=== PATIENT | female | born 1960 | race Caucasian/White ===

== ENCOUNTER 2017-12-15 06:43 | Emergency (ER) | payer MEDICAID, SELFPAY ==
[2017-12-15 06:45] VITALS: BP 122/69; PULSE 66; RESP 16; TEMP 36.4; O2SAT 100; BMI 20.9
--- NOTE | 2017-12-15 07:16 | ED.VISSUMM ---
- ER Visit Summary Date of Service: 12/15/17 Chief Complaint: Patient feels like there was a triscuit stuck in her throat. She now feels her throat scratchy but is able to drink water. She does note abdominal pain, no shortness of breath. Physical Examination: Patient does not appear in distress she speaking in full sentences. Lungs are clear abdomen is soft and nontender heart is regular. ENT evaluation is unremarkable with normal soft palate. Emergency Department Course and Treatment: I asked the patient to drink a glass of water she was able to drink it without any problems or regurgitation. Still feels slightly nauseated I will give her Zofran. I reassured her she will be discharged in stable condition Disposition: Discharge stable condition Impression: Esophageal foreign body This note was generated with [employer] dictation software. It may contain incorrect words, spelling, and punctuation that were not noted in review of the chart prior to signing ED Disposition - Plan for ED Patient: Disposition: Home or Assisted Living Chief Complaint: Foreign Body Instructions: ED Foreign Body Esophageal Rslv Prescriptions: Ondansetron [Zofran Odt] 4 mg PO Q8H PRN PRN #5 tab PRN Reason: Nausea Referrals: Rody Gaston DO [Primary Care Provider] - 3-5 Days
[2017-12-15] MEDS: Ondansetron ODT 4 MG Tablet PO (07:39)
== END 2017-12-15 08:32 | disposition home or self-care (01) ==
PROVIDERS: Emergency Provider Emergency Medicine; Family Provider Family Medicine; PCP Family Medicine
DX: T18.128A Food in esophagus causing other injury, initial encounter (principal)
CPT/HCPCS: 99283

== ENCOUNTER 2018-01-17 02:57 | Emergency (ER) | payer MEDICAID, SELFPAY ==
[2018-01-17 02:57] VITALS: BP 135/77; PULSE 60; RESP 14; TEMP 36.3; O2SAT 100; BMI 20.9
--- NOTE | 2018-01-17 03:04 | RAD_ITS ---
HISTORY: PT WITH ABDOMINAL PAIN, AND CONSTIPATION X A COUPLE DAYS. EXAM: KUB COMPARISON: None FINDINGS: XR Abdomen 1 View: Single supine view of the abdomen. The upper abdomen is not visualized. Moderate to large fecal residue. The small bowel was nondistended. No bowel obstruction. Significant obscuration of the left kidney by overlying bowel. Allowing for this, possible 3 mm left renal stone. No right renal calculi. Multiple pelvic phleboliths. No soft tissue mass or organomegaly. RAD/Abdomen Single View IMPRESSION: 1. Possible small left renal stone. 2. Nonobstructive bowel gas pattern. No acute disease seen. 3. Constipation pattern. at 2343 Reported and signed by: Burt Herrera MD Electronically Signed: Burt Herrera, at 3:41 EST Tel , Service support ,
--- NOTE | 2018-01-17 03:52 | ED.DCSUM_ITS ---
- ER Visit Summary Date of Service: 01/17/18 Chief Complaint: Constipation History of Present Illness: The patient is a 57 F presenting per EMS for constipation. She has not had a bowel movement since Monday. She complains of mild diffuse abdominal cramping. She tried Dulcolax at home with no relief. Sh e denies vomiting. Denies fever. Denies other complaints. Physical Examination: Vitals are stable. Patient is afebrile. Alert no acute distress. HEENT exam is unremarkable. Neck is supple. Lungs are clear and equal bilaterally. Heart is regular rate and rhythm. Abdomen is soft nontender nondistended. No rebound or rebound Rectal: No stool impaction Extremities are unremarkable. Skin is warm and dry. Remainder of exam is unremarkable. Emergency Department Course and Treatment: KUB shows possible small left renal stone. Nonobstructive bowel gas pattern. No acute disease seen. Constipation pattern. She was given a soapsuds enema. She initially had a very small bowel movement. Plan was to discharge with mag citrate. Just prior to discharge she had a large bowel movement and feels much improved. She will follow-up with her primary care physician. Advised return to ED for worsening complaints. Disposition: Discharge home Impression: Constipation This note was generated with [employer] dictation software. It may contain incorrect words, spelling, and punctuation that were not noted in review of the chart prior to signing ED Disposition - Plan for ED Patient: Disposition: Home or Assisted Living Chief Complaint: Constipation Instructions: ED Constipation Prescriptions: Docusate Sodium [Colace] 100 mg PO DAILY #20 capsule Referrals: Rody Gaston DO [Primary Care Provider] -
--- NOTE | 2018-01-17 04:23 | ED.DEP ---
ED Disposition - Plan for ED Patient: Chief Complaint: Constipation Instructions: ED Constipation Prescriptions: Docusate Sodium [Colace] 100 mg PO DAILY #20 capsule Referrals: Rody Gaston DO [Primary Care Provider] -
[2018-01-17] MEDS: Magnesium Citrate 300 ML PO (04:57)
[2018-01-17 05:02] VITALS: BP 130/76; PULSE 84; RESP 16; O2SAT 99
--- OUTSIDE RECORDS SUMMARY | 2018-03-05 01:05 | XMS RPT_ITS ---
:1960 Author Organization [facility] Care Team Providers Name Role Phone Rody Gaston Primary Care Unavailable Keara Damon Attending Unavailable Rody Gaston Primary Care Unavailable Mery Esquivel Attending Unavailable Rody Gaston Primary Care Unavailable Michael Be Attending Unavailable PROBLEMS PROBLEMS No Problem Records FoundPROCEDURES PROCEDURES No Procedure Records FoundRESULTS RESULTS EMERGENCY DEPARTMENT Observed: 01/17/2018 Status: F Source: [place] SUMMARY 5:10 PM [facility] [facility] [place] [facility] Medical Records Department [address] [place] [address] Emergency Department Summary 01/17/18 1424 MR#: [id number] Acct: [id number] Name: KEVON CUMMINGS Rep #: [id number] : 1960 57 From: Mery Esquivel MD PCP: Rody Gaston DO Status: DEP ER - ER Visit Summary Date of Service: 01/17/18 Chief Complaint: [] Diarrhea after enema this morning History of Present Illness: The patient is a 57 F [] the patient indicates she had constipation she was seen in the emergency department early this morning around 2 AM had an enema she felt better she went home, once home she passed some's type of reddish material from her rectum that looked like tomato paste or tissue, she then passed normal formed brown stool she became concerned and came in for evaluation. She has had no abdominal pain no chest pain normal urination. She has had prior colonoscopies are unremarkable, she indicates she believes she had the constipation due to the fact that she ate meat and she normally does not eat meat Physical Examination: [] 105/73 73 General, no distress resting comfortably HEENT is generally unremarkable The neck is supple no adenopathy Cardiovascular, regular rate and rhythm Lungs, clear bilateral Abdomen, soft nontender no pain in any part of her body soft and nontender Extremities, no clubbing cyanosis or edema Neurologic, awake alert answering questions appropriately moving all 4 extremities The patient brought a her last voided stool sample and with her the stool was brown and formed no blood Conversation with her I explained we could do testing etc. but given that her stool is brown and soft she is having no abdominal pain it is safe to have her follow-up with her doctor stay in a bland diet and return for change in symptoms and she is comfortable this plan her labs are canceled as she declined Test Results: [] Emergency Department Course and Treatment: [] Treatment Plan: [] Disposition: [] Home stable Impression: [] Diarrhea after enema resolved This note was generated with [employer] dictation software. It may contain incorrect words, spelling, and punctuation that were not noted in review of the chart prior to signing ED Disposition - Plan for ED Patient: Chief Complaint: Diarrhea Referrals: Rody Gaston, [Primary Care Provider] - What to do if you have Problems For any increased pain, shortness of breath, bleeding, nausea or vomiting, chest pain, or any unexpected problems, contact your Primary Care Provider. Call [facility] ([phone]) or report to the closest Emergency Room. Call 911 if necessary. 01/17/18 1710 <Electronically signed by Mery Esquivel MD> Date Mery Esquivel MD Cosigner Signature (If Indicated): Date CC: Rody Gaston DO DISCHARGE INSTRUCTION Observed: 01/17/2018 Status: F Source: [place] 2:27 PM [facility] Medical Records Department [address] [place] [address] Discharge Instruction 01/17/18 1426 MR#: [id number] Acct: [id number] Name: KEVON CUMMINGS Rep #: [id number] : 1960 57 From: Mery Esquivel MD PCP: Rody Gaston DO Status: PRE ER ED Disposition - Plan for ED Patient: Chief Complaint: Diarrhea Instructions: ED Gastroenteritis Vs Food Poison, ED Vomiting Diarrhea Nonspecific Ad Referrals: Rody Gaston, [Primary Care Provider] - What to do if you have Problems For any increased pain, shortness of breath, bleeding, nausea or vomiting, chest pain, or any unexpected problems, contact your Primary Care Provider. Call [facility] ([phone]) or report to the closest Emergency Room. Call 911 if necessary. 01/17/18 142 <Electronically signed by Mery Esquivel MD> Date Mery Esquivel MD Cosigner Signature (If Indicated): Date CC: Rody Gaston DO EMERGENCY DEPARTMENT Observed: 01/17/2018 Status: F Source: [place] SUMMARY 8:17 AM [facility] Medical Records Department [address] [place] [address] Emergency Department Summary 01/17/18 0350 MR#: [id number] Acct: [id number] Name: KEVON CUMMINGS Rep #: [id number] : 1960 57 From: Keara Damon MD PCP: Rody Gaston DO Status: DEP ER - ER Visit Summary Date of Service: 01/17/18 Chief Complaint: Constipation History of Present Illness: The patient is a 57 F presenting per EMS for constipation. She has not had a bowel movement since Monday. She complains of mild diffuse abdominal cramping. She tried Dulcolax at home with no relief. She denies vomiting. Denies fever. Denies other complaints. Physical Examination: Vitals are stable. Patient is afebrile. Alert no acute distress. HEENT exam is unremarkable. Neck is supple. Lungs are clear and equal bilaterally. Heart is regular rate and rhythm. Abdomen is soft nontender nondistended. No rebound or rebound Rectal: No stool impaction Extremities are unremarkable. Skin is warm and dry. Remainder of exam is unremarkable. Emergency Department Course and Treatment: KUB shows possible small left renal stone. Nonobstructive bowel gas pattern. No acute disease seen. Constipation pattern. She was given a soapsuds enema. She initially had a very small bowel movement. Plan was to discharge with mag citrate. Just prior to discharge she had a large bowel movement and feels much improved. She will follow-up with her primary care physician. Advised return to ED for worsening complaints. Disposition: Discharge home Impression: Constipation This note was generated with [employer] dictation software. It may contain incorrect words, spelling, and punctuation that were not noted in review of the chart prior to signing ED Disposition - Plan for ED Patient: Disposition: Home or Assisted Living Chief Complaint: Constipation Instructions: ED Constipation Prescriptions: Docusate Sodium [Colace] 100 mg PO DAILY #20 capsule Referrals: Rody Gaston, DO [Primary Care Provider] - What to do if you have Problems For any increased pain, shortness of breath, bleeding, nausea or vomiting, chest pain, or any unexpected problems, contact your Primary Care Provider. Call [facility] ([phone]) or report to the closest Emergency Room. Call 911 if necessary. 01/17/18 0817 <Electronically signed by Keara Damon MD> Date Keara Damon MD Cosigner Signature (If Indicated): Date CC: Rody Gaston DO DISCHARGE INSTRUCTION Observed: 01/17/2018 Status: F Source: [place] 4:23 AM [facility] [place] Medical Records Department [address] [place] [address] Discharge Instruction 01/17/18422 MR#: [id number] Acct: [id number] Name: KEVON CUMMINGS Rep #: [id number] : 1960 57 From: Keara Damon MD PCP: Rody Gaston DO Status: REG ER ED Disposition - Plan for ED Patient: Chief Complaint: Constipation Instructions: ED Constipation Prescriptions: Docusate Sodium [Colace] 100 mg PO DAILY #20 capsule Referrals: Rody Gaston DO [Primary Care Provider] - What to do if you have Problems For any increased pain, shortness of breath, bleeding, nausea or vomiting, chest pain, or any unexpected problems, contact your Primary Care Provider. Call [facility] ([phone]) or report to the closest Emergency Room. Call 911 if necessary. 01/17/18422 <Electronically signed by Keara Damon MD> Date Keara Damon MD Cosigner Signature (If Indicated): Date CC: Rody Gaston DO ABDOMEN SINGLE VIEW Observed: 01/17/2018 Status: F Source: [place] 3:04 AM [facility] [place] [facility] Imaging Services [address] [place] [address] Abdomen Single View MR#: [id number] Acct: [id number] Name: KEVON CUMMINGS Rep #: [id number] : 1960 F 57 From: Burt Herrera MD PCP: Rody Gaston DO Status: REG ER Study: Abdomen Single View Date of Exam: 01/17/18 Exam# [id number] Ordering Dr: Keara Damon MD HISTORY: PT WITH ABDOMINAL PAIN, AND CONSTIPATION X A COUPLE DAYS. EXAM: KUB COMPARISON: None FINDINGS: XR Abdomen 1 View: Single supine view of the abdomen. The upper abdomen is not visualized. Moderate to large fecal residue. The small bowel was nondistended. No bowel obstruction. Significant obscuration of the left kidney by overlying bowel. Allowing for this, possible 3 mm left renal stone. No right renal calculi. Multiple pelvic phleboliths. No soft tissue mass or organomegaly. RAD/Abdomen Single View IMPRESSION: 1. Possible small left renal stone. 2. Nonobstructive bowel gas pattern. No acute disease seen. 3. Constipation pattern. at 0343 Reported and signed by: Burt Herrera MD Electronically Signed: Burt Herrera, at 3:41 EST Tel , Service support , CC: Keara Damon MD; Rody Gaston DO [employer] Chaser: Signed EMERGENCY DEPARTMENT Observed: 12/15/2017 Status: F Source: [place] SUMMARY 7:21 AM [facility] [place] [facility] Medical Records Department [address] [place] [address] Emergency Department Summary 12/15/17 0716 MR#: [id number] Acct: [id number] Name: KEVON CUMMINGS Rep #: [id number] : 1960 57 From: Michael Be MD PCP: Rody Gaston DO Status: REG ER - ER Visit Summary Date of Service: 12/15/17 Chief Complaint: Patient feels like there was a triscuit stuck in her throat. She now feels her throat scratchy but is able to drink water. She does note abdominal pain, no shortness of breath. Physical Examination: Patient does not appear in distress she speaking in full sentences. Lungs are clear abdomen is soft and nontender heart is regular. ENT evaluation is unremarkable with normal soft palate. Emergency Department Course and Treatment: I asked the patient to drink a glass of water she was able to drink it without any problems or regurgitation. Still feels slightly nauseated I will give her Zofran. I reassured her she will be discharged in stable condition Disposition: Discharge stable condition Impression: Esophageal foreign body This note was generated with [employer] software. It may contain incorrect words, spelling, and punctuation that were not noted in review of the chart prior to signing ED Disposition - Plan for ED Patient: Disposition: Home or Assisted Living Chief Complaint: Foreign Body Instructions: ED Foreign Body Esophageal Rslv Prescriptions: Ondansetron [Zofran Odt] 4 mg PO Q8H PRN PRN #5 tab PRN Reason: Nausea Referrals: Rody Gaston, [Primary Care Provider] - 3-5 Days What to do if you have Problems For any increased pain, shortness of breath, bleeding, nausea or vomiting, chest pain, or any unexpected problems, contact your Primary Care Provider. Call [facility] ([phone]) or report to the closest Emergency Room. Call 911 if necessary. 12/15/17 07 <Electronically signed by Michael Be MD> Date Michael Be MD Cosigner Signature (If Indicated): Date CC: Rody Gaston DO ALLERGIES ALLERGIES DATE TYPE / NAME / CODE REACTION SEVERITY SOURCE CODE 01/17/2018 Drug nitrofurantoin Unknown Unknown [place] Allergy/41 macrocrystalline/F00 [facility] [id number]( [id number](RXNORM) [facility]) Repository 01/17/2018 Drug Penicillins/[id number] Rash Unknown [place] Allergy/41 76(RXNORM) Community [id number]([facility]) Repository 01/17/2018 Drug codeine/[id number](R Hives Unknown [place] Allergy/41 XNORM) Community [id number]([facility]) Repository 01/17/2018 Drug nitrofurantoin/F0060 Unknown Unknown [place] Allergy/41 37584(RXNORM) [facility] [id number]([facility]) Repository ENCOUNTERS ENCOUNTERS ADMIT/DISCHARGE ACCOUNT ADMITTING ENCOUNTER LOCATION SOURCE NUMBER CLASS 01/17/2018/ [id number] Emergency [place] ing:ED Repository 01/17/2018/ [id number] Emergency [address] ing:ED Repository 12/15/2017/ [id number] Emergency [address] ing:ED Repository PAYERS PAYERS ENCOUNTER GUARANTOR PAYER SUBSCRIBER SOURCE 01/17/2018 MESHI M Primary MESHI M [place] [id number] Insurance:[employer] FISHERDOB: Community [address] PLNPolicy Number: Repository [id number]: 330 [id number] [phone] () Date:[id number] [address]ML: 01/17/2018 Secondary NOT GIVENUNK [place] Insurance:SELF PAY [facility] Number: Effective Repository Date:2018-01-17 01/17/2018 MESHI M Primary MESHI M [place] [id number] Insurance:[employer]HE[place] FISHERDOB: Community [address] PLNPolicy Number: Repository [id number]: 330 [id number] [phone] () Date:[id number] [address] [address]XO: 01/17/2018 Secondary NOT GIVENUNK [place] Insurance:SELF PAY [facility] Number: Effective Repository Date:2018-01-17 12/15/2017 MESHI M Primary MESHI M [place] [id number] Insurance:UNITEDHEALT FISHERDOB: Community [address] PLNPolicy Number: Repository [id number]: 330 [id number] [phone] () Date:[id number] [address] [address]TK: 12/15/2017 Secondary NOT GIVENUNK [place] Insurance:SELF PAY [facility] Number: Effective Repository Date:2017-12-15
== END 2018-01-17 05:03 | disposition home or self-care (01) ==
LOC: ED 03:28
PROVIDERS: Emergency Provider Emergency Medicine; Family Provider Family Medicine; PCP Family Medicine
DX: K59.00 Constipation, unspecified (principal); R19.7 Diarrhea, unspecified
CPT/HCPCS: 74018; 99282; 99285

== ENCOUNTER 2018-01-17 13:58 | Emergency (ER) | payer MEDICAID, SELFPAY ==
[2018-01-17 02:57] VITALS: BMI 20.9
[2018-01-17 13:59] VITALS: BP 105/73; PULSE 73; RESP 16; TEMP 36.3; O2SAT 99; BMI 20.9
--- NOTE | 2018-01-17 14:26 | ED.DCSUM_ITS ---
- ER Visit Summary Date of Service: 01/17/18 Chief Complaint: [] Diarrhea after enema this morning History of Present Illness: The patient is a 57 F [] the patient indicates she had constipation she was seen in the emergency department early this morning around 2 AM had an enema she felt better she went home, once home she passed some's type of reddish material from her rectum that looked like tomato paste or tissue, she then passed normal formed brown stool she became concerned and came in for evaluation. She has had no abdominal pain no chest pain normal urination. She has had prior colonoscopies are unremarkable, she indicates she believes she had the constipation due to the fact that she ate meat and she normally does not eat meat Physical Examination: [] 105/73 73 General, no distress resting comfortably HEENT is generally unremarkable The neck is supple no adenopathy Cardiovascular, regular rate and rhythm Lungs, clear bilateral Abdomen, soft nontender no pain in any part of her body soft and nontender Extremities, no clubbing cyanosis or edema Neurologic, awake alert answering questions appropriately moving all 4 extremities The patient brought a her last voided stool sample and with her the stool was brown and formed no blood Conversation with her I explained we could do testing etc. but given that her stool is brown and soft she is having no abdominal pain it is safe to have her follow-up with her doctor stay in a bland diet and return for change in symptoms and she is comfortable this plan her labs are canceled as she declined Test Results: [] Emergency Department Course and Treatment: [] Treatment Plan: [] Disposition: [] Home stable Impression: [] Diarrhea after enema resolved This note was generated with [employer] dictation software. It may contain incorrect words, spelling, and punctuation that were not noted in review of the chart prior to signing ED Disposition - Plan for ED Patient: Chief Complaint: Diarrhea Referrals: Rody Gaston DO [Primary Care Provider] -
--- NOTE | 2018-01-17 14:26 | ED.DEP ---
ED Disposition - Plan for ED Patient: Chief Complaint: Diarrhea Instructions: ED Gastroenteritis Vs Food Poison, ED Vomiting Diarrhea Nonspecific Ad Referrals: Rody Gaston DO [Primary Care Provider] -
[2018-01-17 15:01] VITALS: PULSE 75; RESP 16; O2SAT 97
--- NOTE | 2018-01-17 15:04 | ED.RN ---
orders placed by dr prior to eval. after eval informed me that the orders are no appropriate. per dr orders are to be cancelled. informed me that he would cancel them. I cancelled them prior to d/c. azam vergara rn 1500
--- OUTSIDE RECORDS SUMMARY | 2018-03-05 19:45 | XMS RPT_ITS ---
:1960 Author Organization OH[facility] Care Team Providers Name Role Phone Rody Gaston Primary Care Unavailable Keara Damon Attending Unavailable Rody Gaston Primary Care Unavailable Mery Esquivel Attending Unavailable Rody Gaston Primary Care Unavailable Michael Be Attending Unavailable PROBLEMS PROBLEMS No Problem Records FoundPROCEDURES PROCEDURES No Procedure Records FoundRESULTS RESULTS EMERGENCY DEPARTMENT Observed: 01/17/2018 Status: F Source: [place] SUMMARY 5:10 PM [facility] REPOSITORY [facility] Medical Records Department [address] [place] [address] Emergency Department Summary 01/17/18 1424 MR#: [id number] Acct: [id number] Name: KEVON CUMMINGS Rep #: [id number] : 1960 57 From: Mery Esquivel MD [...] enema resolved This note was generated with Carnival dictation software. It may contain incorrect words, [...] your Primary Care Provider. Call [facility] ([phone]) or report to the closest Emergency Room. Call 911 if necessary. 01/17/18 1710 <Electronically signed by Mery Esquivel MD> Date Mery Esquivel MD Cosigner Signature (If Indicated): Date CC: Rody aGston DO DISCHARGE INSTRUCTION Observed: 01/17/2018 Status: F Source: [place] 2:27 PM [facility] Medical Records Department [address] [place] [address] Discharge Instruction 01/17/18 1426 MR#: [id number] Acct: [id number] Name: KEVON CUMMINGS Rep #: [id number] : 1960 57 From: Mery Esquivel MD [...] your Primary Care Provider. Call [facility] ([phone]) or report to the closest Emergency Room. Call 911 if necessary. 01/17/18 142 <Electronically signed by Mery Esquivel MD> Date Mery Esquivel MD Cosigner Signature (If Indicated): Date CC: Rody Gaston DO EMERGENCY DEPARTMENT Observed: 01/17/2018 Status: F Source: [place] SUMMARY 8:17 AM [facility] Medical Records Department [address] [place] [address] Emergency Department Summary 01/17/18 0350 MR#: [id number] Acct: [id number] Name: KEVON CUMMINGS Rep #: [id number] : 1960 57 From: Keara Damon MD [...] Impression: Constipation This note was generated with Carnival dictation software. It may contain incorrect words, [...] your Primary Care Provider. Call [facility] ([phone]) or report to the closest Emergency Room. Call 911 if necessary. 01/17/18 0817 <Electronically signed by Keara Damon MD> Date Keara Damon MD Cosigner Signature (If Indicated): Date CC: Rody Gaston DO DISCHARGE INSTRUCTION Observed: 01/17/2018 Status: F Source: [place] 4:23 AM [facility] REPOSITORY [facility] Medical Records Department [address] [place] [address] Discharge Instruction 01/17/18422 MR#: [id number] Acct: [id number] Name: KEVON CUMMINGS Rep #: [id number] : 1960 57 From: Keara Damon MD [...] your Primary Care Provider. Call [facility] ([phone]) or report to the closest Emergency Room. Call 911 if necessary. 01/17/18422 <Electronically signed by Keara Damon MD> Date Keara Damon MD Cosigner Signature (If Indicated): Date CC: Rody Gaston DO ABDOMEN SINGLE VIEW Observed: 01/17/2018 Status: F Source: [place] 3:04 AM [facility] REPOSITORY [facility] Imaging Services [address] [place] [address] Abdomen Single View MR#: [id number] Acct: [id number] Name: KEVON CUMMINGS Rep #: [id number] : 1960 F 57 From: Burt Herrera MD PCP: Rody Gaston DO Status: REG ER Study: Abdomen Single View Date of Exam: 01/17/18 Exam# [id number] Ordering Dr: Keara Damon MD HISTORY: PT [...] CC: Keara Damon MD; Rody Gaston DO Radiation Oncologist: Signed EMERGENCY DEPARTMENT Observed: 12/15/2017 Status: F Source: [place] SUMMARY 7:21 AM [facility] REPOSITORY [facility] Medical Records Department [address] [place] [address] Emergency Department Summary 12/15/17 0716 MR#: [id number] Acct: [id number] Name: KEVON CUMMINGS Rep #: [id number] : 1960 57 From: Michael Be MD [...] foreign body This note was generated with Quorum Systemsation software. It may contain incorrect words, spelling, [...] your Primary Care Provider. Call [facility] ([phone]) or report to the closest Emergency Room. Call 911 if necessary. 12/15/17 07 <Electronically signed by Michael Be MD> Date Michael Be MD Cosigner Signature (If Indicated): Date CC: Rody Gaston DO ALLERGIES ALLERGIES DATE TYPE / NAME / CODE REACTION SEVERITY SOURCE CODE 01/17/2018 Drug nitrofurantoin Unknown Unknown [place] Allergy/41 macrocrystalline/F00 [facility] [id number]( [id number](RXNORM) [facility]) Repository 01/17/2018 Drug Penicillins/[id number] Rash Unknown [place] Allergy/41 76(RXNORM) Community [id number]([facility]) Repository 01/17/2018 Drug codeine/[id number](R Hives Unknown [place] Allergy/41 XNORM) Community [id number]([facility]) Repository 01/17/2018 Drug nitrofurantoin/F0060 Unknown Unknown [place] Allergy/41 32530(RXNORM) [facility] [id number]([facility]) Repository ENCOUNTERS ENCOUNTERS ADMIT/DISCHARGE ACCOUNT ADMITTING ENCOUNTER LOCATION SOURCE NUMBER CLASS 01/17/2018/ [id number] Emergency [place] ing:ED Repository 01/17/2018/ [id number] Emergency [address] ing:ED Repository 12/15/2017/ [id number] Emergency [address] ing:ED Repository PAYERS PAYERS ENCOUNTER GUARANTOR PAYER SUBSCRIBER SOURCE 01/17/2018 MESHI M Primary MESHI M [place] [id number] Insurance:UNITEDHEALT FISHERDOB: Community [address] PLNPolicy Number: Repository [id number]: 330 [id number] [phone] () Date:[id number] [address]VW: 01/17/2018 Secondary NOT GIVENUNK [place] Insurance:SELF PAY [facility] Number: Effective Repository Date:2018-01-17 01/17/2018 MESHI M Primary MESHI M [place] [id number] Insurance:UNITEDHEALT FISHERDOB: Community [address] PLNPolicy Number: Repository [id number]: 330 [id number] [phone] () Date:[id number] [address] [address]YY: 01/17/2018 Secondary NOT GIVENUNK [place] Insurance:SELF PAY [facility] Number: Effective Repository Date:2018-01-17 12/15/2017 MESHI M Primary MESHI M [place] [id number] Insurance:UNITEDHEALT FISHERDOB: Community [address] PLNPolicy Number: Repository [id number]: 330 [id number] [phone] () Date:[id number] [address] [address]VP: 12/15/2017 Secondary NOT GIVENUNK [place] Insurance:SELF PAY [facility] Number: Effective Repository Date:2017-12-15
== END 2018-01-17 15:03 | disposition home or self-care (01) ==
LOC: ED 14:41
PROVIDERS: Emergency Provider Emergency Medicine; Family Provider Family Medicine; PCP Family Medicine
DX: R19.7 Diarrhea, unspecified (principal)
CPT/HCPCS: 99282

== ENCOUNTER 2018-06-21 23:54 | Emergency (ER) | payer MEDICAID, SELFPAY ==
[2018-06-21 23:55] VITALS: BP 115/73; PULSE 74; RESP 16; TEMP 36.6; O2SAT 99; BMI 20.9
--- NOTE | 2018-06-22 00:22 | CT_ITS ---
HISTORY: INTERMITTENT SHARP/STABBING PAIN RT SIDE OF HEADHX:SKIN CANCER,MIGRAINES EXAMINATION: CTA Head WO/W Contrast TECHNIQUE: Routine wrangell of Hernandez/brain CT angiogram protocol was performed following IV contrast. 3D reconstructions were reviewed. A radiation dose optimization technique was used for this scan. IV Contrast dosage and agent: 100ML Isovue 370 COMPARISON: Noncontrast cranial CT 08/23/2016 FINDINGS: Cranial CT scanning without and with contrast. Initial noncontrast exam appears stable compared to 2017 exam. Normal ventricles and normal hickman-white matter differentiation. No intracranial mass, hemorrhage, or acute, no abnormality. Posterior fossa structures are unremarkable. No suspicious extra-axial fluid collection. As visualized, the mastoids and paranasal sinuses are clear. CTA exam: Normal patency of the vertebrobasilar system. The left vertebral artery is dominant. The right vertebral shows developmental change with a small caliber V3 segment and atretic V4 segment. The left posterior cerebral artery originates from the basilar artery. On the right, circulation and the right posterior cerebral artery fills via the anterior circulation. Normal contrast opacification and filling of the anterior, middle, and posterior cerebral arteries bilaterally. No intracranial aneurysm, suspicious vessel narrowing, or vascular malformation. CT/CTA Head W/WO Contrast IMPRESSION: 1. Normal CT brain without and with contrast. 2. Normal CTA brain and wrangell of Hernandez. No aneurysm or other significant findings. Individualized dose optimization techniques were used for this CT. at 0120 Reported and signed by: Burt Herrera MD Electronically Signed: Burt Herrera, at 1:18 EDT Tel , Service support ,
--- NOTE | 2018-06-22 00:22 | RAD_ITS ---
HISTORY: Cough EXAM:XR Chest 2 Views COMPARISON: 01/14/2017 and 04/30/2016 FINDINGS: No significant change. Normal heart size. Bilateral hyperinflation/COPD. Stable biapical mild pleural thickening. No vascular congestion, pleural effusion, or acute pulmonary infiltration. No pneumothorax. Mild pectus excavatum deformity. RAD/Chest PA and Lateral IMPRESSION: 1. No acute disease or significant change. 2. COPD. 3. Pectus deformity. at 0124 Reported and signed by: Burt Herrera MD Electronically Signed: Burt Herrera, at 1:23 EDT Tel , Service support ,
--- NOTE | 2018-06-22 00:22 | EKG12_ITS ---
Test Reason : NECK/SHOULDER PAIN Blood Pressure : / mmHG Vent. Rate : 059 BPM Atrial Rate : 059 BPM P-R Int : 140 ms QRS Dur : 092 ms QT Int : 444 ms P-R-T Axes : 033 056 062 degrees QTc Int : 439 ms Sinus bradycardia Otherwise normal ECG Confirmed by KIRA GRAJEDA, REYNALDO ([id number]), scientific publications editor GUS REEVES ([id number]) on 06/25/2018 4:24:11 PM Referred By: KAROL Confirmed By:REYNALDO MALONE MD
--- NOTE | 2018-06-22 00:23 | ED.VISSUMM ---
- ER Visit Summary Date of Service: 06/22/18 Chief Complaint: Headache History of Present Illness: The patient is a 57 F who presents with head pain. This is been occurring over the last 12 hours. She has intermittent episodes of shooting stabbing pain in the right parietal region that can last a minute or less. She is also had some pain along her right neck as well as tingling in her right third and fourth digits. No nausea vomiting light sensitivity visual changes. She had some chest pain yesterday which has since resolved. No shortness of breath. No fevers. No history of prior similar symptoms. Physical Examination: Afebrile vitals normal Patient does have some right paraspinal neck tenderness no midline tenderness Pupils are equally round reactive to light Heart regular rate and rhythm Lungs clear Abdomen soft Test Results: CBC BMP unremarkable. Troponin negative. EKG shows sinus bradycardia at a rate of 59. CT the head is normal. CT of the head is normal. Chest x-ray is normal. Emergency Department Course and Treatment: Patient's work-up as above is unremarkable. Her scalp pain sounds like it could be related to a neuralgia however this would not explain her other symptoms. Her tingling in her fingers and neck pain could potentially be related to cervical radiculopathy. Her chest pain does not appear to be due to any serious life-threatening process. Patient advised to follow-up as an outpatient. I do not believe any further emergent intervention or work-up is necessary at this time. Treatment Plan: [] Disposition: Discharge Impression: Headache Paresthesias Chest pain This note was generated with Loladex dictation software. It may contain incorrect words, spelling, and punctuation that were not noted in review of the chart prior to signing ED Disposition - Plan for ED Patient: Referrals: Rody Gaston DO [Primary Care Provider] -
[2018-06-22 00:44] LABS: Absolute Lymphocyte Count 1.22 X10^3/ul (0.83-4.51); Absolute Neutrophil Count 1.9 X10^3/uL (2.0-7.7); Basophil# 0.01 X10^3/uL; Basophil% 0.3 % (0-1); Eosinophil# 0.14 X10^3/uL; Eosinophils% 3.9 % (0-5); Hematocrit 42.9 % (37-47); Hemoglobin 14.2 g/dl (12.0-15.0); Lymphocyte # 1.22 X10^3/ul (4.0); Lymphocyte % 34.3 % (19-41); Mean Corp Hgb Conc 33.1 g/gl (32-36); Mean Corpuscular Hgb 32.5 pg (27.0-32.0); Mean Corpuscular Volume 98.2 fL (81-99); Mean Platelet Vol. 9.4 fl (6.2-12.0); Monocyte# 0.32 X10^3/uL; Neutrophil # 1.87 X10^3/uL (2.7-7.7); Neutrophil % 52.5 % (47-70); Platelet Count 216 K/mm3 (150-450); RBC Distribution Width CV 12.2 % (11.6-14.6); RBC Distribution Width SD 43.2 fl (35.1-43.9); Red Blood Count 4.37 M/mm3 (4.2-5.4); White Blood Count 3.6 K/mm3 (4.4-11.0)
[2018-06-22 00:47] LABS: POSITIVE COUNT NO; POSITIVE DIFFERENTIAL NO; POSITIVE MORPHOLOGY NO
[2018-06-22 01:16] LABS: Anion Gap 8 (5-15); BUN 12 mg/dL (7-18); BUN/Creat Ratio 14.5 RATIO (10-20); Calcium,Total 9.1 mg/dL (8.5-10.1); Chloride 103 mmol/L (98-107); Creatinine, Serum 0.83 mg/dL (0.55-1.02); EST Glomerular Filtration Rate 76 mL/min (>60); Est Glom Filt Rate - Afr Amer 92 mL/min (>60); Estimated Creatinine Clearance 71.29 ml/min; Glucose 87 mg/dL (74-106); Potassium 3.6 mmol/L (3.5-5.1); Sodium Level 139 mmol/L (136-145)
--- NOTE | 2018-06-22 01:42 | ED.DEP ---
ED Disposition - Plan for ED Patient: Instructions: ED Cephalgia Unspecified, ED Paraesthesias Referrals: Rody Gaston DO [Primary Care Provider] -
[2018-06-22 01:57] VITALS: RESP 14
== END 2018-06-22 01:58 | disposition home or self-care (01) ==
LOC: ED 06-22 00:17
PROVIDERS: Emergency Provider Emergency Medicine; Family Provider Family Medicine; PCP Family Medicine
DX: R51 Headache (principal); R07.9 Chest pain, unspecified; R20.2 Paresthesia of skin
CPT/HCPCS: 70496; 71046; 80048; 84484; 85025; 93005; 99282; Q9967; A4216

== ENCOUNTER 2018-07-13 10:39 | Emergency (ER) | payer MEDICAID, SELFPAY ==
[2018-07-13 10:40] VITALS: BP 114/64; PULSE 64; RESP 15; TEMP 36.6; O2SAT 100; BMI 21.8
--- NOTE | 2018-07-13 10:52 | EKG12_ITS ---
Test Reason : PALPS Blood Pressure : / mmHG Vent. Rate : 061 BPM Atrial Rate : 061 BPM P-R Int : 134 ms QRS Dur : 086 ms QT Int : 424 ms P-R-T Axes : 024 049 065 degrees QTc Int : 426 ms Normal sinus rhythm Normal ECG Confirmed by KARINE GRAJEDA, YENNIFER ([id number]), editor magazine IRENE ADDISON ([id number]) on 07/17/2018 8:47:39 AM Referred By: DANNA Confirmed By:YENNIFER MILTON MD
[2018-07-13 11:37] LABS: Anion Gap 3 (5-15); BUN 9 mg/dL (7-18); BUN/Creat Ratio 10.5 RATIO (10-20); Calcium,Total 9.2 mg/dL (8.5-10.1); Chloride 106 mmol/L (98-107); Creatinine, Serum 0.85 mg/dL (0.55-1.02); EST Glomerular Filtration Rate 73 mL/min (>60); Est Glom Filt Rate - Afr Amer 89 mL/min (>60); Estimated Creatinine Clearance 69.18 ml/min; Glucose 93 mg/dL (74-106); Potassium 3.7 mmol/L (3.5-5.1); Sodium Level 138 mmol/L (136-145)
[2018-07-13 11:40] VITALS: BP 108/68; PULSE 61; RESP 12; O2SAT 100
--- NOTE | 2018-07-13 12:02 | ED.DCSUM_ITS ---
History of Present Illness Chief Complaint: Palpitations Informant: Patient Onset: Today Context: Sudden Onset Timing: Intermittent Quality: Fluttering Location: Chest Current Severity: - Maximum Severity: Moderate Worsened by: Nothing Relieved by: Nothing Associated Symptoms: No associated symptoms Narrative: Patient is a middle-aged woman with no sniffing past medical history presents with fluttering her chest that is intermittent since this morning. She did not check her pulse. She denied chest pain, shortness of breath or difficulty breathing. She denied leg pain, swelling or discoloration. She denies history of PE, DVT or any risk factors. She is presently on no medication. She has not been taking herbal supplements. She has no symptoms of hypo-or hyperthyroidism. Prior similar symptoms: No Recent Illness/Hospitalization: No - Past Medical History (1) Anxiety disorder Status: Chronic (2) Migraine headache with aura Status: Chronic Past Medical History - Allergies and Home Meds Allergies/Adverse Reactions: Allergies codeine Allergy (Verified 07/13/18 10:43) Hives nitrofurantoin [From Macrobid] Allergy (Verified 07/13/18 10:43) Unknown nitrofurantoin macrocrystalline [From Macrobid] Allergy (Verified 07/13/18 10:43) Unknown Penicillins Allergy (Verified 07/13/18 10:43) Rash Primary Care Physician: Rody Gaston DO [Primary Care Provider] - Prior records reviewed: Yes Surgical History: noncontributory, - - Cholecystectomy Lives: Alone Smoking Status: Never smoker Drugs: None - Family History Maternal Family History: Reports: Unknown Review of Systems General: Denies: Chills, Fever, Malaise, Sweats, Weight loss Eyes: Denies: Visual changes - bilaterally, Blurred Vision - bilaterally ENT: Denies: Bilateral ear pain, Rhinorrhea, Sore throat Cardiovascular: Reports: Palpitations. Denies: Chest pain, Heart racing, -, - Respiratory: Denies: Dyspnea, Cough, Dyspnea on exertion Gastrointestinal: Denies: Abdominal pain, Nausea, Vomiting, Diarrhea, Melena, Hematochezia Genitourinary: Denies: Dysuria, Hematuria, Frequency Musculoskeletal: Denies: Myalgias, Arthralgias, Neck pain, Back pain, Swelling, Extremity Pain, -, - Skin: Denies: Rash, Wounds Psych: Reports: Anxiety - Per history. Denies: Depression Endocrine: Denies: Polyuria, Polydipsia, Heat intolerance, Cold intolerance Hematologic: Denies: Easy bruising, Easy bleeding Allergy: Denies: Uticaria, Swelling of the mouth Physical Exam Vital Signs/Narrative: Vital Signs Temp Pulse Resp BP Pulse Ox 07/13/18 11:40 61 12 108/68 100 07/13/18 10:40 97.9 F 64 15 114/64 100 Inital Vital Signs reviewed: Yes General: Well nourished, Well developed, No Acute Distress Head: Normocephalic, Atraumatic Eyes: Perrl, EOMI. Negative for: Pale conjunctiva, Scleral icterus, - ENT: Moist mucous membranes, No rhinorrhea, TM's clear Neck: Supple, Nontender, No lymphadenopathy, No JVD Cardiovascular: Regular rate, Regular rhythm, No murmurs, Normal S1, Normal S2 Respiratory: No distress, CTA bilaterally, Chest nontender Abdomen: Soft, Nontender, Nondistended, Normal bowel sounds, No masses Rectal: Deferred Back: Nontender, Normal Inspection. Negative for: CVA tenderness Extremities: Nontender, No edema Skin: Normal color, No rash, No Trauma. Negative for: Cyanosis, Diaphoresis, J aundice Neurological: Alert Psychological: - - Flat affect with poverty of speech and slow psychomotor skills Diagnostic/Tx/Re-eval - EKG Initial EKG Interpretation: Sinus Rhythm - Ventricular rate 61. NM interval 134 ms, QRS duration 86 ms, QT 424 ms and axis is normal. The EKG is normal. - Medical Decision Making With complaint of palpitations this may represent PACs, atrial premature beats PAT. Will place on monitor to observe any dysrhythmia. EKG was obtained to determine if there is any findings suggestive of preexcitation syndrome i.e. WPW being long Ganong syndrome etc. Elect light panel was obtained to determine her potassium is low. Patient has been observed for 1.5 hours with no dysrhythmia noted on monitor. ED Disposition - Plan for ED Patient: Disposition: Home or Assisted Living Diagnosis: Palpitations with regular cardiac rhythm Instructions: ED Palpitations Referrals: Rody Gaston DO [Primary Care Provider] - 5-7 Days
[2018-07-13 12:12] VITALS: BP 109/74; PULSE 62; RESP 15; O2SAT 98
== END 2018-07-13 12:13 | disposition home or self-care (01) ==
PROVIDERS: Emergency Provider Emergency Medicine; Family Provider Family Medicine; PCP Family Medicine
DX: R00.2 Palpitations (principal)
CPT/HCPCS: 80048; 93005; 99284; A4216

== ENCOUNTER → 2018-07-25 | Outpatient (CLI) | payer MEDICAID, SELFPAY ==
[2018-07-13 10:40] VITALS: BMI 21.8
[2018-07-25 15:37] LABS: Absolute Lymphocyte Count 1.03 X10^3/ul (0.83-4.51); Absolute Neutrophil Count 1.3 X10^3/uL (2.0-7.7); Basophil# 0.02 X10^3/uL; Basophil% 0.8 % (0-1); Eosinophil# 0.14 X10^3/uL; Eosinophils% 5.3 % (0-5); Hematocrit 42.7 % (37-47); Hemoglobin 13.8 g/dl (12.0-15.0); Lymphocyte # 1.03 X10^3/ul (4.0); Lymphocyte % 38.9 % (19-41); Mean Corp Hgb Conc 32.3 g/gl (32-36); Mean Corpuscular Hgb 32.5 pg (27.0-32.0); Mean Corpuscular Volume 100.5 fL (81-99); Mean Platelet Vol. 10.4 fl (6.2-12.0); Monocyte# 0.17 X10^3/uL; Monocyte% 6.4 % (0-10); Neutrophil # 1.29 X10^3/uL (2.7-7.7); Neutrophil % 48.6 % (47-70); Platelet Count 239 K/mm3 (150-450); RBC Distribution Width CV 12.8 % (11.6-14.6); RBC Distribution Width SD 46.9 fl (35.1-43.9); Red Blood Count 4.25 M/mm3 (4.2-5.4); White Blood Count 2.7 K/mm3 (4.4-11.0)
[2018-07-25 15:38] LABS: POSITIVE COUNT NO; POSITIVE DIFFERENTIAL NO; POSITIVE MORPHOLOGY NO
[2018-07-25 15:53] LABS: AST(SGOT) 21 U/L (15-37); Alanine Aminotransfer ALT/SGPT 24 U/L (13-56); Albumin, Serum 3.7 g/dL (3.2-5.0); Alkaline Phosphatase 85 U/L (45-117); Anion Gap 8 (5-15); BUN 7 mg/dL (7-18); BUN/Creat Ratio 8.7 RATIO (10-20); Calcium,Total 8.9 mg/dL (8.5-10.1); Chloride 105 mmol/L (98-107); Cholesterol 177 mg/dL (200); EST Glomerular Filtration Rate 78 mL/min (>60); Est Glom Filt Rate - Afr Amer 95 mL/min (>60); Globulin 3.7 g/dL (2.2-4.2); Glucose 60 mg/dL (74-106); High Density Lipoprotein 85 mg/dL; Iron 88 ug/dL (50-170); Potassium 3.8 mmol/L (3.5-5.1); Protein, Total 7.4 g/dL (6.4-8.2); Sodium Level 140 mmol/L (136-145); T4 Free Direct 0.92 ng/dL (0.76-1.46); Thyroid Stim Hormone (TSH) 0.85 uIU/mL (0.358-3.74); Triglycerides 55 mg/dL; Very Low Density Lipoprotein 11 mg/dL (5-40)
[2018-07-25 15:54] LABS: Vitamin B12 467 pg/mL (211-911); Vitamin D,25 Hydroxy 27.9 ng/mL (29.95-100.01)
== END | disposition home or self-care (01) ==
LOC: BFHLAB 12:08
PROVIDERS: Family Provider Family Medicine; PCP Family Medicine; Visit Provider Family Medicine
DX: E55.9 Vitamin D deficiency, unspecified (principal); D64.9 Anemia, unspecified; E53.8 Deficiency of other specified B group vitamins; R53.83 Other fatigue; E78.5 Hyperlipidemia, unspecified; R23.8 Other skin changes
CPT/HCPCS: 36415; 80053; 80061; 82306; 82607; 83540; 84439; 84443; 85025

== ENCOUNTER → 2019-02-14 16:03 | Outpatient (CLI) | payer MEDICAID, SELFPAY ==
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
[2019-02-14 17:35] LABS: Absolute Lymphocyte Count 0.86 X10^3/uL (0.83-4.51); Absolute Neutrophil Count 3.2 X10^3/uL (2.0-7.7); Basophil# 0.02 X10^3/uL; Basophil% 0.4 % (0-1); Eosinophil# 0.24 X10^3/uL; Eosinophils% 5.1 % (0-5); Hematocrit 43.1 % (37-47); Hemoglobin 13.8 g/dL (12.0-15.0); Lymphocyte # 0.86 X10^3/ul (4.0); Lymphocyte % 18.3 % (19-41); Mean Corpuscular Hgb 32.2 pg (27.0-32.0); Mean Corpuscular Volume 100.7 fL (81-99); Mean Platelet Vol. 10.2 fl (6.2-12.0); Monocyte# 0.36 X10^3/uL; Monocyte% 7.7 % (0-10); NRBC Flagged by Analyzer 0 % (0-5); Neutrophil % 68.1 % (47-70); Platelet Count 258 K/mm3 (150-450); RBC Distribution Width CV 12.9 % (11.6-14.6); RBC Distribution Width SD 47.9 fl (35.1-43.9); Red Blood Count 4.28 M/mm3 (4.2-5.4); White Blood Count 4.7 K/mm3 (4.4-11.0)
[2019-02-14 17:55] LABS: Vitamin B12 1599 pg/mL (211-911); Vitamin D,25 Hydroxy 70.6 ng/mL (29.95-100.01)
== END ==
PROVIDERS: Family Provider Family Medicine; PCP Family Medicine; Referring Provider Family Medicine; Visit Provider Family Medicine
DX: D53.9 Nutritional anemia, unspecified (principal); E55.9 Vitamin D deficiency, unspecified; S20.219A Contusion of unspecified front wall of thorax, initial encounter
CPT/HCPCS: 36415; 71046; 82306; 82607; 85025

== ENCOUNTER 2020-03-10 14:16 | Emergency (ER) | payer MEDICAID, SELFPAY ==
[2020-03-10 14:17] VITALS: BP 123/82; PULSE 79; RESP 12; TEMP 36.5; O2SAT 100; BMI 23.0
--- NOTE | 2020-03-10 14:30 | EKG12_ITS ---
Test Reason : CP Blood Pressure : / mmHG Vent. Rate : 077 BPM Atrial Rate : 077 BPM P-R Int : 114 ms QRS Dur : 078 ms QT Int : 402 ms P-R-T Axes : 044 054 055 degrees QTc Int : 454 ms Normal sinus rhythm Nonspecific ST abnormality Abnormal ECG Confirmed by KIRA GRAJEDA, REYNALDO ([id number]), editor at large DEB CHAMPAGNE ([id number]) on 03/12/2020 9:47:00 AM Referred By: BOBBY Confirmed By:REYNALDO MALONE MD
--- NOTE | 2020-03-10 14:30 | RAD_ITS ---
STUDY: X-RAY CHEST REASON FOR EXAM: Female, 59 years old. Chest pain. TECHNIQUE: Frontal and lateral views of the chest. COMPARISON: None. FINDINGS: Moderate hyperexpansion likely representing COPD. There is no demonstrated pleural abnormality. Normal size heart. Normal mediastinum and elvin. Normal visualized pulmonary arteries. Normal visualized aortic arch and descending thoracic aorta. Normal visualized thoracic spine. Normal visualized ribs, clavicles, and shoulders. There is no demonstrated abnormality of the visualized soft tissue structures of the upper abdomen. RAD/Chest PA and Lateral IMPRESSION: Findings compatible with COPD. No acute finding. Electronically Signed: Isael Corey MD at 15:23 EST , Service support ,
--- NOTE | 2020-03-10 14:31 | RAD_ITS ---
STUDY: X-RAY - RIGHT FOOT CLINICAL: Female, 59 years old patient with distal 1st metatarsal and 2nd toe pain and swelling for several days TECHNIQUE: 3 view(s) of the foot. COMPARISON: None. FINDINGS: Normal talus, calcaneus, and tarsal bones. Normal visualized subtalar, talonavicular, calcaneocuboid, tarsal and tarsometatarsal articulations. Normal metatarsi. Normal metatarsophalangeal joint of the great toe. Normal tibial and fibular sesamoid bones. Normal interphalangeal joint of the great toe. Normal phalanges of the great toe. Normal second through fifth metatarsophalangeal joints. Normal interphalangeal joints and phalanges of the lesser toes. The soft tissue structures are unremarkable. There is no demonstrated fracture. RAD/Foot min 3 Views IMPRESSION: No radiographic evidence for acute fracture or dislocation. Electronically Signed: Giuliana Holbrook MD at 15:46 EST , Service support ,
--- NOTE | 2020-03-10 14:36 | ED.VIS.GEN ---
History of Present Illness Chief Complaint: Chest Pain Informant: Patient Onset: Days - 3 Narrative: Presents for evaluation of intermittent chest pain for the past 3 days. Left-sided however today lasted the longest. Start 9 AM at rest lasted 2 hours. Mild pain left upper back. No cough. Reports pain with palpation denies trauma. Denies radicular symptoms. Denies dyspnea nausea or diaphoresis. Denies tobacco. Denies high blood pressure high cholesterol or diabetes. However reports she is concerned that she is developing diabetes she reports she has been having right second toe discomfort for months however worse over the past few days. There is been no drainage. Her last meal was 7 PM denies any carbohydrate intake this morning. She does have a PCP that she follows yearly with testing. Denies any trauma to the right foot. No paresthesias. Mother with cardiac bypass in her 50s denies having an IL. Currently symptom-free. Prior similar symptoms: Yes Past Medical History - Allergies and Home Meds Allergies/Adverse Reactions: Allergies codeine Allergy (Verified 03/10/20 14:17) Hives nitrofurantoin [From Macrobid] Allergy (Verified 03/10/20 14:17) Unknown nitrofurantoin macrocrystalline [From Macrobid] Allergy (Verified 03/10/20 14:17) Unknown Penicillins Allergy (Verified 03/10/20 14:17) Rash Primary Care Physician: Rody Gaston DO [Primary Care Provider] - Past Medical History: - - Vitamin D deficiency Surgical History: noncontributory, - - Cholecystectomy Smoking Status: Never smoker - Family History Maternal Family History: Reports: Unknown Review of Systems General: Denies: Chills, Fever, Sweats Eyes: Denies: Visual changes - bilaterally, Diplopia ENT: Denies: Rhinorrhea, Sore throat Cardiovascular: Reports: Chest pain. Denies: Palpitations Respiratory: Denies: Dyspnea, Cough, Dyspnea on exertion Gastrointestinal: Denies: Abdominal pain, Nausea, Vomiting, Diarrhea, Melena, Hematochezia Genitourinary: Denies: Dysuria, Hematuria, Frequency Musculoskeletal: Reports: Arthralgias, Swelling. Denies: Back pain, Extremity Pain Skin: Denies: Rash, Wounds Neurological: Denies: Headache, Weakness, Numbness Physical Exam Vital Signs/Narrative: Vital Signs Temp Pulse Resp BP Pulse Ox 03/10/20 14:17 97.7 F L 79 12 123/82 H 100 Inital Vital Signs reviewed: Yes General: Well nourished, Well developed, No Acute Distress Head: Normocephalic, Atraumatic Eyes: Perrl, EOMI ENT: Moist mucous membranes, No rhinorrhea Neck: Supple, Nontender Cardiovascular: Regular rate, Regular rhythm, No murmurs Respiratory: No distress, CTA bilaterally, - - Responsible tenderness left upper chest wall with no crepitus. There is no rash. Symmetric breath sounds. Abdomen: Soft, Nontender, Nondistended, Normal bowel sounds Back: Nontender, Normal Inspection Extremities: No edema, - - Right foot: Second toe there was very minimal swelling distal dorsal aspect of the toe proximal to the nail bed, there is no drainage. There is no fluctuance. Mild tenderness plantar aspect distal first MT, there is no wounds or drainage. Skin: Normal color, No rash Neurological: Alert, Oriented x3, Cranial nerves II-XII grossly intact, Normal Strength, Normal Sensation Psychological: Normal affect, Normal Mood Diagnostic/Tx/Re-eval Chest X-Ray - ED: 1 View, Read by ED Physician, Read by Radiologist Clinical Impression(s) from Imaging Studies Chest X-Ray 03/10/20 14:30 IMPRESSION: Findings compatible with COPD. No acute finding. Electronically Signed: Isael Corey MD at 15:23 EST , Service support , Foot X-Ray 03/10/20 14:31 IMPRESSION: No radiographic evidence for acute fracture or dislocation. Electronically Signed: Giuliana Holbrook MD at 15:46 EST , Service support , Abnormal Lab Results 03/10/20 03/10/20 03/10/20 14:30 14:30 17:32 WBC 4.4 RBC 4.50 Hgb 14.8 Hct 45.0 MCV 100.0 H MCH 32.9 H MCHC 32.9 RDW Std Deviation 43.7 RDW Coeff of Melissa 11.9 Plt Count 236 MPV 10.2 Immature Gran % (Auto) 0.200 Neut % (Auto) 78.1 H Lymph % (Auto) 14.0 L [place] % (Auto) 6.4 Eos % (Auto) 1.1 Baso % (Auto) 0.2 Absolute Neuts (auto) 3.4 Absolute Lymphs (auto) 0.61 L Nucleated RBC % 0 Sodium 135 L Potassium 3.2 L Chloride 102 Carbon Dioxide 26.0 Anion Gap 7 BUN 8 Creatinine 0.83 Estim Creat Clear Calc 70.01 Est GFR (MDRD) Af Amer 91 Est GFR (MDRD) Non-Af 75 BUN/Creatinine Ratio 9.6 L Glucose 88 Calcium 9.9 Troponin I < 0.015 < 0.015 - EKG Initial EKG Interpretation: Sinus Rhythm - Sinus rate of 77, no ST or T wave changes. - Medical Decision Making Patient EKG was normal. Cardiac work-up negative separate potassium 3.2 this was orally replaced. She given aspirin. She transient symptoms briefly in the ED. Discussed heart pathway guideline with the patient she agrees with a 3-hour drawl which was obtained also negative. Her heart score is a 2. With her foot evaluation concerns for early cellulitis of the great toe x-ray 3 views of the foot reviewed by myself shows no acute process. 1 view chest x-ray reviewed myself was also negative. She started on Keflex. She states been year since her last stress test she will follow-up with her PCP for outpatient stress test she will monitor for any rash with strict return precautions. All questions were answered. Patient is being discharged under pandemic conditions under declared global, national and state disaster activation, with limited medical resources. Patient and community understands this. Results discussed in layman's terms to the patient satisfaction. All questions answered in layman's terms. Patient understands importance of follow-up care as directed. Patient has been instructed to return to the ED immediately if new symptoms, problems, or questions occur. We mutually agree with the plan of disposition. The patient understand that they may call or return with any questions or concerns at any time. ED Disposition - Plan for ED Patient: Disposition: Home or Assisted Living Diagnosis: Chest pain, Hypokalemia, Cellulitis of toe of right foot Instructions: ED Cellulitis, ED Chest Pain, Uncertain Cause (Child) Prescriptions: Cephalexin [Keflex] 500 mg PO Q6 #40 cap Transmission Status: Pending to [email or web address] Referrals: Rody Gaston DO [Primary Care Provider] - 3-5 Days
[2020-03-10 14:40] VITALS: O2SAT 100
[2020-03-10] MEDS: Aspirin 81 MG TAB.CHEW 162 MG PO (14:44)
[2020-03-10 15:28] LABS: Absolute Lymphocyte Count 0.61 X10^3/uL (0.83-4.51); Absolute Neutrophil Count 3.4 X10^3/uL (2.0-7.7); Basophil# 0.01 X10^3/uL; Basophil% 0.2 % (0-1); Eosinophil# 0.05 X10^3/uL; Eosinophils% 1.1 % (0-5); Hemoglobin 14.8 g/dL (12.0-15.0); Lymphocyte # 0.61 X10^3/ul (4.0); Mean Corp Hgb Conc 32.9 g/dL (32-36); Mean Corpuscular Hgb 32.9 pg (27.0-32.0); Mean Platelet Vol. 10.2 fl (6.2-12.0); Monocyte# 0.28 X10^3/uL; Monocyte% 6.4 % (0-10); NRBC Flagged by Analyzer 0 % (0-5); Neutrophil # 3.39 X10^3/uL (2.7-7.7); Neutrophil % 78.1 % (47-70); Platelet Count 236 K/mm3 (150-450); RBC Distribution Width CV 11.9 % (11.6-14.6); RBC Distribution Width SD 43.7 fl (35.1-43.9); White Blood Count 4.4 K/mm3 (4.4-11.0)
[2020-03-10 15:39] VITALS: PULSE 63; RESP 13; O2SAT 100
[2020-03-10 15:44] VITALS: BP 105/76
[2020-03-10 15:50] LABS: Anion Gap 7 (5-15); BUN 8 mg/dL (7-18); BUN/Creat Ratio 9.6 RATIO (10-20); Calcium,Total 9.9 mg/dL (8.5-10.1); Chloride 102 mmol/L (98-107); Creatinine, Serum 0.83 mg/dL (0.55-1.02); EST Glomerular Filtration Rate 75 mL/min (>60); Est Glom Filt Rate - Afr Amer 91 mL/min (>60); Estimated Creatinine Clearance 70.01 ml/min; Glucose 88 mg/dL (74-106); Potassium 3.2 mmol/L (3.5-5.1); Sodium Level 135 mmol/L (136-145)
[2020-03-10] MEDS: Cephalexin Suspension 250 MG/5 ML PO.SYRINGE 500 MG PO (16:57)
[2020-03-10 17:02] VITALS: BP 112/73; PULSE 77; RESP 67; O2SAT 100
[2020-03-10 18:46] VITALS: BP 102/60; PULSE 74; RESP 20; O2SAT 100
--- NOTE | 2020-03-11 11:34 | DCINST.ED_ITS ---
ED Disposition - Plan for ED Patient: Disposition: Home or Assisted Living Diagnosis: Chest pain, Hypokalemia, Cellulitis of toe of right foot Instructions: ED Cellulitis, ED Chest Pain, Uncertain Cause (Child) Prescriptions: Cephalexin [Keflex] 500 mg PO Q6 #40 cap Transmission Status: Received by [facility] Cephalexin Suspension [Keflex Suspension] 500 mg PO [id number] 10 Days #400 ml Transmission Status: Pending to [facility] Referrals: Rody Gaston DO [Primary Care Provider] - 3-5 Days
--- NOTE | 2020-03-11 11:34 | ED.DEP ---
ED Disposition - Plan for ED Patient: Disposition: Home or Assisted Living Diagnosis: Chest pain, Hypokalemia, Cellulitis of toe of right foot Instructions: ED Cellulitis, ED Chest Pain, Uncertain Cause (Child) Prescriptions: Cephalexin [Keflex] 500 mg PO Q6 #40 cap Transmission Status: Received by [employer] [facility] Cephalexin Suspension [Keflex Suspension] 500 mg PO [id number] 10 Days #400 ml Transmission Status: Pending to [facility] [facility] Referrals: Rody Gaston DO [Primary Care Provider] - 3-5 Days
== END 2020-03-10 18:46 | disposition home or self-care (01) ==
PROVIDERS: Emergency Provider Emergency Medicine; PCP Family Medicine
DX: L03.031 Cellulitis of right toe (principal); R07.9 Chest pain, unspecified; E87.6 Hypokalemia
CPT/HCPCS: 71046; 73630; 80048; 84484; 85025; 93005; 99285; A4216

== ENCOUNTER → 2020-06-02 07:09 | Outpatient (CLI) | payer MEDICAID, SELFPAY ==
--- NOTE | 2020-06-02 11:44 | STRESSREP_ITS ---
Stress Test Report Date: 06-02-2020 Procedure: Pharmacologic stress nuclear imaging study Indications: Chest pain Consent: Per the patient Procedure: The patient underwent pharmacologic (Regadenoson 0.4mg ) evaluation with a peak heart rate of 103 beats per minute (63%predicted maximal heart rate) and a peak blood pressure of 118/62 mmHg. The baseline ECG demonstrated sinus rhythm. The peak pharmacologic ECG demonstrated no obvious ECG changes. There were no cardiac dysrhythmias pretest, during pharmacologic infusion, or recovery. There was no complaint of chest discomfort during pharmacologic infusion or recovery. The examination was discontinued secondary to completion of protocol. Impression: 1. Pharmacologic (Regadenoson) evaluation 2. Peak pharmacologic ECG with no obvious ECG changes. 3. There were no cardiac dysrhythmias pretest, during pharmacologic infusion, or recovery. 4. Nuclear images pending Myocardial perfusion imaging study: Technique: The patient was injected with 11.1 millicuries of technetium 99m Cardiolite and subsequently rest SPECT Cardiolite nuclear imaging was obtained in the horizontal long, vertical long, and short axis views. The patient underwent pharmacologic (Regadenoson) evaluation with a peak heart rate of 103 beats per minute (63% percent predicted maximal heart rate) and a peak blood pressure of 118/62 mmHg. The patient was injected with 31.8 millicuries of technetium 99m Cardiolite and subsequently stress SPECT Cardiolite nuclear imaging was obtained in the horizontal long, vertical long, and short axis views. A gated Cardiolite study at peak stress was obtained. Interpretation: Rest and stress SPECT Cardiolite nuclear imaging status post realignment, normalization, and attenuation correction demonstrate relative uniform tracer uptake and myocardial perfusion appearing within normal limits. There is end systolic thickening and brightening. The gated Cardiolite study demonstrates myocardial thickening and inward wall motion. The reported LVEF is 77%. Impression: 1. Rest and stress SPECT Cardiolite nuclear imaging demonstrate relative uniform tracer uptake and myocardial perfusion appearing within normal limits. 2. The gated Cardiolite study reports an LVEF of 77%. This note was generated with [employer] software. It may contain incorrect words, spelling, and punctuation that were not noted in checking the note before signing.
== END ==
PROVIDERS: PCP Family Medicine; Referring Provider Family Medicine; Visit Provider Family Medicine
DX: R07.9 Chest pain, unspecified (principal); R20.2 Paresthesia of skin
CPT/HCPCS: 78452; 93017; A9500; A4216; J2785

== ENCOUNTER → 2020-09-08 14:17 | Outpatient (CLI) | payer MEDICAID, SELFPAY ==
--- NOTE | 2020-09-08 14:20 | BI_ITS ---
MAMMOGRAPHY - BILATERAL SCREENING REASON FOR EXAM: Female, 60 years old. Routine annual screening examination. PERTINENT HISTORY: TECHNIQUE: Digital bilateral breast anastacia (3D mammographic acquisition) in the CC and MLO projections. 2-D mediolateral oblique (MLO) and craniocaudad (CC) views of both breasts were obtained. CAD: Full Field Digital Mammography with Computer Added Detection was performed. COMPARISON: 2012 FINDINGS: Breast Composition: Dense There are no dominant masses or suspicious calcifications. A lobular nodular density is seen in the anterior aspect of the right breast which has significantly decreased in size when compared with the previous mammogram. A similar more amorphous densities noted in the superior lateral aspect the left breast which, likewise has decreased. These areas probably represent fibrocystic changes. BI/SCRN MAMM (CAD)W/ANASTACIA BILAT IMPRESSION: Stable bilateral screening mammogram. Yearly follow-up mammogram recommended. (A) ASSESSMENT CATEGORY: BIRADS Category 1: Negative. A letter regarding these results will be sent to the patient by the facility within 30 days. Approximately 10% of breast cancers are not detected by mammography. A normal mammogram should not delay biopsy of a clinically suspicious abnormality. [id number] Electronically Signed: Bartolome Mills DO at 15:13 EDT Tel , Service support ,
--- NOTE | 2020-09-08 14:23 | BD_ITS ---
STUDY: DUAL ENERGY X-RAY ABSORPTIOMETRY / DXA REASON FOR EXAM: Female, 60 years old. M810. Patient is postmenopausal. TECHNIQUE: Bone Mineral Density (BMD) measurements of lumbar spine and bilateral hips were obtained. COMPARISON: None. FINDINGS: Lumbar Spine (L1-L4): g/cm2 (0.538) / T-score (-4.6) / Z-score (-3.3) Findings are suggestive of osteoporosis with a high fracture risk. Left Femur Total: g/cm2 (0.654) / T-score (-2.4) / Z-score (-1.5) Left Femoral Neck: g/cm2 (0.526) / T-score (-2.9) / Z-score (-1.7) Right Femur Total: g/cm2 (0.637) / T-score (-2.5) / Z-score (-1.7) Right Femoral Neck: g/cm2 (0.497) / T-score (-3.2) / Z-score (-2.0) BD/Dexa Bone Density Study IMPRESSION: The patient is considered osteoporotic as outlined below according to World Ha Organization (WHO) criteria with a high fracture risk. Reference Information: The T-score is the number of standard deviations above or below the standard which is normal for young adults at their peak bone mineral density. The World Health Organization (WHO) interprets the T-scores as follows: Above -1 Normal bone density Between -1 and -2.5 Osteopenia Equal to / or below -2.5 Osteoporosis As a practical clinical guideline, osteopenia may be graded as follows: Mild -1 through -1.5 Moderate -1.6 through -2.0 Severe -2.1 through -2.4 The Z-score is the number of standard deviations above or below age-matched controls. A Z-score of less than -1.5 would be considered abnormal. References: 1. NIH Osteoporosis and Related Bone Diseases www osteo.org 2. International Society for Clinical Densitometry www iscd.org 3. National Osteoporosis Foundation www nof.org Electronically Signed: Josias Paz MD at 11:26 EDT , Service support ,
== END ==
PROVIDERS: PCP Family Medicine; Referring Provider Family Medicine; Visit Provider Family Medicine
DX: M81.0 Age-related osteoporosis without current pathological fracture (principal); Z12.31 Encounter for screening mammogram for malignant neoplasm of breast
CPT/HCPCS: 77063; 77067; 77080

== ENCOUNTER 2020-10-28 10:36 | Outpatient (RCR) | payer MEDICAID, SELFPAY | END 2020-10-28 23:59 | disposition home or self-care (01) | LOC: NS 10:36 | PROVIDERS: PCP Family Medicine; Visit Provider Family Medicine | DX: Z71.3 Dietary counseling and surveillance (principal); M81.0 Age-related osteoporosis without current pathological fracture | CPT/HCPCS: 97802 ==

== ENCOUNTER → 2021-08-16 | Outpatient (CLI) | payer MEDICAID, SELFPAY ==
[2021-08-21 00:07] LABS: Age Gdln ACOG Testing 30-65 (.)
[2021-08-21 08:21] LABS: HPV APTIMA, High Risk Negative (Negative)
[2021-08-21 08:24] LABS: HPV Reflexed? YES, CHARGE PATIENT
== END | disposition home or self-care (01) ==
LOC: LABSPEC 08-18 07:43
PROVIDERS: PCP Family Medicine; Visit Provider Family Medicine
DX: Z12.4 Encounter for screening for malignant neoplasm of cervix (principal)
CPT/HCPCS: 87624; 88175; G0145

== ENCOUNTER → 2021-10-18 | Outpatient (CLI) | payer MEDICAID, SELFPAY ==
--- NOTE | 2021-10-18 13:41 | BI_ITS ---
MAMMOGRAPHY - BILATERAL SCREENING REASON FOR EXAM: Female, 61 years old. Routine annual screening examination. PERTINENT HISTORY: Mother with breast cancer. Aunt with breast cancer. TECHNIQUE: Digital bilateral breast anastacia (3D mammographic acquisition) in the CC and MLO projections. 2-D mediolateral oblique (MLO) and craniocaudad (CC) views of both breasts were obtained. CAD: Full Field Digital Mammography with Computer Added Detection was performed. COMPARISON: Comparison is made with prior study dated 09/08/2020 and 10/25/2012. FINDINGS: Breast Composition: The breasts are heterogeneously dense, which may obscure small masses. There is a 1.2 cm x 1.5 cm well-defined nodule with partially calcified rim in the inferior slightly medial aspect of the right breast. This has decreased slightly in size as compared to prior study. I suspect a 1.4 cm x 1.5 cm nodular density in the retroareolar region of the left breast.. Correlation with ultrasound is recommended. No other significant abnormalities are identified. BI/SCRN MAMM (CAD)W/ANASTACIA BILAT IMPRESSION: Interval decrease in size of the well-defined nodule in the inferior slightly medial aspect of the right breast. I suspect a 1.4 cm x 1.5 cm nodular density in the retroareolar region of the left breast. Correlation with ultrasound is recommended. ASSESSMENT CATEGORY: BIRADS Category 0: Incomplete. Need additional imaging evaluation. A letter regarding these results will be sent to the patient by the facility within 30 days. Approximately 10% of breast cancers are not detected by mammography. A normal mammogram should not delay biopsy of a clinically suspicious abnormality. [id number] Electronically Signed: Josias Paz MD at 14:35 EDT ,
== END | disposition home or self-care (01) ==
LOC: OPBI 13:39
PROVIDERS: PCP Family Medicine; Visit Provider Family Medicine
DX: Z12.31 Encounter for screening mammogram for malignant neoplasm of breast (principal); Z80.3 Family history of malignant neoplasm of breast
CPT/HCPCS: 77063; 77067

== ENCOUNTER → 2021-10-21 | Outpatient (CLI) | payer MEDICAID, SELFPAY ==
--- NOTE | 2021-10-21 10:43 | US_ITS ---
STUDY: ULTRASOUND BREAST - LEFT REASON FOR EXAM: Female, 61 years old. Abnormal screening mammogram. TECHNIQUE: Axial and longitudinal images of the LEFT breast were performed with a high resolution ultrasound transducer. # OF IMAGES: 34 COMPARISON: Comparison is made with prior mammogram dated 10/19/2019 FINDINGS: LEFT Breast: In the retroareolar region of the left breast at the 3 o''clock position, there is a 7 mm x 7 mm x 6 mm well-defined hypoechoic solid nodule. Increased flow is seen. Biopsy recommended. There is also evidence of a 4 mm x 4 mm x 4 mm cyst in the retroareolar region. US/Breast Limited Unilateral IMPRESSION: The mammographic abnormality corresponds to a 7 mm x 7 mm x 6 mm hypoechoic well-defined solid nodule with increased vascularity. Biopsy recommended. There is also evidence of a 4 mm x 4 mm x 4 mm cyst adjacent to these solid nodule. ASSESSMENT CATEGORY: BIRADS Category 4: Suspicious - Biopsy Should Be Considered. A letter regarding these results will be sent to the patient by the facility within 30 days. Electronically Signed: Josias Paz MD at 14:35 EDT ,
== END | disposition home or self-care (01) ==
LOC: OPUS 10:41
PROVIDERS: PCP Family Medicine; Referring Provider Family Medicine; Visit Provider Family Medicine
DX: R92.2 Inconclusive mammogram (principal); N63.20 Unspecified lump in the left breast, unspecified quadrant
CPT/HCPCS: 76642

== ENCOUNTER → 2021-10-26 | Outpatient (CLI) | payer MEDICAID, SELFPAY ==
--- NOTE | 2021-10-26 14:15 | BRBX_PTH ---
PATIENT: KEVON CUMMINGS LOC: [facility] U#:[id number] AGE/SX: 61/F ROOM: RE10/26/[address]: Dr. Parvez Soriano MD : 1960 BED: DIS: 10/26/2021 SPEC #: [id number] RECD: 10/26/21 16:11 STATUS: DORIS MIKEY #: [id number] REINA: 10/26/21 14:[address]: Parvez Soriano DEPT: SURGICAL PATHOLOGY RECD BY: Juanita Wade ENTERED: 10/27/21 07:58 SP TYPE: BREAST BX OTHR DR: Dr. Rody Gaston, DO Tissues: Left breast, NOS Procedures: Surgery Specimen Level IV HEADER OPERATION: Left breast biopsy PRE-OP DIAGNOSIS: Left breast mass TISSUE SUBMITTED: Left breast mass FIXATION TIME: 29.5 hours MICROSCOPIC DIAGNOSIS Left breast mass, core biopsy: Fragments of benign breast tissue with focal dense fibrosis, fat necrosis, chronic inflammation and dystrophic calcification. Negative for atypia or malignancy. See comment. SHELBY:horace 10/28/2021 COMMENT Correlation with clinical, radiologic findings and appropriate follow up are necessary. MICROSCOPIC DESCRIPTION Slides are reviewed. GROSS DESCRIPTION Received in fixative is one container labeled with the patient's name and designated left breast mass. The specimen consists of multiple elongated fragments of coffman-yellow fibroadipose tissue that in aggregate measure 1.5 x 0.3 x 0.1 cm. The entire specimen is submitted in one cassette. / SHELBY:horace 10/27/2021 TC:3 CPT: 94404
== END | disposition home or self-care (01) ==
LOC: LABSPEC 16:13
PROVIDERS: PCP Family Medicine; Referring Provider Surgery; Visit Provider Surgery
DX: D24.2 Benign neoplasm of left breast (principal)
CPT/HCPCS: 88305

== ENCOUNTER → 2022-01-11 | Outpatient (CLI) | payer MEDICAID, SELFPAY ==
[2022-01-11 14:55] LABS: Absolute Lymphocyte Count 0.96 X10^3/uL (0.83-4.51); Absolute Neutrophil Count 1.5 X10^3/uL (2.0-7.7); Basophil# 0.02 X10^3/uL; Basophil% 0.7 % (0-1); Eosinophil# 0.15 X10^3/uL; Eosinophils% 5.2 % (0-5); Hematocrit 38.8 % (37-47); Hemoglobin 13.2 g/dL (12.0-15.0); Lymphocyte # 0.96 X10^3/ul (0.83-4.51); Lymphocyte % 33.2 % (19-41); Mean Corpuscular Hgb 34.6 pg (27.0-32.0); Mean Corpuscular Volume 101.6 fL (81-99); Mean Platelet Vol. 9.6 fl (6.2-12.0); Monocyte# 0.29 X10^3/uL; NRBC Flagged by Analyzer 0 % (0-5); Neutrophil # 1.47 X10^3/uL (2.7-7.7); Neutrophil % 50.9 % (47-70); Platelet Count 221 K/mm3 (150-450); RBC Distribution Width CV 12.5 % (11.6-14.6); RBC Distribution Width SD 46.5 fl (35.1-43.9); Red Blood Count 3.82 M/mm3 (4.2-5.4); White Blood Count 2.9 K/mm3 (4.4-11.0)
[2022-01-11 15:10] LABS: Vitamin B12 1248 pg/mL (211-911); Vitamin D,25 Hydroxy 46.3 ng/mL
[2022-01-11 15:15] LABS: ALB/GLOB Ratio 1.1 RATIO (0.9-2.4); AST(SGOT) 19 U/L (15-37); Alanine Aminotransfer ALT/SGPT 20 U/L (13-56); Albumin, Serum 3.7 g/dL (3.2-5.0); Alkaline Phosphatase 68 U/L (45-117); Anion Gap 2 (5-15); BUN 14 mg/dL (7-18); BUN/Creat Ratio 17.5 RATIO (10-20); Calcium,Total 9.2 mg/dL (8.5-10.1); Chloride 104 mmol/L (98-107); EST Glomerular Filtration Rate 78 mL/min (>60); Est Glom Filt Rate - Afr Amer 94 mL/min (>60); Ferritin 45 ng/mL (8-252); Globulin 3.5 g/dL (2.2-4.2); Glucose 100 mg/dL (74-106); Potassium 3.7 mmol/L (3.5-5.1); Protein, Total 7.2 g/dL (6.4-8.2); Sodium Level 137 mmol/L (136-145); Thyroid Stim Hormone (TSH) 0.91 uIU/mL (0.358-3.74)
== END | disposition home or self-care (01) ==
LOC: BFHLAB 13:41
PROVIDERS: PCP Family Medicine; Visit Provider Family Medicine
DX: R53.83 Other fatigue (principal); M81.0 Age-related osteoporosis without current pathological fracture
CPT/HCPCS: 36415; 80053; 82306; 82607; 82728; 84443; 85025

== ENCOUNTER 2022-02-15 08:56 | Day surgery (SDC) | payer MEDICAID, SELFPAY ==
--- NOTE | 2022-02-15 09:41 | HP.PCM_ITS ---
[facility] - General General Date of Service: 02/15/22 Chief Complaint: Screening for intestinal cancer HPI Narrative KEVON CUMMINGS, is a 61 F who presents for screening colonoscopy today. Previous one was 10 years ago. Family history of father who had colon cancer. She has had no symptoms. She otherwise enjoys good health. [facility]LY [facility], [facility] Medical History (Updated 02/11/22 @ 12:58 by Ramonita Coelho) Allergies Anemia Anxiety Arthritis Back pain Cancer Chest pain Depression Family history of skin cancer History of stress test Hypotension Mitral valve prolapse Neoplasm of skin of eyebrow Non-smoker Osteoporosis Personal history of skin cancer Post-menopausal Shortness of breath on exertion Syncope Vision problems Vitamin deficiency Wears glasses Home Medications multivitamin with folic acid 400 mcg tablet (Thera) 1 tab PO DAILY 01/17/18 [History Last Taken Unknown] calcium-vitamin D3-vitamin K 500 mg-200 unit-40 mcg chewable tablet 1 tab PO DAILY 12/28/21 [History Last Taken Unknown] Allergy/AdvReac Type Severity Reaction Status Date / Time ciprofloxacin [From Cipro] Allergy Severe Other Verified 02/11/22 12:49 sulfamethoxazole Allergy Severe Other Verified 02/11/22 12:49 [From Bactrim] trimethoprim [From Bactrim] Allergy Severe Other Verified 02/11/22 12:49 doxycycline Allergy Intermediate Other Verified 02/11/22 12:49 latex Allergy Intermediate redness Verified 02/11/22 12:49 and rash codeine Allergy Hives Verified 02/11/22 12:49 nitrofurantoin Allergy Unknown Verified 02/11/22 12:49 [From Macrobid] nitrofurantoin Allergy Unknown Verified 02/11/22 12:49 macrocrystalline [From Macrobid] Penicillins Allergy Rash Verified 02/11/22 12:49 Family History Mother Angina at rest Anxiety Breast cancer Depression Hypertension Skin cancer Father Arthritis Cancer Colon cancer Other Family history of skin cancer High cholesterol Suicide attempt Surgical History (Updated 12/28/21 @ 09:19 by Susan Sanchez) History of cholecystectomy History of colonoscopy History of left breast biopsy (~10/2021) Social History Smoking Status: Never smoker alcohol intake: never substance use type: does not use additional social history: Does Not Use Aspirin Does Not Use Ibuprofen ROS Constitutional Constitutional: Reports systems reviewed and no addt'l complaints, except as documented Cardiovascular Cardiovascular: Denies chest pain Respiratory/Chest Respiratory/Chest: Denies shortness of breath at rest Gastrointestinal Gastrointestinal: Denies abdominal pain, change in bowel habits, hematochezia or melena Physical Exam Const alert, oriented x3 and no apparent distress General Appearance: cooperative and comfortable Eyes General Eye: normal appearance of both eyes Neck General: normal visual inspection Chest inspection of chest normal Resp Effort and Inspection: able to speak in complete sentences and symmetric chest movement Auscultation: clear to auscultation bilaterally Cardio regular rate and regular rhythm GI soft to palpation, non-tender and non-distended Extremity no calf tenderness Neuro oriented x3 Psych thought process normal Assessment & Plan Assessment/Plan (1) Encounter for screening for malignant neoplasm of colon: PLAN: The patient presents via open access today. I recommend a screening colonoscopy with possible biopsy or polypectomy as indicated. She is aware of the technique, benefit, risk, alternatives. She has had an opportunity to ask and have questions answered. We will proceed as noted. Case Garg M.D., F.A.C.S.
[2022-02-15] MEDS: Lactated Ringers 1,000 ML 15 ML IV (09:46)
[2022-02-15 09:47] VITALS: BP 119/72; PULSE 69; RESP 16; TEMP 36.7; O2SAT 100; BMI 22.6
[2022-02-15 11:00] VITALS: BP 103/62; BP 119/72; PULSE 64; RESP 16; TEMP 35.9; O2SAT 96
--- NOTE | 2022-02-15 11:01 | OP.CCLET_ITS ---
02/15/2022 Rody Gaston [address] [place] [address] Re : Colonoscopy procedure for Kay Sanders Dear Dr. Gaston This procedure was performed on Tuesday, February 15, 2022. My impressions and recommendations are as follows: Impressions : - Non-thrombosed internal hemorrhoids and internal hemorrhoids that prolapse with straining, but spontaneously regress to the resting position (Grade II) found on digital rectal exam. - Tortuous colon. - The examination was otherwise normal. - No specimens collected. Recommendations : - Discharge patient to home. - Resume previous diet. - Continue present medications. - Repeat colonoscopy in 10 years for screening purposes. My findings are described in the full procedure note, which is enclosed. If I can be of further assistance, please feel free to contact me at Doctor phone number(s): Work: . Sincerely, Case Garg MD 02/15/2022 11:01:14 AM This report has been signed electronically.
--- NOTE | 2022-02-15 11:01 | OP.COLON_ITS ---
Patient Name: Kay Sanders Procedure Date: 02/15/2022 10:32 AM Date of : 1960 Age: 61 Procedure: Colonoscopy Indications: Screening for colorectal malignant neoplasm Providers: Case Garg MD Referring MD: Case Garg MD Medicines: See the Anesthesia note for documentation of the administered medications Patient Profile: Last Colonoscopy: 10 years ago. Complications: No immediate complications. Procedure: Pre-Anesthesia Assessment: - Prior to the procedure, a History and Physical was performed, and patient medications and allergies were reviewed. The patient's tolerance of previous anesthesia was also reviewed. The risks and benefits of the procedure and the sedation options and risks were discussed with the patient. All questions were answered, and informed consent was obtained. Prior Anticoagulants: The patient has taken no previous anticoagulant or antiplatelet agents. ASA Grade Assessment: II - A patient with mild systemic disease. After reviewing the risks and benefits, the patient was deemed in satisfactory condition to undergo the procedure. After I obtained informed consent, the scope was passed under direct vision. Throughout the procedure, the patient's blood pressure, pulse, and oxygen saturations were monitored continuously. The colonoscope was introduced through the anus and advanced to the cecum, identified by appendiceal orifice and ileocecal valve. The colonoscopy was performed without difficulty. The patient tolerated the procedure well. The quality of the bowel preparation was good. The ileocecal valve and the appendiceal orifice were photographed. Scope In: 10:43:15 AM Scope Withdrawal Time 0 hours 7 minutes 27 seconds Scope Out: 10:56:49 AM Total Procedure Duration Time 0 hours 13 minutes 34 seconds Findings: The digital rectal exam findings include non-thrombosed internal hemorrhoids and internal hemorrhoids that prolapse with straining, but spontaneously regress to the resting position (Grade II). The sigmoid colon was moderately tortuous. The exam was otherwise without abnormality. Impression: - Non-thrombosed internal hemorrhoids and internal hemorrhoids that prolapse with straining, but spontaneously regress to the resting position (Grade II) found on digital rectal exam. - Tortuous colon. - The examination was otherwise normal. - No specimens collected. Recommendation: - Discharge patient to home. - Resume previous diet. - Continue present medications. - Repeat colonoscopy in 10 years for screening purposes. Procedure Code(s): --- Professional --- 36923, Colonoscopy, flexible; diagnostic, including collection of specimen(s) by brushing or washing, when performed (separate procedure) Diagnosis Code(s): --- Professional --- Z12.11, Encounter for screening for malignant neoplasm of colon K64.1, Second degree hemorrhoids Q43.8, Other specified congenital malformations of intestine CPT copyright 2017 [employer]. All rights reserved. The codes documented in this report are preliminary and upon trim operator review may be revised to meet current compliance requirements. Case Garg MD 02/15/2022 11:01:14 AM This report has been signed electronically. Number of Addenda: 0 Note Initiated On: 02/15/2022 10:32 AM
[2022-02-15 11:05] VITALS: BP 101/60; BP 119/72; PULSE 64; RESP 16; O2SAT 99
[2022-02-15 11:10] VITALS: BP 103/65; BP 119/72; PULSE 61; RESP 16; O2SAT 100
[2022-02-15 11:15] VITALS: BP 106/64; BP 119/72; PULSE 55; RESP 16; TEMP 35.9; O2SAT 100
[2022-02-15 12:05] VITALS: BP 119/72
== END 2022-02-15 12:05 | disposition home or self-care (01) ==
LOC: EN 08:58 → AC 09:09
PROVIDERS: PCP Family Medicine; Referring Provider Family Medicine; Visit Provider Surgery
PROC: 0DJD8ZZ Inspection of Lower Intestinal Tract, Via Natural or Artificial Opening Endoscopic (ICD-10-PCS; CPT 45378; principal; 2022-02-15 10:10)
DX: Z12.11 Encounter for screening for malignant neoplasm of colon (principal); K64.1 Second degree hemorrhoids; Q43.8 Other specified congenital malformations of intestine; M81.0 Age-related osteoporosis without current pathological fracture; Z78.0 Asymptomatic menopausal state; Z80.0 Family history of malignant neoplasm of digestive organs
CPT/HCPCS: 45378; J7120; J2405

== ENCOUNTER → 2022-05-05 | Outpatient (CLI) | payer MEDICAID, SELFPAY ==
--- NOTE | 2022-05-05 10:42 | US_ITS ---
STUDY: ULTRASOUND BREAST - LEFT REASON FOR EXAM: Female, 61 years old. Six-month post left breast biopsy. TECHNIQUE: Axial and longitudinal images of the LEFT breast were performed with a high resolution ultrasound transducer. # OF IMAGES: 17 COMPARISON: Comparison is made with prior ultrasound left breast dated October 21, 2021. FINDINGS: LEFT Breast: There is a 5 mm x 5 mm x 5 mm well-defined hypoechoic solid nodule at the 3:00 position of the breast just lateral to the retroareolar region. A tissue clip marker is seen within it. Incidental note is made of a 3 mm x 4 mm x 2 mm cyst adjacent to this nodule. US/Breast Limited Unilateral IMPRESSION: Stable examination with evidence of prior biopsy of the hypoechoic solid nodule presently measuring 5 mm x 5 mm x 5 ASSESSMENT CATEGORY: BIRADS Category 2: Benign. A letter regarding these results will be sent to the patient by the facility within 30 days. Electronically Signed: Josias Paz MD at 13:46 EDT ,
== END | disposition home or self-care (01) ==
LOC: OPUS 10:41
PROVIDERS: PCP Family Medicine; Visit Provider Surgery
DX: Z98.890 Other specified postprocedural states (principal)
CPT/HCPCS: 76642

== ENCOUNTER 2022-05-24 20:56 | Emergency (ER) | payer MEDICAID, SELFPAY ==
[2022-05-24 20:57] VITALS: BP 139/91; PULSE 62; RESP 18; TEMP 35.7; O2SAT 98; BMI 24.4
--- NOTE | 2022-05-24 21:15 | RAD_ITS ---
STUDY: X-RAY - LEFT KNEE REASON FOR EXAM: Female, 61 years old. These gave out. Patient fell down stairs. Bilateral knee pain. TECHNIQUE: 4 view(s) of the knee. COMPARISON: None. FINDINGS: Normal visualized distal femur. Normal visualized proximal tibia and fibula. Normal proximal tibiofibular articulation. There is no acute fracture, dislocation or destructive osseous pathology. Normal medial femorotibial compartment. Normal lateral femorotibial compartment. Normal patellofemoral articulation. There is no demonstrated joint effusion. The soft tissue structures are unremarkable. RAD/Knee 4 or More Views IMPRESSION: Normal x-ray examination of the left knee. Electronically Signed: Kaz Rodriguez DO at 21:31 EDT Reading Location ID and State: [address] [place] [address] Tel [phone], Service support ,
--- NOTE | 2022-05-24 21:15 | RAD_ITS ---
STUDY: X-RAY - LEFT SHOULDER REASON FOR EXAM: Female, 61 years old. Fell down stairs. Left shoulder pain. TECHNIQUE: 4 view(s) of the shoulder. COMPARISON: None. FINDINGS: Normal glenohumeral articulation. Normal acromioclavicular joint. Normal acromion. There is no acute fracture, dislocation or destructive osseous pathology. Normal humeral head and visualized proximal humerus. The soft tissue structures are unremarkable. Normal visualized pulmonary apex. RAD/Shoulder min 2 Views IMPRESSION: Normal x-ray examination of the left shoulder. Electronically Signed: Kaz Rodriguez DO at 21:32 EDT ,
--- NOTE | 2022-05-24 21:15 | RAD_ITS ---
STUDY: X-RAY - RIGHT KNEE REASON FOR EXAM: Female, 61 years old. Knees gave out and patient fell down stairs. Bilateral knee pain. TECHNIQUE: 4 view(s) of the knee. COMPARISON: None. FINDINGS: Normal visualized distal femur. Normal visualized proximal tibia and fibula. Normal proximal tibiofibular articulation. There is no acute fracture, dislocation or destructive osseous pathology. Normal medial femorotibial compartment. Normal lateral femorotibial compartment. Normal patellofemoral articulation. There is no demonstrated joint effusion. The soft tissue structures are unremarkable. RAD/Knee 4 or More Views IMPRESSION: Normal x-ray examination of the right knee. Electronically Signed: Kaz Rodriguez DO at 21:31 EDT Reading Location ID and State: [id number] Tel [phone], Service support ,
[2022-05-24] MEDS: Ketorolac 30 MG/ML Syringe IM (23:27)
--- NOTE | 2022-05-24 23:56 | EDS_ITS ---
HPI History of Present Illness Chief Complaint: Fall Narrative Narrative: Patient is a 61-year-old female who states roughly 2 to 3 hours prior to arrival she was walking down the stairs when her legs gave out and she fell with them bending up behind her. She states that she slid down multiple steps on her knees/leg. She denies striking her head any loss of consciousness or bleeding disorder. She states that someone was able to help her up and once I did so she was able to stand and walk but she has noticed pain and swelling in both her right and left knee as well as her left shoulder and with concern for underlying trauma comes in for evaluation [facility] Medical History (Updated 05/24/22 @ 23:[address] Beto Mckinney, ) Allergies Anemia Anxiety Arthritis Back pain Cancer Chest pain Depression Family history of skin cancer History of stress test Hypotension Mitral valve prolapse Neoplasm of skin of eyebrow Non-smoker Osteoporosis Personal history of skin cancer Post-menopausal Shortness of breath on exertion Syncope Vision problems Vitamin deficiency Wears glasses Home Medications multivitamin with folic acid 400 mcg tablet (Thera) 1 tab PO DAILY 01/17/18 [History Last Taken Unknown] calcium-vitamin D3-vitamin K 500 mg-200 unit-40 mcg chewable tablet 1 tab PO DAILY 12/28/21 [History Last Taken Unknown] Allergy/AdvReac Type Severity Reaction Status Date / Time ciprofloxacin [From Cipro] Allergy Severe Other Verified 05/24/22 20:57 sulfamethoxazole Allergy Severe Other Verified 05/24/22 20:57 [From Bactrim] trimethoprim [From Bactrim] Allergy Severe Other Verified 05/24/22 20:57 doxycycline Allergy Intermediate Other Verified 05/24/22 20:57 latex Allergy Intermediate redness Verified 05/24/22 20:57 and rash codeine Allergy Hives Verified 05/24/22 20:57 nitrofurantoin Allergy Unknown Verified 05/24/22 20:57 [From Macrobid] nitrofurantoin Allergy Unknown Verified 05/24/22 20:57 macrocrystalline [From Macrobid] Penicillins Allergy Rash Verified 05/24/22 20:57 Family History Mother Angina at rest Anxiety Breast cancer Depression Hypertension Skin cancer Father Arthritis Cancer Colon cancer Other Family history of skin cancer High cholesterol Suicide attempt Surgical History History of cholecystectomy History of colonoscopy History of left breast biopsy (~10/2021) Social History Smoking Status: Never smoker alcohol intake: never substance use type: does not use additional social history: Does Not Use Aspirin Does Not Use Ibuprofen ROS ROS ED Constitutional Constitutional ED: Denies chills or fever(s) Eyes Eyes: Denies change in vision ENT ENT ED: Denies sore throat Cardiovascular Cardiovascular: Denies chest pain Respiratory/Chest Respiratory/Chest: Denies cough or dyspnea Gastrointestinal Gastrointestinal: Denies abdominal pain, diarrhea, nausea or vomiting Genitourinary Genitourinary ED: Denies dysuria Musculoskeletal Musculoskeletal: Reports other Details: Positive bilateral knee pain and left shoulder pain ; Denies back pain or neck pain Integumentary Reports Abrasions Neurologic Neurologic: Denies headache(s) or paresthesias Hematologic/Lymphatic Hematologic/Lymphatic: Denies easy bleeding or easy bruising EXAM Physical Exam Const Vital Signs: 05/24/22 20:57 Temperature 96.2 F L Temperature Source Temporal Pulse Rate 62 Respiratory Rate 18 Blood Pressure 139/91 H Blood Pressure Mean 107 Pulse Ox 98 Oxygen Delivery Method Room Air Positive well nourished and well developed General Appearance ED: well developed HEENT HEENT Narrative: Normocephalic atraumatic Eyes PERRL and EOMs intact bilaterally Neck supple Neck Narrative: No bony deformity or step-off of the cervical spine no midline pain with palpation Chest Wall palpation of chest normal Chest Narrative: No bony deformity or crepitance Resp normal respiratory effort and clear to auscultation bilaterally Cardio regular rate and regular rhythm GI normal to inspection, nondistended, normoactive bowel sounds, non-tender, non- distended and no masses Auscultation: normoactive bowel sounds Palpation: soft Back/Spine Back/Spine Narrative: No bony deformity or step-off of the thoracic or lumbar spine no midline pain with palpation Extremity Extremity Narrative: Patient has soft tissue swelling to the anterior aspect of bilateral knees with ecchymosis and hematoma at the site as well. There is no obvious joint effusion present. No bony deformity. Patellar tendon is intact bilaterally and knee ligaments are stable. Left upper extremity is neurovascular intact. There is pain with palpation over top the lateral aspect of the left shoulder without bony deformity or joint effusion. No sulcus sign noted. Neuro oriented x3 and CN's II-XII intact bilaterally Sensorium / Orientation: alert Psych mental status grossly normal Skin Skin Narrative: Patient has soft tissue swelling with ecchymosis/hematoma to the anterior aspect of bilateral knees as documented above MDM MDM MDM Narrative Medical decision making narrative: Patient presented to the ER awake and alert with report of a mechanical fall without head injury and no report of blood thinner use. Secondary to this I felt no need for cardiac or syncope work-up. With pain to left shoulder following trauma there is concern for a proximal humeral or distal clavicle fracture and with knee pain there is concern for patellar tendon injury ligamentous injury or joint effusion or patella fracture. X-rays were obtained which revealed no acute traumatic findings. Following this patient can be given symptomatic care and follow-up with her family doctor on outpatient basis History & Record Review Discussion w/independent historian: Patient and Friend Radiography Diagnostic Testing: Clinical Impression(s) from Imaging Studies Knee X-Ray 05/24/22 21:15 IMPRESSION: Normal x-ray examination of the left knee. Electronically Signed: Kaz Rodriguez DO at 21:31 EDT Reading Location ID and State: [id number] [facility] [employer] Tel [phone], Service support , Knee X-Ray 05/24/22 21:15 IMPRESSION: Normal x-ray examination of the right knee. Electronically Signed: Kaz Rodriguez DO at 21:31 EDT Reading Location ID and State: [email or web address] / [employer] Tel [phone], Service support , Shoulder X-Ray 05/24/22 21:15 IMPRESSION: Normal x-ray examination of the left shoulder. Electronically Signed: Kaz Rodriguez DO at 21:32 EDT Reading Location ID and State: [email or web address] / [employer] Tel [phone], Service support , X-ray of the left shoulder as interpreted by the emergency medicine physician reveals no acute fracture or dislocation X-ray of the bilateral knees as interpreted by the emergency medicine physician reveals no acute fracture dislocation or joint effusion Discharge Plan Triage Chief Complaint: Fall Other Complaint: Lower Extremity Injury Trauma Upper Extremity Injury ED Provider: Beto Mckinney Dx/Rx/DC Orders Clinical Impression: Contusion of multiple sites, Hematoma, Accidental fall Instructions: Bruises (Contusions), ED Contusion, Upper Extremity Prescriptions: No Action calcium-vitamin D3-vitamin K 500-200-40 mg-unit-mcg tablet,chewable 1 tab PO DAILY multivitamin with folic acid [Thera] 1 TABLET tablet 1 tab PO DAILY Primary Care Provider: Rody Gaston Referrals: Rody Gaston DO [Primary Care Provider] - Activity Restrictions/Additional Instructions: Please continue to ice the areas that are painful to help reduce pain and speed healing. Take [id number] medication for pain control and return to the ER should you have any further concerns. It would typically take 10 to 14 days for complete resolution of pain Disposition Disposition: Home, Self Care Discharge Date/Time: 05/25/22 00:03
== END 2022-05-25 00:03 | disposition home or self-care (01) ==
PROVIDERS: Emergency Provider Emergency Medicine; PCP Family Medicine; Visit Provider Emergency Medicine
DX: S80.02XA Contusion of left knee, initial encounter (principal); W10.9XXA Fall (on) (from) unspecified stairs and steps, initial encounter; M25.512 Pain in left shoulder; S80.01XA Contusion of right knee, initial encounter
CPT/HCPCS: 73030; 73564; 96372; 99282

== ENCOUNTER → 2022-06-01 | Outpatient (CLI) | payer MEDICAID, SELFPAY | END | disposition home or self-care (01) | LOC: BFHLAB 09:41 | PROVIDERS: PCP Family Medicine; Referring Provider Family Medicine; Visit Provider Family Medicine | DX: I95.9 Hypotension, unspecified (principal) | CPT/HCPCS: 36415; 82533 ==

== ENCOUNTER → 2022-06-29 | Outpatient (CLI) | payer MEDICAID, SELFPAY ==
--- NOTE | 2022-06-29 08:33 | RAD_ITS ---
STUDY: X-RAY - LEFT SHOULDER REASON FOR EXAM: Female, 62 years old. LEFT PAIN SHOULDER TECHNIQUE: 4 view(s) of the shoulder. COMPARISON: 05/24/2022. FINDINGS: Increased density seen in the tip of the greater tuberosity where there are a few small subtle fracture lines. Findings suggest a healing fracture, probably having occurred on the prior exam. No displaced fragments. No deformity. Normal glenohumeral articulation. Normal acromioclavicular joint. Normal acromion. Normal visualized proximal humerus. The soft tissue structures are unremarkable. Normal visualized pulmonary apex. RAD/Shoulder min 2 Views IMPRESSION: Probable nondisplaced healing fracture of the tip of the greater tuberosity. Electronically Signed: Paolo Whitmore MD at 22:42 EDT ,
== END | disposition home or self-care (01) ==
PROVIDERS: PCP Family Medicine; Referring Provider Family Medicine; Visit Provider Family Medicine
DX: M25.512 Pain in left shoulder (principal)
CPT/HCPCS: 73030

== ENCOUNTER 2022-07-13 06:13 | Observation (INO) | payer MEDICAID, SELFPAY ==
[2022-07-13] VITALS (17 sets, daily range): BP systolic 92–130; BP diastolic 50–104; PULSE 56–74; RESP 11–20; TEMP 36.1–36.7; O2SAT 96–100; BMI 25.4; BMI 24.0
--- NOTE | 2022-07-13 06:26 | CT_ITS ---
We are attempting to reach an attending provider to discuss findings. An addendum with communication details will be sent when the communication is complete. INDICATION: Neuro deficit, acute, stroke suspected EXAMINATION: CT BRAIN - CT Head Stroke Protocol W/O Contrast Injection TECHNIQUE: Multiple axial images were obtained of the head without intravenous contrast. A radiation dose optimization technique was used for this scan. IV Contrast dosage and agent: None. RADIATION DOSAGE (If Supplied By Facility): CTDIvol = ( ) mGy, DLP = ( ) mGycm COMPARISON: CT head 08/23/2016. FINDINGS: BRAIN: No acute bleed. No edema. Mild decreased attenuation in the periventricular white matter bilaterally. Vo-white matter differentiation is maintained. Arterial calcifications. VENTRICLES AND SULCI: Not dilated. EXTRA-AXIAL: No hemorrhage, fluid collection, or mass. CALVARIUM / SKULL BASE: Unremarkable. FACE/SINUSES: Unremarkable. SOFT TISSUES: Unremarkable. CT/STROKE Brain/Head without Cont IMPRESSION: No acute findings on noncontrast CT. CT angiogram and/or MRI may be helpful to evaluate for acute infarct. Electronically Signed: Halima Tran MD at 6:45 EDT ,
--- NOTE | 2022-07-13 06:26 | EKG12_ITS ---
Test Reason : POSS STROKE Blood Pressure : / mmHG Vent. Rate : 059 BPM Atrial Rate : 059 BPM P-R Int : 164 ms QRS Dur : 088 ms QT Int : 444 ms P-R-T Axes : 062 036 054 degrees QTc Int : 439 ms Sinus bradycardia Otherwise normal ECG Confirmed by KARINE GRAJEDA, YENNIFER ([id number]), medical transcription editor IRENE ADDISON ([id number]) on 07/15/2022 8:03:32 AM Referred By: CHANCE Confirmed By:YENNIFER MILTON MD
--- NOTE | 2022-07-13 06:26 | CT_ITS ---
EXAM: CT angiogram brain. HISTORY: Neuro deficit, acute, stroke suspected TECHNIQUE: CTA Head and Neck W/ Contrast Injection (and W/O Contrast Images if performed). Multiplanar reconstructions and 3-D reformats were obtained. A radiation dose optimization technique was used for this scan. COMPARISON: None. LIMITATIONS: None. DISTAL CAROTID ARTERIES: No significant stenosis. ANTERIOR CEREBRAL ARTERIES: No significant stenosis. MIDDLE CEREBRAL ARTERIES: No significant stenosis. POSTERIOR CEREBRAL ARTERIES: No significant stenosis. BASILAR ARTERY: No significant stenosis. OTHER: None. CONCLUSION: No aneurysm or significant stenosis. EXAM: CT angiogram neck. HISTORY: Neuro deficit, acute, stroke suspected TECHNIQUE: CTA Head and Neck W/ Contrast Injection (and W/O Contrast Images if performed). Multiplanar reconstructions and 3-D reformats were obtained. A radiation dose optimization technique was used for this scan. COMPARISON: None. LIMITATIONS: None. CAROTID ARTERIES: No significant stenosis. VERTEBRAL ARTERIES: No significant stenosis. No direct communication between the distal right vertebral artery and the basilar artery reflecting an anatomic variant. BONES/SOFT TISSUES: No acute fracture. OTHER: None. CONCLUSION: No significant stenosis. N.B. : The above Results were Read Back by Anthony Noe MD to Lisandra Sethi DO , DO, and understanding confirmed on 07/13/2022 07:06:31 (ET). Electronically Signed: Anthony Noe MD at 7:08 EDT , CT/STROKE CTA Head AND Neck W/Con IMPRESSION: undefined
[2022-07-13 06:46] LABS: Absolute Lymphocyte Count 0.81 X10^3/uL (0.83-4.51); Basophil# 0.03 X10^3/uL; Basophil% 0.8 % (0-1); Eosinophil# 0.49 X10^3/uL; Eosinophils% 13.6 % (0-5); Hematocrit 41.7 % (37-47); Hemoglobin 13.6 g/dL (12.0-15.0); Lymphocyte # 0.81 X10^3/ul (0.83-4.51); Lymphocyte % 22.5 % (19-41); Mean Corp Hgb Conc 32.6 g/dL (32-36); Mean Corpuscular Hgb 33.3 pg (27.0-32.0); Mean Corpuscular Volume 102.2 fL (81-99); Mean Platelet Vol. 9.5 fl (6.2-12.0); Monocyte# 0.26 X10^3/uL; Monocyte% 7.2 % (0-10); NRBC Flagged by Analyzer 0 % (0-5); Neutrophil % 55.6 % (47-70); Platelet Count 243 K/mm3 (150-450); RBC Distribution Width CV 12.4 % (11.6-14.6); RBC Distribution Width SD 47.2 fl (35.1-43.9); Red Blood Count 4.08 M/mm3 (4.2-5.4); White Blood Count 3.6 K/mm3 (4.4-11.0)
[2022-07-13 06:57] LABS: Partial Thromboplast Time 33.2 Seconds (24.1-36.2)
--- NOTE | 2022-07-13 06:59 | ED.RN ---
Pt refusal of tenecteplase with stroke neurologist and Dr. Sehti in room.
[2022-07-13 07:04] LABS: Anion Gap 5 (5-15); BUN 14 mg/dL (7-18); BUN/Creat Ratio 17.3 RATIO (10-20); Calcium,Total 9.3 mg/dL (8.5-10.1); Chloride 107 mmol/L (98-107); Creatinine, Serum 0.81 mg/dL (0.55-1.02); EST Glomerular Filtration Rate 77 mL/min (>60); Est Glom Filt Rate - Afr Amer 93 mL/min (>60); Estimated Creatinine Clearance 69.14 ml/min; Glucose 91 mg/dL (74-106); Potassium 3.5 mmol/L (3.5-5.1); Sodium Level 139 mmol/L (136-145); Troponin-I HS 5 pg/mL (3.0-54.0)
--- NOTE | 2022-07-13 07:08 | ED.RN ---
Update given to sister in law Fernanda on pt request.
--- NOTE | 2022-07-13 07:10 | MRI_ITS ---
HISTORY: left sided paresthesias. TECHNIQUE: Multiplanar and multisequence MR images of the brain were obtained without contrast. 308 images. COMPARISON: CT earlier same day. FINDINGS: BRAIN PARENCHYMA: Very mild foci of increased T2 FLAIR signal in the bilateral cerebral white matter. No abnormal focus of restricted diffusion. No acute intracranial hemorrhage identified. CSF SPACES: Cerebral ventricles, cortical sulci, and other extra-axial CSF spaces within normal limits in size for age. No significant midline shift or other mass effect.No extra-axial fluid collection. VASCULAR SYSTEM: Major intracranial flow voids are maintained. PARANASAL SINUSES AND MASTOID AIR CELLS: No significant air fluid levels. ORBITS: Symmetric contents. MRI/Brain without Contrast IMPRESSION: No evidence for acute infarct. Very mild chronic white matter changes. Electronically Signed: Dinorah Rainey MD at 10:19 EDT ,
--- NOTE | 2022-07-13 07:10 | RAD_ITS ---
INDICATION: Neuro deficit, acute, stroke suspected EXAMINATION/TECHNIQUE: X-RAY - XR Chest 1 View AP portable. 7:11 AM COMPARISON: 03/10/2020 FINDINGS: LINES/DEVICES: None. LUNGS: No consolidation. Mild biapical pleural thickening not significantly changed. No pneumothorax. MEDIASTINUM: Unremarkable. CARDIAC SILHOUETTE: Not enlarged. BONES AND SOFT TISSUES: No acute abnormalities. RAD/Chest 1 View IMPRESSION: No evidence of active intrathoracic disease. Electronically Signed: Halima Tran MD at 7:54 EDT ,
[2022-07-13 07:35] LABS: Cholesterol 176 mg/dL (200); High Density Lipoprotein 90 mg/dL; Triglycerides 94 mg/dL; Very Low Density Lipoprotein 19 mg/dL (5-40)
--- NOTE | 2022-07-13 07:36 | EDS_ITS ---
HPI History of Present Illness Chief Complaint: Neuro S/Sx Informant: patient Narrative Narrative: Patient is a 62-year-old female with history of recent left humerus fracture, anxiety, migraine with aura and osteoporosis presenting with left-sided numbness. Patient states that yesterday she had some numbness in her left third and fourth fingers. She notes also she just felt strange and describes more as a lightheadedness or feeling like she is going to pass out. When she went to bed last night she was feeling okay. She notes her head just felt weird which she describes as a puffy sensation on the left side of her face, the top of her head and the back of her head. Around 3:45 AM she went to roll and she felt a pop in her shoulder. Patient states that on May 24 she fractured her shoulder and has been waiting on an MRI for follow-up to see if she has rotator cuff injury. She then all of a sudden felt that her left leg was flailing and her whole left leg was numb. She developed numbness/paresthesias of the bottom part of her left arm. She states she tried to walk but her leg still felt weak and numb from her but all the way to her foot. 911 was called and she was brought to the emergency room. Patient does not take any medicine on a daily basis. She never had any like this before. Denies any vision or speech changes. Denies any falls or head injuries. No other complaints at this time. [facility] Medical History Allergies Anemia Anxiety Arthritis Back pain Cancer Chest pain Depression Family history of skin cancer Fracture of greater tuberosity of left humerus History of stress test Hypotension Left shoulder pain Mitral valve prolapse Neoplasm of skin of eyebrow Non-smoker Osteoporosis Personal history of skin cancer Post-menopausal Shortness of breath on exertion Syncope Vision problems Vitamin deficiency Wears glasses Home Medications multivitamin with folic acid 400 mcg tablet (Thera) 1 tab PO DAILY 01/17/18 [History Last Taken Unknown] calcium-vitamin D3-vitamin K 500 mg-200 unit-40 mcg chewable tablet 1 tab PO DAILY 12/28/21 [History Last Taken Unknown] Allergy/AdvReac Type Severity Reaction Status Date / Time ciprofloxacin [From Cipro] Allergy Severe Other Verified 07/13/22 06:50 sulfamethoxazole Allergy Severe Other Verified 07/13/22 06:50 [From Bactrim] trimethoprim [From Bactrim] Allergy Severe Other Verified 07/13/22 06:50 doxycycline Allergy Intermediate Other Verified 07/13/22 06:50 latex Allergy Intermediate redness Verified 07/13/22 06:50 and rash codeine Allergy Hives Verified 07/13/22 06:50 nitrofurantoin Allergy Unknown Verified 07/13/22 06:50 [From Macrobid] nitrofurantoin Allergy Unknown Verified 07/13/22 06:50 macrocrystalline [From Macrobid] Penicillins Allergy Rash Verified 07/13/22 06:50 Family History Mother Angina at rest Anxiety Breast cancer Depression Hypertension Skin cancer Father Arthritis Cancer Colon cancer Other Family history of skin cancer High cholesterol Suicide attempt Surgical History History of cholecystectomy History of colonoscopy History of left breast biopsy (~10/2021) Social History Smoking Status: Never smoker alcohol intake: never substance use type: does not use additional social history: Does Not Use Aspirin Does Not Use Ibuprofen ROS ROS ED Constitutional Constitutional ED: Denies chills or fever(s) Eyes Eyes: Denies blurry vision or change in vision Cardiovascular Cardiovascular: Denies chest pain Respiratory/Chest Respiratory/Chest: Denies cough Gastrointestinal Gastrointestinal: Denies abdominal pain, nausea or vomiting Musculoskeletal Musculoskeletal: Reports other Details: Left shoulder pain ; Denies arthralgias Integumentary Denies rash Neurologic Neurologic: Reports paresthesias LUE and LLE and weakness; Denies headache(s) Psychiatric Psychiatric: Reports anxiety Hematologic/Lymphatic Hematologic/Lymphatic: Denies easy bleeding or easy bruising EXAM Physical Exam Const Vital Signs: 07/13/22 06:16 07/13/22 06:39 07/13/22 06:44 Temperature 97.4 F L Temperature Source Temporal Pulse Rate 68 60 Respiratory Rate 20 H 13 Blood Pressure 119/69 118/104 H Blood Pressure Mean 85 108 Pulse Ox 100 100 Oxygen Delivery Method Room Air Room Air Room Air 07/13/22 06:44 07/13/22 06:56 07/13/22 07:14 Temperature 98 F Temperature Source Temporal Pulse Rate 70 63 64 Respiratory Rate 11 L 13 13 Blood Pressure 120/59 L 126/69 H 130/56 H Blood Pressure Mean 79 88 80 Pulse Ox 100 100 100 Oxygen Delivery Method Room Air Room Air Room Air Positive well nourished and well developed General Appearance ED: well developed and NAD HEENT Reports moist mucous membranes Eyes PERRL and EOMs intact bilaterally Neck supple and no JVD Chest Wall inspection of chest normal and palpation of chest normal Resp normal respiratory effort and clear to auscultation bilaterally Cardio no murmurs Rate: regular rate GI normal to inspection, nondistended, normoactive bowel sounds and soft to palpation Back/Spine no CVA tenderness Extremity normal to inspection General Extremety ED: Negative for deformity, edema or tenderness General Extremity: Negative for deformity or edema Neuro oriented x3, CN's II-XII intact bilaterally and no sensory deficits noted Neuro Narrative: Patient is a slightly asymmetric smile however this appears to be baseline and matches the patient's picture in the computer system NIH equals 1 for subjective paresthesias of the left face, left upper extremity and left lower extremity. The paresthesias do not follow any type of dermatomal distribution. Sensorium / Orientation: alert Speech: speech normal Motor Exam: strength 5/5 throughout Psych mental status grossly normal Mood & Affect: anxious Skin no wounds NIHSS NIHSS Initial: 1a Level of Consciousness: 0 1b LOC Questions (Score 2 if aphasic/stupor): 0 1c LOC Commands (Only score 1st attempt): 0 2 Best Gaze (If aphasic, use reflexive mvmts.): 0 3 Visual: 0 4 Facial Palsy: 0 5 Motor Arm Right (UN = amputation/fusion): 0 5 Motor Arm Left: 0 6 Motor Leg Right: 0 6 Motor Leg Left: 0 7 Limb ataxia (Only + if out of proportion): 0 8 Sensory (Aphasia/stupor=0 or 1, coma=2): 1 9 Best Language: 0 10 Dysarthria (mute, coma=2, intubated=UN): 0 11 Extinction and Inattention (only scored if +): 0 Total Score: 1 MDM MDM MDM Narrative Medical decision making narrative: Patient is evaluated for sudden onset of paresthesias of the left side of her body. On arrival patient is evaluated and stroke alert is called as she has an NIH of 1. Patient's vital signs are normal. She will does not have any stroke risk factors that she does not have a history of high blood pressure, known history of hyperlipidemia or diabetes. Patient is evaluated by teleneurology from [facility]. Neurology and I both agree that patient should be evaluated further for stroke but is not a good tPA candidate. Discussed the risk and benefits of tPA and patient is agreeable with no tPA at this time. Patient does have a history of migraines so differential also includes a compress migraine. She has good distal pulses a low suspicion for acute vascular abnormality causing her symptoms. In addition she has normal vital signs. Work-up is largely normal otherwise. Case is discussed with admitting physician, Dr. Nicole, and she is admitted for further stroke evaluation. Patient agreeable this plan of care. In order to expedite her inpatient stroke work-up, MRI is ordered as well as lipid panel. Patient has claustrophobia and is given a dose of IV Ativan to help better tolerate the MRI. Lab Data Attestation: I reviewed the patient's lab results. Labs: Laboratory Results - last 24 hr 07/13/22 07/13/22 07/13/22 06:05 06:05 06:05 WBC 3.6 L RBC 4.08 L Hgb 13.6 Hct 41.7 MCV 102.2 H MCH 33.3 H MCHC 32.6 RDW Std Deviation 47.2 H RDW Coeff of Melissa 12.4 Plt Count 243 MPV 9.5 Immature Gran % (Auto) 0.300 Neut % (Auto) 55.6 Lymph % (Auto) 22.5 [place] % (Auto) 7.2 Eos % (Auto) 13.6 H Baso % (Auto) 0.8 Absolute Neuts (auto) 2.0 Absolute Lymphs (auto) 0.81 L Nucleated RBC % 0 PT 13.0 INR 1.0 APTT 33.2 Sodium 139 Potassium 3.5 Chloride 107 Carbon Dioxide 27.0 Anion Gap 5 BUN 14 Creatinine 0.81 Estim Creat Clear Calc 69.14 Est GFR (MDRD) Af Amer 93 Est GFR (MDRD) Non-Af 77 BUN/Creatinine Ratio 17.3 Glucose 91 Calcium 9.3 Troponin I High Sens 5 Triglycerides Cholesterol LDL Cholesterol VLDL Cholesterol HDL Cholesterol 07/13/22 06:05 WBC RBC Hgb Hct MCV MCH MCHC RDW Std Deviation RDW Coeff of Melissa Plt Count MPV Immature Gran % (Auto) Neut % (Auto) Lymph % (Auto) [place] % (Auto) Eos % (Auto) Baso % (Auto) Absolute Neuts (auto) Absolute Lymphs (auto) Nucleated RBC % PT INR APTT Sodium Potassium Chloride Carbon Dioxide Anion Gap BUN Creatinine Estim Creat Clear Calc Est GFR (MDRD) Af Amer Est GFR (MDRD) Non-Af BUN/Creatinine Ratio Glucose Calcium Troponin I High Sens Triglycerides 94 Cholesterol 176 LDL Cholesterol 67 VLDL Cholesterol 19 HDL Cholesterol 90 Radiography Chest X-Ray - ED: 1 View, Read by ED Physician, Read by Radiologist and No Acute Disease Diagnostic Testing: Clinical Impression(s) from Imaging Studies Brain CT 07/13/22 06:26 IMPRESSION: No acute findings on noncontrast CT. CT angiogram and/or MRI may be helpful to evaluate for acute infarct. Electronically Signed: Halima Tran MD at 6:45 EDT Reading Location ID and State: [address] [place] [address] Tel , Service support , ADDENDUM: 07/13/22 0656 IMPRESSION: No acute findings on noncontrast CT. CT angiogram and/or MRI may be helpful to evaluate for acute infarct. N.B. : The above Results were Read Back by Halima Tran MD to Lisandra Sethi DO, and understanding confirmed on 07/13/2022 06:49:48 (ET). Electronically Signed: Halima Tran MD at 6:45 EDT , Head/Neck CTA 07/13/22 06:26 IMPRESSION: undefined ADDENDUM: 07/13/22 0715 IMPRESSION: undefined Rhythm Strip Rhythm Strip: Sinus Rhythm Rate: 59 Ectopy: None EKG Initial EKG: Attestation: I personally reviewed and interpreted this EKG as follows: Interpretation: Sinus Bradycardia Comments: Sinus bradycardia rate of 59 bpm Normal axis Normal intervals Normal ST segments Management Discussion w/another healthcare provider: Radiologist ( negative CT brain and then CTA head) Discharge Plan Triage Chief Complaint: Neuro S/Sx ED Provider: Lisandra Sethi Dx/Rx/DC Orders Prescriptions: No Action calcium-vitamin D3-vitamin K 500-200-40 mg-unit-mcg tablet,chewable 1 tab PO DAILY multivitamin with folic acid [Thera] 1 TABLET tablet 1 tab PO DAILY Primary Care Provider: Rody Gaston Referrals: Rody Gasotn DO [Primary Care Provider] - Disposition Disposition: Acute Care Hospital [facility]
--- NOTE | 2022-07-13 07:59 | ECHOD_ITS ---
Reason For Study: TIA/CVA Procedure This was a 2D Doppler, Color Flow transthoracic echocardiogram. Exam performed portable in patient room. Left Ventricle Normal LV size. Left ventricular systolic function is normal. The estimated ejection fraction is 60 %. No regional wall motion abnormalities noted. Right Ventricle Normal RV size. Normal systolic function. Atria Normal left atrium. Normal right atrium. Mitral Valve Normal mitral valve. Mild (1+) eccentric mitral valve insufficiency. Tricuspid Valve Normal tricuspid valve. Mild tricuspid valve insufficiency. Pulmonary artery systolic pressure is 27 mmHg. Aortic Valve Normal aortic valve. Trisinus/trileaflet aortic valve. Pulmonic Valve Normal pulmonic valve. Great Vessels Normal aortic root. The pulmonary artery is normal size. Normal inferior vena cava. Pericardium/Pleural No pericardial effusion. MMode/2D Measurements & Calculations LVIDd: 4.3 cm IVSd: 0.61 cm Ao root diam: 2.5 cm LVIDs: 2.9 cm LVPWd: 0.68 cm RVDd: 3.0 cm FS: 32.7 % LAV(MOD-bp): 26.0 ml LVAd ap4: 20.4 cm2 SV(MOD-sp4): 34.3 ml LAV(MOD-bp) Indexed: 14.4 ml/m2 LVLd ap4: 6.5 cm LAV(MOD-sp2): 26.3 ml EDV(MOD-sp4): 52.9 ml LAV(MOD-sp4): 22.4 ml EDV(sp4-el): 54.3 ml LVAs ap4: 11.0 cm2 LVLs ap4: 5.4 cm ESV(MOD-sp4): 18.7 ml ESV(sp4-el): 18.9 ml EF(MOD-sp4): 64.7 % EF(sp4-el): 65.2 % SV(sp4-el): 35.4 ml LA A4 area: 11.3 cm2 LA dimension(2D): 2.9 cm RA A4 area: 12.9 cm2 Time Measurements MV dec time: 0.35 sec Doppler Measurements & Calculations MV E max sherwin: 71.5 cm/sec Lat Peak E' Sherwin: 12.8 cm/sec Med Peak E' Sherwin: 9.4 cm/sec MV A max sherwin: 64.2 cm/sec E/E' lat: 5.6 E/E' med: 7.6 MV E/A: 1.1 Ao V2 max: 115.9 cm/sec LV V1 max: 88.8 cm/sec MV dec slope: 202.9 cm/sec2 Ao max P.4 mmHg LV V1 max P.2 mmHg Ao V2 mean: 87.2 cm/sec Ao mean P.3 mmHg Ao V2 VTI: 31.5 cm PA V2 max: 83.0 cm/sec PI end-d sherwin: 75.6 cm/sec TR max sherwin: 245.4 cm/sec TR max P.1 mmHg ECHO/Echo Complete Interpretation Summary Normal LV size. Left ventricular systolic function is normal. The estimated ejection fraction is 60 %. Mild tricuspid valve insufficiency. Structurally normal valves. Ordering Physician: Tanvir Nicole Referring Physician: Rody Gaston Performed By: Kellie Gil RVT, RDCS and Student
[2022-07-13] MEDS: Aspirin 81 MG TAB.CHEW PO (08:43)
[2022-07-13] MEDS: 0.9% Saline Lock 10 ML Syringe IV (08:43)
[2022-07-13] MEDS: LORazepam 2 MG/ML Syringe 1 MG IV (08:43)
--- NOTE | 2022-07-13 09:00 | HP.PCM.HOS_ITS ---
HPI - General General Date of Admission: 07/13/22 HPI Narrative KEVON CUMMINGS, is a 62 F who presents to the hospital with numbness and tingling in her left arm and leg as well as some numbness in her left face. She states that she was awake this morning around 4 AM and noticed that her left arm and leg were numb and then she said that her left leg started jerking. She does feel a little bit weak in her left leg, she does have shoulder issues in her left arm so she is not sure if any weakness is due to that or what ever is going on with her leg. In the ER she was documented having an NIH of 1 secondary to the numbness and tingling. CT of the head and neck is unremarkable, CT of the brain does not show a head bleed. Chest x-ray is also normal. Lab work and vital signs are all unremarkable and stable [facility] Medical History Allergies Anemia Anxiety Arthritis Back pain Cancer Chest pain Depression Family history of skin cancer Fracture of greater tuberosity of left humerus History of stress test Hypotension Left shoulder pain Mitral valve prolapse Neoplasm of skin of eyebrow Non-smoker Osteoporosis Personal history of skin cancer Post-menopausal Shortness of breath on exertion Syncope Vision problems Vitamin deficiency Wears glasses Home Medications multivitamin with folic acid 400 mcg tablet (Thera) 1 tab PO DAILY 01/17/18 [History Last Taken Unknown] calcium-vitamin D3-vitamin K 500 mg-200 unit-40 mcg chewable tablet 1 tab PO DAILY 12/28/21 [History Last Taken Unknown] Allergy/AdvReac Type Severity Reaction Status Date / Time ciprofloxacin [From Cipro] Allergy Severe Other Verified 07/13/22 06:50 sulfamethoxazole Allergy Severe Other Verified 07/13/22 06:50 [From Bactrim] trimethoprim [From Bactrim] Allergy Severe Other Verified 07/13/22 06:50 doxycycline Allergy Intermediate Other Verified 07/13/22 06:50 latex Allergy Intermediate redness Verified 07/13/22 06:50 and rash codeine Allergy Hives Verified 07/13/22 06:50 nitrofurantoin Allergy Unknown Verified 07/13/22 06:50 [From Macrobid] nitrofurantoin Allergy Unknown Verified 07/13/22 06:50 macrocrystalline [From Macrobid] Penicillins Allergy Rash Verified 07/13/22 06:50 Family History Mother Angina at rest Anxiety Breast cancer Depression Hypertension Skin cancer Father Arthritis Cancer Colon cancer Other Family history of skin cancer High cholesterol Suicide attempt Surgical History History of cholecystectomy History of colonoscopy History of left breast biopsy (~10/2021) Social History (Updated 07/13/22 @ 08:10 by Ramonita Zambrano) Smoking Status: Never smoker alcohol intake: never substance use type: does not use additional social history: Does Not Use Aspirin Does Not Use Ibuprofen ROS Constitutional Constitutional: Denies chills, fatigue, fever(s) or malaise Eyes Eyes: Denies blurry vision ENT HEENT: Denies headache(s) or nasal discharge Cardiovascular Cardiovascular: Denies chest pain, dyspnea on exertion or syncope Respiratory/Chest Respiratory/Chest: Denies cough, shortness of breath at rest or shortness of breath with exertion Gastrointestinal Gastrointestinal: Denies constipation, diarrhea, nausea or vomiting Genitourinary Genitourinary: Denies dysuria Neurologic Neurologic: Reports focal weakness and numbness; Denies tremor(s) Psychiatric Psychiatric: Denies anxiety or depression Vital Signs Vital Signs Vital Signs: 07/13/22 06:16 07/13/22 06:39 07/13/22 06:44 Temperature 97.4 F L Temperature Source Temporal Pulse Rate 68 60 Pulse Strength Respiratory Rate 20 H 13 Blood Pressure 119/69 118/104 H Blood Pressure Mean 85 108 Blood Pressure Source Blood Pressure Position Blood Pressure Location Pulse Ox 100 100 Oxygen Delivery Method Room Air Room Air Room Air 07/13/22 06:44 07/13/22 06:56 07/13/22 07:14 Temperature 98 F Temperature Source Temporal Pulse Rate 70 63 64 Pulse Strength Respiratory Rate 11 L 13 13 Blood Pressure 120/59 L 126/69 H 130/56 H Blood Pressure Mean 79 88 80 Blood Pressure Source Blood Pressure Position Blood Pressure Location Pulse Ox 100 100 100 Oxygen Delivery Method Room Air Room Air Room Air 07/13/22 07:30 07/13/22 08:15 07/13/22 08:45 Temperature 97.8 F Temperature Source Oral Pulse Rate 63 60 Pulse Strength Normal (2+) Respiratory Rate 17 14 Blood Pressure 126/76 H 118/65 Blood Pressure Mean 92 82 Blood Pressure Source Monitor Blood Pressure Position Semi-Fowlers Blood Pressure Location Right Arm Pulse Ox 100 100 Oxygen Delivery Method Room Air Room Air Weight Weight: 149 lb 0.52 oz Body Mass Index (BMI) 24.0 Physical Exam Narrative General: Alert, Oriented x3, Cooperative, No apparent distress HEENT: Atraumatic, PERRLA, EOMI, Normocephalic Oral: Moist Mucosa Neck: Supple, No JVD Lungs: Clear to auscultation, Normal air movement, No rhonchi, No wheeze, No rales Cardiovascular: Regular rate, Regular Rhythm, Normal S1, Normal S2, No murmurs Abdomen: Soft, Non Tender, Non-Distended, No Hepato-splenomegaly Extremities: No edema, Capillary Refill Less than 3 Seconds Skin: No rashes, No breakdown Musculoskeletal: No Tenderness to Palpation of Joints or Extremities Neurological: She does appear to have a left facial droop, Motor Exam 5/5 strength throughout, Sensory exam diminished in the left arm and left leg, sensory exam is normal in the face Psych/Mental Status: Anxious Results Lab / Micro Data Result Diagrams: 07/13/22 06:05 07/13/22 06:05 Labs: Laboratory Results - last 24 hr 07/13/22 06:05: WBC 3.6 L, RBC 4.08 L, Hgb 13.6, Hct 41.7, MCV 102.2 H, MCH 33.3 H, MCHC 32.6, RDW Std Deviation 47.2 H, RDW Coeff of Melissa 12.4, Plt Count 243, MPV 9.5, Immature Gran % (Auto) 0.300, Neut % (Auto) 55.6, Lymph % (Auto) 22.5, [place] % (Auto) 7.2, Eos % (Auto) 13.6 H, Baso % (Auto) 0.8, Absolute Neuts (auto) 2.0, Absolute Lymphs (auto) 0.81 L, Nucleated RBC % 0 07/13/22 06:05: PT 13.0, INR 1.0, APTT 33.2 07/13/22 06:05: Sodium 139, Potassium 3.5, Chloride 107, Carbon Dioxide 27.0, Anion Gap 5, BUN 14, Creatinine 0.81, Estim Creat Clear Calc 69.14, Est GFR (MDRD) Af Amer 93, Est GFR (MDRD) Non-Af 77, BUN/Creatinine Ratio 17.3, Glucose 91, Calcium 9.3, Troponin I High Sens 5 07/13/22 06:05: Triglycerides 94, Cholesterol 176, LDL Cholesterol 67, VLDL Cholesterol 19, HDL Cholesterol 90 Rhythm Strip Rhythm Strip: Sinus Rhythm Rate: 59 Ectopy: None Radiology Impression Brain CT 07/13/22 06:26 IMPRESSION: No acute findings on noncontrast CT. CT angiogram and/or MRI may be helpful to evaluate for acute infarct. Electronically Signed: Halima Tran MD at 6:45 EDT Reading Location ID and State: [facility] [place] / [place] Tel , Service support , ADDENDUM: 07/13/22 0656 IMPRESSION: No acute findings on noncontrast CT. CT angiogram and/or MRI may be helpful to evaluate for acute infarct. N.B. : The above Results were Read Back by Halima Tran MD to Lisandra Sethi DO, and understanding confirmed on 07/13/2022 06:49:48 (ET). Electronically Signed: Halima Tran MD at 6:45 EDT Reading Location ID and State: [facility] / [place] Tel , Service support , Head/Neck CTA 07/13/22 06:26 IMPRESSION: undefined ADDENDUM: 07/13/22 0715 IMPRESSION: undefined Chest X-Ray 07/13/22 07:10 IMPRESSION: No evidence of active intrathoracic disease. Electronically Signed: Halima Tran MD at 7:54 EDT , Assessment & Plan Assessment/Plan (1) TIA (transient ischemic attack): PLAN: Plan 1. CVA versus TIA ? She does have left-sided facial droop with numbness in her left arm and leg ? NIH of 2 with the facial droop and the numbness, I did take a picture of her face and she was able to tell me that the left side is not normal ? CTA of the head and neck is unremarkable as is CT of the brain ? MRI of the brain is pending and we will obtain an echo ? Lipid panel has not LDL of 67 with an HDL of 90 and a cholesterol of 176 ? We will continue with aspirin and Lipitor ? Continue with evaluation by PT/OT ? She states that she does not see a doctor regularly DVT: Ambulation 75 minutes was spent on direct patient care as well as chart review and collaboration with colleagues Charges/Coding Visit Charges Inpatient E&M: 94763 Init Hosp L3
[2022-07-14 05:00] VITALS: BMI 24.0
[2022-07-14 05:59] VITALS: BMI 24.0
[2022-07-14 06:36] VITALS: BP 103/53; PULSE 69; RESP 16; TEMP 35.8; O2SAT 100
[2022-07-14 07:06] VITALS: O2SAT 99
[2022-07-14 08:10] VITALS: O2SAT 98
--- NOTE | 2022-07-14 09:41 | DCINST_ITS ---
Discharge Instructions Diet Discharge Diet: Low fat / Low cholesterol Activity Discharge Activity: Return to Normal Activity Dressing / Incision Call your doctor if you observe: Fever of 101 or Higher, Shortness of breath, Dizziness, Fainting spells, Swelling in the ankles, Chest pain and Increased palpitations (irregular heartbeat) Follow Up Care Test Results: Test results from this visit will be discussed in further detail at your follow- up appointment, if applicable. Discharge Plan Admission Admit Date/Time: 07/13/22 07:10 Attending Provider: Tanvir Nicole Primary Care Provider: Rody Gaston Discharge Orders/Prescriptions Prescriptions: New aspirin 81 mg Tablet,Chewable 81 mg PO BREAKFAST 30 Days Qty: 30 0RF Continued calcium-vitamin D3-vitamin K 500-200-40 mg-unit-mcg tablet,chewable 1 tab PO DAILY multivitamin with folic acid [Thera] 1 TABLET tablet 1 tab PO DAILY Referrals / Follow Up: Rody Gaston DO [Primary Care Provider] - Within 1 Week Disposition Disposition (needs filled in before D/C Order can be placed): Home, Self Care
[2022-07-14] MEDS: Aspirin 81 MG TAB.CHEW PO (09:50)
--- NOTE | 2022-07-14 10:05 | CASEMGMT ---
STEPHANIE CHRISTY NOTE: Pt being discharged. Therapy notes from yesterday reviewed. WW and HHC recommended. STEPHANIE CHRISTY to room. Pt sitting up in recliner chair in room. Introduced self and role. Pt states she has improved a lot since yesterday, that she has worked w/therapy in the halls this AM, did not use a WW this morning, and declines needing/wanting a WW for home. She also denies need for HHC. She states she has no concerns w/discharging home and denies any needs. Rayray MOSLEY RN, CM
[2022-07-14 10:08] VITALS: BP 103/53; PULSE 69; RESP 16; TEMP 35.8; O2SAT 100
--- NOTE | 2022-07-14 11:47 | CASEMGMT ---
Sw Patient requires admission ro rule out CVA. Sw presented to bedside, introduced self to patient and explained sw role during admission. Sw completed PHQ-9 with patient. Patient scored 17 on PHQ-9 which is indicative of patient experiencing moderately severe depression. Sw discussed patient score with her and assessed for patient's willingness to get connected with community mental health supports. Patient states that this time of year is extremely challenging for her mental health due to it being nicer outside and feeling trapped. Patient states that she does not have a mode of transportation, she does not work, and does not have family that can help her due to their own medical needs. Patient reports that she was previously engaged in counseling services at [facility] and would be receptive to getting reengaged with them if they offered virtual appointments. Sw printed off list of counseling agencies within the [facility] and provided them to patient, pointing out several local agencies that do provide telehealth appointments. Patient expressed appreciation and eagerness for discharge. No other social work needs at this time. Adriano Reno, [employer]PER[employer]OR [employer], [employer]
--- NOTE | 2022-07-14 12:21 | PCM.DC.SUM ---
Providers Date of Admission: 07/13/22 Primary Care Physician: Dr. Rody Gaston, DO Reason For Visit: CVA R/O Diagnosis Discharge Diagnosis (1) TIA (transient ischemic attack): Status: Acute Code(s): G45.9 - Transient cerebral ischemic attack, unspecified Medications at Discharge Home Medications multivitamin with folic acid 400 mcg tablet (Thera) 1 tab PO DAILY 01/17/18 calcium-vitamin D3-vitamin K 500 mg-200 unit-40 mcg chewable tablet 1 tab PO DAILY 12/28/21 aspirin 81 mg chewable tablet 81 mg PO BREAKFAST 30 days #30 tabs 07/14/22 Hospital Course Operations None Procedures 2-D Echocardiogram Summary of Care Provided Minutes Spent on Discharge: 36 Hospital Course: Per HPI: KEVON CUMMINGS, is a 62 F who presents to the hospital with numbness and tingling in her left arm and leg as well as some numbness in her left face.? She states that she was awake this morning around 4 AM and noticed that her left arm and leg were numb and then she said that her left leg started jerking.? She does feel a little bit weak in her left leg, she does have shoulder issues in her left arm so she is not sure if any weakness is due to that or what ever is going on with her leg.? In the ER she was documented having an NIH of 1 secondary to the numbness and tingling.? CT of the head and neck is unremarkable, CT of the brain does not show a head bleed.? Chest x-ray is also normal.? Lab work and vital signs are all unremarkable and stable Hospital Course: 1. TIA?62-year-old female who does not have chronic medical care presented to the hospital with left-sided numbness with an NIH of 1. This has resolved on the day of discharge. She did have an MRI which was unremarkable for an acute stroke, echo and CT of the head and neck were also normal. I discussed with her the possibility for discharge today she expressed understanding of the risk benefits going home and look to go home today. She is uncertain about taking a statin, we did discuss the risks and benefits of a statin, she states that her brother did have bad side effects as he is a cardiac patient and so she is still uncertain. At this time we will discharge her with aspirin and outpatient follow-up I did encourage her to think about starting a statin which her PCP would be able to do. I do recommend that she follow-up with her PCP in 3 to 5 days. 2. Anxiety is a chronic medical condition which complicates her care. I do recommend that she consider finding a therapist to help with coping mechanisms Physical Exam Narrative General: Alert, Oriented x3, Cooperative, No apparent distress HEENT: Atraumatic, PERRLA, EOMI, Normocephalic Oral: Moist Mucosa Neck: Supple, No JVD Lungs: Clear to auscultation, Normal air movement, No rhonchi, No wheeze, No rales Cardiovascular: Regular rate, Regular Rhythm, Normal S1, Normal S2, No murmurs Abdomen: Soft, Non Tender, Non-Distended, No Hepato-splenomegaly Extremities: No edema, Capillary Refill Less than 3 Seconds Skin: No rashes, No breakdown Musculoskeletal: No Tenderness to Palpation of Joints or Extremities Neurological: No facial droop, Motor Exam 5/5 strength throughout, Sensory exam equal bilaterally Psych/Mental Status: Normal Weight / BMI Weight Weight: 149 lb 0.52 oz Body Mass Index (BMI) 24.0 ABG / Lab / Microbiology Data Result Diagrams: 07/13/22 06:05 07/13/22 06:05 Radiography Diagnostic Testing: Radiology Impression Echocardiogram 07/13/22 07:59 Interpretation Summary Normal LV size. Left ventricular systolic function is normal. The estimated ejection fraction is 60 %. Mild tricuspid valve insufficiency. Structurally normal valves. Ordering Physician: Tanvir Nicole Referring Physician: Rody Gaston Performed By: Kellie Gil RVT, RDCS and Student D/C Instructions Discharge Diet: Low fat / Low cholesterol Call your doctor if you observe: Fever of 101 or Higher, Shortness of breath, Dizziness, Fainting spells, Swelling in the ankles, Chest pain and Increased palpitations (irregular heartbeat) Meaningful Use Info Meaningful Use Diagnoses (Choose all that apply): None applicable Discharge Plan Admission Admit Date/Time: 07/13/22 07:10 Attending Provider: Tanvir Nicole Primary Care Provider: Rody Gaston Discharge Orders/Prescriptions Prescriptions: New aspirin 81 mg Tablet,Chewable 81 mg PO BREAKFAST 30 Days Qty: 30 0RF Continued calcium-vitamin D3-vitamin K 500-200-40 mg-unit-mcg tablet,chewable 1 tab PO DAILY multivitamin with folic acid [Thera] 1 TABLET tablet 1 tab PO DAILY Referrals / Follow Up: Rody Gaston DO [Primary Care Provider] - Within 1 Week Disposition Disposition (needs filled in before D/C Order can be placed): Home, Self Care Charges/Coding Visit Charges Inpatient E&M: 16587 Disch Hosp >30min
== END 2022-07-14 09:43 | disposition home or self-care (01) ==
LOC: ED 07:07 → PCU 07:39
PROVIDERS: Admitting Provider Family Medicine; Emergency Provider Emergency Medicine; PCP Family Medicine; Visit Provider Family Medicine
DX: G45.9 Transient cerebral ischemic attack, unspecified (principal); R29.701 NIHSS score 1; F41.9 Anxiety disorder, unspecified; R20.0 Anesthesia of skin; R20.2 Paresthesia of skin; Z79.899 Other long term (current) drug therapy
CPT/HCPCS: 70450; 70496; 70498; 70551; 71045; 80048; 80061; 84484; 85025; 85610; 85730; 92523; 93005; 93306; 94762; 96374; 97162; 97166; 97530; 97802; 99221; 99285; Q9967; A4216; G0378

== ENCOUNTER 2022-07-18 04:23 | Emergency (ER) | payer MEDICAID, SELFPAY ==
[2022-07-18 04:23] VITALS: BP 108/93; PULSE 70; RESP 16; TEMP 36.7; O2SAT 100; BMI 25.4
--- NOTE | 2022-07-18 06:03 | EX.ED.DYSGE1 ---
HPI History of Present Illness Chief Complaint: Lower Extremity Injury Informant: patient and friend Narrative Narrative: Patient is a 62-year-old female who was recently admitted to the hospital secondary to left sided weakness and pain with concern for TIA. CTA of the head and neck revealed no acute findings and patient had an MRI of the brain which revealed no obvious masses or signs of stroke. Patient states that she is concerned she may have developed a DVT as she has pain in her left leg now which makes it difficult to walk and she was recent admitted to the hospital and does not take any blood thinners and with this comes in for evaluation. Other than her recent hospitalization she denies any recent travel surgery or history of DVT/PE [facility] Medical History Allergies Anemia Anxiety Arthritis Back pain Cancer Chest pain Depression Family history of skin cancer Fracture of greater tuberosity of left humerus History of stress test Hypotension Left shoulder pain Mitral valve prolapse Neoplasm of skin of eyebrow Non-smoker Osteoporosis Personal history of skin cancer Post-menopausal Shortness of breath on exertion Syncope Vision problems Vitamin deficiency Wears glasses Home Medications multivitamin with folic acid 400 mcg tablet (Thera) 1 tab PO DAILY 01/17/18 [History Last Taken Unknown] calcium-vitamin D3-vitamin K 500 mg-200 unit-40 mcg chewable tablet 1 tab PO DAILY 12/28/21 [History Last Taken Unknown] aspirin 81 mg chewable tablet 81 mg PO BREAKFAST 30 days #30 tabs 07/14/22 [Rx Last Taken Unknown] Allergy/AdvReac Type Severity Reaction Status Date / Time ciprofloxacin [From Cipro] Allergy Severe Other Verified 07/18/22 04:25 sulfamethoxazole Allergy Severe Other Verified 07/18/22 04:25 [From Bactrim] trimethoprim [From Bactrim] Allergy Severe Other Verified 07/18/22 04:25 doxycycline Allergy Intermediate Other Verified 07/18/22 04:25 latex Allergy Intermediate redness Verified 07/18/22 04:25 and rash codeine Allergy Hives Verified 07/18/22 04:25 nitrofurantoin Allergy Unknown Verified 07/18/22 04:25 [From Macrobid] nitrofurantoin Allergy Unknown Verified 07/18/22 04:25 macrocrystalline [From Macrobid] Penicillins Allergy Rash Verified 07/18/22 04:25 Family History Mother Angina at rest Anxiety Breast cancer Depression Hypertension Skin cancer Father Arthritis Cancer Colon cancer Other Family history of skin cancer High cholesterol Suicide attempt Surgical History History of cholecystectomy History of colonoscopy History of left breast biopsy (~10/2021) Social History (Updated 07/13/22 @ 08:10 by Ramonita Zambrano) Smoking Status: Never smoker alcohol intake: never substance use type: does not use additional social history: Does Not Use Aspirin Does Not Use Ibuprofen ROS ROS ED Constitutional Constitutional ED: Denies chills or fever(s) Eyes Eyes: Denies change in vision ENT ENT ED: Denies sore throat Cardiovascular Cardiovascular: Denies chest pain Respiratory/Chest Respiratory/Chest: Denies cough or dyspnea Gastrointestinal Gastrointestinal: Denies abdominal pain, diarrhea, nausea or vomiting Genitourinary Genitourinary ED: Denies dysuria Musculoskeletal Musculoskeletal: Reports other Details: Positive left leg pain ; Denies back pain or neck pain Integumentary Denies Abrasions or rash Neurologic Neurologic: Denies headache(s) Hematologic/Lymphatic Hematologic/Lymphatic: Denies easy bleeding or easy bruising EXAM Physical Exam Const Vital Signs: 07/18/22 04:23 07/18/22 06:27 Temperature 98.0 F Temperature Source Temporal Pulse Rate 70 60 Respiratory Rate 16 15 Blood Pressure 108/93 H Blood Pressure Mean 98 Pulse Ox 100 99 Oxygen Delivery Method Room Air Positive well nourished and well developed General Appearance ED: well developed HEENT HEENT Narrative: Normocephalic atraumatic Eyes PERRL and EOMs intact bilaterally Neck supple Resp normal respiratory effort and clear to auscultation bilaterally Cardio regular rate and regular rhythm Back/Spine Back/Spine Narrative: No saddle anesthesia. Negative straight leg raise. No clonus or Babinski. Patellar reflexes are plus 2 out of 4 bilaterally. Extremity normal to inspection Extremity Narrative: No asymmetric edema no pitting edema negative Homans' sign bilaterally. There is no obvious bony deformity or joint effusion. Dorsalis pedis pulses are plus 2 out of 4 bilaterally. Capillary refill is less than 2 seconds bilaterally. No overlying erythema or warmth to suggest infection no ecchymosis to suggest trauma. Compartments are soft going against compartment syndrome. Neuro oriented x3 and CN's II-XII intact bilaterally Neuro Narrative: NIH stroke scale score of 0 Sensorium / Orientation: alert Psych Psych Narrative: Patient has a nervous/anxious affect Skin no rashes or lesions noted MDM MDM MDM Narrative Medical decision making narrative: Patient presented to the ER with stable vitals she has recently been discharged in the last 48 hours from the hospital for TIA work-up and has had blood work as well as CTA and MRI indicating no acute stroke findings. By exam she does not have asymmetric swelling erythema or warmth and therefore concern for DVT is low. There is no trauma reported or noticed on exam compartments are soft going against compartment syndrome and vascular flow/arterial flow is normal to bilateral lower legs. Therefore at this time I do not feel there is need for further imaging studies as the exam does not indicate patient has lumbar radiculopathy compartment syndrome cellulitis abscess or DVT. Also she has had recent blood work checking electrolytes I do not feel this needs to be observed either. She has not had recent back surgery to suggest discitis and there is been no reported loss of bowel or bladder control or IV drug use to suggest cauda equina or epidural abscess. Therefore at this time I will simply obtain an outpatient venous duplex ultrasound to rule out DVT which was the patient's main concern but otherwise do not feel there is need for further work-up History & Record Review Discussion w/independent historian: Patient and Friend Discharge Plan Triage Chief Complaint: Lower Extremity Injury ED Provider: Beto Mckinney Dx/Rx/DC Orders Clinical Impression: Left leg pain, Anxiety disorder Instructions: ED Deep Vein Thrombosis (DVT), ED Myalgias Prescriptions: No Action calcium-vitamin D3-vitamin K 500-200-40 mg-unit-mcg tablet,chewable 1 tab PO DAILY multivitamin with folic acid [Thera] 1 TABLET tablet 1 tab PO DAILY aspirin 81 mg Tablet,Chewable 81 mg PO BREAKFAST 30 Days Qty: 30 0RF Primary Care Provider: Rody Gaston Referrals: Rody Gaston DO [Primary Care Provider] - Activity Restrictions/Additional Instructions: Your exam does not indicate any type of obvious neurologic impingement lack of blood flow or DVT but with the recent hospital stay a deep vein thrombosis is a possibility so please call the radiology department to have your outpatient venous duplex scheduled later today. Disposition Disposition: Home, Self Care Discharge Date/Time: 07/18/22 06:41
[2022-07-18 06:27] VITALS: PULSE 60; RESP 15; O2SAT 99
== END 2022-07-18 06:41 | disposition home or self-care (01) ==
PROVIDERS: Emergency Provider Emergency Medicine; PCP Family Medicine; Visit Provider Emergency Medicine
DX: M79.605 Pain in left leg (principal); F41.9 Anxiety disorder, unspecified
CPT/HCPCS: 99284

== ENCOUNTER → 2022-07-18 | Outpatient (CLI) | payer MEDICAID, SELFPAY ==
--- NOTE | 2022-07-18 12:40 | VDLE_ITS ---
Reason For Study: LLE PAIN RIGHT LEFT CFV is compressible, spontaneous, phasic, GSV is normal. competent and demonstrates normal CFV is compressible, spontaneous, phasic, augmentation. competent, and demonstrates normal Procedure augmentation. This is a venous duplex using B-mode, color FV is compressible, spontaneous, phasic, flow and spectral Doppler. competent and demonstrates normal Exam performed in department. augmentation. The exam was diagnostic. POP V is compressible, spontaneous, phasic, A preliminary report was called and/or faxed competent and demonstrates normal to DR. Gaston @ 1 pm @ [phone]. augmentation. T/P Trunk is compressible. PTV is compressible. LT PerV is compressible. VL/Venous Duplex US, Unilateral Interpretation Summary There is no evidence of left lower extremity deep vein thrombosis. Left great s aphenous vein appears patent and compressible segmentally. Normal flow patterns right common femoral vein Ordering Physician: Beto Mckinney Referring Physician: Rody Gaston Performed By: Alissa Walker, RDPOP, RVT
== END | disposition home or self-care (01) ==
LOC: CVS 12:40
PROVIDERS: PCP Family Medicine; Referring Provider Emergency Medicine; Visit Provider Emergency Medicine
DX: M79.605 Pain in left leg (principal); F41.9 Anxiety disorder, unspecified
CPT/HCPCS: 93971; 99284

== ENCOUNTER → 2022-07-22 | Outpatient (CLI) | payer MEDICAID, SELFPAY ==
--- NOTE | 2022-07-22 12:02 | RAD_ITS ---
INDICATION: PAIN BACK PAIN AND INTO RIGHT LEG X 1 WEEK EXAMINATION/TECHNIQUE: X-RAY - XR Sacrum/Coccyx Min 2 Views COMPARISON: None. FINDINGS: No definite fracture demonstrated. Sacroiliac joints are symmetric. RAD/Sacrum-Coccyx min 2 Views IMPRESSION: No acute findings. Electronically Signed: Halima Tran MD at 22:51 EDT ,
--- NOTE | 2022-07-22 12:02 | RAD_ITS ---
INDICATION: PAIN EXAMINATION/TECHNIQUE: X-RAY - XR Spine Lumbar Min 4 Views COMPARISON: None. FINDINGS: Bones are osteopenic. Vertebral bodies are normal in height. No definite fracture demonstrated. No subluxation. Slight curvature convex right. Mild disc space narrowing and osteophytes throughout most levels. No paravertebral soft tissue mass identified. RAD/L/S Spine Min 4 Views IMPRESSION: No evidence of fracture or subluxation. Mild degenerative changes. Electronically Signed: Halima Tran MD at 22:50 EDT ,
[2022-07-22 14:00] LABS: ALB/GLOB Ratio 1.1 RATIO (0.9-2.4); AST(SGOT) 20 U/L (15-37); Alanine Aminotransfer ALT/SGPT 18 U/L (13-56); Albumin, Serum 3.7 g/dL (3.2-5.0); Alkaline Phosphatase 72 U/L (45-117); Anion Gap 7 (5-15); BUN 12 mg/dL (7-18); BUN/Creat Ratio 14.5 RATIO (10-20); Calcium,Total 9.4 mg/dL (8.5-10.1); Chloride 105 mmol/L (98-107); Creatinine, Serum 0.83 mg/dL (0.55-1.02); EST Glomerular Filtration Rate 75 mL/min (>60); Est Glom Filt Rate - Afr Amer 90 mL/min (>60); Globulin 3.5 g/dL (2.2-4.2); Glucose 84 mg/dL (74-106); Iron 101 ug/dL (50-170); Magnesium 2.2 mg/dL (1.6-2.6); Potassium 4.1 mmol/L (3.5-5.1); Protein, Total 7.2 g/dL (6.4-8.2); Sodium Level 140 mmol/L (136-145)
[2022-07-22 14:04] LABS: Vitamin B12 363 pg/mL (211-911)
[2022-07-26 13:07] LABS: PROEL- A/G Ratio 1.3 (0.7-1.7); PROEL- Albumin 3.8 g/dL (2.9-4.4); PROEL- Alpha-1 Globulin 0.3 g/dL (0.0-0.4); PROEL- Alpha-2 Globulin 0.7 g/dL (0.4-1.0); PROEL- Beta Globulin 1.1 g/dL (0.7-1.3); PROEL- Gamma Globulin 0.9 g/dL (0.4-1.8); PROEL- TOTAL PROTEIN 6.8 g/dL (6.0-8.5)
== END | disposition home or self-care (01) ==
LOC: LAB 11:52
PROVIDERS: PCP Family Medicine; Referring Provider Family Medicine; Visit Provider Family Medicine
DX: G25.81 Restless legs syndrome (principal); E53.8 Deficiency of other specified B group vitamins; G62.9 Polyneuropathy, unspecified; M79.605 Pain in left leg; M54.50 Low back pain, unspecified
CPT/HCPCS: 36415; 72110; 72220; 80053; 82607; 83540; 83735; 84165

== ENCOUNTER → 2022-07-29 | Outpatient (CLI) | payer MEDICAID, SELFPAY ==
--- NOTE | 2022-07-29 10:08 | MRI_ITS ---
EXAM: MR LEFT UPPER EXTREMITY WITHOUT INTRAVENOUS CONTRAST, SHOULDER CLINICAL INDICATION: rule out rc tear, had a gt fracture, HX FALL TECHNIQUE: Multiplanar and multisequence MR images of the left shoulder without intravenous contrast. COMPARISON: No relevant prior studies available. FINDINGS: TENDONS: SUPRASPINATUS: Unremarkable. No supraspinatus tendon tear. INFRASPINATUS: Unremarkable. Intact. SUBSCAPULARIS: Unremarkable. Intact. TERES MINOR: Unremarkable. Intact. BICEPS BRACHII, LONG HEAD: Long head of the biceps tendon is normal in position and appearance. The extra-articular biceps tendon is in the bicipital groove. LIGAMENTS: GLENOHUMERAL: Unremarkable. Intact. MUSCLES: Unremarkable. No muscle atrophy or edema. FLUID: At least a small amount of fluid in the subacromial/subdeltoid bursa is compatible with bursitis. No significant glenohumeral joint effusion. CARTILAGE: Unremarkable. Articular cartilage intact. GLENOID LABRUM: Linear signal involving the posterior superior/superior labrum is concerning for an acute nondisplaced labral tear. No additional labral tear. BONES/JOINTS: Acute nonspecific fracture involving the greater tubercle. Mild to moderate hypertrophic degenerative changes acromioclavicular joint with mild mass effect on the underlying soft tissues. Type II acromion with undersurface. No subacromial enthesophyte. OTHER SOFT TISSUES: Unremarkable. No rotator interval edema. MRI/Upper Ext Joint Only(Routine) IMPRESSION: 1. At least a small amount of fluid in the subacromial/subdeltoid bursa is compatible with bursitis. 2. Acute nonspecific fracture involving the greater tubercle. 3. Acute nondisplaced posterior superior/superior labral tear. 4. No supraspinatus or infraspinatus tendon tear. Electronically Signed: Beto Up MD at 22:10 EDT ,
== END | disposition home or self-care (01) ==
LOC: MRI 09:55
PROVIDERS: PCP Family Medicine; Referring Provider Orthopaedic Surgery Sports Medicine; Visit Provider Orthopaedic Surgery Sports Medicine
DX: S42.252A Displaced fracture of greater tuberosity of left humerus, initial encounter for closed fracture (principal); M25.512 Pain in left shoulder; X58.XXXA Exposure to other specified factors, initial encounter
CPT/HCPCS: 73221

== ENCOUNTER → 2022-08-17 | Outpatient (CLI) | payer MEDICAID, SELFPAY ==
[2022-08-21 13:07] LABS: HPV APTIMA, High Risk Negative (Negative)
== END | disposition home or self-care (01) ==
LOC: LABSPEC 13:12
PROVIDERS: PCP Family Medicine; Referring Provider Family Medicine; Visit Provider Family Medicine
DX: Z12.4 Encounter for screening for malignant neoplasm of cervix (principal)
CPT/HCPCS: 87624; 88175; G0145

== ENCOUNTER 2022-10-07 10:00 | Outpatient (RCR) | payer MEDICAID, SELFPAY ==
--- NOTE | 2022-08-12 14:07 | HP.PTEVAL ---
Patient's Visit Information Visit Information Visit Information: KEVON CUMMINGS is a 62 year old F referred to Physical Therapy by Dr. Shaun Carbone MD with a diagnosis of DISPLACED FRACTURE OF GREATER TROCHANTERIC OF LEFT HUMERUS. Date of Evaluation: 08/12/22 Physical Therapist: Godwin Peace PT, Cert MDT, OCS Visit Plan Frequency: 2x /Week Duration: 4 Weeks Plan: LATEX ALERGY PT INTERVETION AROM, STRENGTHNING RTC/SCAPULAR ,POSTURAL EX'S AND CP/MHP Subjective Subjective: This 62 y/o female presents to physical therapy with left shoulder fracture of greater tuberosity. Patient fell downstairs at home May 24 had immediate pain went to ER had x-rays d/c then 2weeks later had x-rays then had 2nd x-rays showed fracture. Seen Dr Carbone MRI done no RTC tear did showed labral tear. Recommend ROM and strengthening. Patient had no sling. Patient pain global sharp pain. Denies paresthesia/tingling. Aggravating. lifting OH ,behind back above 90 degrees impairs ADL and housework tasks . Patient pain affects sleeping. Alleviating rest. Patient pain affects QOL and function . Patient goal no pain and return to prior level of function. SOCIAL: VOCATION: DISABILITY Pain Left Shoulder: Pain Intensity (Out of 10): 7 Pain Intensity Range: 10 Objective Objective: POSTURE: mild forward posture ,rounded shoulders PALPATION: mild tender shoulder NEURO: denies paresthesia/tingling AROM: shoulder flexion 120 degrees abduction 130 degrees ,ER 90 ,IR L8 MMT:RTC 4/5 ,DELTOID 4-/5 PROM: Shoulder flexion/abduction 170 degrees CAPSULAR RESTRICTION: WFL Balance/Special Test Scores Quick DASH Score: 40.9075 Goals Goal 1:: Patient to be I with HEP for shoulder Goal Time Frame: 4-6 Weeks Goal 2:: Patient to demonstrate 50% improvement with function with ADLS and housework tasks Goal Time Frame: 4-6 Weeks Goal 3:: Patient to improve AROM shoulder flexion/WFL ~ 150 degrees for function AFD;LS Goal Time Frame: 4-6 Weeks Goal 4:: Patient improve strength of deltoid by 4/5 to improve function Goal Time Frame: 4-6 Weeks Goal 5:: Patient to improve quick dash by 5 points or> improve QOL and function Goal Time Frame: 4-6 Weeks Rehabilitation Potential Physical Therapy Diagnosis: This fell fracture humerus in May with pain ,decrease strength ,AROM thus impairs ADLS and housework tasks thus benefit from skilled PT Rehabilitation Potential: Good Anticipated Interventions Patient/Client Instruction: Educate patient on: Condition and Plan of Care For the Purpose of:: To decrease pain, To decrease swelling/inflammation, To improve muscle performance and motor function, To improve ability to perform ADL's, To increase tolerance to activity/condition/position, To improve ability of physical actions for home/community/work/leisure, To improve health of tissue, To decrease soft tissue restriction and To increase flexibility/ROM Therapeutic Exercise to Include: Strength training, Postural training, Flexibilty training, Active ROM and Scapular Strength/Stabilization Comment: RTC/DELTOID For the Purpose of:: To decrease pain, To increase ROM, To increase tolerance to activity/condition/position, To improve ability of physical actions for home/community/work/leisure, To improve health of tissue, To decrease soft tissue restriction and To increase flexibility/ROM TENS: Yes IF ES: Yes Cryotherapy (ice pack, ice massage): Yes Thermo therapy (hot pack): Yes For the Purpose of:: To decrease pain, To improve nutrient delivery to tissue, To increase oxygenation perfusion, To improve health of tissue and To decrease soft tissue restriction Text: Thank you for the opportunity to evaluate your patient. For Medicare and Medicare HMO plans, please review the plan of care and approve it. It will need to be FAXED BACK to us at [phone] for Medicare purposes. For Medicare only, by signing this I certify the plan of care. Please let me know if there are questions or concerns regarding this plan of care. Physician Signature: Date:
== END 2022-10-07 19:00 | disposition home or self-care (01) ==
LOC: PT 10:00
PROVIDERS: PCP Family Medicine; Referring Provider Orthopaedic Surgery Sports Medicine; Visit Provider Orthopaedic Surgery Sports Medicine
DX: S42.252D Displaced fracture of greater tuberosity of left humerus, subsequent encounter for fracture with routine healing (principal); M25.512 Pain in left shoulder
CPT/HCPCS: 97110; 97162; 97530

== ENCOUNTER → 2022-10-25 | Outpatient (CLI) | payer MEDICAID, SELFPAY ==
--- NOTE | 2022-10-25 09:43 | BI_ITS ---
MAMMOGRAPHY - BILATERAL SCREENING REASON FOR EXAM: Female, 62 years old. Routine annual screening examination. PERTINENT HISTORY: Mother with breast cancer. Aunt with breast cancer. History of recent left ultrasound guided breast biopsy. TECHNIQUE: Digital bilateral breast anastacia (3D mammographic acquisition) in the CC and MLO projections. 2-D mediolateral oblique (MLO) and craniocaudad (CC) views of both breasts were obtained. CAD: Full Field Digital Mammography with Computer Added Detection was performed. COMPARISON: Comparison is made with prior study October 18, 2021 and September 08, 2020. FINDINGS: Breast Composition: The breasts are extremely dense, which lowers the sensitivity of mammography. Stable 1 cm x 1.4 cm nodule in the inferior central portion of the right breast with calcific rim. A tissue clip marker is seen within a tiny density in the retroareolar region of the left breast. No other significant abnormalities are identified. There has been no significant change since the prior study. BI/SCRN MAMM (CAD)W/ANASTACIA BILAT IMPRESSION: Stable bilateral screening mammogram. Yearly follow-up mammogram recommended. (A) ASSESSMENT CATEGORY: BIRADS Category 2: Benign. A letter regarding these results will be sent to the patient by the facility within 30 days. Approximately 10% of breast cancers are not detected by mammography. A normal mammogram should not delay biopsy of a clinically suspicious abnormality. [id number] Electronically Signed: Josias Paz MD at 10:43 EDT ,
== END | disposition home or self-care (01) ==
LOC: OPBI 09:42
PROVIDERS: PCP Family Medicine; Referring Provider Family Medicine; Visit Provider Family Medicine
DX: Z12.31 Encounter for screening mammogram for malignant neoplasm of breast (principal); Z80.3 Family history of malignant neoplasm of breast
CPT/HCPCS: 77063; 77067

== ENCOUNTER 2022-12-01 20:15 | Emergency (ER) | payer MEDICAID, SELFPAY ==
[2022-12-01 20:18] VITALS: BP 115/68; PULSE 65; RESP 20; TEMP 36.4; O2SAT 100; BMI 25.7
--- NOTE | 2022-12-01 20:46 | CT_ITS ---
EXAM: CT HEAD WITHOUT INTRAVENOUS CONTRAST CLINICAL INDICATION: Headache TECHNIQUE: Multiple axial images were obtained of the head without intravenous contrast. This CT exam was performed using one or more of the following dose reduction techniques: automated exposure control, adjustment of the mA and/or kV according to patient size, and/or use of iterative reconstruction technique. COMPARISON: CT head, CT angiogram head, and MRI brain dated 07/13/2022. FINDINGS: BRAIN AND EXTRA-AXIAL SPACES: There is non-specific periventricular hypoattenuation which is most commonly related to chronic microvascular ischemic disease in a patient of this age. No intra- or extra-axial hemorrhage. No evidence of acute infarct. Simple pineal cyst. Otherwise, no intracranial mass or mass effect. There is preservation of the hickman/white matter interface. Ventricles are appropriate for age. Basal cisterns are patent. BONES/JOINTS: No significant abnormality. No discrete lytic or blastic abnormalities. SINUSES: No significant findings. MASTOID AIR CELLS: No significant effusion. ORBITS: No acute findings. CT/Brain/Head without Contrast IMPRESSION: No acute intracranial pathology. Electronically Signed: Ji Sheffield DO at 21:52 EDT ,
--- NOTE | 2022-12-01 20:48 | EX.ED.DYSGE1 ---
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 She states just before noon she developed a mild headache on the top of her head. She thought maybe she was dehydrated or it was from hypoglycemia so she ate something and started drinking more water. However, her symptoms worsened. After she had eaten something and drink water, she became nauseated and vomited once. She states that she has not vomited in approximately 10 years so she became concerned. No blood in her emesis. [facility] Medical History Allergies Anemia Anxiety Arthritis Back pain Cancer Chest pain Depression Family history of skin cancer Fracture of greater tuberosity of left humerus History of stress test Hypotension Left shoulder pain Mitral valve prolapse Neoplasm of skin of eyebrow Non-smoker Osteoporosis Personal history of skin cancer Post-menopausal Shortness of breath on exertion Syncope Vision problems Vitamin deficiency Wears glasses Home Medications multivitamin with folic acid 400 mcg tablet (Thera) 1 tab PO DAILY 01/17/18 [History Last Taken Unknown] calcium-vitamin D3-vitamin K 500 mg-200 unit-40 mcg chewable tablet 1 tab PO DAILY 12/28/21 [History Last Taken Unknown] aspirin 81 mg chewable tablet 81 mg PO BREAKFAST 30 days #30 tabs 07/14/22 [Rx Last Taken Unknown] ondansetron 4 mg disintegrating tablet 4 mg PO Q6H PRN nausea and vomiting #20 tabs 12/01/22 [Rx Last Taken Unknown] Allergy/AdvReac Type Severity Reaction Status Date / Time ciprofloxacin [From Cipro] Allergy Severe Other Verified 12/01/22 20:17 sulfamethoxazole Allergy Severe Other Verified 12/01/22 20:17 [From Bactrim] trimethoprim [From Bactrim] Allergy Severe Other Verified 12/01/22 20:17 doxycycline Allergy Intermediate Other Verified 12/01/22 20:17 latex Allergy Intermediate redness Verified 12/01/22 20:17 and rash codeine Allergy Hives Verified 12/01/22 20:17 nitrofurantoin Allergy Unknown Verified 12/01/22 20:17 [From Macrobid] nitrofurantoin Allergy Unknown Verified 12/01/22 20:17 macrocrystalline [From Macrobid] Penicillins Allergy Rash Verified 12/01/22 20:17 Family History Mother Angina at rest Anxiety Breast cancer Depression Hypertension Skin cancer Father Arthritis Cancer Colon cancer Other Family history of skin cancer High cholesterol Suicide attempt Surgical History History of cholecystectomy History of colonoscopy History of left breast biopsy (~10/2021) Social History Smoking Status: Never smoker alcohol intake: never substance use type: does not use additional social history: Does Not Use Aspirin Does Not Use Ibuprofen ROS ROS ED ROS Narrative Constitutional: No fever, no chills. HEENT: No sore throat. No neck pain. No loss of vision. No rhinorrhea. Cardiovascular: No chest pain. No palpitations. No pedal edema. Respiratory: No cough, no shortness of breath. Abdominal: No abdominal pain. 1 episode of nausea and vomiting without hematemesis. Genitourinary: No dysuria. No hematuria. Musculoskeletal: No myalgias. No arthralgias. Neurologic: Positive headaches. On top of head, throbbing, rated 10 out of 10. No dizziness. No lightheadedness. Skin: No rash. No change in color. Psychiatric: No depression. No anxiety. EXAM Physical Exam Narrative Exam Narrative: Afebrile. Vital signs noted. HEENT: Normocephalic. Atraumatic. PERRL, EOMI. Neck soft and supple. No point tenderness or step off. Cardiovascular: Regular rate and rhythm. No murmurs, rubs, or gallops appreciated. Respiratory: No tachypnea. Lungs clear to auscultation bilaterally. Gastrointestinal: Abdomen soft, nontender, with normoactive bowel sounds. No rebound or guarding. Neurological: Awake. Alert. Nonfocal, nonlateralizing. Skin: No rash. Normal color. No pallor. Musculoskeletal: No pedal edema. Full range of motion extremities. Const Vital Signs: 12/01/22 20:18 Temperature 97.6 F L Temperature Source Temporal Pulse Rate 65 Respiratory Rate 20 H Blood Pressure 115/68 Blood Pressure Mean 83 Pulse Ox 100 Oxygen Delivery Method Room Air MDM MDM MDM Narrative Medical decision making narrative: Comprehensive work-up was pursued. As the patient stated she did not have history of migraines, I do feel CT imaging is indicated. However, in review of her previous diagnoses, says she had a migraine headache with aura. However, since she does not regularly get headaches CT was obtained and reviewed by my self to look for intracranial hemorrhage or mass. I see no evidence of acute hemorrhage, I reviewed the radiology report which confirms my independent interpretation. 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 I reviewed her laboratory work from today and she has a normal white count of 6.4, hemoglobin normal at 13.1, hematocrit 40.4, platelet count normal at 225. I reviewed her laboratory work and CMP and she has a low potassium of 3.2 which was replaced orally with 40 mEq. Her glucose is appropriately elevated at 115 with a normal anion gap of 5. LFTs including AST and ALT are negative/normal at 19 and 23 respectively with a normal alk phos of 70. High-sensitivity troponin is 4. I do not feel she requires serial troponins. EKG was obtained and interpreted by myself independently as sinus bradycardia at 54 bpm without ectopy or acute ST changes. No STEMI. I reviewed her urinalysis and is negative for infection. Ketones are slightly elevated at 15 indicative of very mild dehydration. She was bolused normal saline intravenously. As I do feel that she has more of a migraine headache given her 1 episode of nausea and vomiting, lipase was checked and was normal. I do not have concern for pancreatitis. She initially rated her pain when she arrived at 10 out of 10, and after Compazine and Benadryl and IV fluids, she rates her pain around a 4 and feels improved. At this point in time, with a negative work-up, I do feel she can be discharged to follow-up with her primary care provider. She states that she ate half container of [employer] chili yesterday, and ate the rest today. She may have a simple gastritis for which she can take [id number] medications to explain her continued nausea. She was written a prescription for Zofran. I do not feel she requires observation at this time. As her headache has improved and she has negative imaging she will follow-up with her primary care provider and may require possible referral to neurology. Disposition is discharged home in stable condition. Of note she refused her potassium according to the RN. History & Record Review Discussion w/independent historian: Patient Additional record(s) reviewed:: Prior ED visit and Prior labs Lab Data Attestation: I reviewed the patient's lab results. Labs: Laboratory Results - last 24 hr 12/01/22 12/01/22 20:57 22:04 WBC 6.4 RBC 4.02 L Hgb 13.1 Hct 40.4 MCV 100.5 H MCH 32.6 H MCHC 32.4 RDW Std Deviation 47.6 H RDW Coeff of Melissa 12.8 Plt Count 225 MPV 9.1 Immature Gran % (Auto) 0.500 Neut % (Auto) 87.7 H Lymph % (Auto) 7.5 L [place] % (Auto) 3.0 Eos % (Auto) 1.1 Baso % (Auto) 0.2 Absolute Neuts (auto) 5.7 Absolute Lymphs (auto) 0.48 L Nucleated RBC % 0 Differential Comment SCANNED Sodium 140 Potassium 3.2 L Chloride 104 Carbon Dioxide 31.0 Anion Gap 5 BUN 13 Creatinine 0.89 Estim Creat Clear Calc 62.93 Est GFR (MDRD) Af Amer 84 Est GFR (MDRD) Non-Af 69 BUN/Creatinine Ratio 14.7 Glucose 115 H Calcium 9.2 Total Bilirubin 0.40 AST 19 ALT 23 Alkaline Phosphatase 70 Troponin I High Sens 4 Total Protein 6.9 Albumin 3.5 Globulin 3.4 Albumin/Globulin Ratio 1.0 Lipase 29 Urine Color Yellow Urine Clarity Clear Urine pH 8.0 Ur Specific [place] 1.015 Urine Protein Negative Urine Glucose (UA) Normal Urine Ketones 15 H Urine Occult Blood Negative Urine Nitrite Negative Urine Bilirubin Negative Urine Urobilinogen Normal Ur Leukocyte Esterase 25 H Urine RBC 0 SEEN Urine WBC 0 SEEN Ur Squamous Epith Cells 0 SEEN Amorphous Sediment 1+ Urine Bacteria 0 SEEN Urine Mucus 0 SEEN Radiography Diagnostic Testing: Clinical Impression(s) from Imaging Studies Brain CT 12/01/22 20:46 IMPRESSION: No acute intracranial pathology. Electronically Signed: Ji Sheffield DO at 21:52 EDT , Discharge Plan Triage Chief Complaint: Headache Other Complaint: Nausea/Vomiting ED Provider: Bigg Dick Dx/Rx/DC Orders Clinical Impression: Headache, Nausea and vomiting Instructions: ED Headache Unspecified, ED Vomiting (Adult) Prescriptions: New ondansetron 4 mg tablet,disintegrating 4 mg PO Q6H PRN (Reason: nausea and vomiting) Qty: 20 0RF No Action calcium-vitamin D3-vitamin K 500-200-40 mg-unit-mcg tablet,chewable 1 tab PO DAILY multivitamin with folic acid [Thera] 1 TABLET tablet 1 tab PO DAILY aspirin 81 mg Tablet,Chewable 81 mg PO BREAKFAST 30 Days Qty: 30 0RF Primary Care Provider: Rody Gaston Referrals: Rody Gaston DO [Primary Care Provider] - 3-5 Days Disposition Disposition: Home, Self Care
[2022-12-01] MEDS: proCHLORPERazine 10 MG/2 ML Vial IV (21:05)
[2022-12-01] MEDS: 0.9% Normal Saline (1000mL) 1,000 ML 1000 ML IV (21:05)
[2022-12-01] MEDS: DiphenhydrAMINE 50 MG/ML Syringe 25 MG IV (21:05)
[2022-12-01 21:06] LABS: Absolute Lymphocyte Count 0.48 X10^3/uL (0.83-4.51); Absolute Neutrophil Count 5.7 X10^3/uL (2.0-7.7); Basophil# 0.01 X10^3/uL; Basophil% 0.2 % (0-1); Eosinophil# 0.07 X10^3/uL; Eosinophils% 1.1 % (0-5); Hematocrit 40.4 % (37-47); Hemoglobin 13.1 g/dL (12.0-15.0); Lymphocyte # 0.48 X10^3/ul (0.83-4.51); Lymphocyte % 7.5 % (19-41); Mean Corp Hgb Conc 32.4 g/dL (32-36); Mean Corpuscular Hgb 32.6 pg (27.0-32.0); Mean Corpuscular Volume 100.5 fL (81-99); Mean Platelet Vol. 9.1 fl (6.2-12.0); Monocyte# 0.19 X10^3/uL; NRBC Flagged by Analyzer 0 % (0-5); Neutrophil # 5.66 X10^3/uL (2.7-7.7); Neutrophil % 87.7 % (47-70); POSITIVE DIFFERENTIAL YES; Platelet Count 225 K/mm3 (150-450); RBC Distribution Width CV 12.8 % (11.6-14.6); RBC Distribution Width SD 47.6 fl (35.1-43.9); Red Blood Count 4.02 M/mm3 (4.2-5.4); White Blood Count 6.4 K/mm3 (4.4-11.0)
[2022-12-01 21:15] LABS: Differential Indicated SCAN CRITERIA MET
[2022-12-01 21:34] LABS: AST(SGOT) 19 U/L (15-37); Alanine Aminotransfer ALT/SGPT 23 U/L (13-56); Albumin, Serum 3.5 g/dL (3.2-5.0); Alkaline Phosphatase 70 U/L (45-117); Anion Gap 5 (5-15); BUN 13 mg/dL (7-18); BUN/Creat Ratio 14.7 RATIO (10-20); Calcium,Total 9.2 mg/dL (8.5-10.1); Chloride 104 mmol/L (98-107); Creatinine, Serum 0.89 mg/dL (0.55-1.02); Differential Comment SCANNED; EST Glomerular Filtration Rate 69 mL/min (>60); Est Glom Filt Rate - Afr Amer 84 mL/min (>60); Estimated Creatinine Clearance 62.93 ml/min; Globulin 3.4 g/dL (2.2-4.2); Glucose 115 mg/dL (74-106); Lipase 29 U/L (13-75); Potassium 3.2 mmol/L (3.5-5.1); Protein, Total 6.9 g/dL (6.4-8.2); Sodium Level 140 mmol/L (136-145); Troponin-I HS 4 pg/mL (3.0-54.0)
[2022-12-01 22:08] LABS: Bacteria 0 SEEN /hpf (None Seen); Mucous, Urine 0 SEEN /hpf (<or=2+); Red Blood Cells-Urine 0 SEEN /hpf (0-5); Squamous Epithelial Cells - UA 0 SEEN /hpf (5-10); White Blood Cells 0 SEEN /hpf (0-5)
[2022-12-01 22:15] LABS: Color, Urine Yellow (Yellow); Glucose, Dipstick Normal (Normal); Ketone-Dipstick 15 mg/dl (Negative); Leukocyte Esterase-Dipstick 25 /ul (Negative); Nitrite-Dipstick Negative (Negative); Occult Blood-Urine Negative /ul (Negative); Protein-Dipstick Negative (Negative); Specific Gravity, Urine 1.015 (1.002-1.030); Urine Bilirubin Dipstick Negative (Negative); Urine Clarity Clear (Clear); Urine Urobilinogen Normal (Normal)
[2022-12-01 22:16] VITALS: BP 113/54; RESP 18
[2022-12-01 22:21] LABS: Amorphous Sediment 1+
== END 2022-12-01 22:47 | disposition home or self-care (01) ==
PROVIDERS: Emergency Provider Emergency Medicine; PCP Family Medicine; Visit Provider Emergency Medicine
DX: R51.9 Headache, unspecified (principal); R11.2 Nausea with vomiting, unspecified; F41.9 Anxiety disorder, unspecified
CPT/HCPCS: 70450; 80053; 81001; 83690; 84484; 85025; 87428; 93005; 96361; 96374; 96375; 99285; J7030

== ENCOUNTER 2023-08-05 21:11 | Emergency (ER) | payer MEDICAID, SELFPAY ==
[2023-08-05] VITALS (8 sets, daily range): BP systolic 82–119; BP diastolic 43–70; PULSE 56–60; RESP 12–18; TEMP 36.2; O2SAT 97–99; BMI 27.5
--- NOTE | 2023-08-05 21:25 | EDS_ITS ---
HPI History of Present Illness Chief Complaint: Chest Pain Informant: patient Onset/Context/Timing Onset: Today and Hours (1) Activity at onset: sudden Timing: Continuous Quality: Positive for Aching and Burning Location: Substernal, Right Chest, Left Chest and - (Epigastric abdomen) Worsened By: Nothing Relieved By: Nothing Associated Symptoms: Positive for Nausea, Diaphoresis, Dyspnea and Lightheadedness; Negative for Vomiting, Cough, Fever, Acid Reflux or Palpitations Narrative Narrative: Patient presents with chest pain that began approximately 1 hour prior to arrival. Patient states she just finished eating when the pain began. Patient states the pain is over the lower chest. Patient states it is constant. Patient describes it as aching and burning. Patient states nothing makes it better and nothing makes it worse. Patient admits to some nausea and diaphoresis with the pain. Patient also admits to some shortness of breath and lightheadedness. Patient denies any cough or fevers. CVD Risk Factors: Positive for Family History 1' </=55; Negative for Hypertension, Diabetes, Hypercholesterolemia or Smoking PE Risk Factors: Positive for Cancer; Negative for Recent Travel/Surgery, Recent Immobilization, Prior DVT or PE or OCP + Smoking + >/=35 PFSH PFSH Medical History Fracture of greater tuberosity of left humerus Left shoulder pain Post-menopausal Wears glasses Cancer Depression Anxiety Arthritis Anemia Back pain Syncope Non-smoker Shortness of breath on exertion Hypotension History of stress test Chest pain Family history of skin cancer Personal history of skin cancer Neoplasm of skin of eyebrow Mitral valve prolapse Vitamin deficiency Vision problems Osteoporosis Allergies Home Medications ?Medication ?Instructions ?Recorded ?Last Taken ?Type multivitamin with folic acid 400 1 tab PO DAILY 01/17/18 Unknown History mcg tablet (Thera) acetaminophen 500 mg tablet 500 mg PO BID PRN PRN pain 08/05/23 Unknown History omeprazole 20 mg capsule,delayed 20 mg PO DAILY #30 CAPSULES 08/06/23 Unknown Rx release Allergy/AdvReac Type Severity Reaction Status Date / Time ciprofloxacin (From Cipro) Allergy Severe Other Verified 08/05/23 21:19 sulfamethoxazole (From Allergy Severe Other Verified 08/05/23 21:19 Bactrim) trimethoprim (From Bactrim) Allergy Severe Other Verified 08/05/23 21:19 doxycycline Allergy Intermediate Other Verified 08/05/23 21:19 latex Allergy Intermediate redness Verified 08/05/23 21:19 and rash codeine Allergy Hives Verified 08/05/23 21:19 nitrofurantoin (From Allergy Unknown Verified 08/05/23 21:19 Macrobid) nitrofurantoin Allergy Unknown Verified 08/05/23 21:19 macrocrystalline (From Macrobid) Penicillins Allergy Rash Verified 08/05/23 21:19 Family History Mother Angina at rest Anxiety Breast cancer Depression Hypertension Skin cancer Father Arthritis Cancer Colon cancer Other Family history of skin cancer High cholesterol Suicide attempt Surgical History History of colonoscopy History of left breast biopsy (~10/2021) History of cholecystectomy Social History Smoking Status: Never smoker alcohol intake: never substance use type: does not use additional social history: Does Not Use Aspirin Does Not Use Ibuprofen ROS ROS ED Constitutional Constitutional ED: Denies chills or fever(s) Eyes Eyes: Denies blurry vision or change in vision ENT ENT ED: Denies rhinorrhea or sore throat Cardiovascular Cardiovascular: Reports chest pain; Denies palpitations Respiratory/Chest Respiratory/Chest: Reports dyspnea; Denies cough Gastrointestinal Gastrointestinal: Denies nausea or vomiting Genitourinary Genitourinary ED: Denies dysuria or hematuria Musculoskeletal Musculoskeletal: Reports back pain; Denies neck pain Integumentary Denies abscess or rash Neurologic Neurologic: Reports headache(s); Denies weakness Allergic/Immunologic Allergic/Immunologic ED: Denies mouth swelling or urticaria EXAM Physical Exam Const Vital Signs: 08/05/23 21:12 08/05/23 21:25 08/05/23 21:30 Temperature 97.1 F L Temperature Source Temporal Pulse Rate 60 56 L Respiratory Rate 14 13 Blood Pressure 119/70 105/59 L Blood Pressure Mean 86 72 Pulse Ox 98 99 Oxygen Delivery Method Room Air Room Air 08/05/23 21:31 08/05/23 21:42 08/05/23 21:45 Temperature Temperature Source Pulse Rate 60 Respiratory Rate 13 Blood Pressure 92/55 L Blood Pressure Mean 66 Pulse Ox 98 97 Oxygen Delivery Method Room Air Room Air 08/05/23 22:00 08/05/23 22:25 08/05/23 23:00 Temperature Temperature Source Pulse Rate 60 60 57 L Respiratory Rate 12 18 13 Blood Pressure 95/60 115/59 L 82/43 L Blood Pressure Mean 66 77 56 Pulse Ox 98 97 98 Oxygen Delivery Method Room Air Room Air Room Air Positive well nourished and well developed General Appearance ED: well developed and NAD HEENT Reports moist mucous membranes Neck supple and no JVD Chest Wall Chest Narrative: There is tenderness palpation over the lower chest bilaterally. There is no bony crepitance or step-off. There is no subcutaneous emphysema palpated. Resp normal respiratory effort and clear to auscultation bilaterally Cardio regular rate and regular rhythm GI soft to palpation and non-distended GI Narrative: There is tenderness to palpation over the epigastric area and upper abdomen. There is no rebound or guarding noted. There are no masses palpated. Extremity General Extremety ED: Negative for edema or tenderness General Extremity: Negative for edema Neuro oriented x3, CN's II-XII intact bilaterally and no sensory deficits noted Sensorium / Orientation: awake and alert Motor Exam: strength 5/5 throughout Psych mental status grossly normal Heart Score History: Slightly/Non-Suspicious ECG: Normal Age: >45 - <65 years Risk Factors: 1 or 2 Risk Factors Score: 2 MDM MDM MDM Narrative Medical decision making narrative: Differential diagnosis includes cardiac dysrhythmia, cardiac ischemia, pneumonia, pneumothorax, pulmonary embolism, GERD, gastritis, pancreatitis, pep tic ulcer disease, electrolyte abnormality, and anxiety. EKG will be obtained to assess for cardiac dysrhythmia and cardiac ischemia. Chest x-ray will be obtained to assess for pneumonia and pneumothorax. CBC will be obtained to assess for leukocytosis and anemia. Comprehensive metabolic profile will be obtained to assess for hepatic function, renal function, and electrolyte abnormality. Lipase will be obtained to assess for pancreatitis. High- sensitivity troponin will be obtained to assess for cardiac ischemia. 2-hour repeat high-sensitivity troponin will be obtained to assess for ongoing cardiac ischemia. D-dimer will be obtained to assess for pulmonary embolism. Lab Data Attestation: I reviewed the patient's lab results. Lab results narrative: CBC was reviewed. White blood cell count was slightly low at 3.7. The remainder was within normal limits. Basic metabolic profile was reviewed and was within normal limits. D-dimer was reviewed and was slightly elevated at 0.64. High-sensitivity troponin was reviewed and was normal at 3. Lipase was reviewed and was slightly elevated at 78. 2-hour repeat high-sensitivity troponin was reviewed and was normal at 4. Labs: Laboratory Results - last 24 hr 08/05/23 08/05/23 21:02 23:50 WBC 3.7 L RBC 4.00 L Hgb 13.1 Hct 39.8 MCV 99.5 H MCH 32.8 H MCHC 32.9 RDW Std Deviation 46.5 H RDW Coeff of Melissa 12.7 Plt Count 219 MPV 9.4 Immature Gran % (Auto) 0.300 Neut % (Auto) 52.4 Lymph % (Auto) 34.3 [place] % (Auto) 10.0 Eos % (Auto) 2.7 Baso % (Auto) 0.3 Absolute Neuts (auto) 1.9 L Absolute Lymphs (auto) 1.27 Nucleated RBC % 0 D-Dimer Quant (PE/DVT) 0.64 H* Sodium 138 Potassium 3.4 L Chloride 103 Carbon Dioxide 29.0 Anion Gap 6 BUN 17 Creatinine 0.96 Estim Creat Clear Calc 64.60 Est GFR (MDRD) Af Amer 76 Est GFR (MDRD) Non-Af 63 BUN/Creatinine Ratio 17.7 Glucose 88 Calcium 9.5 Troponin I High Sens 3 4 Lipase 78 H Radiography Chest X-Ray - ED: 1 View, Read by ED Physician, Read by Radiologist and No Acute Disease Diagnostic Testing: Clinical Impression(s) from Imaging Studies Chest X-Ray 08/05/23 22:00 IMPRESSION: No radiographic evidence of acute cardiopulmonary disease. Electronically Signed: Jung Huerta MD at 22:30 EDT , Chest CTA 08/05/23 22:19 IMPRESSION: Negative for PE. No thoracic aortic dissection or acute pulmonary infiltrates. 1.3 cm rounded right breast nodule; if the patient has not had a recent mammogram, mammographic and/or ultrasound correlation would be recommended for further evaluation. Nonstandard communication protocol initiated. Electronically Signed: Jung Huerta MD at 23:47 EDT , ADDENDUM: 08/06/23 0000 IMPRESSION: Negative for PE. No thoracic aortic dissection or acute pulmonary infiltrates. 1.3 cm rounded right breast nodule; if the patient has not had a recent mammogram, mammographic and/or ultrasound correlation would be recommended for further evaluation. Nonstandard communication protocol initiated. N.B. : Eliu Brown MD, confirmed on 08/05/2023 23:52:38 (ET) that the healthcare facility has received the radiology report. Electronically Signed: Jung Huerta MD at 23:47 EDT , Portable 1 view chest x-ray was obtained. On my independent interpretation, lung sparrow are clear. There is normal cardiac silhouette. Bony thorax is normal. There is no acute process noted. Radiologist also interpreted the x- ray and agrees. Because of the elevated D-dimer, CTA of the chest was obtained. There is no evidence of pulmonary embolism or aortic dissection. There is no acute infiltra te noted. There is a 1.3 cm rounded right breast nodule. This was interpreted by the radiologist and was also independently reviewed by myself. EKG Initial EKG: Attestation: I personally reviewed and interpreted this EKG as follows: Interpretation: No Acute Injury Pattern and Sinus Bradycardia (56) Comments: EKG was obtained. On my independent interpretation, it showed a sinus bradycardia with a rate of 56. [place] interval, QRS interval, and QTc intervals were all normal. [place] was normal. There are no acute ST or T wave changes. Prior EKG tracings: available for review Prior: Unchanged (12/01/2022) Treatment and Re-Evaluation :: Patient was given aspirin and sublingual nitroglycerin by EMS. Patient then started complaining of epigastric and abdominal pain and nausea. Patient was given a dose of morphine and Zofran at that time. Patient was also given a GI cocktail. Patient was given IV fluids. Patient was feeling better on reevaluation. Patient was advised of her findings. Patient has a HEART score of 2. Patient was advised that this is low risk for acute cardiac event. Patient was advised that this could be gastritis or early pancreatitis. Patient was instructed to eat a bland diet. Patient was given a prescription for omeprazole. Patient was instructed to follow-up with her primary care physician in 5 to 7 days. Patient was instructed to return if worse in any way. Patient understood and was agreeable with the plan. All questions were answered. Discharge Plan Triage Chief Complaint: Chest Pain ED Provider: Eliu Brown Dx/Rx/DC Orders Clinical Impression: Chest pain of uncertain etiology, Gastritis Instructions: ED Chest Pain, Uncertain Cause, ED Gastritis (Adult) Prescriptions: New omeprazole 20 mg capsule,delayed release(DR/EC) 20 mg PO DAILY Qty: 30 0RF No Action multivitamin with folic acid [Thera] 1 TABLET tablet 1 tab PO DAILY acetaminophen 500 mg tablet 500 mg PO BID PRN PRN (Reason: pain) Primary Care Provider: Rody Gaston Referrals: Rody Gaston DO [Primary Care Provider] - 5-7 Days Print Language: [place] Citizen Disposition Disposition: Home, Self Care
--- NOTE | 2023-08-05 21:33 | EKG12_ITS ---
Test Reason : CP Blood Pressure : / mmHG Vent. Rate : 056 BPM Atrial Rate : 056 BPM P-R Int : 144 ms QRS Dur : 074 ms QT Int : 438 ms P-R-T Axes : 024 035 048 degrees QTc Int : 422 ms Sinus bradycardia Otherwise normal ECG Confirmed by KARINE GRAJEDA, YENNIFER ([id number]), movie editor DAVID CURIEL ([id number]) on 08/07/2023 8:06:24 AM Referred By: CAROLE Confirmed By:YENNIFER MILTON MD
[2023-08-05 21:42] LABS: Absolute Lymphocyte Count 1.27 X10^3/uL (0.83-4.51); Absolute Neutrophil Count 1.9 X10^3/uL (2.0-7.7); Basophil# 0.01 X10^3/uL; Basophil% 0.3 % (0-1); Eosinophils% 2.7 % (0-5); Hematocrit 39.8 % (37-47); Hemoglobin 13.1 g/dL (12.0-15.0); Lymphocyte # 1.27 X10^3/ul (0.83-4.51); Lymphocyte % 34.3 % (19-41); Mean Corp Hgb Conc 32.9 g/dL (32-36); Mean Corpuscular Hgb 32.8 pg (27.0-32.0); Mean Corpuscular Volume 99.5 fL (81-99); Mean Platelet Vol. 9.4 fl (6.2-12.0); Monocyte# 0.37 X10^3/uL; NRBC Flagged by Analyzer 0 % (0-5); Neutrophil # 1.94 X10^3/uL (2.7-7.7); Neutrophil % 52.4 % (47-70); Platelet Count 219 K/mm3 (150-450); RBC Distribution Width CV 12.7 % (11.6-14.6); RBC Distribution Width SD 46.5 fl (35.1-43.9); White Blood Count 3.7 K/mm3 (4.4-11.0)
[2023-08-05 21:59] LABS: Anion Gap 6 (5-15); BUN 17 mg/dL (7-18); BUN/Creat Ratio 17.7 RATIO (10-20); Calcium,Total 9.5 mg/dL (8.5-10.1); Chloride 103 mmol/L (98-107); Creatinine, Serum 0.96 mg/dL (0.55-1.02); EST Glomerular Filtration Rate 63 mL/min (>60); Est Glom Filt Rate - Afr Amer 76 mL/min (>60); Glucose 88 mg/dL (74-106); Lipase 78 U/L (13-75); Potassium 3.4 mmol/L (3.5-5.1); Sodium Level 138 mmol/L (136-145); Troponin-I HS (w/2H Reflex) 3 pg/mL (3.0-54.0)
--- NOTE | 2023-08-05 22:00 | RAD_ITS ---
EXAM: XR CHEST, 1 VIEW CLINICAL INDICATION: chest pain TECHNIQUE: 2 frontal views of the chest. COMPARISON: Chest radiographic report of 07/13/2022. FINDINGS: LUNGS AND PLEURAL SPACES: Unremarkable. No consolidation or edema. No pneumothorax. No effusion. HEART: Unremarkable. Cardiac silhouette not enlarged. Normal pulmonary vasculature. MEDIASTINUM: Central airways and mediastinal contour are unremarkable. No mediastinal widening. BONES/JOINTS: Unremarkable. No acute fracture. SOFT TISSUES: Unremarkable. RAD/Chest 1 View (Portable) IMPRESSION: No radiographic evidence of acute cardiopulmonary disease. Electronically Signed: Jung Huerta MD at 22:30 EDT ,
[2023-08-05 22:18] LABS: D-Dimer Quantitative (DVT/PE) 0.64 FEU/ug/m (0.27-0.49)
--- NOTE | 2023-08-05 22:19 | CT_ITS ---
ACR Level 3 findings have been noted. An addendum which confirms receipt of the report will follow. EXAM: CT ANGIOGRAPHY CHEST WITHOUT AND WITH INTRAVENOUS CONTRAST CLINICAL INDICATION: Elevated D-dimer TECHNIQUE: Helically acquired angiography images were obtained of the chest as per pulmonary angiogram protocol without and with intravenous contrast. This CT exam was performed using one or more of the following dose reduction techniques: automated exposure control, adjustment of the mA and/or kV according to patient size, and/or use of iterative reconstruction technique. MIP reconstructed images were created and reviewed. CONTRAST: IV 100mL [id number] RADIATION DOSE: Total DLP: 321.48 mGy-cm. COMPARISON: Chest radiographs of this date. FINDINGS: PULMONARY ARTERIES: Unremarkable. Normal in caliber. No pulmonary embolism. AORTA: Unremarkable. Normal in caliber. No evidence of dissection. GREAT VESSELS OF AORTIC ARCH: Unremarkable. Normal in caliber. No evidence of dissection. LUNGS AND PLEURAL SPACES: Biapical pleural parenchymal scarring. Incidental dependent atelectasis. No pneumonia or other acute pulmonary infiltrates. No mass. HEART: No significant pericardial effusion. MEDIASTINUM: Unremarkable. No mediastinal or hilar adenopathy. Esophagus is unremarkable. No hiatal hernia. THYROID: Unremarkable. No thyroid lesions. BONES/JOINTS: Unremarkable. No suspicious lytic or blastic abnormality. No acute osseous abnormality. SOFT TISSUES: Within the inferior right breast is a 1.3 cm rounded circumscribed nodule of soft tissue attenuation; a few punctate high density foci are seen within the wall of this nodule, due to enhancement versus calcification. INTRAPERITONEAL SPACE: Visualized portions of the liver, spleen, adrenal glands, pancreas and renal upper pole are unremarkable. No pneumoperitoneum is noted. CT/CTA Chest W/WO Contrast IMPRESSION: Negative for PE. No thoracic aortic dissection or acute pulmonary infiltrates. 1.3 cm rounded right breast nodule; if the patient has not had a recent mammogram, mammographic and/or ultrasound correlation would be recommended for further evaluation. Nonstandard communication protocol initiated. Electronically Signed: Jung Huerta MD at 23:47 EDT ,
[2023-08-05] MEDS: Ondansetron 4 MG/2 ML Vial IV (22:25)
[2023-08-05] MEDS: Morphine 4 MG/ML Syringe IV (22:26)
[2023-08-05] MEDS: Lidocaine 2% Viscous15 ML UDC 15 ML PO (23:19)
[2023-08-05] MEDS: Mag Hydrox/Al Hydrox/Simeth 30 ML UDC PO (23:19)
[2023-08-05] MEDS: 0.9% Normal Saline (1000mL) 1,000 ML 1000 ML IV (23:22)
[2023-08-05 23:37] LABS: Reflex Troponin-HS? (from REC) Y
[2023-08-06] VITALS: BP 110/65; PULSE 59; RESP 14; O2SAT 98
[2023-08-06 00:17] LABS: Troponin-I HS 4 pg/mL (3.0-54.0)
[2023-08-06 00:32] VITALS: BP 102/57; PULSE 59; RESP 14; TEMP 36.5; O2SAT 98
== END 2023-08-06 00:39 | disposition home or self-care (01) ==
PROVIDERS: Emergency Provider Emergency Medicine; PCP Family Medicine; Visit Provider Emergency Medicine
DX: R07.9 Chest pain, unspecified (principal); R06.02 Shortness of breath; K29.70 Gastritis, unspecified, without bleeding; N63.10 Unspecified lump in the right breast, unspecified quadrant; R51.9 Headache, unspecified; Z79.899 Other long term (current) drug therapy
CPT/HCPCS: 71045; 71275; 80048; 83690; 84484; 85025; 85379; 93005; 96361; 96374; 96375; 99284; J7030; Q9967; A4216; J2405

== ENCOUNTER → 2023-08-23 | Outpatient (CLI) | payer MEDICAID, SELFPAY ==
[2023-08-23 16:15] LABS: D-Dimer Quantitative (DVT/PE) 0.52 FEU/ug/m (0.27-0.49)
[2023-08-23 16:16] LABS: AST(SGOT) 19 U/L (15-37); Alanine Aminotransfer ALT/SGPT 22 U/L (13-56); Albumin, Serum 3.7 g/dL (3.2-5.0); Alkaline Phosphatase 72 U/L (45-117); Anion Gap 4 (5-15); BUN 7 mg/dL (7-18); Calcium,Total 9.3 mg/dL (8.5-10.1); Chloride 103 mmol/L (98-107); Creatinine, Serum 0.88 mg/dL (0.55-1.02); EST Glomerular Filtration Rate 70 mL/min (>60); Est Glom Filt Rate - Afr Amer 84 mL/min (>60); Globulin 3.6 g/dL (2.2-4.2); Glucose 94 mg/dL (74-106); Lipase 42 U/L (13-75); Potassium 3.7 mmol/L (3.5-5.1); Protein, Total 7.3 g/dL (6.4-8.2); Sodium Level 138 mmol/L (136-145)
[2023-08-29 12:09] LABS: Age Gdln ACOG Testing 30-65 (.); HPV APTIMA, High Risk Negative (Negative)
[2023-08-29 16:27] LABS: HPV Reflexed? YES, CHARGE PATIENT
== END | disposition home or self-care (01) ==
LOC: LABSPEC 15:01 → BFHLAB 15:56
PROVIDERS: PCP Family Medicine; Referring Provider Family Medicine; Visit Provider Family Medicine
DX: Z12.4 Encounter for screening for malignant neoplasm of cervix (principal); R79.89 Other specified abnormal findings of blood chemistry; R10.9 Unspecified abdominal pain
CPT/HCPCS: 36415; 80053; 83690; 85379; 87624; 88175; G0145

== ENCOUNTER → 2024-01-22 | Outpatient (CLI) | payer MEDICAID, SELFPAY ==
--- NOTE | 2024-01-22 14:29 | RAD_ITS ---
STUDY: X-RAY - ABDOMEN/PELVIS REASON FOR EXAM: Female, 63 years old. ASSESS COLON FOR ABNORMALITIES/STOOL BURDEN TECHNIQUE: Frontal view COMPARISON: None. FINDINGS: Normal visualized lung bases. There is an unremarkable bowel gas pattern. There is no demonstrated free abdominal air. Possible 2 mm calcification over the left renal shadow. Normal soft tissue structures. Normal visualized osseous structures. RAD/Abdomen Single View IMPRESSION: No sign of bowel obstruction. Possible left renal calculus. Electronically Signed: Hollis Corral DO at 16:05 EST ,
== END | disposition home or self-care (01) ==
PROVIDERS: PCP Family Medicine; Referring Provider Nurse Practitioner Family; Visit Provider Nurse Practitioner Family
DX: R10.11 Right upper quadrant pain (principal)
CPT/HCPCS: 74018

== ENCOUNTER → 2024-03-26 | Outpatient (CLI) | payer MEDICAID, SELFPAY ==
--- NOTE | 2024-03-26 12:06 | BI_ITS ---
PROCEDURE: SCRN MAMM (CAD)W/ANASTACIA BILAT REASON FOR EXAM: F, Age 63 y/o, mother with breast cancer. Aunts with breast cancer. TECHNIQUE: Bilateral screening digital breast tomosynthesis with 2D and 3D images. Computer aided detection. COMPARISON: Prior exam(s) dating back to comparison is made with prior study dated October 25, 2022.. FINDINGS: The breasts are heterogeneously dense which may obscure small masses. There is a 9.6 mm by 14.5 mm well-defined nodule with peripheral calcification in the inferior central portion of the right breast. This is unchanged. Correlation with ultrasound is recommended. BI/SCRN MAMM (CAD)W/ANASTACIA BILAT IMPRESSION: BI-RADS 0: INCOMPLETE - NEED ADDITIONAL IMAGING EVALUATION. Follow-up code: Sonographic follow-up. The patient will be notified of the results by letter. Reading Location: [place] [id number]
== END | disposition home or self-care (01) ==
LOC: OPBI 12:04
PROVIDERS: PCP Family Medicine; Referring Provider Family Medicine; Visit Provider Family Medicine
DX: Z12.31 Encounter for screening mammogram for malignant neoplasm of breast (principal); Z80.3 Family history of malignant neoplasm of breast
CPT/HCPCS: 77063; 77067

== ENCOUNTER → 2024-04-03 | Outpatient (CLI) | payer MEDICAID, SELFPAY ==
--- NOTE | 2024-04-03 13:40 | US_ITS ---
PROCEDURE: BREAST LIMITED UNILATERAL REASON FOR EXAM: Abnormal screening mammogram. TECHNIQUE: Targeted right breast ultrasound. COMPARISON: Comparison is made with prior mammogram dated March 26, 2024. FINDINGS: RIGHT: Right breast ultrasound was targeted to the inferior half of the right breast.. There is a 1.2 cm x 1.2 cm x 1.2 cm hypoechoic slightly irregular nodule at the 6 o'clock position of the breast at 2 cm from the nipple. Biopsy recommended. US/Breast Limited Unilateral IMPRESSION: 1.2 cm x 1.2 cm x 1.2 cm hypoechoic slightly irregular nodule at the 6 o'clock position of the right breast as described at 2 cm from the nipple. Biopsy recommended. BI-RADS category 4. Follow-up code: Biopsy. Reading Location: [id number]
== END | disposition home or self-care (01) ==
LOC: OPUS 13:39
PROVIDERS: PCP Family Medicine; Referring Provider Family Medicine; Visit Provider Family Medicine
DX: N63.15 Unspecified lump in the right breast, overlapping quadrants (principal)
CPT/HCPCS: 76642

== ENCOUNTER → 2024-04-08 | Outpatient (CLI) | payer MEDICAID, SELFPAY ==
--- NOTE | 2024-04-08 09:50 | BRBX_PTH ---
PATIENT: KEVON CUMMINGS LOC: [facility] U#:[id number] AGE/SX: 63/F ROOM: RE04/08/[address]: Dr. Parvez Soriano MD : [id number] BED: DIS: 04/08/2024 SPEC #: [id number] RECD: 04/08/24 10:32 STATUS: DORSI JENSEN #: [id number] REINA: 04/08/24 09:[address]: Parvez Soriano DEPT: SURGICAL PATHOLOGY RECD BY: Juanita Wade ENTERED: 04/08/24 11:46 SP TYPE: BREAST BX OTHR DR: Dr. Rody Gaston DO Tissues: Right breast, NOS Procedures: Surgery Specimen Level IV HEADER OPERATION: Right breast biopsy PRE-OP DIAGNOSIS: Right breast mass TISSUE SUBMITTED: Right breast tissue MICROSCOPIC DIAGNOSIS Right breast, mass, core biopsy: * Benign breast tissue with foreign body type granulomas, with cholesterol clefts, multinucleated giant cells, and microcalcifications. MICROSCOPIC DESCRIPTION Slides are reviewed. GROSS DESCRIPTION Received in fixative is one container labeled with the patient's name and designated Right breast mass. The specimen consists of three yellow-coffman cylindrical tissue cores that range from 0.2 to 1.2cm long and average 0.2cm in diameter. The cores are entirely submitted in one cassette. 04/08/2024 TC: CPT:17073
== END | disposition home or self-care (01) ==
PROVIDERS: PCP Family Medicine; Referring Provider Surgery; Visit Provider Surgery
DX: N63.10 Unspecified lump in the right breast, unspecified quadrant (principal)
CPT/HCPCS: 88305

== ENCOUNTER 2024-04-16 20:31 | Emergency (ER) | payer MEDICAID, SELFPAY ==
[2024-04-16 20:35] VITALS: BP 124/78; PULSE 72; RESP 18; TEMP 36.3; O2SAT 99; BMI 25.0
--- NOTE | 2024-04-16 22:10 | CT_ITS ---
EXAM: BRAIN/HEAD WITHOUT CONTRAST CLINICAL HISTORY: DIZZINESS COMPARISON: 12/01/2022 TECHNIQUE: Multiple contiguous axial images of the brain were obtained without the administration of intravenous contrast. Two-dimensional coronal and sagittal reformatted images were reconstructed. Low-dose imaging technique was utilized. FINDINGS: No evidence of acute intracranial hemorrhage, midline shift or mass effect. No definite CT evidence of acute territorial cortical infarction. No hydrocephalus. Cerebral volume is age-appropriate. No depressed calvarial fracture. Paranasal sinuses and mastoid air cells are clear. CT/Brain/Head without Contrast IMPRESSION: No acute intracranial abnormality. Reading Location: [facility]
[2024-04-16] MEDS: dexAMETHasone 10 MG/ML Vial PO.IVFORM (22:28)
[2024-04-16] MEDS: diazePAM 5 MG Tablet PO (22:28)
[2024-04-16 22:34] VITALS: BP 121/73; PULSE 62; RESP 17; O2SAT 100
--- NOTE | 2024-04-16 23:09 | EDS_ITS ---
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 She states that she had a shower earlier this evening and was using a Q-tip in each of her ears. She states after doing this she noticed there was blood on the Q-tip. She states following this she felt like there was pressure within her head that her ears were ringing and that she was dizzy. She describes a dizzy sensation as a sense of motion and states that it was worse when she would change positions and better at rest. 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 [facility] Medical History Abdominal pain Fracture of greater tuberosity of left humerus Left shoulder pain Post-menopausal Wears glasses Cancer Depression Anxiety Arthritis Anemia Back pain Syncope Non-smoker Shortness of breath on exertion Hypotension History of stress test Chest pain Family history of skin cancer Personal history of skin cancer Neoplasm of skin of eyebrow Mitral valve prolapse Vitamin deficiency Vision problems Osteoporosis Allergies Home Medications ?Medication ?Instructions ?Recorded ?Last Taken ?Type diazepam 5 mg tablet (Valium) 5 mg PO TID PRN vertigo 5 days #15 04/16/24 Unknown Rx tabs prednisolone 15 mg/5 mL oral 30 mg (10 mL) PO DAILY 5 days #50 04/16/24 Unknown Rx solution mL Allergy/AdvReac Type Severity Reaction Status Date / Time ciprofloxacin (From Cipro) Allergy Severe Other Verified 04/16/24 20:35 sulfamethoxazole (From Allergy Severe Other Verified 04/16/24 20:35 Bactrim) trimethoprim (From Bactrim) Allergy Severe Other Verified 04/16/24 20:35 doxycycline Allergy Intermediate Other Verified 04/16/24 20:35 latex Allergy Intermediate redness Verified 04/16/24 20:35 and rash codeine Allergy Hives Verified 04/16/24 20:35 nitrofurantoin (From Allergy Unknown Verified 04/16/24 20:35 Macrobid) nitrofurantoin Allergy Unknown Verified 04/16/24 20:35 macrocrystalline (From Macrobid) Penicillins Allergy Rash Verified 04/16/24 20:35 nasrin AdvReac Mild Itching Verified 04/16/24 20:35 avocado AdvReac Diarrhea Verified 04/16/24 20:35 Family History Mother Angina at rest Anxiety Breast cancer Depression Hypertension Skin cancer Father Arthritis Cancer Colon cancer Other Family history of skin cancer High cholesterol Suicide attempt Surgical History History of colonoscopy History of left breast biopsy (~10/2021) History of cholecystectomy Social History Smoking Status: Never smoker alcohol intake: never substance use type: does not use additional social history: Does Not Use Aspirin Does Not Use Ibuprofen ROS ROS ED Constitutional Constitutional ED: Denies chills or fever(s) Eyes Eyes: Denies blurry vision or change in vision ENT ENT ED: Reports ear pain bilateral and other Details: Positive blood from bilateral ear canals Positive tinnitus ; Denies sore throat Cardiovascular Cardiovascular: Reports other Details: Negative syncope ; Denies chest pain, palpitations or racing heartbeat Respiratory/Chest Respiratory/Chest: Denies cough or dyspnea Gastrointestinal Gastrointestinal: Reports nausea; Denies abdominal pain, diarrhea or vomiting Genitourinary Genitourinary ED: Denies dysuria Musculoskeletal Musculoskeletal: Denies myalgias Integumentary Denies rash Neurologic Neurologic: Reports other Details: Positive dizziness ; Denies headache(s) Psychiatric Psychiatric: Reports anxiety and depression Hematologic/Lymphatic Hematologic/Lymphatic: Denies easy bleeding or easy bruising EXAM Physical Exam Const Vital Signs: 04/16/24 20:35 04/16/24 22:34 Temperature 97.4 F L Temperature Source Temporal Pulse Rate 72 62 Respiratory Rate 18 17 Blood Pressure 124/78 H 121/73 H Blood Pressure Mean 93 89 Pulse Ox 99 100 Oxygen Delivery Method Room Air Room Air Positive well nourished and well developed General Appearance ED: well developed; Negative for pallor HEENT HEENT Narrative: The bilateral TMs are retracted without signs of secondary infection or tympanic membrane perforation. Pressure/retraction is greater on the left than right Patient does not have signs of otitis externa and along the medial aspect of each ear canal at the [place] there is a small amount of dried blood most likely related to a ruptured cyst or skin abrasion. No mastoid tenderness bilaterally No signs of malignant otitis externa There is pain with palpation over top the frontal and maxillary sinuses bilaterally Eyes PERRL and EOMs intact bilaterally General Eye ED: Negative for scleral icterus Neck supple Neck Narrative: No nuchal rigidity or meningeal signs Resp normal respiratory effort and clear to auscultation bilaterally Cardio regular rate and regular rhythm Extremity normal to inspection Neuro oriented x3, CN's II-XII intact bilaterally and no sensory deficits noted Neuro Narrative: GCS of 15 Cranial nerves II through XII are grossly intact without focal neurologic deficit No pronator drift no dysmetria no truncal ataxia NIH stroke scale score of 0 Patient does have horizontal nystagmus noted as well as positive Hallpike [place] exam on left Sensorium / Orientation: alert Motor Exam: strength 5/5 throughout Psych Mood & Affect: anxious Skin no rashes or lesions noted General Skin Exam: Negative for jaundice or pallor MDM MDM MDM Narrative Medical decision making narrative: Patient arrived to the ER with stable vitals and a normal neurologic exam. Her history and exam is consistent with peripheral vertigo not central vertigo. 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 CT revealed no acute findings. As vitals are stable and I have low concern for secondary infection such as otitis media or otitis externa or acute blood loss anemia there is no need for emergent laboratory values. There reported blood was noted along the medial aspect of the bilateral ear canals and most likely due to a ruptured cyst or small friction from using the Q-tip but as there is no active bleeding or signs of secondary infection there is no need for antibiotics. As the patient's history and exam is consistent with eustachian tube dysfunction and pressure within the semicircular canals leading to peripheral vertigo she was given Decadron and Valium. After receiving this she did report improvement of her symptoms and was able to ambulate with a steady gait. Neuroexam remained normal as well. Therefore at this time I do not feel there is need for further workup and she will be placed on steroids and Valium to help with symptom control and is otherwise safe for discharge. History & Record Review Discussion w/independent historian: Patient and Family Radiography Diagnostic Testing: Clinical Impression(s) from Imaging Studies Brain CT 04/16/24 22:10 IMPRESSION: No acute intracranial abnormality. Reading Location: [facility] Discharge Plan Triage Chief Complaint: Dizziness ED Provider: Beto Mckinney Dx/Rx/DC Orders Clinical Impression: Peripheral vertigo, Ear canal abrasion, Anxiety disorder Instructions: Anatomy of the Ear, ED Vertigo, Unspecified Prescriptions: New diazepam [Valium] 5 mg tablet 5 mg PO TID PRN (Reason: vertigo) 5 Days Qty: 15 0RF prednisolone 15 mg/5 mL solution 30 mg PO DAILY 5 Days Qty: 50 0RF Primary Care Provider: Rody Gaston Referrals: Farooq Delvalle MD [Med Staff - Active Staff] - Rody Gaston DO [Primary Care Provider] - Print Language: Cypriot Disposition Disposition: Home, Self Care
[2024-04-16 23:48] VITALS: BP 121/73; PULSE 62; RESP 17; TEMP 36.9; O2SAT 100
== END 2024-04-16 23:48 | disposition home or self-care (01) ==
PROVIDERS: Emergency Provider Emergency Medicine; PCP Family Medicine; Visit Provider Emergency Medicine
DX: H81.399 Other peripheral vertigo, unspecified ear (principal); F41.9 Anxiety disorder, unspecified; S00.419A Abrasion of unspecified ear, initial encounter; X58.XXXA Exposure to other specified factors, initial encounter
CPT/HCPCS: 70450; 99283

== ENCOUNTER → 2024-04-24 | Outpatient (CLI) | payer MEDICAID, SELFPAY ==
[2024-04-24 17:10] LABS: Absolute Lymphocyte Count 0.91 X10^3/uL (0.83-4.51); Absolute Neutrophil Count 2.4 X10^3/uL (2.0-7.7); Basophil# 0.03 X10^3/uL; Basophil% 0.8 % (0-1); Eosinophil# 0.16 X10^3/uL; Eosinophils% 4.2 % (0-5); Hemoglobin 14.4 g/dL (12.0-15.0); Lymphocyte # 0.91 X10^3/ul (0.83-4.51); Lymphocyte % 23.9 % (19-41); Mean Corp Hgb Conc 32.7 g/dL (32-36); Mean Corpuscular Hgb 32.5 pg (27.0-32.0); Mean Corpuscular Volume 99.3 fL (81-99); Mean Platelet Vol. 9.7 fl (6.2-12.0); Monocyte# 0.33 X10^3/uL; Monocyte% 8.7 % (0-10); NRBC Flagged by Analyzer 0 % (0-5); Neutrophil # 2.36 X10^3/uL (2.7-7.7); Neutrophil % 62.1 % (47-70); Platelet Count 258 K/mm3 (150-450); RBC Distribution Width CV 12.5 % (11.6-14.6); RBC Distribution Width SD 46.3 fl (35.1-43.9); Red Blood Count 4.43 M/mm3 (4.2-5.4); White Blood Count 3.8 K/mm3 (4.4-11.0)
[2024-04-24 18:11] LABS: ALB/GLOB Ratio 1.5 RATIO (0.9-2.4); AST(SGOT) 22 U/L (<=31); Alanine Aminotransfer ALT/SGPT 16 U/L (<=34); Albumin, Serum 4.3 g/dL (3.4-4.8); Alkaline Phosphatase 75 U/L (35-104); Anion Gap 12 (5-15); BUN 11 mg/dL (4-19); BUN/Creat Ratio 12.2 RATIO (10-20); Calcium,Total 9.6 mg/dL (7.6-11.0); Carbon Dioxide 23.2 mmol/L (21.0-32.0); Chloride 101 mmol/L (98-108); Creatinine, Serum 0.87 mg/dL (0.70-1.20); EST Glomerular Filtration Rate 76 (>60); Globulin 2.9 g/dL (2.2-4.2); Glucose 85 mg/dL (70-99); Potassium 4.2 mmol/L (3.3-5.1); Protein, Total 7.2 g/dL (5.9-8.4); Sodium Level 137 mmol/L (133-145); Total Bilirubin 0.38 mg/dL (0.00-1.30)
[2024-04-24 18:18] LABS: Free T3 3.2 pg/mL (2.18-3.98); Vitamin B12 348 pg/mL (180-914)
== END | disposition home or self-care (01) ==
LOC: BFHLAB 15:16
PROVIDERS: PCP Family Medicine; Visit Provider Family Medicine
DX: Z51.81 Encounter for therapeutic drug level monitoring (principal); R53.83 Other fatigue; E55.9 Vitamin D deficiency, unspecified; E53.8 Deficiency of other specified B group vitamins
CPT/HCPCS: 36415; 80053; 82306; 82607; 84439; 84443; 84481; 85025

== ENCOUNTER → 2024-05-17 | Outpatient (CLI) | payer MEDICAID, SELFPAY | END | disposition home or self-care (01) | LOC: LABSPEC 14:31 | PROVIDERS: PCP Family Medicine; Visit Provider Nurse Practitioner Family | DX: N39.0 Urinary tract infection, site not specified (principal) | CPT/HCPCS: 87086; 87088 ==

== ENCOUNTER 2024-10-02 08:49 | Emergency (ER) | payer MEDICAID, SELFPAY ==
[2024-10-02 08:51] VITALS: BP 127/71; PULSE 68; RESP 19; TEMP 36.6; O2SAT 100; BMI 24.7
--- NOTE | 2024-10-02 09:12 | RAD_ITS ---
PROCEDURE: CHEST 1 VIEW (PORTABLE) 10/02/2024 REASON FOR EXAM: CAD TECHNIQUE: Frontal view of the chest. COMPARISON: Prior study dated August 05, 2023. FINDINGS: Hardware: EKG electrodes are seen. Heart: Cardiac and mediastinal contours are stable. Lungs: No significant change in the appearance of the lungs. Bones: The bones are unremarkable. Other: RAD/Chest 1 View (Portable) IMPRESSION: No Acute Findings. Reading Location: [facility]
--- NOTE | 2024-10-02 09:13 | EKG12_ITS ---
Test Reason : GENERAL Blood Pressure : */* mmHG Vent. Rate : 52 BPM Atrial Rate : 52 BPM P-R Int : 142 ms QRS Dur : 92 ms QT Int : 456 ms P-R-T Axes : 46 37 46 degrees QTcB Int : 424 ms Sinus bradycardia Otherwise normal ECG Confirmed by AMANDA LONG ([id number]), editor news IRENE ADDISON ([id number]) on 10/03/2024 1:53:36 PM Referred By: Confirmed By: AMANDA LONG
--- NOTE | 2024-10-02 09:14 | EDS_ITS ---
HPI History of Present Illness Chief Complaint: General Illness Narrative Narrative: 64-year-old female past medical history of depression and anxiety presents with multiple somatic complaints that began at around 7:00 this morning. This was 2- 1/2 hours ago. She relates history that she went to bed around 6 AM because she has not been sleeping well. She states that she got up again and felt like the right side of her head was more swollen than the left. Additionally, she stated that her right lower extremity felt cool, and numb from the thigh all the way down to her foot. Additionally, she had left foot numbness as well. She has had nausea but no vomiting. No exacerbating or alleviating factors. Both of her legs felt heavy. Additionally, she relates history that she has been having dental problems on the right side of her mouth for 8 months and cannot see a dentist. She states she is concerned about blood infection. 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 [facility] Medical History Abdominal pain Fracture of greater tuberosity of left humerus Left shoulder pain Post-menopausal Wears glasses Cancer Depression Anxiety Arthritis Anemia Back pain Syncope Non-smoker Shortness of breath on exertion Hypotension History of stress test Chest pain Family history of skin cancer Personal history of skin cancer Neoplasm of skin of eyebrow Mitral valve prolapse Vitamin deficiency Vision problems Osteoporosis Allergies Home Medications ?Medication ?Instructions ?Recorded ?Last Taken ?Type diazepam 5 mg tablet (Valium) 5 mg PO TID PRN vertigo 5 days #15 04/16/24 Unknown Rx tabs prednisolone 15 mg/5 mL oral 30 mg (10 mL) PO DAILY 5 days #50 04/16/24 Unknown Rx solution mL Allergy/AdvReac Type Severity Reaction Status Date / Time ciprofloxacin (From Cipro) Allergy Severe Other Verified 04/16/24 20:35 sulfamethoxazole (From Allergy Severe Other Verified 04/16/24 20:35 Bactrim) trimethoprim (From Bactrim) Allergy Severe Other Verified 04/16/24 20:35 doxycycline Allergy Intermediate Other Verified 04/16/24 20:35 latex Allergy Intermediate redness Verified 04/16/24 20:35 and rash codeine Allergy Hives Verified 04/16/24 20:35 nitrofurantoin (From Allergy Unknown Verified 04/16/24 20:35 Macrobid) nitrofurantoin Allergy Unknown Verified 04/16/24 20:35 macrocrystalline (From Macrobid) Penicillins Allergy Rash Verified 04/16/24 20:35 nasrin AdvReac Mild Itching Verified 04/16/24 20:35 avocado AdvReac Diarrhea Verified 04/16/24 20:35 Family History Mother Angina at rest Anxiety Breast cancer Depression Hypertension Skin cancer Father Arthritis Cancer Colon cancer Other Family history of skin cancer High cholesterol Suicide attempt Surgical History History of colonoscopy History of left breast biopsy (~10/2021) History of cholecystectomy Social History Smoking Status: Never smoker alcohol intake: never substance use type: does not use additional social history: Does Not Use Aspirin Does Not Use Ibuprofen ROS ROS ED ROS Narrative Review of systems positive for nausea but no vomiting. No fevers or chills. Positive right leg coolness and numbness. Left foot numbness as well. [place] as if her right side of head was more swollen than left. No exacerbating or alleviating factors. Had chest pains on Monday. EXAM Physical Exam Narrative Exam Narrative: Afebrile. Vital signs noted. Nontoxic-appearing. Cardiovascular examination reveals a regular rate and rhythm. Lungs are clear to auscultation bilaterally. Abdomen is soft and nontender with positive bowel sounds, no guarding or rebound. Neurological examination is nonfocal, nonlateralizing. Inspection and examination of the bilateral lower extremities shows palpable dorsalis pedis pulses bilaterally with skin warm and dry, no discoloration, no cyanosis. Full range of motion bilateral lower extremities. Patient tearful on examination, mild anxiety. Const Vital Signs: 10/02/24 08:51 Temperature 97.8 F Temperature Source Temporal Pulse Rate 68 Respiratory Rate 19 H Blood Pressure 127/71 H Blood Pressure Mean 89 Pulse Ox 100 Oxygen Delivery Method Room Air MDM MDM MDM Narrative Medical decision making narrative: The differential diagnosis includes but not limited to anxiety/panic attack versus atypical migraine headache versus hyperventilation syndrome versus dehydration versus other electrolyte imbalance. I have low clinical suspicion for stroke. Her numbness and symptoms are bilateral. She had chest pains on Monday and I have low suspicion for ACS blood pressures 89 over. Comprehensive workup was pursued. I will obtain CT of the brain as well as EKG, laboratory work including magnesium and a single troponin. Patient was reassured that currently her medical screening examination is negative for any emergent process. EKG obtained interpreted by myself independently as sinus bradycardia at 52 bpm without ectopy or acute ST changes. No STEMI. I reviewed her laboratory work and she has neutropenia of 3.50 compared to prior laboratories, she almost has a chronic neutropenia, hemoglobin normal at 13.9, hematocrit 41.2, platelet count normal at 240. CMP is grossly unremarkable, normal sodium, normal potassium, magnesium normal at 2.0. Glucose normal at 93. I reviewed the radiology report of the CT of the brain and there is no acute process, unremarkable pineal gland region. No acute findings. Chest x-ray interpreted by myself independently shows no evidence of an acute process. No pneumonia, no pneumothorax. I reviewed the radiology report which confirms my independent interpretation. Her troponin was also obtained and reviewed and is less than 6. At this point in time, I am unsure as to the cause of her symptoms, I do not feel that she requires observation or admission, I feel she can be discharged to follow-up with her primary care provider. Return instructions to the emergency department were reviewed. Disposition is discharged home in stable condition. History & Record Review Discussion w/independent historian: Patient Additional record(s) reviewed:: Prior ED visit and Prior labs (Chronic neutropenia) Lab Data Attestation: I reviewed the patient's lab results. Labs: Laboratory Results - last 24 hr 10/02/24 09:35 WBC 3.5 L RBC 4.22 Hgb 13.9 Hct 41.2 MCV 97.6 MCH 32.9 H MCHC 33.7 RDW Std Deviation 43.3 RDW Coeff of Melissa 12.0 Plt Count 240 MPV 9.2 Immature Gran % (Auto) 0.300 Neut % (Auto) 52.1 Lymph % (Auto) 29.5 [place] % (Auto) 8.8 Eos % (Auto) 8.2 H Baso % (Auto) 1.1 H Absolute Neuts (auto) 1.8 L Absolute Lymphs (auto) 1.04 Nucleated RBC % 0 Sodium 137 Potassium 3.7 Chloride 101 Carbon Dioxide 24.3 Anion Gap 12 BUN 14 Creatinine 0.85 Estim Creat Clear Calc 64.24 Est GFR (MDRD) Non-Af 78 BUN/Creatinine Ratio 16.3 Glucose 93 Calcium 9.6 Magnesium 2.0 Total Bilirubin 0.46 AST 22 ALT 19 Alkaline Phosphatase 74 Troponin T High Sens < 6 Total Protein 6.9 Albumin 4.1 Globulin 2.8 Albumin/Globulin Ratio 1.5 Radiography Diagnostic Testing: Clinical Impression(s) from Imaging Studies Chest X-Ray 10/02/24 09:12 IMPRESSION: No Acute Findings. Reading Location: [id number] Brain CT 10/02/24 10:24 IMPRESSION: No acute intracranial pathology. Reading [facility] Dis[facility] Triage Chief Complaint: General Illness ED Provider: Bigg Dick Dx/Rx/DC Orders Clinical Impression: Multiple somatic complaints, Chest pain, Numbness and tingling of both lower extremities Instructions: ED Chest Pain, Uncertain Cause, ED Paresthesia Prescriptions: No Action diazepam [Valium] 5 mg tablet 5 mg PO TID PRN (Reason: vertigo) 5 Days Qty: 15 0RF prednisolone 15 mg/5 mL solution 30 mg PO DAILY 5 Days Qty: 50 0RF Primary Care Provider: Rody Gaston Referrals: Rody Gaston DO [Primary Care Provider] - As soon as possible Print Language: Uruguayan Disposition Disposition: Home, Self Care
[2024-10-02 09:50] LABS: Hematocrit 41.2 % (37-47); Hemoglobin 13.9 g/dL (12.0-15.0); Immature Granulocytes Count 0.010 X10^3/uL (0.0-0.0); Mean Corp Hgb Conc 33.7 g/dL (32-36); Mean Corpuscular Volume 97.6 fL (81-99); Mean Platelet Vol. 9.2 fl (6.2-12.0); NRBC Flagged by Analyzer 0 % (0-5); Platelet Count 240 K/mm3 (150-450); RBC Distribution Width CV 12.0 % (11.6-14.6); RBC Distribution Width SD 43.3 fl (35.1-43.9); Red Blood Count 4.22 M/mm3 (4.2-5.4); White Blood Count 3.5 K/mm3 (4.4-11.0)
[2024-10-02 10:17] LABS: Troponin T High Sensitivity < 6 ng/L (<=14)
[2024-10-02 10:19] LABS: AST(SGOT) 22 U/L (<=31); Alanine Aminotransfer ALT/SGPT 19 U/L (<=34); Albumin, Serum 4.1 g/dL (3.4-4.8); Alkaline Phosphatase 74 U/L (35-104); Anion Gap 12 (5-15); BUN 14 mg/dL (4-19); BUN/Creat Ratio 16.3 RATIO (10-20); Calcium,Total 9.6 mg/dL (7.6-11.0); Carbon Dioxide 24.3 mmol/L (21.0-32.0); Chloride 101 mmol/L (98-108); Estimated Creatinine Clearance 64.24 ml/min (50-250); Globulin 2.8 g/dL (2.2-4.2); Glucose 93 mg/dL (70-99); Magnesium 2.0 mg/dL (1.5-2.2); Potassium 3.7 mmol/L (3.3-5.1)
--- NOTE | 2024-10-02 10:24 | CT_ITS ---
EXAM: NONCONTRAST CT SCAN OF THE HEAD CLINICAL HISTORY: Numbness COMPARISON: April 16, 2024 TECHNIQUE: Serial axial series through the head were obtained without contrast. 2-D coronal and sagittal reformats were then obtained. FINDINGS: Brain: There is no acute large territorial infarct, intracranial hemorrhage, midline shift or mass effect. The sella and pineal gland regions appear unremarkable. There is no evidence of cerebellar tonsillar herniation. Ventricles: There is no acute hydrocephalus. Basilar cisterns are patent. Paranasal sinuses: Well-aerated Mastoid air cells: Well-aerated. Calvarium: The bony calvarium is intact. Orbits: The bilateral globes are symmetric, without retrobulbar compressive mass lesion or hemorrhage. CT/Brain/Head without Contrast IMPRESSION: No acute intracranial pathology. Reading [facility]
[2024-10-02 11:03] VITALS: BP 108/81; PULSE 64; RESP 16; TEMP 36.1; O2SAT 100
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
--- NOTE | 2024-10-03 11:20 | CM.ED ---
Social Work SW contacted patient as a follow up from visit to ED yesterday. Patient was discharged with a safety plan. Patient stated she was doing okay but was very tired today despite getting a good nights sleep. Patient did state that she does not have any obligations today and will be able to stay home and rest. Patient also stated that she had emailed her counselor yesterday and is able to get an appointment either today or tomorrow. Patient was encouraged to return to the ER should her symptoms increase or she does not feel safe. Patient expressed understanding. No further needs identified at this time. Rosibel Garcia, CITY EDITOR, BOBBIN WASHER
== END 2024-10-02 12:16 | disposition home or self-care (01) ==
PROVIDERS: Emergency Provider Emergency Medicine; PCP Family Medicine; Visit Provider Emergency Medicine
DX: F45.0 Somatization disorder (principal); R07.9 Chest pain, unspecified; R20.2 Paresthesia of skin; R00.1 Bradycardia, unspecified; D70.9 Neutropenia, unspecified; R20.0 Anesthesia of skin; F41.9 Anxiety disorder, unspecified; E34.8 Other specified endocrine disorders
CPT/HCPCS: 70450; 71045; 80053; 83735; 84484; 85025; 93005; 99285; A4216

== ENCOUNTER → 2024-11-20 | Outpatient (CLI) | payer MEDICAID, SELFPAY | END | disposition home or self-care (01) | LOC: LABSPEC 15:20 | PROVIDERS: PCP Family Medicine; Referring Provider Physician Assistant; Visit Provider Physician Assistant | DX: R82.90 Unspecified abnormal findings in urine (principal) | CPT/HCPCS: 87086 ==

== ENCOUNTER → 2025-01-08 | Outpatient (CLI) | payer MEDICAID, SELFPAY ==
--- OUTSIDE RECORDS SUMMARY | 2025-01-08 17:48 | XMS RPT_ITS | CCD ---
Author Organization [facility] CliniSyut Care Team Providers Care Supervisor Instrument Repair Name Role Phone Dr. Rody Gaston Primary Care Provider Alek, Dr. Fine Referring Provider Dr. Parvez Soriano Attending Provider Alek, Dr. Fine Primary Care Provider [phone] Alek, Dr. Fine Referring Provider Dr. Parvez Soriano Attending Provider Susan Sanchez Attending Provider Unavailable Britany, Dr. Case Castillo Attending Provider Britany, Dr. Case Castillo Other Provider Dr. Rody Gaston Primary Care Provider [phone] Dr. Rody Gaston Referring Provider Dr. Case Garg Attending Provider [phone] Britany, Dr. Case Castillo Other Provider Dr. Rody Gaston Primary Care Provider Dr. Rody Gaston Referring Provider MD Shaun Carbone Attending Provider Dr. Lisandra Sethi Emergency Provider Dr. Tanvir Nicole Admit Provider Dr. Tanvir Nicole Attending Provider Dr. Tanvir Nicole Other Provider Dr. Taco Heart Attending Provider Dr. Case Garg Attending Provider Dr. Tanvir Nicole Referring Provider Dr. Jonah Barber Attending Provider [phone] Alek, Dr. Fine Primary Care Provider [phone] Alek, Dr. Fine Referring Provider Alek DO, Dr. Fine Primary Care Provider Michael P[employer] PLANT SUPERVISOR-C, Kellie Attending Provider Michael [employer] SUPERVISOR-C, Kellie Referring Provider Alek DO, Dr. Fine Referring Provider Nigel GRAJEDA, Dr. Harpreet Robles Attending Provider [facility] , Dr. Motta Attending Provider Jaleel RODRIGUEZ, Dr. Motta Referring Provider Bo GRAJEDA, Dr. Hannon Attending Provider Bo GRAJEDA, Dr. Hannon Referring Provider Faye RODRIGUEZ, Dr. Pérez Emergency Provider Andlopez DO, Dr. Pérez Attending Provider Malarlyn DO, Dr. Fine Attending Provider Alek DO, Dr. Fine Primary Care Provider Bigg Dick MD Emergency Provider Malys, Rody Referring Unavailable Malys, Rody Primary Care Unavailable Parvez Soriano Attending Unavailable Malys, Rody Referring Unavailable Harpreet Sheets Attending Unavailable Malys, Rody Primary Care Unavailable Parvez Soriano Referring Unavailable Malys, Rody Primary Care Unavailable Parvez Soriano Attending Unavailable Malys, Rody Attending Unavailable Malys, Rody Primary Care Unavailable Malys, Rody Primary Care Unavailable Kellie Rodriguez Attending Unavailable Harpreet Sheets Attending Unavailable Harpreet Sheets Referring Unavailable Malys, Rody Primary Care Unavailable Malys, Rody Primary Care Unavailable Bigg Dick Attending Unavailable Beto Mckinney Attending Unavailable Malys, Rody Primary Care Unavailable Michael, Kellie Attending Unavailable Michael, Kellie Referring Unavailable Malys, Rody Primary Care Unavailable Kalia Marmolejo Attending Unavailable Jaleel, Kalia Referring Unavailable Malys, Rody Primary Care Unavailable Malys, Rody Primary Care Unavailable JaleelKalia cruz Attending Unavailable Kalia Marmolejo Referring Unavailable Malys, Rdoy Referring Unavailable Harpreet Manning Attending Unavailable Malys, Rody Primary Care Unavailable Dr. Rody Gaston DO Primary Care Physician Bigg Dick MD Attending Physician Bigg Dick MD Emergency Department Physician Dr. Rody Gaston DO Referring Provider Harpreet Sheets Attending Physician Harpreet Sheets Referring Provider Allergies Allergy Classification Reported Allergen(s) Allergy Type Date of Onset Reaction(s) Facility (20 sources) Ciprofloxacin Drug Allergy 10-28-19 21 Other [facility] (20 sources) Codeine Drug Allergy 10-28-19 21 Hives [facility] (20 sources) Doxycycline Drug Allergy 10-28-19 21 Other [facility] (20 sources) Latex Allergy to substance 10-28-19 21 redness and rash [facility] (20 sources) Nitrofurantoin Drug Allergy 10-28-19 21 Unknown [facility] (20 sources) Penicillins; Translations: [Penicillins] Allergy to substance 10-28-19 Rash [facility] (20 sources) Sulfamethoxazole Drug Allergy 10-28-19 21 Other [facility] (20 sources) Trimethoprim Drug Allergy 10-28-19 Other [facility] (20 sources) nitrofurantoin macrocrystalline; Translations: [nitrofurantoin macrocrystalline] Allergy to substance 10-28-19 Unknown [facility] (7 sources) avocado allergenic extract Drug Allergy 04-17-19 25 Diarrhea [facility] (7 sources) nasrin allergenic extract Drug Allergy 04-17-19 Itching [facility] (1 source) avocado oil Drug Allergy 11-21-19 [facility] (1 source) Ciprofloxacin Drug Allergy 11-21-19 [facility] (1 source) Clindamycin Drug Allergy 11-21-19 [facility] (1 source) Codeine Drug Allergy 11-21-19 [facility] (1 source) Doxycycline Drug Allergy 11-21-19 [facility] (1 source) Latex Drug allergy (disorder) 11-21-19 [facility] (1 source) nasrin allergenic extract Drug Allergy 11-21-19 [facility] (1 source) Nitrofurantoin Drug Allergy 11-21-19 [facility] (1 source) Sulfamethoxazole Drug Allergy 11-21-19 [facility] (1 source) Trimethoprim Drug Allergy 11-21-19 [facility] (1 source) Clindamycin Drug Allergy 11-21-19 [facility] Medications Current Medications Medication Drug Class(es) Dates Sig (Normalized) Sig (Original) cephalexin 500 mg oral capsule (20 sources) Cephalosporin Antibacterial Start: 11-20-2024 take 500 mg by mouth three times daily Start: 11-20-2024 End: 11-20-2024 take 1 capsule by mouth three times daily Cephalexin 500 mg capsule Discontinued 500 mg PO THREE TIMES A DAY 21 0 November 20, 2024 12:00am November 20, 2024 1:13pm Start: 03-11-2020 End: 03-21-2020 take 500 mg by mouth every six hours Cephalexin 250 MG/5 ML suspension for reconstitution Discontinued 500 mg PO EVERY 6 HOURS X 10 DAYS 400 10 0 March 11, 2020 1:00am March 20, 2020 1:00am March 21, 2020 1:03am Start: 03-10-2020 End: 10-27-2020 take 1 capsule by mouth every six hours Cephalexin 500 MG capsule Discontinued 500 mg PO EVERY 6 HOURS 40 0 March 10, 2020 1:00am October 27, 2020 10:11am cholecalciferol 0.125 mg oral capsule (2 sources) Vitamin D Start: 10-26-2021 take 125 ug by mouth once daily Cholecalciferol (Vitamin D3) Active 125 MCG PO DAILY October 25, 2021 11:00pm diazePAM 5 mg oral tablet (7 sources) Benzodiazepine Start: 04-16-2024 take 1 tablet by mouth three times daily as needed mecobalamin (2 sources) Start: 10-26-2021 Mecobalamin (Vitamin B12) Active MCG PO October 25, 2021 11:00pm Start: 10-26-2021 Mecobalamin (V itamin B12) Active MCG PO October 26, 2021 12:00am prednisoLONE 30 mg disintegrating oral tablet (7 sources) Corticosteroid Start: 04-16-2024 take 30 mg by mouth once daily Prednisolone 15 mg/5 mL solution Active 30 mg PO DAILY 50 5 0 April 16, 2024 12:00am Start: 04-16-2024 End: 11-20-2024 take 30 mg by mouth once daily Prednisolone 15 mg/5 mL solution Discontinued 30 mg PO DAILY 50 5 0 April 16, 2024 12:00am November 20, 2024 12:57pm Completed/Discontinued Medications Medication Drug Class(es) Dates Sig (Normalized) Sig (Original) acetaminophen 500 mg oral tablet (7 sources) Start: 08-05-2023 End: 03-13-2024 take 1 tablet by mouth twice daily as needed for pain Acetaminophen 500 mg tablet Discontinued 500 mg PO TWICE DAILY NEEDED as needed for pain August 05, 2023 12:00am March 13, 2024 2:17pm aspirin 81 mg chewable tablet (14 sources) Platelet Aggregation Inhibitor, Nonsteroidal Anti-inflammatory Drug Start: 07-14-2022 End: 08-05-2023 take 1 tablet by mouth at breakfast Aspirin 81 mg Tablet,Chewable Discontinued 81 mg PO WITH BREAKFAST 30 30 0 July 14, 2022 12:00am August 05, 2023 9:43pm calcium carbonate 1250 mg / cholecalciferol 200 unt / vitamin k1 0.04 mg chewable tablet (19 sources) Vitamin D, Warfarin Reversal Agent, Vitamin K Start: 12-28-2021 End: 08-05-2023 Calcium-Vitamin D3-Vitamin K 500-200-40 mg-unit-mcg tablet,chewable Discontinued 1 {tbl} PO DAILY December 28, 2021 1:00am August 05, 2023 9:43pm Start: 12-28-2021 take 1 tablet by javon once daily Calcium-Vitamin D3-Vitamin K Active 1 TABLET PO DAILY December 28, 2021 12:00am Start: 12-28-2021 Calcium-Vitami n D3-Vitamin K Active TABLET PO December 28, 2021 12:00am Multivitamin With Folic Acid (Thera) 1 TABLET tablet (20 sources) Start: 01-17-2018 End: 03-13-2024 take 1 tablet by mouth once daily Multivitamin With Folic Acid (Thera) 1 TABLET tablet Discontinued 1 {tbl} PO DAILY January 17, 2018 1:00am March 13, 2024 2:17pm Start: 01-17-2018 take 1 tablet by javon th once daily Multivitamin With Folic Acid (Thera) 1 TABLET tablet Active 1 TABLET PO DAILY January 17, 2018 12:00am Start: 01-17-2018 take 1 tablet by javon th once daily Multivitamin With Folic Acid (Thera) 1 TABLET tablet Active 1 TABLET PO DAILY January 17, 2018 1:00am omeprazole 20 mg delayed release oral capsule (7 sources) Proton Pump Inhibitor Start: 08-06-2023 End: 03-13-2024 take 1 capsule by mouth once daily Omeprazole 20 mg capsule,delayed release(DR/EC) Discontinued 20 mg PO DAILY August 06, 2023 12:00am March 13, 2024 2:17pm ondansetron 4 mg disintegrating oral tablet (9 sources) Serotonin-3 Receptor Antagonist Start: 12-01-2022 End: 08-05-2023 take 1 tablet by mouth every six hours as needed for nausea and vomiting Ondansetron 4 mg tablet,disintegratin g Discontinued 4 mg PO EVERY 6 HOURS as needed for nausea and vomiting December 01, 2022 12:00am August 05, 2023 9:43pm Problems Active Problems Problem Classification Problem Date Documented Date Episodic/Chronic Abdominal pain (14 sources) Abdominal pain; Translations: [Unspecified abdominal pain] Onset: 02-23-2024 03-13-2024 Episodic Allergic reactions (20 sources) Allergic condition; Translations: [Allergy, unspecified, initial encounter] 10-27-2020 Episodic Anxiety disorders (20 sources) Anxiety disorder; Translations: [Anxiety disorder, unspecified] 07-13-2018 Chronic Blindness and vision defects (20 sources) Disorder of vision; Translations: [Unspecified visual loss] 10-27-2020 Chronic Cardiac dysrhythmias (20 sources) Palpitations with regular rhythm; Translations: [Palpitations] 07-14-2018 Episodic E Codes: Fall (16 sources) Accidental fall ; Translations: [Unspecified fall, initial encounter] 06-02-2022 Episodic Fluid and electrolyte disorders (20 sources) Hypokalemia; Translations: [Hypokalemia] 03-11-2020 Episodic Fracture of upper limb (20 sources) Fracture of greater tuberosity of humerus; Translations: [Displaced fracture of greater tuberosity of left humerus, initial encounter for closed fracture] 07-11-2022 Episodic Gastritis and duodenitis (7 sources) Gastritis; Translations: [Gastritis, unspecified, without bleeding] 08-14-2023 Episodic Genitourinary symptoms and ill-defined conditions (1 source) Unspecified abnormal findings in urine; Translations: [Unspecified abnormal findings in urine] Onset: 11-29-2024 Episodic Headache; including migraine (20 sources) Migraine with aura; Translations: [Migraine with aura, not intractable, without status migrainosus] 07-13-2018 Chronic Headache; including migraine (9 sources) Headache; Translations: [Headache] 12-01-2022 Episodic Nausea and vomiting (9 sources) Nausea and vomiting; Translations: [Nausea with vomiting, unspecified] 12-01-2022 Episodic Neoplasms of unspecified nature or uncertain behavior (20 sources) Neoplasm of skin of eyebrow; Translations: [Neoplasm of unspecified behavior of bone, soft tissue, and skin] 10-29-2020 Episodic Comment on above: 5 mm lesion left med ial eyebrow Nonspecific chest pain (20 sources) Chest pain; Translations: [Chest pain, unspecified] 03-11-2020 Episodic Nutritional deficiencies (20 sources) Vitamin deficiency; Translations: [Vitamin deficiency, unspecified] 10-27-2020 Episodic Osteoporosis (20 sources) Osteoporosis; Translations: [Age-related osteoporosis without current pathological fracture] 10-27-2020 Chronic Other connective tissue disease (13 sources) Pain in left lower limb; Translations: [Pain in left leg] 07-18-2022 Episodic Other injuries and conditions due to external causes (16 sources) Hematoma; Translations: [Other injury of unspecified body region, initial encounter] 06-02-2022 Episodic Other injuries and conditions due to external causes (16 sources) Contusion of multiple sites; Translations: [Unspecified multiple injuries, initial encounter] 06-02-2022 Episodic Other nervous system disorders (2 sources) Paresthesia of lower extremity; Translations: [Anesthesia of skin] 10-02-2024 Episodic Other non-epithelial cancer of skin (20 sources) History of malignant neoplasm of skin; Translations: [Personal history of other malignant neoplasm of skin] 10-29-2020 Episodic Other non-traumatic joint disorders (2 sources) Shoulder pain; Translations: [Pain in left shoulder] 07-11-2022 Episodic Other non-traumatic joint disorders (20 sources) Pain in left shoulder; Translations: [Pain in joint, shoulder region] 07-11-2022 Episodic Other upper respiratory infections (7 sources) Acute upper respiratory infection; Translations: [Acute upper respiratory infection, unspecified] 05-05-2023 Episodic Residual codes; unclassified (20 sources) Family history of malignant neoplasm of skin; Translations: [Family history of malignant neoplasm of other organs or systems] 10-29-2020 Episodic Residual codes; unclassified (1 source) History of thoracic surgery; Translations: [Other specified postprocedural states] Episodic Residual codes; unclassified (19 sources) Past history of procedure; Translations: [Other specified postprocedural states] 10-29-2021 Episodic Residual codes; unclassified (2 sources) Multiple somatic complaints; Translations: [Other general symptoms and signs] 10-02-2024 Episodic Residual codes; unclassified (1 source) Illness, unspecified; Translations: [Illness, unspecified] Onset: 10-08-2024 Episodic Skin and subcutaneous tissue infections (20 sources) Cellulitis of toe; Translations: [Cellulitis of right toe] 03-11-2020 Episodic Superficial injury; contusion (7 sources) Abrasion of ear region; Translations: [Abrasion of unspecified ear, initial encounter] 04-16-2024 Episodic Transient cerebral ischemia (19 sources) Transient cerebral ischemia; Translations: [Transient cerebral ischemic attack, unspecified] 07-13-2022 Chronic Unclassified (1 source) Unspecified lump in the right breast, overlapping quadrants; Translations: [Unspecified lump in the right breast, overlapping quadrants] Onset: 04-18-2024 Past or Other Problems Problem Classification Problem Date Documented Da te Episodic/Chronic Conditions associated with dizziness or vertigo (8 sources) Peripheral vertigo; Translations: [Other peripheral vertigo, unspecified ear] Onset: 04-25-2024 04-16-2024 Episodic Nonmalignant breast conditions (20 sources) Breast lump; Translations: [Unspecified lump in the left breast, unspecified quadrant] Onset: 04-19-2024 Episodic Other aftercare (1 source) Encounter for therapeutic drug level monitoring; Translations: [Encounter for therapeutic drug level monitoring] Onset: 05-02-2024 Episodic Other screening for suspected conditions (not mental disorders or infectious disease) (20 sources) Patient encounter status; Translations: [Encounter for screening for malignant neoplasm of colon] Onset: 04-08-2024 Episodic Urinary tract infections (1 source) Urinary tract infection, site not specified; Translations: [Urinary tract infection, site not specified] Onset: 05-21-2024 Episodic Results Test Name Value Interpretation Reference Range Facility Urine Cultureon 11-21-2024 URC Culture exhibits no growth. Normal [facility] Comment on above: Performed By: #### M [id number] ####[facility] [id number] [place], [address] Laboratory - Chemistry and C hemistry - challengeOrdered By: Harpreet Escalante on 11-20-2024 Bilirubin Ql (U) Negative [facility] Glucose Ql (U) Negative [facility] Ketones Ql (U) Negative [facility] pH (U) 6.0 [pH] [facility] Specific gravity (U) [Rel density] 1.010 [facility] Urobilinogen (U) [Mass/Vol] Negative [facility] Laboratory - Hematology and Cell countsOrdered By: Harpreet Escalante on 11-20-2024 Hemoglobin Ql (U) Negative [facility] Laboratory - Specimen inform ationOrdered By: Harpreet Escalante on 11-20-2024 Clarity (U) Clear [facility] Color (U) Yellow [facility] Laboratory - UrinalysisOrder ed By: Harpreet Escalante on 11-20-2024 Nitrite Ql (U) Negative [facility] Protein Ql (U) Trace [facility] No Panel InformationOrdered By: Harpreet Escalante on 11-20-2024 Urine Leukocytes Positive [facility] Urine Non-Hemolyzed Blood Trace [facility] Urgent Care Visit Reporton 1 Urgent Care Visit Report [facility] [address], [address] [place], [place] [address] OFFICE VISIT Date of Service: 11/20/24 MR#: [id number] Acct: [id number] Name: KEVON SANDERS Rep #: [id number] : 1960 Provider: WILSON Turk Age/Sex: 64/F Location: [facility] Status: Signed Intake Vital Signs 10/02/24 08:51 11/20/24 12:44 Height 5 ft 6 in 5 ft 6 in BP 100/58 L Blood Pressure Location Lt brachial Position Sitting Respiration 15 Pulse 75 Pulse Source NIBP Temp 97.9 F Temp Source Oral Pulse Oximetry (%) 98 Oxygen Delivery Method room air Intake Visit Reasons: concern for uti Chief Complaint: abd pain Contracts Advisor Required: No Is patient in pain?: Yes Allergies ciprofloxacin (From Cipro) Allergy (Severe, Verified 11/20/24 12:57) Other sulfamethoxazole (From Bactrim) Allergy (Severe, Verified 11/20/24 12:57) Other trimethoprim (From Bactrim) Allergy (Severe, Verified 11/20/24 12:57) Other doxycycline Allergy (Intermediate, Verified 11/20/24 12:57) Other latex Allergy (Intermediate, Verified 11/20/24 12:57) redness and rash clindamycin Allergy (Mild, Verified 11/20/24 12:57) Hives codeine Allergy (Verified 11/20/24 12:57) Hives nitrofurantoin (From Macrobid) Allergy (Verified 11/20/24 12:57) Unknown nitrofurantoin macrocrystalline (From Macrobid) Allergy (Verified 11/20/24 12:57) Unknown Penicillins Allergy (Verified 11/20/24 12:57) Rash nasrin Adverse Reaction (Mild, Verified 11/20/24 12:57) Itching avocado Adverse Reaction (Verified 11/20/24 12:57) Diarrhea Medications ???Medication ???Instructions ???Recorded ???Confirmed ???Type diazepam 5 mg tablet (Valium) 5 mg PO TID PRN vertigo 5 days #15 04/16/24 Rx tabs cephalexin 500 mg capsule 500 mg PO TID #21 caps 11/20/24 Rx Is last menstrual period known: No Post menopausal: Yes Patient : No Have you fallen in the past year?: No Nurse's Note: bilateral lower abd pain x 4 days. denies urinary odor, frequency, dysuria, blood, back pain, fever. pt would like to be checked for UTI PFSH Medical History Abdominal pain Fracture of greater tuberosity of left humerus Left shoulder pain Post-menopausal Wears glasses Cancer Depression Anxiety Arthritis Anemia Back pain Syncope Non-smoker Shortness of breath on exertion Hypotension History of stress test Chest pain Family history of skin cancer Personal history of skin cancer Neoplasm of skin of eyebrow Mitral valve prolapse Vitamin deficiency Vision problems Osteoporosis Allergies Surgical History History of colonoscopy History of left breast biopsy ( 10/2021) History of cholecystectomy Family History Mother Angina at rest Anxiety Breast cancer Depression Hypertension Skin cancer Father Arthritis Cancer Colon cancer Other Family history of skin cancer High cholesterol Suicide attempt Social History Smoking Status: Never smoker alcohol intake: never substance use type: does not use additional social history: Does Not Use Aspirin Does Not Use Ibuprofen HPI HPI Chief Complaint: abd pain Details: KEVON SANDERS, is a 64 F who presents to the office today for [facility] for approximately 72-hour history of urinary frequency with suprapubic pressure. No complaints of fever, chills, sweats, lightheadedness/dizz iness, nausea/vomiting, chest pain/shortness of breath/dyspnea on exertion, or midback pain. No changes in color/ character of urine or stool. Cranberry juice of minimal to no assist. No other associated symptoms and no alleviating/aggravat ing factors. ROS Const Constitutional: No other (As above) Exam Const General: cooperative, healthy appearing and no acute distress Orientation: alert, awake Chest Chest palpation inspection: normal inspection of the chest Resp Effort Inspection: normal respiratory effort and able to speak in complete sentences Cardio Rate: regular rate Pulses: radial pulses present GI Inspection: normal to inspection Palpation: soft and tender suprapubic (Patient describes upon self-palpation) General: No CVA tenderness Skin General: no rashes or lesions noted Neuro General: patient alert, patient awake Cognition: normal cognition Speech: speech normal Psych Appearance: grossly normal Mental Status: mental status grossly normal Mood: congruent mood Affect: normal affect Speech and Movement: speech and movement normal Attitude: cooperative Diagnoses Urinary tract infection N39.0 Assessment and Plan Ass (more content not included)... Normal [facility] Urine cultureOrdered By: Marcos Escalante on 11-20-2024 Bacteria identified Cx Nom (U) Culture exhibits no growth. [facility] 12 Lead EKGon 10-02-2024 12 Lead EKG [facility] [address] [place] [address] 12 Lead EKG 10/02/24 0929 MR#: [id number] Acct: [id number] Name: KEVON SANDERS JUNE Rep #: [id number] : 1960 64 From: Amanda Jade MD Attending Dr: Status: DEP ER Ordering Dr: Bigg Dick MD Date: 10/02/24 Location: ED Sex: F C Admitted: Test Reason : GENERAL Blood Pressure : */* mmHG Vent. Rate : 52 BPM Atrial Rate : 52 BPM P-R Int : 142 ms QRS Dur : 92 ms QT Int : 456 ms P-R-T Axes : 46 37 46 degrees QTcB Int : 424 ms Sinus bradycardia Otherwise normal ECG Confirmed by AMANDA JADE ([id number]), editor greeting card IRENE ADDISON ([id number]) on 10/03/2024 1:53:36 PM Referred By: Confirmed By: AMANDA JADE 10/03/24 1353 Date Amanda Jade MD CC: Dr. Bigg Dick MD; Dr. Rody Gaston, DO Signed Normal [facility] Absolute lymphocyte countOrd ered By: Bigg Dick on 10-02-2024 Lymphocytes Auto (Unsp spec) [#/Vol] 1.04 10*3/uL 0.83-4.51 [facility] Absolute neutrophil countOrd ered By: Bigg Dick on 10-02-2024 Neutrophils (Bld) [#/Vol] 1.8 10*3/uL Low 2.0-7.7 [facility] Anion gap in Serum or Plasma Ordered By: Bigg Dick on 10-02-2024 Anion gap [Moles/Vol] 12 mmol/L 5-15 [facility] Automated lymphocyte count a s percentage of total leukocytesOrdered By: Bigg Dick on 10-02-2024 Lymphocytes/100 WBC Auto (Unsp spec) 29.5 % 19-41 [facility] BUN/creatinine ratioOrdered By: Bigg Dick on 10-02-2024 Urea nitrogen/Creatinine [Mass ratio] 16.3 mg/mg 10-20 [facility] Basophil percentageOrdered B y: Bigg Dick on 10-02-2024 Basophils/100 WBC (Bld) 1.1 % High 0-1 [facility] Bilirubin, totalOrdered By: Bigg Dick on 10-02-2024 Bilirubin [Mass/Vol] 0.46 mg/dL 0.00-1.30 [facility] Brain/Head without Contrasto n 10-02-2024 Brain/Head without Contrast [facility] [address] [place] [address] Brain/Head without Contrast MR#: [id number] Acct: [id number] Name: KEVON SANDERS JUNE Rep #: [id number] : 1960 F 64 From: John Kirk MD PCP: Dr. Rody Gaston, DO Status: REG ER Study: Brain/Head without Contrast Date of Exam: 09/07 08/30 Exam# [id number] Ordering Dr: Bigg Dick MD EXAM: NONCONTRAST CT SCAN OF THE HEAD CLINICAL HISTORY: Numbness COMPARISON: April 16, 2024 TECHNIQUE: Serial axial series through the head were obtained without contrast. 2-D coronal and sagittal reformats were then obtained. FINDINGS: Brain: There is no acute large territorial infarct, intracranial hemorrhage, midline shift or mass effect. The sella and pineal gland regions appear unremarkable. There is no evidence of cerebellar tonsillar herniation. Ventricles: There is no acute hydrocephalus. Basilar cisterns are patent. Paranasal sinuses: Well-aerated Mastoid air cells: Well-aerated. Calvarium: The bony calvarium is intact. Orbits: The bilateral globes are symmetric, without retrobulbar compressive mass lesion or hemorrhage. CT/Brain/Head without Contrast IMPRESSION: No acute intracranial pathology. Reading Location: [facility] CC: Dr. Bigg Dick MD; Dr. 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, [address] Absolute Neut 1.8 X10 3/uL Low 2.0-7.7 [facility] Comment on above: Performed By: #### L 501.5200, L500.4050, L100.0100 ####[facility] [address] [place], [address] Basophils/100 WBC (Bld) 1.1 % High 0-1 [facility] Comment on above: Performed By: #### L 501.5200, L500.4050, L100.0100 ####[facility] [address] [place], [address] Eosinophils/100 WBC (Bld) 8.2 % High 0-5 [facility] Comment on above: Performed By: #### L 501.5200, L500.4050, L100.0100 ####[facility] [address] [place], [address] Erythrocyte distribution width (RBC) [Ratio] 12.0 % Normal 11.6-14.6 [facility] Comment on above: Performed By: #### L 501.5200, L500.4050, L100.0100 ####[facility] [address] [place], [address] Hematocrit (Bld) [Volume fraction] 41.2 % Normal 37-47 [facility] Comment on above: Performed By: #### L 501.5200, L500.4050, L100.0100 ####[facility] [address] [place], [address] Hemoglobin (Bld) [Mass/Vol] 13.9 g/dL Normal 12.0-15.0 [facility] Comment on above: Performed By: #### L 501.5200, L500.4050, L100.0100 ####[facility] [address] [place], [address] IG% 0.300 Normal 0.0-0.9 [facility] Comment on above: Result Comment: IG% - Immature Granulocytes (promyelocytes, myelocytes and metamyelocytes) > 1% indicates that a LEFT SHIFT is Present. Performed By: #### L 501.5200, L500.4050, L100.0100 ####[facility] [address] [place], [address] Lymphocytes/100 WBC (Bld) 29.5 % Normal 19-41 [facility] Comment on above: Performed By: #### L 501.5200, L500.4050, L100.0100 ####[facility] [address] [place], [address] MCH (RBC) [Entitic mass] 32.9 pg High 27.0-32.0 [facility] Comment on above: Performed By: #### L 501.5200, L500.4050, L100.0100 ####[facility] [address] [place], [address] MCHC (RBC) [Mass/Vol] 33.7 g/dL Normal 32-36 [facility] Comment on above: Performed By: #### L 501.5200, L500.4050, L100.0100 ####[facility] [address] [place], [address] MCV (RBC) [Entitic vol] 97.6 fL Normal 81-99 [facility] Comment on above: Performed By: #### L 501.5200, L500.4050, L100.0100 ####[facility] [address] [place], [address] Monocytes/100 WBC (Bld) 8.8 % Normal 0-10 [facility] Comment on above: Performed By: #### L 501.5200, L500.4050, L100.0100 ####[facility] [address] [place], [address] Neutrophils/100 WBC (Bld) 52.1 % Normal 47-70 [facility] Comment on above: Performed By: #### L 501.5200, L500.4050, L100.0100 ####[facility] [address] [place], [address] Nucleated RBC (Bld) [#/Vol] 0 10*3/uL Normal 0-5 [facility] Comment on above: Performed By: #### L 501.5200, L500.4050, L100.0100 ####[facility] [address] [place], [address] Platelet mean volume (Bld) [Entitic vol] 9.2 fL Normal 6.2-12.0 [facility] Comment on above: Performed By: #### L 501.5200, L500.4050, L100.0100 ####[facility] [address] [place], [address] Platelets (Bld) [#/Vol] 240 10*3/uL Normal 150-450 [facility] Comment on above: Performed By: #### L 501.5200, L500.4050, L100.0100 ####[facility] [address] [place], [address] RBC (Bld) [#/Vol] 4.22 10*6/uL Normal 4.2-5.4 [facility] Comment on above: Performed By: #### L 501.5200, L500.4050, L100.0100 ####[facility] [address] [place], [address] RDW SD 43.3 fl Normal 35.1-43.9 [facility] Comment on above: Performed By: #### L 501.5200, L500.4050, L100.0100 ####[facility] [address] [place], [address] WBC (Bld) [#/Vol] 3.5 10*3/uL Low 4.4-11.[address] [facility] Comment on above: Performed By: #### L 501.5200, L500.4050, L100.0100 ####[facility] [address] [place], [address] Carbon dioxide, total [Moles /volume] in Central venous bloodOrdered By: Bigg Dick on 10-02-2024 CO2 [Moles/Vol] 24.3 mmol/L 21.0-32.0 [facility] Chest 1 View (Portable)on Chest 1 View (Portable) [facility] Services [address] [place] [address] Chest 1 View (Portable) MR#: [id number] Acct: [id number] Name: KEVON SANDERS MAY Rep #: [id number] : 1960 F 64 From: Josias strange MD PCP: Dr. Rody Gaston DO Status: REG ER Study: Chest 1 View (Portable) Date of Exam: 10/02/24 Exam# [id number] Ordering Dr: Bigg Dick MD PROCEDURE: CHEST 1 VIEW (PORTABLE) 10/02/2024 REASON FOR EXAM: CAD TECHNIQUE: Frontal view of the chest. COMPARISON: Prior study dated August 05, 2023. FINDINGS: Hardware: EKG electrodes are seen. Heart: Cardiac and mediastinal contours are stable. Lungs: No significant change in the appearance of the lungs. Bones: The bones are unremarkable. Other: RAD/Chest 1 View (Portable) IMPRESSION: No Acute Findings. Reading Location: [facility] CC: Dr. Bigg Dick MD; Dr. 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 Comment on above: Performed By: #### L 501.5200, L500.4050, L100.0100 ####[facility] [address] [place], [address] Albumin/Globulin [Mass ratio] 1.5 {ratio} Normal 0.9-2.4 [facility] Comment on above: Performed By: #### L 501.5200, L500.4050, L100.0100 ####[facility] [address] [place], [address] ALK PHOS 74 U/L Normal 35-104 [facility] Comment on above: Performed By: #### L 501.5200, L500.4050, L100.0100 ####[facility] [address] [place], [address] ALT [Catalytic activity/Vol] 19 U/L Normal <=34 [facility] Comment on above: Performed By: #### L 501.5200, L500.4050, L100.0100 ####[facility] [address] [place], [address] AST [Catalytic activity/Vol] 22 U/L Normal <=31 [facility] Comment on above: Performed By: #### L 501.5200, L500.4050, L100.0100 ####[facility] [address] [place], [address] Bilirubin [Mass/Vol] 0.46 mg/dL Normal 0.00-1.30 [facility] Comment on above: Performed By: #### L 501.5200, L500.4050, L100.0100 ####[facility] [address] [place], [address] BUN/CRE 16.3 RATIO Normal 10-20 [facility] Comment on above: Performed By: #### L 501.5200, L500.4050, L100.0100 ####[facility] [address] [place], [address] Calcium [Mass/Vol] 9.6 mg/dL Normal 7.6-11.[address] [facility] Comment on above: Performed By: #### L 501.5200, L500.4050, L100.0100 ####[facility] [address] [place], [address] Chloride [Moles/Vol] 101 mmol/L Normal 98-108 [facility] Comment on above: Performed By: #### L 501.5200, L500.4050, L100.0100 ####[facility] [address] [place], [address] CO2 [Moles/Vol] 24.3 mmol/L Normal 21.0-32.0 [facility] Comment on above: Performed By: #### L 501.5200, L500.4050, L100.0100 ####[facility] [address] [place], [address] Creatinine [Mass/Vol] 0.85 mg/dL Normal 0.70-1.20 [facility] Comment on above: Performed By: #### L 501.5200, L500.4050, L100.0100 ####[facility] [address] [place], [address] ECRCL 64.24 ml/min Normal 50-250 [facility] Comment on above: Performed By: #### L 501.5200, L500.4050, L100.0100 ####[facility] [address] [place], [address] GAP 12 Normal 5-15 [facility] Comment on above: Performed By: #### L 501.5200, L500.4050, L100.0100 ####[facility] [address] [place], [address] GFR/1.73 sq M.predicted among non-blacks MDRD (S/P/Bld) [Vol rate/Area] 78 mL/min/{1.73_m2} Normal >60 [facility] Comment on above: Result Comment: mL/m in/1.73m2 CKD-EPI Creatinine Equation (2020) Performed By: #### L 501.5200, L500.4050, L100.0100 ####[facility] [address] [place], [address] Globulin (S) [Mass/Vol] 2.8 g/dL Normal 2.2-4.2 [facility] Comment on above: Performed By: #### L 501.5200, L500.4050, L100.0100 ####[facility] [address] [place], [address] Glucose [Mass/Vol] 93 mg/dL Normal 70-[address] [facility] Comment on above: Performed By: #### L 501.5200, L500.4050, L100.0100 ####[facility] [address] [place], [address] Potassium [Moles/Vol] 3.7 mmol/L Normal 3.3-5.1 [facility] Comment on above: Performed By: #### L 501.5200, L500.4050, L100.0100 ####[facility] [address] [place], [address] Sodium [Moles/Vol] 137 mmol/L Normal 133-[address] [facility] Comment on above: Performed By: #### L 501.5200, L500.4050, L100.0100 ####[facility] [address] [place], [address] T PROT 6.9 g/dL Normal 5.9-8.4 [facility] Comment on above: Performed By: #### L 501.5200, L500.4050, L100.0100 ####[facility] [address] [place], [address] Urea nitrogen [Mass/Vol] 14 mg/dL Normal 4-19 [facility] Comment on above: Performed By: #### L 501.5200, L500.4050, L100.0100 ####[facility] [address] [place], [address] Emergency Department Summary on 10-02-2024 Emergency Department Summary [facility] Medical Records Department [address] [place] [address] Emergency Department Summary 10/02/24 MR#: [id number] Acct: [id number] Name: KEVON SANDERS MADELINE Rep #: [id number] : 1960 64 From: Bigg Dick MD PCP: Dr. Rody Gaston, DO Status:REG ER Location: ED HPI History of Present Illness Chief Complaint: General Illness Narrative Narrative: 64-year-old female past medical history of depression and anxiety presents with multiple somatic complaints that began at around 7:00 this morning. This was 2-1/2 hours ago. She relates history that she went to bed around 6 AM because she has not been sleeping well. She states that she got up again and felt like the right side of her head was more swollen than the left. Additionally, she stated that her right lower extremity felt cool, and numb from the thigh all the way down to her foot. Additionally, she had left foot numbness as well. She has had nausea but no vomiting. No exacerbating or alleviating factors. Both of her legs felt heavy. Additionally, she relates history that she has been having dental problems on the right side of her mouth for 8 months and cannot see a dentist. She states she is concerned about blood infection. 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 [facility] Medical History Abdominal pain Fracture of greater tuberosity of left humerus Left shoulder pain Post-menopausal Wears glasses Cancer Depression Anxiety Arthritis Anemia Back pain Syncope Non-smoker Shortness of breath on exertion Hypotension History of stress test Chest pain Family history of skin cancer Personal history of skin cancer Neoplasm of skin of eyebrow Mitral valve prolapse Vitamin deficiency Vision problems Osteoporosis Allergies Home Medications ???Medication ???Instructions ???Recorded ???Last Taken ???Type diazepam 5 mg tablet (Valium) 5 mg PO TID PRN vertigo 5 days #15 04/16/24 Unknown Rx tabs prednisolone 15 mg/5 mL oral 30 mg (10 mL) PO DAILY 5 days #50 04/16/24 Unknown Rx solution mL Allergy/AdvReac Type Severity Reaction Status Date / Time ciprofloxacin (From Cipro) Allergy Severe Other Verified 04/16/24 20:35 sulfamethoxazole (From Allergy Severe Other Verified 04/16/24 20:35 Bactrim) trimethoprim (From Bactrim) Allergy Severe Other Verified 04/16/24 20:35 doxycycline Allergy Intermediate Other Verified 04/16/24 20:35 latex Allergy Intermediate redness Verified 04/16/24 20:35 and rash codeine Allergy Hives Verified 04/16/24 20:35 nitrofurantoin (From Allergy Unknown Verified 04/16/24 20:35 Macrobid) nitrofurantoin Allergy Unknown Verified 04/16/24 20:35 macrocrystalline (From Macrobid) Penicillins Allergy Rash Verified 04/16/24 20:35 nasrin AdvReac Mild Itching Verified 04/16/24 20:35 avocado AdvReac Diarrhea Verified 04/16/24 20:35 Family History Mother Angina at rest Anxiety Breast cancer Depression Hypertension Skin cancer Father Arthritis Cancer Colon cancer Other Family history of skin cancer High cholesterol Suicide attempt Surgical History History of colonoscopy History of left breast biopsy ( 10/2021) History of cholecystectomy Social History Smoking Status: Never smoker alcohol intake: never substance use type: does not use additional social history: Does Not Use Aspirin Does Not Use Ibuprofen ROS ROS ED ROS Narrative Review of systems positive for nausea but no vomiting. No fevers or chills. Positive right leg coolness and numbness. Left foot numbness as well. [place] as if her right side of head was more swollen than left. No exacerbating or alleviating factors. Had chest pains on Monday. EXAM Physical Exam Narrative Exam Narrative: Afebrile. Vital signs noted. Nontoxic-appearing. Cardiovascular examination reveals a regular rate and rhythm. Lungs are clear to auscultation bilaterally. Abdomen is soft and nontender with positive bowel sounds, no guarding or rebound. Neurological examination is nonfocal, nonlateralizing. Inspection and examination of the bilateral lower extremities shows palpable dorsalis pedis pulses bilaterally with skin warm and dry, no discoloration, no cyanosis. Full range of motion bilateral lower extremities. Patient tearful on examination, mild anxiety. Const Vital Signs: 10/02/24 08:51 Temperature 97.8 F Temperature Source Temporal Pulse Rate 68 Respiratory Rate 19 H Blood Pressure 127/71 H Blood Pressure Mean 89 Pulse Ox 100 Oxygen Delivery Method Room Air MDM MDM MDM N (more content not included)... Normal [facility] Eosinophil percentageOrdered By: Bigg Dick on 10-02-2024 Eosinophils/100 WBC (Bld) 8.2 % High 0-5 [facility] Erythrocyte distribution wid th ratioOrdered By: Bigg Dick on 10-02-2024 Erythrocyte distribution width (RBC) [Ratio] 12.0 % 11.6-14.6 [facility] Erythrocyte distribution wid th standard deviationOrdered By: Bigg Dick on 10-02-2024 Erythrocyte distribution width (RBC) [Ratio] 43.3 fl 35.1-43.9 [facility] Glomerular filtration rate ( GFR) estimation/1.73 sq m using serum, plasma, or whole bOrdered By: Bigg Dick on 10-02-2024 GFR/1.73 sq M.predicted among non-blacks MDRD (S/P/Bld) [Vol rate/Area] 78 mL/min/{1.73_m2} >60 [facility] Comment on above: mL/min/1.73m2 CKD-EP I Creatinine Equation (2020) Hematocrit Auto (Bld) [Volum e fraction]Ordered By: Bigg Dick on 10-02-2024 Hematocrit (Bld) [Volume fraction] 41.2 % 37-47 [facility] Hemoglobin measurementOrdere d By: Bigg Dick on 10-02-2024 Hemoglobin (Bld) [Mass/Vol] 13.9 g/dL 12.0-15.0 [facility] Immature granulocytes/100 WB C Auto (Bld)Ordered By: Bigg Dick on 10-02-2024 Immature granulocytes/100 WBC (Bld) 0.300 % 0.0-0.9 [facility] Comment on above: IG% - Immature Granu locytes (promyelocytes, myelocytes and metamyelocytes) > 1% indicates that a LEFT SHIFT is Present. L501.4021on 10-02-2024 Trop T High Sen < 6 Normal <=14 [facility] Comment on above: Performed By: #### L 501.4021 ####[facility] [address] [place], [place], [id number] Laboratory - Chemistry and C hemistry - challengeOrdered By: Bigg Dick on 10-02-2024 AST [Catalytic activity/Vol] 22 U/L <32 [facility] MCV (mean corpuscular volume ) determinationOrdered By: Bigg Dick on 10-02-2024 MCV (RBC) [Entitic vol] 97.6 fL 81-99 [facility] Magnesiumon 10-02-2024 Magnesium [Mass/Vol] 2.0 mg/dL Normal 1.5-2.2 [facility] Comment on above: Performed By: #### L 501.5200, L500.4050, L100.0100 ####[facility] [address] [place], [address] Magnesium measurement (mass/ volume)Ordered By: Bigg Dick on 10-02-2024 Magnesium (Unsp spec) [Mass/Vol] 2.0 mg/dL 1.5-2.2 [facility] Mean corpuscular hemoglobin (MCH) determinationOrdered By: Bigg Dick on 10-02-2024 MCH (RBC) [Entitic mass] 32.9 pg High 27.0-32.0 [facility] Mean corpuscular hemoglobin concentration (MCHC) determinationOrdered By: Bigg Dick on 10-02-2024 MCHC (RBC) [Mass/Vol] 33.7 g/dL 32-36 [facility] Mean platelet volume determi nationOrdered By: Bigg Dick on 10-02-2024 Platelet mean volume (Bld) [Entitic vol] 9.2 fL 6.2-12.0 [facility] Monocyte percentageOrdered B y: Bigg Dick on 10-02-2024 Monocytes/100 WBC (Bld) 8.8 % 0-10 [facility] Neutrophil percentageOrdered By: Bigg Dick on 10-02-2024 Neutrophils/100 WBC (Bld) 52.1 % 47-70 [facility] Nucleated red blood cell per centageOrdered By: Bigg Dick on 10-02-2024 Nucleated RBC/100 WBC (Bld) [Ratio] 0 % 0-5 [facility] Platelet countOrdered By: Octavio Dick on 10-02-2024 Platelets (Bld) [#/Vol] 240 10*3/uL 150-450 [facility] Potassium measurement (mass/ volume)Ordered By: Bigg Dick on 10-02-2024 Potassium (Unsp spec) [Mass/Vol] 3.7 mmol/L 3.3-5.1 [facility] RBC Auto (Bld) [#/Vol]Ordere d By: Bigg Dick on 10-02-2024 RBC (Bld) [#/Vol] 4.22 10*6/uL 4.2-5.4 [facility] Serum creatinine measurement (mass/volume)Ordered By: Bigg Dick on 10-02-2024 Creatinine [Mass/Vol] 0.85 mg/dL 0.70-1.20 [facility] Serum globulin measurementOr dered By: Bigg Dick on 10-02-2024 Globulin (S) [Mass/Vol] 2.8 g/dL 2.2-4.2 [facility] Serum glucose measurement (m ass/volume)Ordered By: Bigg Dick on 10-02-2024 Glucose [Mass/Vol] 93 mg/dL 70-[address] [facility] Serum or plasma alanine souza otransferase (ALT) measurementOrdered By: Bigg Dick on 10-02-2024 ALT [Catalytic activity/Vol] 19 U/L <35 [facility] Serum or plasma albumin sorin urement (mass/volume)Ordered By: Bigg Dick on 10-02-2024 Albumin [Mass/Vol] 4.1 g/dL 3.4-4.[address] [facility] Serum or plasma albumin/glob ulin mass ratioOrdered By: Bigg Dick on 10-02-2024 Albumin/Globulin [Mass ratio] 1.5 {ratio} 0.9-2.4 [facility] Serum or plasma alkaline piotr sphatase measurementOrdered By: Bigg Dick on 10-02-2024 ALP [Catalytic activity/Vol] 74 U/L 35-104 [facility] Serum or plasma calcium sorin urement (mass/volume)Ordered By: Bigg Dick on 10-02-2024 Calcium [Mass/Vol] 9.6 mg/dL 7.6-11.[address] [facility] Serum or plasma urea nitroge n measurement (mass/volume)Ordered By: Bigg Dick on 10-02-2024 Urea nitrogen [Mass/Vol] 14 mg/dL 4-19 [facility] Sodium levelOrdered By: Bigg Dick on 10-02-2024 Sodium [Moles/Vol] 137 mmol/L 133-[address] [facility] Total proteinOrdered By: Aria Dick on 10-02-2024 Protein [Mass/Vol] 6.9 g/dL 5.9-8.[address] [facility] Troponin T.cardiac [Mass/vol ume] in Serum or Plasma by High sensitivity methodOrdered By: Bigg Dick on 10-02-2024 Troponin T.cardiac High sensitivity method [Mass/Vol] < 6 ng/L <14 [facility] White blood cell (WBC) count Ordered By: Bigg Dick on 10-02-2024 WBC (Bld) [#/Vol] 3.5 10*3/uL Low 4.4-11.[address] [facility] Urine Cultureon 05-19-2024 URC Below infection level. Coag Negative Staph [place] Count 1000-10,000 Normal [facility] Comment on above: Performed By: #### M 100.2200 ####[facility] [address] [place], [place], [id number] Urine cultureOrdered By: Filipe Rodriguez on 05-17-2024 Bacteria identified Cx Nom (U) Negative Abnormal [facility] Absolute neutrophil countOrd ered By: Rody Gaston on 04-24-2024 Neutrophils (Bld) [#/Vol] 2.4 10*3/uL 2.0-7.7 [facility] Anion gap in Serum or Plasma Ordered By: Rody Gaston on 04-24-2024 Anion gap [Moles/Vol] 12 mmol/L 5-15 [facility] BUN/creatinine ratioOrdered By: Rody Gaston on 04-24-2024 Urea nitrogen/Creatinine [Mass ratio] 12.2 mg/mg 10-20 [facility] Basophil percentageOrdered B y: Rody Gaston on 04-24-2024 Basophils/100 WBC (Bld) 0.8 % 0-1 [facility] Bilirubin, totalOrdered By: Rody Gaston on 04-24-2024 Bilirubin [Mass/Vol] 0.38 mg/dL 0.00-1.30 [facility] CBC W/Diff, Automatedon 04-06 Absolute Lymph 0.91 X10 3/uL Normal 0.83-4.51 [facility] Comment on above: Performed By: #### L 506.0400, L100.0100, L500.4050, L501.81723, L501.9520, L503.0106, L506.1001 #### [facility] [address] [place], [address] Absolute Neut 2.4 X10 3/uL Normal 2.0-7.7 [facility] Comment on above: Performed By: #### L 506.0400, L100.0100, L500.4050, L501.51581, L501.9520, L503.0106, L506.1001 #### [facility] [address] [place], [address] Basophils/100 WBC (Bld) 0.8 % Normal 0-1 [facility] Comment on above: Performed By: #### L 506.0400, L100.0100, L500.4050, L501.23409, L501.9520, L503.0106, L506.1001 #### [facility] [address] [place], [address] Eosinophils/100 WBC (Bld) 4.2 % Normal 0-5 [facility] Comment on above: Performed By: #### L 506.0400, L100.0100, L500.4050, L501.90480, L501.9520, L503.0106, L506.1001 #### [facility] [address] [place], [address] Erythrocyte distribution width (RBC) [Ratio] 12.5 % Normal 11.6-14.6 [facility] Comment on above: Performed By: #### L 506.0400, L100.0100, L500.4050, L501.94464, L501.9520, L503.0106, L506.1001 #### [facility] [address] [place], [address] Hematocrit (Bld) [Volume fraction] 44.0 % Normal 37-47 [facility] Comment on above: Performed By: #### L 506.0400, L100.0100, L500.4050, L501.97129, L501.9520, L503.0106, L506.1001 #### [facility] [address] [place], [address] Hemoglobin (Bld) [Mass/Vol] 14.4 g/dL Normal 12.0-15.0 [facility] Comment on above: Performed By: #### L 506.0400, L100.0100, L500.4050, L501.59363, L501.9520, L503.0106, L506.1001 #### [facility] [address] [place], [address] IG% 0.300 Normal 0.0-0.9 [facility] Comment on above: Result Comment: IG% - Immature Granulocytes (promyelocytes, myelocytes and metamyelocytes) > 1% indicates that a LEFT SHIFT is Present. Performed By: #### L 506.0400, L100.0100, L500.4050, L501.22162, L501.9520, L503.0106, L506.1001 #### [facility] [address] [place], [address] Lymphocytes/100 WBC (Bld) 23.9 % Normal 19-41 [facility] Comment on above: Performed By: #### L 506.0400, L100.0100, L500.4050, L501.56130, L501.9520, L503.0106, L506.1001 #### [facility] [address] [place], [address] MCH (RBC) [Entitic mass] 32.5 pg High 27.0-32.0 [facility] Comment on above: Performed By: #### L 506.0400, L100.0100, L500.4050, L501.35717, L501.9520, L503.0106, L506.1001 #### [facility] [address] [place], [address] MCHC (RBC) [Mass/Vol] 32.7 g/dL Normal 32-36 [facility] Comment on above: Performed By: #### L 506.0400, L100.0100, L500.4050, L501.64585, L501.9520, L503.0106, L506.1001 #### [facility] [address] [place], [address] MCV (RBC) [Entitic vol] 99.3 fL High 81-99 [facility] Comment on above: Performed By: #### L 506.0400, L100.0100, L500.4050, L501.10994, L501.9520, L503.0106, L506.1001 #### [facility] [address] [place], [address] Monocytes/100 WBC (Bld) 8.7 % Normal 0-10 [facility] Comment on above: Performed By: #### L 506.0400, L100.0100, L500.4050, L501.25373, L501.9520, L503.0106, L506.1001 #### [facility] [address] [place], [address] Neutrophils/100 WBC (Bld) 62.1 % Normal 47-70 [facility] Comment on above: Performed By: #### L 506.0400, L100.0100, L500.4050, L501.87659, L501.9520, L503.0106, L506.1001 #### [facility] [address] [place], [address] Nucleated RBC (Bld) [#/Vol] 0 10*3/uL Normal 0-5 [facility] Comment on above: Performed By: #### L 506.0400, L100.0100, L500.4050, L501.06365, L501.9520, L503.0106, L506.1001 #### [facility] [address] [place], [address] Platelet mean volume (Bld) [Entitic vol] 9.7 fL Normal 6.2-12.0 [facility] Comment on above: Performed By: #### L 506.0400, L100.0100, L500.4050, L501.75503, L501.9520, L503.0106, L506.1001 #### [facility] [address] [place], [address] Platelets (Bld) [#/Vol] 258 10*3/uL Normal 150-450 [facility] Comment on above: Performed By: #### L 506.0400, L100.0100, L500.4050, L501.55335, L501.9520, L503.0106, L506.1001 #### [facility] [address] [place], [address] RBC (Bld) [#/Vol] 4.43 10*6/uL Normal 4.2-5.4 [facility] Comment on above: Performed By: #### L 506.0400, L100.0100, L500.4050, L501.34811, L501.9520, L503.0106, L506.1001 #### [facility] [address] [place], [address] RDW SD 46.3 fl High 35.1-43.9 [facility] Comment on above: Performed By: #### L 506.0400, L100.0100, L500.4050, L501.60917, L501.9520, L503.0106, L506.1001 #### [facility] [address] [place], [address] WBC (Bld) [#/Vol] 3.8 10*3/uL Low 4.4-11.[address] [facility] Comment on above: Performed By: #### L 506.0400, L100.0100, L500.4050, L501.58626, L501.9520, L503.0106, L506.1001 #### [facility] [address] [place], [address] Carbon dioxide, total [Moles /volume] in Central venous bloodOrdered By: Rody Gaston on 04-24-2024 CO2 [Moles/Vol] 23.2 mmol/L 21.0-32.0 [facility] Chloride assayOrdered By: Odette Gaston on 04-24-2024 Chloride [Moles/Vol] 101 mmol/L 98-108 [facility] Comprehensive Metabolic Prof ilon 04-24-2024 Albumin [Mass/Vol] 4.3 g/dL Normal 3.4-4.[address] [facility] Comment on above: Performed By: #### L 506.0400, L100.0100, L500.4050, L501.40162, L501.9520, L503.0106, L506.1001 #### [facility] [address] [place], [address] Albumin/Globulin [Mass ratio] 1.5 {ratio} Normal 0.9-2.4 [facility] Comment on above: Performed By: #### L 506.0400, L100.0100, L500.4050, L501.52814, L501.9520, L503.0106, L506.1001 #### [facility] [address] [place], [address] ALK PHOS 75 U/L Normal 35-104 [facility] Comment on above: Performed By: #### L 506.0400, L100.0100, L500.4050, L501.62561, L501.9520, L503.0106, L506.1001 #### [facility] [address] [place], [address] ALT [Catalytic activity/Vol] 16 U/L Normal <=34 [facility] Comment on above: Performed By: #### L 506.0400, L100.0100, L500.4050, L501.22197, L501.9520, L503.0106, L506.1001 #### [facility] [address] [place], [address] AST [Catalytic activity/Vol] 22 U/L Normal <=31 [facility] Comment on above: Performed By: #### L 506.0400, L100.0100, L500.4050, L501.73277, L501.9520, L503.0106, L506.1001 #### [facility] [address] [place], [address] Bilirubin [Mass/Vol] 0.38 mg/dL Normal 0.00-1.30 [facility] Comment on above: Performed By: #### L 506.0400, L100.0100, L500.4050, L501.92499, L501.9520, L503.0106, L506.1001 #### [facility] [address] [place], [address] BUN/CRE 12.2 RATIO Normal 10-20 [facility] Comment on above: Performed By: #### L 506.0400, L100.0100, L500.4050, L501.94675, L501.9520, L503.0106, L506.1001 #### [facility] [address] [place], [address] Calcium [Mass/Vol] 9.6 mg/dL Normal 7.6-11.[address] [facility] Comment on above: Performed By: #### L 506.0400, L100.0100, L500.4050, L501.03480, L501.9520, L503.0106, L506.1001 #### [facility] [address] [place], [address] Chloride [Moles/Vol] 101 mmol/L Normal 98-108 [facility] Comment on above: Performed By: #### L 506.0400, L100.0100, L500.4050, L501.03183, L501.9520, L503.0106, L506.1001 #### [facility] [address] [place], [address] CO2 [Moles/Vol] 23.2 mmol/L Normal 21.0-32.0 [facility] Comment on above: Performed By: #### L 506.0400, L100.0100, L500.4050, L501.95910, L501.9520, L503.0106, L506.1001 #### [facility] [address] [place], [address] Creatinine [Mass/Vol] 0.87 mg/dL Normal 0.70-1.20 [facility] Comment on above: Performed By: #### L 506.0400, L100.0100, L500.4050, L501.17922, L501.9520, L503.0106, L506.1001 #### [facility] [address] [place], [address] GAP 12 Normal 5-15 [facility] Comment on above: Performed By: #### L 506.0400, L100.0100, L500.4050, L501.79183, L501.9520, L503.0106, L506.1001 #### [facility] [address] [place], [address] GFR/1.73 sq M.predicted among non-blacks MDRD (S/P/Bld) [Vol rate/Area] 76 mL/min/{1.73_m2} Normal >60 [facility] Comment on above: Result Comment: mL/m in/1.73m2 CKD-EPI Creatinine Equation (2020) Performed By: #### L 506.0400, L100.0100, L500.4050, L501.75126, L501.9520, L503.0106, L506.1001 #### [facility] [address] [place], [address] Globulin (S) [Mass/Vol] 2.9 g/dL Normal 2.2-4.2 [facility] Comment on above: Performed By: #### L 506.0400, L100.0100, L500.4050, L501.77012, L501.9520, L503.0106, L506.1001 #### [facility] [address] [place], [address] Glucose [Mass/Vol] 85 mg/dL Normal 70-[address] [facility] Comment on above: Performed By: #### L 506.0400, L100.0100, L500.4050, L501.49533, L501.9520, L503.0106, L506.1001 #### [facility] [address] [place], [address] Potassium [Moles/Vol] 4.2 mmol/L Normal 3.3-5.1 [facility] Comment on above: Performed By: #### L 506.0400, L100.0100, L500.4050, L501.52389, L501.9520, L503.0106, L506.1001 #### [facility] [address] [place], [address] Sodium [Moles/Vol] 137 mmol/L Normal 133-[address] [facility] Comment on above: Performed By: #### L 506.0400, L100.0100, L500.4050, L501.37597, L501.9520, L503.0106, L506.1001 #### [facility] [address] [place], [address] T PROT 7.2 g/dL Normal 5.9-8.4 [facility] Comment on above: Performed By: #### L 506.0400, L100.0100, L500.4050, L501.08780, L501.9520, L503.0106, L506.1001 #### [facility] [address] [place], [address] Urea nitrogen [Mass/Vol] 11 mg/dL Normal 4-19 [facility] Comment on above: Performed By: #### L 506.0400, L100.0100, L500.4050, L501.40842, L501.9520, L503.0106, L506.1001 #### [facility] [address] [place], [address] Eosinophil percentageOrdered By: Rody Gaston on 04-24-2024 Eosinophils/100 WBC (Bld) 4.2 % 0-5 [facility] Erythrocyte distribution wid th ratioOrdered By: Rody Gaston on 04-24-2024 Erythrocyte distribution width (RBC) [Ratio] 12.5 % 11.6-14.6 [facility] Erythrocyte distribution wid th standard deviationOrdered By: Rody Gaston on 04-24-2024 Erythrocyte distribution width (RBC) [Entitic vol] 46.3 fL High 35.1-43.[address] [facility] Free T3on 04-24-2024 Free T3 [Mass/Vol] 3.2 pg/mL Normal 2.18-3.[address] [facility] Comment on above: Performed By: #### L 506.0400, L100.0100, L500.4050, L501.86989, L501.9520, L503.0106, L506.1001 #### [facility] [address] [place], [address] Free [id number] By: Rody dang on 04-24-2024 Free Triiodothyronine (T3) pg/dL 3.2 pg/mL 2.18-3.98 [facility] GFR/1.73 sq M.predicted samuel g non-blacks MDRD (S/P/Bld) [Vol rate/Area]Ordered By: Rody Gaston on 04-24-2024 Estimated GFR (MDRD) Non-Af Amer 76 >60 [facility] Comment on above: mL/min/1.73m2 CKD-EP I Creatinine Equation (2020) Hematocrit Auto (Bld) [Volum e fraction]Ordered By: Rody Gaston on 04-24-2024 Hematocrit (Bld) [Volume fraction] 44.0 % 37-47 [facility] Hemoglobin measurementOrdere d By: Rody Gaston on 04-24-2024 Hemoglobin (Bld) [Mass/Vol] 14.4 g/dL 12.0-15.0 [facility] Immature granulocytes/100 WB C Auto (Bld)Ordered By: Rody Gaston on 04-24-2024 Immature granulocytes/100 WBC (Bld) 0.300 % 0.0-0.9 [facility] Comment on above: IG% - Immature Granu locytes (promyelocytes, myelocytes and metamyelocytes) > 1% indicates that a LEFT SHIFT is Present. L503.0106on 04-24-2024 Cobalamin (Vitamin B12) [Mass/Vol] 348 pg/mL Normal 180-914 [facility] Comment on above: Performed By: #### L 506.0400, L100.0100, L500.4050, L501.19730, L501.9520, L503.0106, L506.1001 #### [facility] [address] [place], [address] L506.1001on 04-24-2024 Vitamin D 25-OH 40.0 ng/mL Normal 30-100 [facility] Comment on above: Result Comment: Hoda min D Status Deficiency: <20 ng/mL (50nmol/L) Insufficiency: 20-30 ng/mL (50-75 nmol/L) Sufficiency: 30-100 ng/mL (75-250 nmol/L) Toxicity: >100 ng/mL (>250 nmol/L) Performed By: #### L 506.0400, L100.0100, L500.4050, L501.49137, L501.9520, L503.0106, L506.1001 ####[facility] [address] [facility] [place] [place], [address] Laboratory - Chemistry and C hemistry - challengeOrdered By: Rody Gaston on 04-24-2024 AST [Catalytic activity/Vol] 22 U/L <32 [facility] Lymphocytes Auto (Unsp spec) [#/Vol]Ordered By: Rody Gaston on 04-24-2024 Lymphocytes (Bld) [#/Vol] 0.91 10*3/uL 0.83-4.5 1 [facility] Lymphocytes/100 WBC Auto (Un sp spec)Ordered By: Rody Gaston on 04-24-2024 Lymphocytes/100 WBC (Bld) 23.9 % 19-41 [facility] MCV (mean corpuscular volume ) determinationOrdered By: Rody Gaston on 04-24-2024 MCV (RBC) [Entitic vol] 99.3 fL High 81-99 [facility] Mean corpuscular hemoglobin (MCH) determinationOrdered By: Rody Gaston on 04-24-2024 MCH (RBC) [Entitic mass] 32.5 pg High 27.0-32.0 [facility] Mean corpuscular hemoglobin concentration (MCHC) determinationOrdered By: Rody Gaston on 04-24-2024 MCHC (RBC) [Mass/Vol] 32.7 g/dL 32-36 [facility] Mean platelet volume determi nationOrdered By: Rody Gaston on 04-24-2024 Platelet mean volume (Bld) [Entitic vol] 9.7 fL 6.2-12.0 [facility] Monocyte percentageOrdered B y: Rody Gaston on 04-24-2024 Monocytes/100 WBC (Bld) 8.7 % 0-10 [facility] Neutrophil percentageOrdered By: Rody Gaston on 04-24-2024 Neutrophils/100 WBC (Bld) 62.1 % 47-70 [facility] Nucleated red blood cell per centageOrdered By: Rody Gaston on 04-24-2024 Nucleated RBC/100 WBC (Bld) [Ratio] 0 % 0-5 [facility] Platelet countOrdered By: Odette Gaston on 04-24-2024 Platelets (Bld) [#/Vol] 258 10*3/uL 150-450 [facility] Potassium (Unsp spec) [Mass/ Vol]Ordered By: Rody Gaston on 04-24-2024 Potassium [Moles/Vol] 4.2 mmol/L 3.3-5.1 [facility] RBC Auto (Bld) [#/Vol]Ordere d By: Rody Gaston on 04-24-2024 RBC (Bld) [#/Vol] 4.43 10*6/uL 4.2-5.4 [facility] Serum creatinine measurement (mass/volume)Ordered By: Rody Gaston on 04-24-2024 Creatinine [Mass/Vol] 0.87 mg/dL 0.70-1.20 [facility] Serum globulin measurementOr dered By: Rody Gaston on 04-24-2024 Globulin (S) [Mass/Vol] 2.9 g/dL 2.2-4.2 [facility] Serum glucose measurement (m ass/volume)Ordered By: Rody Gaston on 04-24-2024 Glucose [Mass/Vol] 85 mg/dL 70-[address] [facility] Serum or plasma alanine souza otransferase (ALT) measurementOrdered By: Rody Gaston on 04-24-2024 ALT [Catalytic activity/Vol] 16 U/L <35 [facility] Serum or plasma albumin sorin urement (mass/volume)Ordered By: Rody Gaston on 04-24-2024 Albumin [Mass/Vol] 4.3 g/dL 3.4-4.[address] [facility] Serum or plasma albumin/glob ulin mass ratioOrdered By: Rody Gaston on 04-24-2024 Albumin/Globulin [Mass ratio] 1.5 {ratio} 0.9-2.4 [facility] Serum or plasma alkaline piotr sphatase measurementOrdered By: Rody Gaston on 04-24-2024 ALP [Catalytic activity/Vol] 75 U/L 35-104 [facility] Serum or plasma calcium sorin urement (mass/volume)Ordered By: Rody Gaston on 04-24-2024 Calcium [Mass/Vol] 9.6 mg/dL 7.6-11.[address] [facility] Serum or plasma urea nitroge n measurement (mass/volume)Ordered By: Rody Gaston on 04-24-2024 Urea nitrogen [Mass/Vol] 11 mg/dL 4-19 [facility] Sodium levelOrdered By: Rody Gaston on 04-24-2024 Sodium [Moles/Vol] 137 mmol/L 133-[address] [facility] T4 Free Directon 04-24-2024 T4 FREE DIRECT 1.20 ng/dL Normal 0.76-1.46 [facility] Comment on above: Performed By: #### L 506.0400, L100.0100, L500.4050, L501.65946, L501.9520, L503.0106, L506.1001 #### [facility] [address] [place], [place] [address]all [facility] [place], [address] T4 freeOrdered By: Rody Pagan s on 04-24-2024 Free T4 [Mass/Vol] 1.20 ng/dL 0.76-1.[address] [facility] TSH DL <= 0.005 mIU/L QnOrde red By: Rody Gaston on 04-24-2024 Thyroid Stimulating Hormone (TSH) 1.430 uIU/mL 0.300-4.200 [facility] Thyroid Stim Hormone (TSH)on 04-24-2024 TSH 1.430 uIU/mL Normal 0.300-4.200 [facility] Comment on above: Performed By: #### L 506.0400, L100.0100, L500.4050, L501.64185, L501.9520, L503.0106, L506.1001 #### [facility] [address] [place], [address] Total proteinOrdered By: Cecilia Gaston on 04-24-2024 Protein [Mass/Vol] 7.2 g/dL 5.9-8.[address] [facility] Vitamin B12 ser/plasOrdered By: Rody Gaston on 04-24-2024 Cobalamin (Vitamin B12) [Mass/Vol] 348 pg/mL 180-914 [facility] Vitamin D, 25-hydroxyOrdered By: Rody Gaston on 04-24-2024 Vitamin D 25-Hydroxy 40.0 ng/mL 30-100 [facility] Comment on above: Vitamin D StatusDefi ciency: <20 ng/mL (50nmol/L)Insufficiency: 20-30 ng/mL (50-75 nmol/L)Sufficiency: 30-100 ng/mL (75-250 nmol/L)Toxicity: >100 ng/mL (>250 nmol/L) White blood cell (WBC) count Ordered By: Rody Gaston on 04-24-2024 WBC (Bld) [#/Vol] 3.8 10*3/uL Low 4.4-11.[address] [facility] Brain/Head without Contrasto n 04-16-2024 Brain/Head without Contrast [facility] [address] [place], [place] [address] Brain/Head without Contrast MR#: [id number] Acct: [id number] Name: KEVON SANDERS MADELINE Rep #: [id number] : 1960 F 63 From: [place] PCP: Dr. Rody Gaston, DO Status: REG ER Study: Brain/Head without Contrast Date of Exam: 04/06 03/02 Exam# [id number] Ordering Dr: Beto Mckinney DO EXAM: BRAIN/HEAD WITHOUT CONTRAST CLINICAL HISTORY: DIZZINESS COMPARISON: 12/01/2022 TECHNIQUE: Multiple contiguous axial images of the brain were obtained without the administration of intravenous contrast. Two-dimensional coronal and sagittal reformatted images were reconstructed. Low-dose imaging technique was utilized. FINDINGS: No evidence of acute intracranial hemorrhage, midline shift or mass effect. No definite CT evidence of acute territorial cortical infarction. No hydrocephalus. Cerebral volume is age-appropriate. No depressed calvarial fracture. Paranasal sinuses and mastoid air cells are clear. CT/Brain/Head without Contrast IMPRESSION: No acute intracranial abnormality. Reading Location: [facility] CC: Dr. Rody Gaston DO; Beto Mckinney DO Meat Puller: Signed Normal [facility] Emergency Department Summary on 04-16-2024 Emergency Department Summary [facility] Medical Records Department [address] [place] [address] Emergency Department Summary 04/16/24 MR#: [id number] Acct: [id number] Name: KEVON SANDERS Rep #: [id number] : 1960 63 From: Beto Mckinney DO PCP: Dr. 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 She states that she had a shower earlier this evening and was using a Q-tip in each of her ears. She states after doing this she noticed there was blood on the Q-tip. She states following this she felt like there was pressure within her head that her ears were ringing and that she was dizzy. She describes a dizzy sensation as a sense of motion and states that it was worse when she would change positions and better at rest. 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 [facility] Medical History Abdominal pain Fracture of greater tuberosity of left humerus Left shoulder pain Post-menopausal Wears glasses Cancer Depression Anxiety Arthritis Anemia Back pain Syncope Non-smoker Shortness of breath on exertion Hypotension History of stress test Chest pain Family history of skin cancer Personal history of skin cancer Neoplasm of skin of eyebrow Mitral valve prolapse Vitamin deficiency Vision problems Osteoporosis Allergies Home Medications ???Medication ???Instructions ???Recorded ???Last Taken ???Type diazepam 5 mg tablet (Valium) 5 mg PO TID PRN vertigo 5 days #15 04/16/24 Unknown Rx tabs prednisolone 15 mg/5 mL oral 30 mg (10 mL) PO DAILY 5 days #50 04/16/24 Unknown Rx solution mL Allergy/AdvReac Type Severity Reaction Status Date / Time ciprofloxacin (From Cipro) Allergy Severe Other Verified 04/16/24 20:35 sulfamethoxazole (From Allergy Severe Other Verified 04/16/24 20:35 Bactrim) trimethoprim (From Bactrim) Allergy Severe Other Verified 04/16/24 20:35 doxycycline Allergy Intermediate Other Verified 04/16/24 20:35 latex Allergy Intermediate redness Verified 04/16/24 20:35 and rash codeine Allergy Hives Verified 04/16/24 20:35 nitrofurantoin (From Allergy Unknown Verified 04/16/24 20:35 Macrobid) nitrofurantoin Allergy Unknown Verified 04/16/24 20:35 macrocrystalline (From Macrobid) Penicillins Allergy Rash Verified 04/16/24 20:35 nasrin AdvReac Mild Itching Verified 04/16/24 20:35 avocado AdvReac Diarrhea Verified 04/16/24 20:35 Family History Mother Angina at rest Anxiety Breast cancer Depression Hypertension Skin cancer Father Arthritis Cancer Colon cancer Other Family history of skin cancer High cholesterol Suicide attempt Surgical History History of colonoscopy History of left breast biopsy ( 10/2021) History of cholecystectomy Social History Smoking Status: Never smoker alcohol intake: never substance use type: does not use additional social history: Does Not Use Aspirin Does Not Use Ibuprofen ROS ROS ED Constitutional Constitutional ED: Denies chills or fever(s) Eyes Eyes: Denies blurry vision or change in vision ENT ENT ED: Reports ear pain bilateral and other Details: Positive blood from bilateral ear canals Positive tinnitus ; Denies sore throat Cardiovascular Cardiovascular: Reports other Details: Negative syncope ; Denies chest pain, palpitations or racing heartbeat Respiratory/Chest Respiratory/Chest: Denies cough or dyspnea Gastrointestinal Gastrointestinal: Reports nausea; Denies abdominal pain, diarrhea or vomiting Genitourinary Genitourinary ED: Denies dysuria Musculoskeletal Musculoskeletal: Denies myalgias Integumentary Denies rash Neurologic Neurologic: Reports other Details: Positive dizziness ; Denies headache(s) Psychiatric Psychiatric: Reports anxiety and depression Hematologic/Lymphati c Hematologic/Lymphati c: Denies easy bleeding or easy bruising EXAM Physical Exam Const Vital Signs: 04/16/24 20:35 04/16/24 22:34 Temperature 97.4 F L Temperature Source Temporal Pulse Rate 72 62 Respiratory Rate 18 17 Blood Pressure 124/78 H 121/73 H Blood Pressure Mean 93 89 Pulse Ox 99 100 Oxygen Delivery Method Room Air Room Air Positive well nourished and well developed General Appearance ED: well developed; Negative for pallor (more content not included)... Normal [facility] Surgical pathology reportOrd ered By: Violeta Cevallos on 04-11-2024 Surgical pathology study [facility] Surgery Specimen Level [place] 04-08-2024 Surgery Specimen Level IV ------ Patient Age/Sex Location Account Attending Physician KEVON SANDERS June/ [facility] [id number] Dr. Parvez Soriano MD Specimen: [id number] Received: 04/08/24 Status: DORIS Mathias Num: [id number] Spec Type: BREAST BX Subm Dr: Dr. Parvez Soriano MD HEADER OPERATION: Right breast biopsy PRE-OP DIAGNOSIS: Right breast mass TISSUE SUBMITTED: Right breast tissue MICROSCOPIC DIAGNOSIS Right breast, mass, core biopsy: * Benign breast tissue with foreign body type granulomas, with cholesterol clefts, multinucleated giant cells, and microcalcifications. MICROSCOPIC DESCRIPTION Slides are reviewed. GROSS DESCRIPTION Received in fixative is one container labeled with the patient's name and designated Right breast mass. The specimen consists of three yellow-coffman cylindrical tissue cores that range from 0.2 to 1.2cm long and average 0.2cm in diameter. The cores are entirely submitted in one cassette. 04/08/2024 TC: CPT:72115 Patient Age/Sex Location Account Attending Physician KEVON SANDERS June [facility] [id number] Dr. Parvez Soriano MD Signed (signature on file) Dr. Violeta Cevallos MD 04/11/24 0850 Normal [facility] Comment on above: Performed By: #### P SUIV ####[facility] [id number] [place], [place], [id number] Surgery Visit Reporton 04-08 Surgery Visit Report [facility] [address] [place], [place] [address] OFFICE VISIT Date of Service: 04/08/24 MR#: [id number] Acct: [id number] Name: KEVON SANDERS JUNE Rep #: [id number] : 1960 Provider: Dr. Parvez renteria MD Age/Sex: 63/F Location: [facility] Status: Signed Intake Vital Signs 03/13/24 13:15 04/08/24 09:55 Height 5 ft 6 in 5 ft 6 in Weight: 155 lb 8 oz 156 lb 2 oz BMI 25.0 25.2 BP 121/75 H 120/82 H Blood Pressure Location Rt brachial Rt brachial Position Sitting Sitting Respiration 18 18 Pulse 77 71 Pulse Source Monitor Monitor Temp 97.2 F L 97.6 F L Temp Source Temporal Temporal Pulse Oximetry (%) 100 98 Oxygen Delivery Method room air room air Intake Visit Reasons: BIRADS 4 Chief Complaint: bIRADS 4 Is patient in pain?: No Allergies ciprofloxacin (From Cipro) Allergy (Severe, Verified 04/08/24 09:55) Other sulfamethoxazole (From Bactrim) Allergy (Severe, Verified 04/08/24 09:55) Other trimethoprim (From Bactrim) Allergy (Severe, Verified 04/08/24 09:55) Other doxycycline Allergy (Intermediate, Verified 04/08/24 09:55) Other latex Allergy (Intermediate, Verified 04/08/24 09:55) redness and rash codeine Allergy (Verified 04/08/24 09:55) Hives nitrofurantoin (From Macrobid) Allergy (Verified 04/08/24 09:55) Unknown nitrofurantoin macrocrystalline (From Macrobid) Allergy (Verified 04/08/24 09:55) Unknown Penicillins Allergy (Verified 04/08/24 09:55) Rash nasrin Adverse Reaction (Mild, Verified 04/08/24 09:55) Itching avocado Adverse Reaction (Verified 04/08/24 09:55) Diarrhea Medications ???Medication ???Instructions ???Recorded ???Confirmed ???Type NK 04/08/24 04/08/24 History PFSH Medical History Abdominal pain Fracture of greater tuberosity of left humerus Left shoulder pain Post-menopausal Wears glasses Cancer Depression Anxiety Arthritis Anemia Back pain Syncope Non-smoker Shortness of breath on exertion Hypotension History of stress test Chest pain Family history of skin cancer Personal history of skin cancer Neoplasm of skin of eyebrow Mitral valve prolapse Vitamin deficiency Vision problems Osteoporosis Allergies Surgical History History of colonoscopy History of left breast biopsy ( 10/2021) History of cholecystectomy Family History Mother Angina at rest Anxiety Breast cancer Depression Hypertension Skin cancer Father Arthritis Cancer Colon cancer Other Family history of skin cancer High cholesterol Suicide attempt Social History Smoking Status: Never smoker alcohol intake: never substance use type: does not use additional social history: Does Not Use Aspirin Does Not Use Ibuprofen HPI HPI HPI: Patient is a 63-year-old female here with a right breast mass. The patient had a left breast mass in the past and that was biopsied. ROS General General: Yes weight change and fatigue; No appetite, colon cancer, breast cancer or weakness HEENT HEENT: No difficulty swallowing, eye injury, eye surgery, swollen glands or hoarseness Endo Endocrine: No thyroid disease, diabetes mellitus, thyroid cancer, Hair loss, heat intolerance or cold intolerance Skin Skin: Yes rash; No changing moles Breast Breast: Yes abnormal mammogram and abnormal US; No left breast lump, right breast lump, nipple discharge, breast pain or breast enlargement Musc Musculoskeletal: No back problems, arthritis, rheumatoid arthritis, gout or joint pain Cardio Cardiovascular: No murmur, pacemaker, heart disease, atrial fibrillation, high blood pressure, heart attack, heart stent, palpitations, shortness of breat with exertion or chest pain Psych Psychiatric: Yes depression and anxiety; No hearing voices Resp Respiratory: No shortness of breath, No sleep apnea, No cough, No COPD, No asthma, No emphysema and No wheezing Gastro Gastrointestinal: No abdominal pain, No nausea or vomiting, No diarrhea, No constipation, No blood in stool, Yes acid reflux, No hemorrhoids, No ulcers, No gallbladder problem and No black,tarry stools Richard Hematologic: No blood thinners, No blood disorders, No bleeding, No anemia and No blood clots Neuro Neurologic: No numbness, No tingling and No weakness Exam Const General: cooperative Orientation: alert and oriented x3 HENMT Head: normal to inspection Neck Neck: normal visual inspection and full ROM Chest Chest palpation inspection: normal inspection of the chest Resp Effort Inspection: normal respiratory effort (more content not included)... Normal [facility] Breast Limited Unilateralon 04-03-2024 Breast Limited Unilateral [facility] Imaging Services [address] [place], [place] [address] Breast Limited Unilateral MR#: [id number] Acct: [id number] Name: KEVON SANDERS JUNE Rep #: [id number] : 1960 F 63 From: Josias strange MD PCP: Dr. Rody Gaston DO Status: REG CLI Study: Breast Limited Unilateral Date of Exam: Exam# [id number] Ordering Dr: Kalia Marmolejo DO PROCEDURE: BREAST LIMITED UNILATERAL REASON FOR EXAM: Abnormal screening mammogram. TECHNIQUE: Targeted right breast ultrasound. COMPARISON: Comparison is made with prior mammogram dated March 26, 2024. FINDINGS: RIGHT: Right breast ultrasound was targeted to the inferior half of the right breast.. There is a 1.2 cm x 1.2 cm x 1.2 cm hypoechoic slightly irregular nodule at the 6 o'clock position of the breast at 2 cm from the nipple. Biopsy recommended. US/Breast Limited Unilateral IMPRESSION: 1.2 cm x 1.2 cm x 1.2 cm hypoechoic slightly irregular nodule at the 6 o'clock position of the right breast as described at 2 cm from the nipple. Biopsy recommended. BI-RADS category 4. Follow-up code: Biopsy. Reading Location: [id number] CC: Dr. Rody Gaston DO; Dr. Kalia Marmolejo DO Meat Puller: Signed Normal [facility] SCRN MAMM (CAD)W/ANASTACIA BILATo n 03-26-2024 SCRN MAMM (CAD)W/ANASTACIA BILAT [facility] Imaging Services [address] [place], [place] [id number] SCRN MAMM (CAD)W/ANASTACIA BILAT MR#: [id number] Acct: [id number] Name: KEVON SANDERS JUNE Rep #: [id number] : 1960 F 63 From: Josias strange MD PCP: Dr. Rody Gaston DO Status: REG CLI Study: SCRN MAMM (CAD)W/ANASTACIA BILAT Date of Exam: 03/09 09/30 Exam# [id number] Ordering Dr: Kalia Marmolejo DO PROCEDURE: SCRN MAMM (CAD)W/ANASTACIA BILAT REASON FOR EXAM: F, Age 63 y/o, mother with breast cancer. Aunts with breast cancer. TECHNIQUE: Bilateral screening digital breast tomosynthesis with 2D and 3D images. Computer aided detection. COMPARISON: Prior exam(s) dating back to comparison is made with prior study dated October 25, 2022.. FINDINGS: The breasts are heterogeneously dense which may obscure small masses. There is a 9.6 mm by 14.5 mm well-defined nodule with peripheral calcification in the inferior central portion of the right breast. This is unchanged. Correlation with ultrasound is recommended. BI/SCRN MAMM (CAD)W/ANASTACIA BILAT IMPRESSION: BI-RADS 0: INCOMPLETE - NEED ADDITIONAL IMAGING EVALUATION. Follow-up code: Sonographic follow-up. The patient will be notified of the results by letter. Reading Location: [place] [address] CC: Dr. Rody Gaston DO; Dr. Kalia Marmolejo DO Meat Puller: Signed Normal [facility] Surgery Visit Reporton 03-13 Surgery Visit Report [facility] [address] [place] [address]. [address] [place] [address] OFFICE VISIT Date of Service: 03/13/24 MR#: [id number] Acct: [id number] Name: KEVON SANDERS JUNE Rep #: [id number] : 1960 Provider: Dr. Harpreet kaur MD Age/Sex: 63/F Location: [facility] Status: Signed Intake Vital Signs 08/05/23 21:12 03/13/24 13:15 Height 5 ft 6 in 5 ft 6 in Weight: 155 lb 8 oz BMI 25.0 BP 121/75 H Blood Pressure Location Rt brachial Position Sitting Respiration 18 Pulse 77 Pulse Source Monitor Temp 97.2 F L Temp Source Temporal Pulse Oximetry (%) 100 Oxygen Delivery Method room air Intake Visit Reasons: MASS RUQ Chief Complaint: MASS RUQ Is patient in pain?: No Allergies ciprofloxacin (From Cipro) Allergy (Severe, Verified 03/13/24 13:16) Other sulfamethoxazole (From Bactrim) Allergy (Severe, Verified 03/13/24 13:16) Other trimethoprim (From Bactrim) Allergy (Severe, Verified 03/13/24 13:16) Other doxycycline Allergy (Intermediate, Verified 03/13/24 13:16) Other latex Allergy (Intermediate, Verified 03/13/24 13:16) redness and rash codeine Allergy (Verified 03/13/24 13:16) Hives nitrofurantoin (From Macrobid) Allergy (Verified 03/13/24 13:16) Unknown nitrofurantoin macrocrystalline (From Macrobid) Allergy (Verified 03/13/24 13:16) Unknown Penicillins Allergy (Verified 03/13/24 13:16) Rash nasrin Adverse Reaction (Mild, Verified 03/13/24 13:17) Itching avocado Adverse Reaction (Verified 03/13/24 13:17) Diarrhea [facility] Medical History (Updated 03/13/24 @ 14:[address] Harpreet Manning MD) Abdominal pain Fracture of greater tuberosity of left humerus Left shoulder pain Post-menopausal Wears glasses Cancer Depression Anxiety Arthritis Anemia Back pain Syncope Non-smoker Shortness of breath on exertion Hypotension History of stress test Chest pain Family history of skin cancer Personal history of skin cancer Neoplasm of skin of eyebrow Mitral valve prolapse Vitamin deficiency Vision problems Osteoporosis Allergies Surgical History History of colonoscopy History of left breast biopsy ( 10/2021) History of cholecystectomy Family History Mother Angina at rest Anxiety Breast cancer Depression Hypertension Skin cancer Father Arthritis Cancer Colon cancer Other Family history of skin cancer High cholesterol Suicide attempt Social History Smoking Status: Never smoker alcohol intake: never substance use type: does not use additional social history: Does Not Use Aspirin Does Not Use Ibuprofen HPI HPI HPI: The patient is a 63-year-old female who presents today for evaluation of 2 issues. 1 of which was the feeling of a possible hernia involving the upper abdomen. She states that she has noticed this when she is bending over or doing some type of squatting activity she will notice areas of pressure involving the upper abdomen just below the rib cage. It sounds as though this seems to move around. She states that 1 particular time this lasted for about 6 days straight. She has never been able to actually palpate a physical lump but just has tenderness and a pinpoint region. She brought this to the attention of her primary care provider and so a KUB was ordered. His KUB showed a 2 mm calcification on the left side. No further imaging has been performed ROS General General: Yes weight change and fatigue; No appetite, colon cancer, breast cancer or weakness HEENT HEENT: No difficulty swallowing, eye injury, eye surgery, swollen glands or hoarseness Endo Endocrine: No thyroid disease, diabetes mellitus, thyroid cancer, Hair loss, heat intolerance or cold intolerance Skin Skin: Yes rash; No changing moles Musc Musculoskeletal: No back problems, arthritis, rheumatoid arthritis, gout or joint pain Cardio Cardiovascular: No murmur, pacemaker, heart disease, atrial fibrillation, high blood pressure, heart attack, heart stent, palpitations, shortness of breat with exertion or chest pain Psych Psychiatric: Yes depression and anxiety; No hearing voices Resp Respiratory: No shortness of breath, No sleep apnea, No cough, No COPD, No asthma, No emphysema and No wheezing Gastro Gastrointestinal: No abdominal pain, No nausea or vomiting, No diarrhea, No constipation, No blood in stool, Yes acid reflux, No hemorrhoids, No ulcers, No gallbladder problem and No black,tarry stools Richard Hematologic: No blood thinners, No blood disorders, No bleeding, No anemia and No blood clots Neuro Neurologic: No numbness, No tingling and No weakness Exam Const General: (more content not included)... Normal [facility] Abdomen Single Viewon 2023 Abdomen Single View [facility] Imaging Services [address] [place] [place], [place] [id number] Abdomen Single View MR#: [id number] Acct: [id number] Name: KEVON SANDERS JUNE Rep #: [id number] : 1960 F 63 From: Hollis Corral DO PCP: Dr. Rody Gaston, DO Status: REG CLI Study: Abdomen Single View Date of Exam: 01/22/24 Exam# [id number] Ordering Dr: Kellie Rodriguez PULP PLANT SUPERVISORPedroC [id number] STUDY: X-RAY - ABDOMEN/PELVIS REASON FOR EXAM: Female, 63 years old. ASSESS COLON FOR ABNORMALITIES/STOOL BURDEN TECHNIQUE: Frontal view COMPARISON: None. FINDINGS: Normal visualized lung bases. There is an unremarkable bowel gas pattern. There is no demonstrated free abdominal air. Possible 2 mm calcification over the left renal shadow. Normal soft tissue structures. Normal visualized osseous structures. RAD/Abdomen Single View IMPRESSION: No sign of bowel obstruction. Possible left renal calculus. Electronically Signed: Hollis Corral DO at 16:05 EST Reading Location ID and State: [facility] / [place] Tel [phone], Service support , CC: GAYLE Rodriguez; Dr. Rody Gaston DO Meat Puller: Signed Normal [facility] Absolute lymphocyte countOrd ered By: Bigg Dick on 12-01-2022 Lymphocytes Auto (Unsp spec) [#/Vol] 0.48 10*3/uL 0.83-4.51 [facility] Amorphous sediment detection in urine sediment by light microscopyOrdered By: Bigg Dick on 12-01-2022 Amorphous sediment LM Ql (Urine sed) 1+ [facility] Basophil percentageOrdered B y: Bigg Dick on 12-01-2022 Basophil percentage 0 SEEN /hpf 0-5 [facility] Basophils/100 WBC (Bld) 0.2 % 0-1 [facility] Bilirubin [Mass/Vol] 0.40 mg/dL 0.20-1.00 [facility] Comment on above: For patients on eltr ombopag therapy, use of Dimension [place] TBIL is not recommended. Chloride [Moles/Vol] 104 mmol/L 98-107 [facility] Eosinophils/100 WBC (Bld) 1.1 % 0-5 [facility] Glucose [Mass/Vol] 115 mg/dL 74-[address] [facility] Comment on above: Fasting Glucose resu lt from 100 to 125 mg/dL suggests IMPAIRED HOMEOSTASIS per A.D.A. criteria. Neutrophils (Bld) [#/Vol] 5.7 10*3/uL 2.0-7.7 [facility] Neutrophils/100 WBC (Bld) 87.7 % 47-70 [facility] Potassium [Moles/Vol] 3.2 mmol/L 3.5-5.1 [facility] Protein [Mass/Vol] 6.9 g/dL 6.4-8.[address] [facility] Sodium [Moles/Vol] 140 mmol/L 136-[address] [facility] WBC (Bld) [#/Vol] 6.4 10*3/uL 4.4-11.[address] [facility] Bilirubin Test strip Ql (U)O rdered By: Bigg Dick on 12-01-2022 Bilirubin Ql (U) Negative Negative [facility] Blood erythrocytes count (nu mber/volume)Ordered By: Bigg Dick on 12-01-2022 RBC (Bld) [#/Vol] 4.02 10*6/uL 4.2-5.4 [facility] Blood hemoglobin measurement (mass/volume)Ordered By: Bigg Dick on 12-01-2022 Hemoglobin (Bld) [Mass/Vol] 13.1 g/dL 12.0-15.0 [facility] Blood lymphocytes/100 leukoc ytesOrdered By: Bigg Dick on 12-01-2022 Lymphocytes/100 WBC (Bld) 7.5 % 19-41 [facility] Blood manual differential co mment interpretation (narrative result)Ordered By: Bigg Dick on 12-01-2022 Manual differential comment Brandon (Bld) [Interp] SCANNED [facility] Comment on above: LYMPHOPENIA NOTED Blood monocytes/100 leukocyt esOrdered By: Bigg Dick on 12-01-2022 Monocytes/100 WBC (Bld) 3.0 % 0-10 [facility] Blood platelet mean volumeOr dered By: Bigg Dick on 12-01-2022 Platelet mean volume (Bld) [Entitic vol] 9.1 fL 6.2-12.0 [facility] Determination of erythrocyte mean corpuscular volume (MCV)Ordered By: Bigg Dick on 12-01-2022 MCV (RBC) [Entitic vol] 100.5 fL 81-99 [facility] Hematocrit Auto (Bld) [Volum e fraction]Ordered By: Bigg Dick on 12-01-2022 Hematocrit (Bld) [Volume fraction] 40.4 % 37-47 [facility] Influenza virus A and B and SARS-CoV-2 (COVID-19) Ag panel - Upper respiratory specimOrdered By: Bigg Dick on 12-01-2022 SARS-CoV-2 (COVID-19) RNA OLIVIA+probe Ql (Resp) [facility] SARS-CoV-2 (COVID-19) RNA OLIVIA+probe Ql (Resp) [facility] Ketones Test strip Ql (U)Ord ered By: Bigg Dick on 12-01-2022 Ketones Ql (U) 15 mg/dl Negative [facility] Laboratory - Chemistry and C hemistry - challengeOrdered By: Bigg Dick on 12-01-2022 ALP [Catalytic activity/Vol] 70 U/L 45-117 [facility] ALT [Catalytic activity/Vol] 23 U/L 13-56 [facility] CO2 [Moles/Vol] 31.0 mmol/L 21.0-32.0 [facility] Globulin (S) [Mass/Vol] 3.4 g/dL 2.2-4.2 [facility] Lipase [Catalytic activity/Vol] 29 U/L 13-75 [facility] Comment on above: Please note:LIPASE r evised reference range effective 22. New Lipase methodology. Expected to produce lower values than the previous assay method. NEW Reference Range: 13 - 75 U/L Urea nitrogen/Creatinine [Mass ratio] 14.7 mg/mg 10-20 [facility] Laboratory - Hematology and Cell countsOrdered By: Bigg Dick on 12-01-2022 Erythrocyte distribution width (RBC) [Entitic vol] 47.6 fL 35.1-43.9 [facility] Erythrocyte distribution width (RBC) [Ratio] 12.8 % 11.6-14.6 [facility] Immature granulocytes/100 WBC (Bld) 0.500 % 0.0-0.9 [facility] Comment on above: IG% - Immature Granu locytes (promyelocytes, myelocytes and metamyelocytes) > 1% indicates that a LEFT SHIFT is Present. MCH (RBC) [Entitic mass] 32.6 pg 27.0-32.0 [facility] Nucleated RBC/100 WBC (Bld) [Ratio] 0 % 0-5 [facility] MCHC Auto (RBC) [Mass/Vol]Or dered By: Bigg Dick on 12-01-2022 MCHC (RBC) [Mass/Vol] 32.4 g/dL 32-36 [facility] Mucus LM Ql (Urine sed)Order ed By: Bigg Dick on 12-01-2022 Mucus Ql (Urine sed) 0 SEEN /hpf [facility] Nitrite Test strip Ql (U)Ord ered By: Bigg Dick on 12-01-2022 Nitrite Ql (U) Negative Negative [facility] No Panel InformationOrdered By: Bigg Dick on 12-01-2022 Estimated Creatinine Clearance Calc 62.93 ml/min [facility] Estimated GFR (MDRD) Amer 84 mL/min >60 [facility] Comment on above: GFR Calc Estimated GFR (MDRD) Non-Af Amer 69 mL/min >60 [facility] Comment on above: Non- GFR Calc Troponin I High Sensitivity 4 pg/mL 3.0-54.0 [facility] Comment on above: Please Note: New Lisa t Units and Gender Specific Reference Ranges. For more information see Policy Stat Procedure [place] High Sensitivity Troponin (TNIH) and attachments. Platelets bldOrdered By: Aria Dick on 12-01-2022 Platelets (Bld) [#/Vol] 225 10*3/uL 150-450 [facility] Protein Test strip Ql (U)Ord ered By: Bigg Dick on 12-01-2022 Protein Ql (U) Negative Negative [facility] Serum or plasma albumin sorin urement (mass/volume)Ordered By: Bigg Dick on 12-01-2022 Albumin [Mass/Vol] 3.5 g/dL 3.2-5.[address] [facility] Serum or plasma albumin/glob ulin mass ratioOrdered By: Bigg Dick on 12-01-2022 Albumin/Globulin [Mass ratio] 1.0 {ratio} 0.9-2.4 [facility] Serum or plasma calcium sorin urement (mass/volume)Ordered By: Bigg Dick on 12-01-2022 Calcium [Mass/Vol] 9.2 mg/dL 8.5-10.[address] [facility] Serum or plasma creatinine m easurement (mass/volume)Ordered By: Bigg Dick on 12-01-2022 Creatinine [Mass/Vol] 0.89 mg/dL 0.55-1.02 [facility] Comment on above: The validity of the calculated GFR & GFRAA in patients over 70 years has not been determined. Clinical correlation is essential. Serum or plasma urea nitroge n measurement (mass/volume)Ordered By: Bigg Dick on 12-01-2022 Urea nitrogen [Mass/Vol] 13 mg/dL 7-18 [facility] Squamous epithelial cells de tection in urine sediment by light microscopyOrdered By: Bigg Dick on 12-01-2022 Epithelial cells.squamous LM Ql (Urine sed) 0 SEEN /hpf 5-10 [facility] Thin prep Papanicolaou smear with manual screeningOrdered By: Bigg Dick on 12-01-2022 Thin prep Papanicolaou smear with manual screening 19 U/L 15-37 [facility] Thin prep Papanicolaou smear with manual screening 5 5-15 [facility] Urine blood detectionOrdered By: Bigg Dick on 12-01-2022 RBC Ql (U) Negative Negative [facility] RBC Ql (U) 0 SEEN /hpf 0-5 [facility] Urine clarityOrdered By: Aria Dick on 12-01-2022 Clarity (U) Clear Clear [facility] Urine color determinationOrd ered By: Bigg Dick on 12-01-2022 Color (U) Yellow Yellow [facility] Urine glucose detectionOrder ed By: Bigg Dick on 12-01-2022 Glucose Ql (U) Normal mg/dl Normal [facility] Urine leukocyte esterase det ection by dipstickOrdered By: Bigg Dick on 12-01-2022 Leukocyte esterase Test strip Ql (U) 25 /ul Negative [facility] Urine pHOrdered By: Bigg de la cruz on 12-01-2022 pH (U) 8.0 [pH] 5.0 - 8.0 [facility] Urine sediment bacteria coun t by microscopy (number/high power field)Ordered By: Bigg Dick on 12-01-2022 Bacteria LM.HPF (Urine sed) [#/Area] 0 /[HPF] None Seen [facility] Urine specific gravity measu rementOrdered By: Bigg Dick on 12-01-2022 Specific gravity (U) [Rel density] 1.015 1.002-1.030 [facility] Urobilinogen Auto test strip Ql (U)Ordered By: Bigg Dick on 12-01-2022 Urobilinogen Ql (U) Normal mg/dl Normal [facility] Cervical or vagninal specime n microscopic examination by cytology stain (reported asOrdered By: Rody Gaston on 08-17-2022 Cytology report Cyto stain Doc (Cvx/Vag) Comment . [facility] Comment on above: The Pap smear is a s creening test designed to aid in thedetection of premalignant and malignant conditions of theuterine cervix. It is not a diagnostic procedure andshould not be used as the sole means of detecting cervicalcancer. Both false-positive and false-negative reports dooccur. Detection in cervical specim en of any of human papilloma virus (HPV) 16, 18, 31, 33,Ordered By: Rody Gaston on 08-17-2022 HPV 16+18+31+33+35+39+45+51+5 2+56+58+59+66+68 DNA Probe+sig amp Ql (Cvx) Negative Negative [facility] Comment on above: This nucleic acid am plification test detects fourteen high-risk HPV types (16,18,31,33,35,39,45,51,52,56,58,59,66,68)without differentiation. Laboratory - CytologyOrdered By: Rody Gaston on 08-17-2022 Immigration Services Officer Cyto stain Nom (Cvx/Vag) [ID] Comment . [facility] Comment on above: Ange Hernandez, Cytot echnologist (ASCP) Laboratory - Miscellaneous t estsOrdered By: Rody Gaston on 08-17-2022 Service comment (Unsp spec) [Interp] Comment . [facility] Comment on above: This liquid based Th inPrep(R) pap test was screened withthe use of an image guided system. Service comment (Unsp spec) [Interp] . . [facility] Liquid-based cerv Pap + CT/G C by OLIVIA w reflex to high-risk HPV for ASCUSOrdered By: Rody Gaston on 08-17-2022 Cytology report Cyto stain.thin prep Doc (Cvx/Vag) Comment . [facility] Comment on above: Criteria not met, HP V Genotype not performed.Performed at: - [facility] [id number] Director: Rhoda Park MD, Phone: [phone] at: = - [facility] [id number] Director: Rhoda Park MD, Phone: [phone] No Panel InformationOrdered By: Rody Gaston on 08-17-2022 Pathology report final diagnosis Narrative Comment . [facility] Comment on above: NEGATIVE FOR INTRAEP ITHELIAL LESION OR MALIGNANCY. Basophil percentageOrdered B y: Dr. Gaston on 07-22-2022 Bilirubin [Mass/Vol] 0.50 mg/dL 0.20-1.00 [facility] Comment on above: For patients on eltr ombopag therapy, use of Dimension [place] TBIL is not recommended. Chloride [Moles/Vol] 105 mmol/L 98-107 [facility] Glucose [Mass/Vol] 84 mg/dL 74-[address] [facility] Potassium [Moles/Vol] 4.1 mmol/L 3.5-5.1 [facility] Protein [Mass/Vol] 7.2 g/dL 6.4-8.[address] [facility] Sodium [Moles/Vol] 140 mmol/L 136-[address] [facility] Iron measurement (mass/mass) Ordered By: Dr. Gaston on 07-22-2022 Iron (Unsp spec) [Mass/Mass] 101 ug/dL 50-170 [facility] Laboratory - Chemistry and C hemistry - challengeOrdered By: Dr. Gaston on 07-22-2022 Albumin [Mass/Vol] 3.8 g/dL 2.9-4.[address] [facility] ALP [Catalytic activity/Vol] 72 U/L 45-117 [facility] ALT [Catalytic activity/Vol] 18 U/L 13-56 [facility] CO2 [Moles/Vol] 28.0 mmol/L 21.0-32.0 [facility] Cobalamin (Vitamin B12) [Mass/Vol] 363 pg/mL 211-911 [facility] Globulin (S) [Mass/Vol] 3.5 g/dL 2.2-4.2 [facility] Magnesium [Mass/Vol] 2.2 mg/dL 1.6-2.6 [facility] Urea nitrogen/Creatinine [Mass ratio] 14.5 mg/mg 10-20 [facility] No Panel InformationOrdered By: Dr. Gaston on 07-22-2022 Addendum Document Comment . [facility] Comment on above: The SPE pattern appe ars unremarkable. Evidence ofmonoclonal protein is not apparent.Performed at: [facility] - [address] [id number] Director: Dorian Mcguire PhD, Phone: [phone] Axofk-7-Vygcvjkii 0.3 g/dL 0.0-0.4 [facility] Gjksd-9-Mdbimfijk 0.7 g/dL 0.4-1.0 [facility] Estimated GFR (MDRD) Amer 90 mL/min >60 [facility] Comment on above: GFR Calc Estimated GFR (MDRD) Non-Af Amer 75 mL/min >60 [facility] Comment on above: Non- GFR Calc Gamma Globulins 0.9 g/dL 0.4-1.8 [facility] Protein Fractions Elph [Inte rp]Ordered By: Dr. Gaston on 07-22-2022 Protein Fractions [Interp] Comment . [facility] Comment on above: Protein electrophore sis scan will follow via computer,mail, or winder fixer delivery. Serum albumin to globulin ra ward by protein electrophoresisOrdered By: Dr. Gaston on 07-22-2022 Albumin/Globulin Elph [Mass ratio] 1.3 0.7-1.7 [facility] Serum globulin measurement ( mass/volume)Ordered By: Dr. Gaston on 07-22-2022 Globulin (S) [Mass/Vol] 3.0 g/dL 2.2-3.9 [facility] Serum or plasma albumin sorin urement (mass/volume)Ordered By: Dr. Gaston on 07-22-2022 Albumin [Mass/Vol] 3.7 g/dL 3.2-5.[address] [facility] Serum or plasma albumin/glob ulin mass ratioOrdered By: Dr. Gaston on 07-22-2022 Albumin/Globulin [Mass ratio] 1.1 {ratio} 0.9-2.4 [facility] Serum or plasma beta globuli n measurement by electrophoresis (mass/volume)Ordered By: Dr. Gaston on 07-22-2022 Beta globulin Elph [Mass/Vol] 1.1 g/dL 0.7-1.3 [facility] Serum or plasma calcium sorin urement (mass/volume)Ordered By: Dr. Gaston on 07-22-2022 Calcium [Mass/Vol] 9.4 mg/dL 8.5-10.[address] [facility] Serum or plasma creatinine m easurement (mass/volume)Ordered By: Dr. Gaston on 07-22-2022 Creatinine [Mass/Vol] 0.83 mg/dL 0.55-1.02 [facility] Comment on above: The validity of the calculated GFR & GFRAA in patients over 70 years has not been determined. Clinical correlation is essential. Serum or plasma urea nitroge n measurement (mass/volume)Ordered By: Dr. Gaston on 07-22-2022 Urea nitrogen [Mass/Vol] 12 mg/dL 7-18 [facility] Thin prep Papanicolaou smear with manual screeningOrdered By: Dr. Gaston on 07-22-2022 Thin prep Papanicolaou smear with manual screening 20 U/L 15-37 [facility] Thin prep Papanicolaou smear with manual screening 7 5-15 [facility] Thin prep Papanicolaou smear with manual screening See comment [facility] Comment on above: NOT OBSERVED Total protein bloodOrdered B y: Dr. Gaston on 07-22-2022 Protein [Mass/Vol] 6.8 g/dL 6.0-8.[address] [facility] Absolute lymphocyte countOrd ered By: Dr. Sethi on 07-13-2022 Lymphocytes Auto (Unsp spec) [#/Vol] 0.81 10*3/uL 0.83-4.51 [facility] Basophil percentageOrdered B y: Dr. Sethi on 07-13-2022 Basophils/100 WBC (Bld) 0.8 % 0-1 [facility] Chloride [Moles/Vol] 107 mmol/L 98-107 [facility] Cholesterol [Mass/Vol] 176 mg/dL <200 [facility] Comment on above: <200 mg/dL Desirable 200-240 mg/dL Borderline >240 mg/dL High Risk Eosinophils/100 WBC (Bld) 13.6 % 0-5 [facility] Glucose [Mass/Vol] 91 mg/dL 74-[address] [facility] [address] [facility] Neutrophils (Bld) [#/Vol] 2.0 10*3/uL 2.0-7.7 [facility] Neutrophils/100 WBC (Bld) 55.6 % 47-70 [facility] Potassium [Moles/Vol] 3.5 mmol/L 3.5-5.1 [facility] Sodium [Moles/Vol] 139 mmol/L 136-[address] [facility] Triglyceride [Mass/Vol] 94 mg/dL <199 [facility] Comment on above: The drugs N-Acetylcy steine and Metamizole may falsely depress this assay.Serum Triglycerides Reference Interval Normal <150 mg/dL Borderline high 150 - 199 mg/dL High 200 - 499 mg/dL Very High > or = 500 mg/dL WBC (Bld) [#/Vol] 3.6 10*3/uL 4.4-11.[address] [facility] Blood erythrocytes count (nu mber/volume)Ordered By: Dr. Sethi on 07-13-2022 RBC (Bld) [#/Vol] 4.08 10*6/uL 4.2-5.4 [facility] Blood hemoglobin measurement (mass/volume)Ordered By: Dr. Sethi on 07-13-2022 Hemoglobin (Bld) [Mass/Vol] 13.6 g/dL 12.0-15.0 [facility] Blood lymphocytes/100 leukoc ytesOrdered By: Dr. Sethi on 07-13-2022 Lymphocytes/100 WBC (Bld) 22.5 % 19-41 [facility] Blood monocytes/100 leukocyt esOrdered By: Dr. Sethi on 07-13-2022 Monocytes/100 WBC (Bld) 7.2 % 0-10 [facility] Blood platelet mean volumeOr dered By: Dr. Sethi on 07-13-2022 Platelet mean volume (Bld) [Entitic vol] 9.5 fL 6.2-12.0 [facility] Determination of erythrocyte mean corpuscular volume (MCV)Ordered By: Dr. Sethi on 07-13-2022 MCV (RBC) [Entitic vol] 102.2 fL 81-99 [facility] Hematocrit Auto (Bld) [Volum e fraction]Ordered By: Dr. Sethi on 07-13-2022 Hematocrit (Bld) [Volume fraction] 41.7 % 37-47 [facility] INR in Blood by Coagulation assayOrdered By: Dr. Sethi on 07-13-2022 INR Coag (Bld) [Relative time] 1.0 {INR} [facility] Laboratory - Chemistry and C hemistry - challengeOrdered By: Dr. Sethi on 07-13-2022 CO2 [Moles/Vol] 27.0 mmol/L 21.0-32.0 [facility] Urea nitrogen/Creatinine [Mass ratio] 17.3 mg/mg 10-20 [facility] Laboratory - CoagulationOrde red By: Dr. Sethi on 07-13-2022 aPTT Coag (Bld) [Time] 33.2 s 24.1-36.2 [facility] PT Coag (PPP) [Time] 13.0 s 11.7-14.9 [facility] - Hematology and Cell countsOrdered By: Dr. Sethi on 07-13-2022 Erythrocyte distribution width (RBC) [Entitic vol] 47.2 fL 35.1-43.[address] [facility] Erythrocyte distribution width (RBC) [Ratio] 12.4 % 11.6-14.6 [facility] Immature granulocytes/100 WBC (Bld) 0.300 % 0.0-0.9 [facility] Comment on above: IG% - Immature Granu locytes (promyelocytes, myelocytes and metamyelocytes) > 1% indicates that a LEFT SHIFT is Present. MCH (RBC) [Entitic mass] 33.3 pg 27.0-32.0 [facility] Nucleated RBC/100 WBC (Bld) [Ratio] 0 % 0-5 [facility] MCHC Auto (RBC) [Mass/Vol]Or dered By: Dr. Sethi on 07-13-2022 MCHC (RBC) [Mass/Vol] 32.6 g/dL 32-36 [facility] No Panel InformationOrdered By: Dr. Sethi on 07-13-2022 Estimated Creatinine Clearance Calc 69.14 ml/min [facility] Estimated GFR (MDRD) Amer 93 mL/min >60 [facility] Comment on above: GFR Calc Estimated GFR (MDRD) Non-Af Amer 77 mL/min >60 [facility] Comment on above: Non- GFR Calc Troponin I High Sensitivity 5 pg/mL 3.0-54.0 [facility] Comment on above: Please Note: New Lisa t Units and Gender Specific Reference Ranges. For more information see Policy Stat Procedure [place] High Sensitivity Troponin (TNIH) and attachments. Platelets bldOrdered By: Dr. Sethi on 07-13-2022 Platelets (Bld) [#/Vol] 243 10*3/uL 150-450 [facility] Serum or plasma calcium sorin urement (mass/volume)Ordered By: Dr. Sethi on 07-13-2022 Calcium [Mass/Vol] 9.3 mg/dL 8.5-10.[address] [facility] Serum or plasma cholesterol in HDL measurement (mass/volume)Ordered By: Dr. Sethi on 07-13-2022 Cholesterol in HDL [Mass/Vol] 90 mg/dL >40 [facility] Comment on above: The drugs N-Acetylcy steine and Metamizole may falsely depress this assay. Reference Range HDL <40 mg/dL Low HDL Cholesterol HDL >or= 60 mg/dL High HDL Cholesterol Serum or plasma cholesterol in VLDL measurement (mass/volume)Ordered By: Dr. Sethi on 07-13-2022 Cholesterol in VLDL [Mass/Vol] 19 mg/dL 5-40 [facility] Serum or plasma creatinine m easurement (mass/volume)Ordered By: Dr. Sethi on 07-13-2022 Creatinine [Mass/Vol] 0.81 mg/dL 0.55-1.02 [facility] Comment on above: The validity of the calculated GFR & GFRAA in patients over 70 years has not been determined. Clinical correlation is essential. Serum or plasma low density lipoprotein (LDL) cholesterol measurement (mass/volume)Ordered By: Dr. Sethi on 07-13-2022 Cholesterol in LDL [Mass/Vol] 67 mg/dL 0-130 [facility] Serum or plasma urea nitroge n measurement (mass/volume)Ordered By: Dr. Sethi on 07-13-2022 Urea nitrogen [Mass/Vol] 14 mg/dL 7-18 [facility] Thin prep Papanicolaou smear with manual screeningOrdered By: Dr. Sethi on 07-13-2022 Thin prep Papanicolaou smear with manual screening 5 5-15 [facility] Serum or plasma cortisol leydi surement (mass/volume)Ordered By: Dr. Gaston on 06-01-2022 Cortisol [Mass/Vol] 17.80 ug/dL 3.44-22.45 [facility] Comment on above: Adult (AM) 5.27 - 22 .45 ug/dL Adult (PM) 3.44 - 16.76 ug/dLPlease note revised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 % Dr. Rody Gaston Work Phone: [facility] 07-13-2022 08:15-0400 Systolic blood pressure 118 mm[Hg] Dr. Rody Gaston Work Phone: [facility] 07-13-2022 08:12-0400 Body height 167.[address] Rody Gaston Work Phone: [facility] 07-13-2022 08:12-0400 Body mass index (BMI) [Ratio] 24 kg/m2 Dr. Rody Gaston Work Phone: [facility] 07-13-2022 08:12-0400 Body weight 67.[address] Rody Gaston Work Phone: [facility] 05-24-2022 20:57-0400 Body height 167.[address] Rody Gaston Work Phone: [facility] 05-24-2022 20:57-0400 Body mass index (BMI) [Ratio] 24.4 kg/m2 Dr. Rody Gaston Work Phone: [facility] 05-24-2022 20:57-0400 Body temperature 96.2 [degF] Dr. Rody Gaston Work Phone: [facility] 05-24-2022 20:57-0400 Body weight 68.[address] Rody Gaston Work Phone: [facility] 05-24-2022 20:57-0400 Diastolic blood pressure 91 mm[Hg] Dr. Rody Gaston Work Phone: [facility] 05-24-2022 20:57-0400 Heart rate 62 /min Dr. Rody Gaston Work Phone: [facility] 05-24-2022 20:57-0400 Respiratory rate 18 /min Dr. Rody Gaston Work Phone: [facility] 05-24-2022 20:57-0400 SaO2% (BldA) [Mass fraction] 98 % Dr. Rody Gaston Work Phone: [facility] 05-24-2022 20:57-0400 Systolic blood pressure 139 mm[Hg] Dr. Rody Gaston Work Phone: [facility] 02-15-2022 11:15-0500 Body temperature 96.6 [degF] Dr. Rody Gaston Work Phone: [facility] 02-15-2022 11:15-0500 Diastolic blood pressure 64 mm[Hg] Dr. Rody Gaston Work Phone: [facility] 02-15-2022 11:15-0500 Heart rate 55 /min Dr. Rody Gaston Work Phone: [facility] 02-15-2022 11:15-0500 Respiratory rate 16 /min Dr. Rody Gaston Work Phone: [facility] 02-15-2022 11:15-0500 SaO2% (BldA) [Mass fraction] 100 % Dr. Rody Gaston Work Phone: [facility] 02-15-2022 11:15-0500 Systolic blood pressure 106 mm[Hg] Dr. Rody Gaston Work Phone: [facility] 02-15-2022 09:47-0500 Body height 167.[address] Rody Gaston Work Phone: [facility] 02-15-2022 09:47-0500 Body mass index (BMI) [Ratio] 22.6 kg/m2 Dr. Rody Gaston Work Phone: [facility] 02-15-2022 09:47-0500 Body weight 63.[address] Rody Gasotn Work Phone: [facility] 12-28-2021 09:35-0500 Body height 167.[address] Rody Gaston Work Phone: [facility] Work Phone: 12-28-2021 09:35-0500 Body mass index (BMI) [Ratio] 22.2 kg/m2 Dr. Rody Gaston Work Phone: [facility] Work Phone: 12-28-2021 09:35-0500 Body weight 62.[address] Rody Gaston Work Phone: [facility] Work Phone: 10-26-2021 13:56-0400 Body height 167.[address] Rody Gaston Work Phone: [facility] Work Phone: 10-26-2021 13:56-0400 Body mass index (BMI) [Ratio] 22.3 kg/m2 Dr. Rody Gaston Work Phone: [facility] Work Phone: 10-26-2021 13:56-0400 Body temperature 97.5 [degF] Dr. Rody Gaston Work Phone: [facility] Work Phone: 10-26-2021 13:56-0400 Body weight 62.[address] Rody Gaston Work Phone: [facility] Work Phone: 10-26-2021 13:56-0400 Diastolic blood pressure 67 mm[Hg] Dr. Rody Gaston Work Phone: [facility] Work Phone: 10-26-2021 13:56-0400 Heart rate 77 /min Dr. Rody Gaston Work Phone: [facility] Work Phone: 10-26-2021 13:56-0400 Respiratory rate 16 /min Dr. Rody Gaston Work Phone: [facility] Work Phone: 10-26-2021 13:56-0400 SaO2% (BldA) [Mass fraction] 99 % Dr. Rody Gaston Work Phone: [facility] Work Phone: 10-26-2021 13:56-0400 Systolic blood pressure 99 mm[Hg] Dr. Rody Gaston Work Phone: [facility] Work Phone: Encounters Encounter Date Encounter Type Care Provider Facility Start: 11-20-2024 End: 11-20-2024 Patient encounter procedure Harpreet RACHEL -Laboratory Specimen Work Phone: Start: 11-20-2024 End: 11-20-2024 Patient encounter procedure Harpreet RAC[facility] Work Phone: Start: 11-20-2024 End: 11-20-2024 ambulatory Rody Gaston Facility:[facility] Start: 11-20-2024 End: 11-20-2024 ambulatory Harpreet RACHEL Facility:[facility] Start: 10-02-2024 End: 10-02-2024 Emergency department patient visit Dr. Rody Gaston DO Work Phone: -Emergency Department Work Phone: Start: 05-17-2024 End: 05-17-[address] Rody Gaston DO Work Phone: [facility] Work Phone: Start: 05-17-2024 End: 05-17-2024 Patient encounter procedure Kellie Rodriguez [employer] -Laboratory, Specimen Work Phone: Start: 05-17-2024 End: 05-17-2024 ambulatory Rody Gaston Facility:[facility] Start: 04-24-2024 End: 04-24-[address] Rody Gaston DO Work Phone: [facility] Work Phone: Start: 04-24-2024 End: 04-24-[address] Rody Gaston DO -Laboratory, Catina Serrano [facility] Start: 04-24-2024 End: 04-24-2024 ambulatory Rody Gaston Facility:[facility] Start: 04-16-2024 End: 04-16-2024 Emergency department patient visit Dr. Rody Gaston DO Work Phone: -Emergency Department Work Phone: Start: 04-08-2024 End: 04-08-[address] Rody Gaston DO Work Phone: [facility] Work Phone: Start: 04-08-2024 End: 04-08-[address] Parvez Soriano MD -Laboratory, Specimen Work Phone: Start: 04-08-2024 End: 04-08-[address] Parvez Soriano MD -[facility] Work Phone: Start: 04-08-2024 End: 04-08-2024 ambulatory Rody Gaston Facility:[facility] Start: 04-08-2024 End: 04-08-2024 ambulatory Parvez Soriano Facility:[facility] Start: 04-03-2024 End: 04-03-[address] Rody Gaston DO Work Phone: [facility] Work Phone: Start: 04-03-2024 End: 04-03-[address] Kalia Marmolejo DO -[facility] Work Phone: Start: 04-03-2024 End: 04-03-2024 ambulatory Rody Gaston Facility:[facility] Start: 03-26-2024 End: 03-26-[address] Kalia Marmolejo DO -Outpatient Breast Imaging Work Phone: Start: 03-26-2024 End: 03-26-2024 ambulatory Kalia Marmolejo Facility:[facility] Start: 03-13-2024 End: 03-13-[address] Harpreet Manning MD -[facility] Work Phone: Start: 03-13-2024 End: 03-13-2024 ambulatory Rody Gaston Facility:[facility] Start: 01-22-2024 End: 01-22-2024 Patient encounter procedure Kellie Michael [employer] -Radiology, [place] Work Phone: Start: 01-22-2024 End: 01-22-2024 ambulatory Kellie Rodriguez Facility:[facility] Start: 12-01-2022 End: 12-01-2022 Emergency department patient visit Dr. Rody Gaston Work Phone: [facility]-Emergency Department Work Phone: Start: 10-25-2022 End: 10-25-[address] Rody Gaston Work Phone: [facility] Work Phone: Start: 10-25-2022 End: 10-25-[address] Rody Gaston Work Phone: [facility]-Outpatient Breast Imaging Work Phone: Start: 10-07-[address] Rody Gaston Work Phone: [facility]-Physical Therapy Work Phone: Start: 08-17-2022 End: 08-17-[address] Rody Gaston Work Phone: [facility] Work Phone: Start: 08-17-2022 End: 08-17-[address] Rody Gaston Work Phone: [facility]-Laboratory, Specimen Work Phone: Start: 08-12-[address] Rody Gaston Work Phone: [facility]-Physical Therapy Work Phone: Start: 08-05-2022 End: 08-05-[address] Rody Gaston Work Phone: [facility] Work Phone: Start: 08-02-2022 End: 08-02-[address] Rody Gaston Work Phone: [facility] Start: 07-29-2022 End: 07-29-[address] Rody Gaston Work Phone: [facility] Work Phone: Start: 07-29-2022 End: 07-29-[address] Rody Gaston Work Phone: [facility] Start: 07-22-2022 End: 07-22-[address] Rody Gaston Work Phone: [facility]-Laboratory Start: 07-18-2022 Non-patient / Non-visit Dr. Odette Gaston Work Phone: [facility] Start: 07-18-2022 End: 07-18-[address] Rody Gaston Work Phone: [facility] Work Phone: Start: 07-18-2022 End: 07-18-[address] Rody Gaston Work Phone: [facility]-Cardiovascula r Services Start: 07-18-2022 End: 07-18-2022 Emergency department patient visit Dr. Rody Gaston Work Phone: [facility]-Emergency Department Start: 07-14-2022 Non-patient / Non-visit Dr. Odette Gaston Work Phone: [facility] Start: 07-13-2022 Non-patient / Non-visit Dr. Odette Gaston Work Phone: [facility] Start: 07-13-2022 End: 07-14-2022 Evaluation and management of inpatient Dr. Rody Gaston Work Phone: [facility]-Progressive Care Unit Start: 07-13-2022 End: 07-14-[address] Rody Gaston Work Phone: [facility] Work Phone: Start: 07-11-2022 End: 07-11-[address] Rody Gaston Work Phone: [facility] Start: 06-29-2022 End: 06-29-[address] [facility] Start: 06-01-2022 End: 06-01-[address] Rody Gaston Work Phone: [facility] Work Phone: Start: 06-01-2022 End: 06-01-[address] Rody Gaston Work Phone: [facility] Start: 05-24-2022 End: 05-25-2022 Emergency department patient visit Dr. Rody Gaston Work Phone: [facility]-Emergency Department Start: 05-05-2022 End: 05-05-[address] Rody Gaston Work Phone: [facility] Work Phone: Start: 05-05-2022 End: 05-05-[address] Rody Gaston Work Phone: [facility] Start: 02-15-2022 Non-patient / Non-visit Dr. Odette Gaston Work Phone: [facility] Start: 02-15-2022 End: 02-15-2022 Admission to same day surgery center Dr[facility] R[facility]aston [facility] Start: 02-15-2022 End: 02-15-[address] Rody Gaston Work Phone: [facility] Work Phone: Start: 01-11-2022 End: 01-11-[address] Rody Gaston Work Phone: [facility] Work Phone: Start: 01-11-2022 End: 01-11-[address] Rody Gaston Work Phone: [facility]-Laboratory, Harper Maggie [facility] Start: 12-28-2021 Non-patient / Non-visit Dr. Odette Gaston Work Phone: [facility] Start: 10-26-2021 End: 10-26-[address] Rody Gaston Work Phone: [facility] Work Phone: Start: 10-26-2021 End: 10-26-[address] Rody Gaston Work Phone: [facility]-Laboratory, Specimen Start: 10-26-2021 End: 10-26-[address] Rody Gaston Work Phone: [facility] Start: 10-21-2021 End: 10-21-2021 ambulatory [facility] Work Phone: Start: 10-21-2021 End: 10-21-2021 Patient encounter procedure [facility] Start: 10-18-2021 End: 10-18-2021 ambulatory [facility] Work Phone: Start: 10-18-2021 End: 10-18-2021 Patient encounter procedure [facility]-Outpatient Breast Imaging Start: 08-16-2021 End: 08-16-2021 Patient encounter procedure [facility]-Laboratory, Specimen Procedures Date Procedure Procedure Detail Performing Clinician Start: 11-20-[address] Rody Gaston DO Work Phone: Start: 10-02-2024 CT of head without contrast Dr. Rody Gaston DO Work Phone: Start: 10-02-[address] Rody Gaston DO Work Phone: Start: 10-02-2024 Plain chest X-ray Dr. Rachel Gaston DO Work Phone: Start: 05-17-[address] Rody Gaston DO Work Phone: Start: 04-16-2024 CT of head without contrast Dr. Rody Gaston DO Work Phone: Start: 04-03-[address] Rody Gaston DO Work Phone: Start: 03-26-2024 Screening mammography D dionte Gaston DO Work Phone: Start: 01-22-2024 Plain X-ray abdomen Dr. Rody Gaston DO Work Phone: Start: 12-01-2022 CT of head without contrast Dr. Rody Gaston Work Phone: Start: 12-01-2022 SARS-CoV-2 & FLU Ant igen (Rapid) Dr. Rody Gaston Work Phone: Start: 10-25-2022 Screening mammography Jonathan Gaston Work Phone: Start: 07-29-2022 MRI of joint of lowe r extremity Dr. Rody Gaston Work Phone: Start: 07-22-2022 Radiography of sacrococcygeal spine Dr. Rody Gaston Work Phone: Start: 07-22-2022 X-ray of lumbosacral spine Dr. Rody Gsaton Work Phone: Start: 07-13-2022 MRI of brain without contrast Dr. Rody Gaston Work Phone: Start: 07-13-2022 Plain chest X-ray Dr. Rachel Gaston Work Phone: Start: 07-13-2022 CT angiography of he ad and neck Dr. Rody Gaston Work Phone: Start: 07-13-2022 CT of head without contrast Dr. Rody Gaston Work Phone: Start: 06-29-2022 Plain X-ray of shoulder Dr. Rody Gaston Work Phone: Start: 05-24-2022 Plain X-ray of shoulder Dr. Rody Gaston Work Phone: Start: 05-24-2022 Radiologic examinati on of knee Dr. Rody Gaston Work Phone: Start: 05-05-[address] Rody Gaston Work Phone: Start: 02-15-[address] Rody fournier Work Phone: Start: 10-21-2021 Ultrasonography of breast Start: 10-18-2021 Screening mammography Plan of Treatment Date Care Activity Detail Author Start: 10-02-2024 [facility] Start: 10-02-2024 [facility] Start: 04-16-2024 [facility] Start: 12-01-2022 [facility] Start: 08-02-2022 Patient referral [facility] Work Phone: Start: 07-18-2022 Emergency department visit high/urgent severity EMERGENCY DEPT VISIT MOD MDM [facility] Start: 07-14-2022 Patient discharge [facility] Start: 07-13-2022 Following clinical pathway protocol [facility] Start: 07-13-2022 Ambulation without limitation [facility] Start: 07-13-2022 Assessment of risk of venous thromboembolism [facility] Start: 07-13-2022 Cardiac monitoring [facility] Start: 07-13-2022 Catheterization of vein [facility] Start: 07-13-2022 Continuous pulse oximetry [facility] Start: 07-13-2022 Elevation of head of bed [facility] Start: 07-13-2022 Exercises [facility] Start: 07-13-2022 Implementation of planned interventions [facility] Start: 07-13-2022 Insertion of catheter into peripheral vein [facility] Start: 07-13-2022 Measuring intake and output [facility] Start: 07-13-2022 Notification of physician [facility] Start: 07-13-2022 Oxygen therapy [facility] Start: 07-13-2022 Patient referral to dietitian [facility] Start: 07-13-2022 Providing care according to standard [facility] Start: 07-13-2022 Referral to occupational therapist [facility] Start: 07-13-2022 Referral to service [facility] Start: 07-13-2022 Speech therapy assessment [facility] Start: 07-13-2022 Tobacco use cessation education [facility] Start: 07-13-2022 [facility] Start: 07-13-2022 Verification routine [facility] Start: 07-13-2022 Admission procedure [facility] Start: 07-13-2022 MRI of brain without contrast Brain without Contrast [facility] Start: 07-11-2022 Patient referral [facility] Work Phone: Start: 02-15-2022 Colonoscopy flx dx w/collj spec when pfrmd DIAGNOSTIC COLONOSCOPY [facility] Start: 02-15-2022 Patient discharge [facility] Start: 08-17-2021 [facility] Work Phone: Albumin/Globulin [Ma ss Ratio] in Serum or Plasma by Electrophoresis [facility] Colonoscopy [facility] Work Phone: Electrophoresis: albumin [facility] Electrophoresis: [id number] [facility] Electrophoresis: [id number] [facility] Electrophoresis: isaiah ma globulin [facility] Globulin measurement [facility] MR Lower Extremity Joint [facility] Path report.final Dx Spec [facility] Work Phone: Patient Education [facility] Work Phone: Patient referral [facility] Work Phone: Protein electrophore sis panel - Serum or Plasma [facility] Serum protein electrophoresis [facility] Total globulins measurement [facility] Work Phone: Immunizations Immunization Date Immunization Notes Care Provider Vamsi jiménez 06-15-2014 tetanus and diphther ia toxoids, adsorbed, preservative free, for adult use (2 Lf of tetanus toxoid and 2 Lf of diphtheria toxoid) [facility] Payers Date Payer Category Payer Self-pay [id number] 2016 Unknown [id number] 2016 Unknown [id number] Unknown [id number] 2.16.8 [id number] Unknown [id number] 2.16.8 [id number] Unknown [id number] 2.16.8 [id number] Unknown [id number] 2.16.8 [id number] Unknown [id number] 2.16.8 [id number] Unknown [id number] 2.16.8 [id number] Unknown [id number] 2.16.8 [id number] Unknown [id number] 2.16.8 [id number] Unknown [id number] 2.16.8 [id number] Unknown [id number] 2.16.8 [id number] Unknown [id number] 2.16.8 [id number] Unknown [id number] 2.16.8 [id number] Social History Date Type Detail Facility Start: 10-27-2020 End: 12-01-2022 Tobacco smoking status NHIS Unknown if ever smoked [facility] Start: 07-13-2018 None [facility] Start: 07-13-2018 Alone [facility] Start: 04-17-2014 Non-smoker [facility] Start: 1960 Sex Assigned At Female [facility] Start: 04-16-2024 End: 11-20-2024 Tobacco smoking status NHIS Never smoked tobacco (finding) [facility] Start: 04-16-2024 End: 05-21-2024 Sex Female (finding) [facility] Sex Female [facility] NEGATED: Highlighted row [facility] Goals Date Patient Goal Desired Activity /State Functional Status Date Assessment Result Facility 07-14-2022 Functional status Ambulates;Bathroom Priv ilege [facility] Work Phone: Mental Status Date Assessment Result Facility 10-02-2024 Cognitive function Level Of Cons ciousness Awake;Alert;Appropriate;Follow s Commands [facility] Work Phone: 04-16-2024 Cognitive function Voice/Name [facility] Work Phone: 12-01-2022 Cognitive function Level Of Cons ciousness Awake;Alert;Appropriate;Follow s Commands [facility] Work Phone: 07-14-2022 Cognitive function Voice/Name [facility] Work Phone: 07-13-2022 Cognitive function Voice/Name [facility] Work Phone: 02-15-2022 Cognitive function Voice/Name;Touch/Sonki ng [facility] Work Phone: Clinical Notes 08-17-2021 to 11-20-2024 Note Date & Type Note Facility 11-20-2024 Progress note [facility] 10-02-2024 Discharge summary [facility] 10-02-2024 Radiology Diagnostic study note [facility] [address] [place], [place] [address] Chest 1 View (Portable) MR#: [id number] Acct: [id number] Name: KEVON SANDERS JUNE Rep #: [id number] : 1960 F 64 From: Joseluis Paz MD PCP: Dr. Rody Gaston DO Status: REG ER Study:Chest 1 View (Portable) Date of Exam: 10/02/24 Exam# [id number] Ordering Dr: Bigg Dick MD PROCEDURE: CHEST 1 VIEW (PORTABLE) 10/02/2024 REASON FOR EXAM: CAD TECHNIQUE: Frontal view of the chest. COMPARISON: Prior study dated August 05, 2023. FINDINGS: Hardware: EKG electrodes are seen. Heart: Cardiac and mediastinal contours are stable. Lungs: No significant change in the appearance of the lungs. Bones: The bones are unremarkable. Other: RAD/Chest 1 View (Portable) IMPRESSION: No Acute Findings. Reading Location: [id number] CC: Dr. Bigg Dick MD; Dr. Rody Gaston DO ~ Meat Puller: Signed [facility] 10-02-2024 Radiology Diagnostic study note [facility] [address] [place], [place] [address] Brain/Head without Contrast MR#: [id number] Acct: [id number] Name: KEVON SANDERS JUNE Rep #: [id number] : 1960 F 64 From: Kathrin Kirk MD PCP: Dr. Rody Gaston DO Status: REG ER Study:Brain/Head without Contrast Date of Exa m: 10/02/24 Exam# [id number] Ordering Dr: Bigg Dick MD EXAM: NONCONTRAST CT SCAN OF THE HEAD CLINICAL HISTORY: Numbness COMPARISON: April 16, 2024 TECHNIQUE: Serial axial series through the head were obtained without contrast. 2-D coronaland sagittal reformats were then obtained. FINDINGS: Brain: There is no acute large territorial infarct, intracranial hemorrhage, midline shift or mass effect. The sella and pineal gland regions appear unremarkable. There is no evidence of cerebellar tonsillarherniation. Ventricles: There is no acute hydrocephalus. Basilar cisterns are patent. Paranasal sinuses: Well-aerated Mastoid air cells: Well-aerated. Calvarium: The bony calvarium is intact. Orbits: The bilateral globes are symmetric, without retrobulbar compressive masslesion or hemorrhage. CT/Brain/Head without Contrast IMPRESSION: No acute intracranial pathology. Reading Location: [facility] CC: Dr. Bigg Dick MD; Dr. Rody Gaston DO ~ Meat Puller: Signed [facility] 04-16-2024 Discharge summary [facility] 04-16-2024 Radiology Diagnostic study note [facility] [address] [place], [place] [address] Brain/Head without Contrast MR#: [id number] Acct: [id number] Name: KEVON SANDERS Rep #: [id number] : 1960 F 63 From: Brant Roach DO PCP: Dr. Rody Gaston DO Status: REG ER Study:Brain/Head without Contrast Date of Exa m: 04/16/24 Exam# [id number] Ordering Dr: Nay Mckinney DO EXAM: BRAIN/HEAD WITHOUT CONTRAST CLINICAL HISTORY: DIZZINESS COMPARISON: 12/01/2022 TECHNIQUE: Multiple contiguous axial images of the brain were obtained without the administration of intravenous contrast. Two-dimensional coronal and sagittal reformatted images were reconstructed. Low-dose imaging technique was utilized. FINDINGS: No evidence of acute intracranial hemorrhage, midline shift or mass effect. No definite CT evidence of acute territorial cortical infarction. No hydrocephalus. Cerebral volume is age-appropriate. Nodepressed calvarial fracture. Paranasal sinuses and mastoid air cells are clear. CT/Brain/Head without Contrast IMPRESSION: No acute intracranial abnormality. Reading Location: [facility] CC: Dr. Rody Gaston DO; Beto Mckinney DO ~ Meat Puller: Signed [facility] 04-16-2024 Discharge summary Note Date/Time April 16, 2024 11:41pm [facility] Medical Records Department [address] [place] [address] Emergency Department Summary 04/16/24 MR#: [id number] Acct: [id number] Name: KEVON SANDERS Rep #:[id number] : 1960 63 From: Beto Mckinney DO PCP: Dr. 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 She states that she had a shower earlier this evening and was using a Q-tip in each of her ears. She states after doing this she noticed there was blood on the Q-tip. She states following this she felt like there was pressure within her head that her ears were ringing and that she was dizzy. She describes a dizzy sensation as a sense of motion and states that it was worse when she would change positions andbetter at rest. 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 [facility] Medical History Abdominal pain Fracture of greater tuberosity of left humerus Left shoulder pain Post-menopausal Wears glasses Cancer Depression Anxiety Arthritis Anemia Back pain Syncope Non-smoker Shortness of breath on exertion Hypotension History of stress test Chest pain Family history of skin cancer Personal history of skin cancer Neoplasm of skin of eyebrow Mitral valve prolapse Vitamin deficiency Vision problems Osteoporosis Allergies Home Medications ?Medication ?Instructions ?Recorded ?Last Taken ?Type diazepam 5 mg tablet (Valium) 5 mg PO TID PRN vertigo 5 days #15 04/16/24 Unknown Rx tabs prednisolone 15 mg/5 mL oral 30 mg (10 mL) PO DAILY 5 days #50 04/16/24 Unknown Rx solution mL Allergy/AdvReac Type Severity Reaction Status Date / Time ciprofloxacin (From Cipro) Allergy Severe Other Verified 04/16/24 20:35 sulfamethoxazole (From Allergy Severe Other Verified 04/16/24 20:35 Bactrim) trimethoprim (From Bactrim) Allergy Severe Other Verified 04/16/24 20:35 doxycycline Allergy Intermediate Other Verified 04/16/24 20:35 latex Allergy Intermediate redness Verified 04/16/24 20:35 and rash codeine Allergy Hives Verified 04/16/24 20:35 nitrofurantoin (From Allergy Unknown Verified 04/16/24 20:35 Macrobid) nitrofurantoin Allergy Unknown Verified 04/16/24 20:35 macrocrystalline (From Macrobid) Penicillins Allergy Rash Verified 04/16/24 20:35 nasrin AdvReac Mild Itching Verified 04/16/24 20:35 avocado AdvReac Diarrhea Verified 04/16/24 20:35 Family History Mother Angina at rest Anxiety Breast cancer Depression Hypertension Skin cancer Father Arthritis Cancer Colon cancer Other Family history of skin cancer High cholesterol Suicide attempt Surgical History History of colonoscopy History of left breast biopsy (~10/2021) History of cholecystectomy Social History Smoking Status: Never smoker alcohol intake: never substance use type: does not use additional social history: Does Not Use Aspirin Does Not Use Ibuprofen ROS ROS ED Constitutional Constitutional ED: Denies chills or fever(s) Eyes Eyes: Denies blurry vision or change in vision ENT ENT ED: Reports ear pain bilateral and other Details: Positive blood from bilateral ear canals Positive tinnitus ; Denies sore throat Cardiovascular Cardiovascular: Reports other Details: Negative syncope ; Denies chest pain, palpitations or racing heartbeat Respiratory/Chest Respiratory/Chest: Denies cough or dyspnea Gastrointestinal Gastrointestinal: Reports nausea; Denies abdominal pain, diarrhea or vomiting Genitourinary Genitourinary ED: Denies dysuria Musculoskeletal Musculoskeletal: Denies myalgias Integumentary Denies rash Neurologic Neurologic: Reports other Details: Positive dizziness ; Denies headache(s) Psychiatric Psychiatric: Reports anxiety and depression Hematologic/Lymphatic Hematologic/Lymphatic: Denies easy bleeding or easy bruising EXAM Physical Exam Const Vital Signs: 04/16/24 20:35 04/16/24 22:34 Temperature 97.4 F L Temperature Source Temporal Pulse Rate 72 62 Respiratory Rate 18 17 Blood Pressure 124/78 H 121/73 H Blood Pressure Mean 93 89 Pulse Ox 99 100 Oxygen Delivery Method Room Air Room Air Positive well nourished and well developed General Appearance ED: well developed; Negative for pallor HEENT HEENT Narrative: The bilateral TMs are retracted without signs of secondary infection or tympanicmembrane perforation. Pressure/retraction is greater on the left than right Patient does not have signs of otitis externa and along the medial aspect of each ear canal at the [place] there is a small amount of dried blood most likely related to a ruptured cyst or skin abrasion. No mastoid tenderness bilaterally No signs of malignant otitis externa There is pain with palpation over top the frontal and maxillary sinuses bilaterally Eyes PERRL and EOMs intact bilaterally General Eye ED: Negative for scleral icterus Neck supple Neck Narrative: No nuchal rigidity or meningeal signs Resp normal respiratory effort and clear to auscultation bilaterally Cardio regular rate and regular rhythm Extremity normal to inspection Neuro oriented x3, CN's II-XII intact bilaterally and no sensory deficits noted Neuro Narrative: GCS of 15 Cranial nerves II through XII are grossly intact without focal neurologic deficit No pronator drift no dysmetria no truncal ataxia NIH stroke scale score of 0 Patient does have horizontal nystagmus noted as well as positive Hallpike [place] exam on left Sensorium / Orientation: alert Motor Exam: strength 5/5 throughout Psych Mood & Affect: anxious Skin no rashes or lesions noted General Skin Exam: Negative for jaundice or pallor MDM MDM MDM Narrative Medical decision making narrative: Patient arrived to the ER with stable vitals and a normal neurologic exam. Her history and exam is consistent with peripheral vertigo not central vertigo. 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 CT revealed noacute findings. As vitals are stable and I have low concern for secondary infection such as otitis media or otitis externa or acute blood loss anemia there is no need for emergent laboratory values. There reported blood was notedalong the medial aspect of the bilateral ear canals and most likely due to a ruptured cyst or small friction from using the Q-tip but as there is no active bleeding or signs of secondary infection there is no need for antibiotics. As the patient's history and exam is consistent with eustachian tube dysfunction and pressure within the semicircular canals leading to peripheral vertigo she was given Decadron and Valium. After receiving this she did report improvement of her symptoms and was able to ambulate with a steady gait. Neuroexam remainednormal as well. Therefore at this time I do not feel there is need for further workup and she will be placed on steroids and Valium to help with symptom control and is otherwise safe for discharge. History & Record Review Discussion w/independent historian: Patient and Family Radiography Diagnostic Testing: Clinical Impression(s) from Imaging Studies Brain CT 04/16/24 22:10 IMPRESSION: No acute intracranial abnormality. [facility] T[facility] Chief Complaint: Dizziness ED Provider: Beto Mckinney Dx/Rx/DC Orders Clinical Impression: Peripheral vertigo, Ear canal abrasion, Anxiety disorder Instructions: Anatomy of the Ear, ED Vertigo, Unspecified Prescriptions: New diazepam [Valium] 5 mg tablet 5 mg PO TID PRN (Reason: vertigo) 5 Days Qty: 15 0RF prednisolone 15 mg/5 mL solution 30 mg PO DAILY 5 Days Qty: 50 0RF Primary Care Provider: Rody Gaston Referrals: Farooq Delvalle MD [Med Staff - Active Staff] - Rody Gaston DO [Primary Care Provider] - Print Language: Maltese Disposition Disposition: Home, Self Care What to do if you have Problems For any increased pain, shortness of breath, bleeding, nausea or vomiting, chestpain, or any unexpected problems, contact your Primary Care Provider. Call [facility] ([phone]) or report to the closest Emergency Room. Call 911 if necessary. 04/16/24 234 <Electronically signed by Beto Mckinney DO> Cosigner Signature (if applicable): CC: Dr. Rody Gaston DO ~ Signed [facility] Work Phone: 1([phone]) 684-972402-26-2025 Radiology Diagnostic study note [facility] Imaging Services [address] [place] [address] Breast Limited Unilateral MR#: [id number] Acct: [id number] Name: KEVON SANDERS JUNE Rep #: [id number] : 1960 F 63 From: Joseluis Paz MD PCP: Dr. Rody Gaston DO Status: REG CLI Study:Breast Limited Unilateral Date of Exam: 04/03/24 Exam# [id number] Ordering Dr: Kalia Marmolejo DO PROCEDURE: BREAST LIMITED UNILATERAL REASON FOR EXAM: Abnormal screening mammogram. TECHNIQUE: Targeted right breast ultrasound. COMPARISON: Comparison is made with prior mammogram dated March 26, 2024. FINDINGS: RIGHT: Right breast ultrasound was targeted to the inferior half of the right breast.. There is a 1.2 cm x 1.2 cm x 1.2 cm hypoechoic slightly irregular nodule at the 6 o'clock position of the breast at 2 cm from the nipple. Biopsy recommended. US/Breast Limited Unilateral IMPRESSION: 1.2 cm x 1.2 cm x 1.2 cm hypoechoic slightly irregular nodule at the 6 o'clock position of the right breast as described at 2 cm from the nipple. Biopsy recommended. BI-RADS category 4. Follow-up code: Biopsy. Reading Location: [id number] CC: Dr. Rody Gaston DO; Dr. Kalia Marmolejo DO ~ Meat Puller: Signed [facility]02-05-2025 Evaluation note* Diagnosis Onset Date Resolution Status Admit Date Abdominal pain acute March 132024 1:00pm Mass of right breast acute Haja 2024 9:42am [facility] Work Phone: [phone]) 640-818110-26-2023 Discharge summary Author Bigg Dick [facility] December 01, 2022 10:41pm Note Date/Time December 01, 2022 8 :50pm [facility] Medical Records Department [address] [place] [address] Emergency Department Summary 12/01/22 MR#: [id number] Acct: [id number] Name: KEVON SANDERS JUNE Rep #:[id number] : 1960 62 From: Bigg Dick MD PCP: Dr. 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 She states just before noon she developed a mild headache on the top of her head. She thought maybe she was dehydrated or it was from hypoglycemia so she ate something and started drinking more water. However, hersymptoms worsened. After she had eaten something and drink water, she became nauseated and vomited once. She states that she has not vomited in approximately 10 years so she became concerned. No blood in her emesis. PFSH PFS Medical History Allergies Anemia Anxiety Arthritis Back pain Cancer Chest pain Depression Family history of skin cancer Fracture of greater tuberosity of left humerus History of stress test Hypotension Left shoulder pain Mitral valve prolapse Neoplasm of skin of eyebrow Non-smoker Osteoporosis Personal history of skin cancer Post-menopausal Shortness of breath on exertion Syncope Vision problems Vitamin deficiency Wears glasses Home Medications multivitamin with folic acid 400 mcg tablet (Thera) 1 tab PO DAILY 01/17/18 [History Last Taken Unknown] calcium-vitamin D3-vitamin K 500 mg-200 unit-40 mcg chewable tablet 1 tab PO DAILY 12/28/21 [History Last Taken Unknown] aspirin 81 mg chewable tablet 81 mg PO BREAKFAST 30 days #30 tabs 07/14/22 [Rx Last Taken Unknown] ondansetron 4 mg disintegrating tablet 4 mg PO Q6H PRN nausea and vomiting #20 tabs 12/01/22 [Rx Last Taken Unknown] Allergy/AdvReac Type Severity Reaction Status Date / Time ciprofloxacin [From Cipro] Allergy Severe Other Verified 12/01/22 20:17 sulfamethoxazole Allergy Severe Other Verified 12/01/22 20:17 [From Bactrim] trimethoprim [From Bactrim] Allergy Severe Other Verified 12/01/22 20:17 doxycycline Allergy Intermediate Other Verified 12/01/22 20:17 latex Allergy Intermediate redness Verified 12/01/22 20:17 and rash codeine Allergy Hives Verified 12/01/22 20:17 nitrofurantoin Allergy Unknown Verified 12/01/22 20:17 [From Macrobid] nitrofurantoin Allergy Unknown Verified 12/01/22 20:17 macrocrystalline [From Macrobid] Penicillins Allergy Rash Verified 12/01/22 20:17 Family History Mother Angina at rest Anxiety Breast cancer Depression Hypertension Skin cancer Father Arthritis Cancer Colon cancer Other Family history of skin cancer High cholesterol Suicide attempt Surgical History History of cholecystectomy History of colonoscopy History of left breast biopsy (~10/2021) Social History Smoking Status: Never smoker alcohol intake: never substance use type: does not use additional social history: Does Not Use Aspirin Does Not Use Ibuprofen ROS ROS ED ROS Narrative Constitutional: No fever, no chills. HEENT: No sore throat. No neck pain. No loss of vision. No rhinorrhea. Cardiovascular: No chest pain. No palpitations. No pedal edema. Respiratory: No cough, no shortness of breath. Abdominal: No abdominal pain. 1 episode of nausea and vomiting without hematemesis. Genitourinary: No dysuria. No hematuria. Musculoskeletal: No myalgias. No arthralgias. Neurologic: Positive headaches. On top of head, throbbing, rated 10 out of 10. No dizziness. No lightheadedness. Skin: No rash. No change in color. Psychiatric: No depression. No anxiety. EXAM Physical Exam Narrative Exam Narrative: Afebrile. Vital signs noted. HEENT: Normocephalic. Atraumatic. PERRL, EOMI. Neck soft and supple. No pointtenderness or step off. Cardiovascular: Regular rate and rhythm. No murmurs, rubs, or gallops appreciated. Respiratory: No tachypnea. Lungs clear to auscultation bilaterally. Gastrointestinal: Abdomen soft, nontender, with normoactive bowel sounds. No rebound or guarding. Neurological: Awake. Alert. Nonfocal, nonlateralizing. Skin: No rash. Normal color. No pallor. Musculoskeletal: No pedal edema. Full range of motion extremities. Const Vital Signs: 12/01/22 20:18 Temperature 97.6 F L Temperature Source Temporal Pulse Rate 65 Respiratory Rate 20 H Blood Pressure 115/68 Blood Pressure Mean 83 Pulse Ox 100 Oxygen Delivery Method Room Air MDM MDM MDM Narrative Medical decision making narrative: Comprehensive work-up was pursued. As the patient stated she did not have history of migraines, I do feel CT imaging is indicated. However, in review of her previous diagnoses, says she had a migraine headache with aura. However, since she does not regularly get headaches CT was obtained and reviewed by my self to look for intracranial hemorrhage or mass. I see no evidence of acute hemorrhage, I reviewed the radiology report which confirms my independent interpretation. 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 I reviewed her laboratory work from today and she has a normal white count of 6.4,hemoglobin normal at 13.1, hematocrit 40.4, platelet count normal at 225. I reviewed her laboratory work and CMP and she has a low potassium of 3.2 which was replaced orally with 40 mEq. Her glucose is appropriately elevated at 115 with a normal anion gap of 5. LFTs including AST and ALT are negative/normal at19 and 23 respectively with a normal alk phos of 70. High-sensitivity troponin is 4. I do not feel she requires serial troponins. EKG was obtained and interpreted by myself independently as sinus bradycardia at 54 bpm without ectopy or acute ST changes. No STEMI. I reviewed her urinalysis and is negative for infection. Ketones are slightly elevated at 15 indicative of very mild dehydration. She was bolused normal saline intravenously. As I do feel that she has more of a migraine headache given her 1 episode of nausea and vomiting, lipase was checked and was normal. I do not have concern for pancreatitis. She initially rated her pain when she arrived at 10 out of 10, and after Compazine and Benadryl and IV fluids, she rates her pain around a 4 and feels improved. At this point in time, with a negative work-up, I do feelshe can be discharged to follow-up with her primary care provider. She states that she ate half container of [employer] chili yesterday, and ate the rest today. She may have a simple gastritis for which she can take vqii-mcn-[id number] medications to explain her continued nausea. She was written a prescription forZofran. I do not feel she requires observation at this time. As her headache has improved and she has negative imaging she will follow-up with her primary care provider and may require possible referral to neurology. Disposition is discharged home in stable condition. Of note she refused her potassium according to the RN. History & Record Review Discussion w/independent historian: Patient Additional record(s) reviewed:: Prior ED visit and Prior labs Lab Data Attestation: I reviewed the patient's lab results. Labs: Laboratory Results - last 24 hr 12/01/22 12/01/22 20:57 22:04 WBC 6.4 RBC 4.02 L Hgb 13.1 Hct 40.4 MCV 100.5 H MCH 32.6 H MCHC 32.4 RDW Std Deviation 47.6 H RDW Coeff of Melissa 12.8 Plt Count 225 MPV 9.1 Immature Gran % (Auto) 0.500 Neut % (Auto) 87.7 H Lymph % (Auto) 7.5 L [place] % (Auto) 3.0 Eos % (Auto) 1.1 Baso % (Auto) 0.2 Absolute Neuts (auto) 5.7 Absolute Lymphs (auto) 0.48 L Nucleated RBC % 0 Differential Comment SCANNED Sodium 140 Potassium 3.2 L Chloride 104 Carbon Dioxide 31.0 Anion Gap 5 BUN 13 Creatinine 0.89 Estim Creat Clear Calc 62.93 Est GFR (MDRD) Af Amer 84 Est GFR (MDRD) Non-Af 69 BUN/Creatinine Ratio 14.7 Glucose 115 H Calcium 9.2 Total Bilirubin 0.40 AST 19 ALT 23 Alkaline Phosphatase 70 Troponin I High Sens 4 Total Protein 6.9 Albumin 3.5 Globulin 3.4 Albumin/Globulin Ratio 1.0 Lipase 29 Urine Color Yellow Urine Clarity Clear Urine pH 8.0 Ur Specific [place] 1.015 Urine Protein Negative Urine Glucose (UA) Normal Urine Ketones 15 H Urine Occult Blood Negative Urine Nitrite Negative Urine Bilirubin Negative Urine Urobilinogen Normal Ur Leukocyte Esterase 25 H Urine RBC 0 SEEN Urine WBC 0 SEEN Ur Squamous Epith Cells 0 SEEN Amorphous Sediment 1+ Urine Bacteria 0 SEEN Urine Mucus 0 SEEN Radiography Diagnostic Testing: Clinical Impression(s) from Imaging Studies Brain CT 12/01/22 20:46 IMPRESSION: No acute intracranial pathology. Electronically Signed: Ji Sheffield DO at 21:52 EDT , Discharge Plan Triage Chief Complaint: Headache Other Complaint: Nausea/Vomiting ED Provider: Bigg Dick Dx/Rx/DC Orders Clinical Impression: Headache, Nausea and vomiting Instructions: ED Headache Unspecified, ED Vomiting (Adult) Prescriptions: New ondansetron 4 mg tablet,disintegrating 4 mg PO Q6H PRN (Reason: nausea and vomiting) Qty: 20 0RF No Action calcium-vitamin D3-vitamin K 500-200-40 mg-unit-mcg tablet,chewable 1 tab PO DAILY multivitamin with folic acid [Thera] 1 TABLET tablet 1 tab PO DAILY aspirin 81 mg Tablet,Chewable 81 mg PO BREAKFAST 30 Days Qty: 30 0RF Primary Care Provider: Rody Gaston Referrals: Rody Gaston DO [Primary Care Provider] - 3-5 Days Disposition Disposition: Home, Self Care What to do if you have Problems For any increased pain, shortness of breath, bleeding, nausea or vomiting, chestpain, or any unexpected problems, contact your Primary Care Provider. Call [facility] ([phone]) or report to the closest Emergency Room. Call 911 if necessary. 12/01/222240 <Electronically signed by Bigg Dick MD> Cosigner Signature (if applicable): CC: Dr. Rody Gaston DO ~ Signed [facility] Work Phone: 1([phone]) 295-761507-12-2023 NotePap Smear Specimen AdequacyJuly 2022 11:00amComment.Satisfactory for evaluation. Endocervical and/or squamous metaplasticcells (endocervical component)are present.[facility] INTERFACED A#[id number] Children's Hospital on above:Satisfactory for evaluation. Endocervical and/or squamous metaplasticcells (endocervical component)are present.08-17-2022 NotePap Smear Specimen AdequacyJuly 2022 11:00amComment.Satisfactory for evaluation. Endocervical and/or squamous metaplasticcells (endocervical component)are present.[facility] INTERFACED A#[id number] HealthComhenry [facility] on above:Satisfactory for evaluation. Endocervical and/or squamous metaplasticcells (endocervical component)are present.08-17-2022 NotePap Smear Specimen AdequacyJuly 2022 11:00amComment.Satisfactory for evaluation. Endocervical and/or squamous metaplasticcells (endocervical component)are present.[facility] INTERFACED A#[id number]. Anthony's HospitalComment on above:Satisfactory for evaluation. Endocervical and/or squamous metaplasticcells (endocervical component)are present.07-13-2022 History and physical note Author Dr. Nicole [facility] July 13, 2022 12:15pm Note Date/Time July 13, 2022 10:14 am [facility] Medical Records Department [address] [place] [address] H&P Exam - Hospitalist 07/13/22 0900 MR#: [id number] Acct: [id number] Name: KEVON SANDERS Rep #:[id number] : 1960 62 From: Tanvir ortez MD PCP: Dr. Rody Gaston DO Status:ADM [place] Location: [place] [address] HPI - General General Date of Admission: 07/13/22 HPI Narrative KEVON SANDERS, is a 62 F who presents to the hospital with numbness and tingling in her left arm and leg as well as some numbness in her left face. She states that she was awake this morning around 4 AM and noticed that her left arm and leg were numb and then she said that her left leg started jerking. She does feel a little bit weak in her left leg, she does have shoulder issues in her left arm so she is not sure if any weakness is due to that or what ever is goingon with her leg. In the ER she was documented having an NIH of 1 secondary to the numbness and tingling. CT of the head and neck is unremarkable, CT of the brain does not show a head bleed. Chest x- ray is also normal. Lab work and vital signs are all unremarkable and stable [facility] Medical History Allergies Anemia Anxiety Arthritis Back pain Cancer Chest pain Depression Family history of skin cancer Fracture of greater tuberosity of left humerus History of stress test Hypotension Left shoulder pain Mitral valve prolapse Neoplasm of skin of eyebrow Non-smoker Osteoporosis Personal history of skin cancer Post-menopausal Shortness of breath on exertion Syncope Vision problems Vitamin deficiency Wears glasses Home Medications multivitamin with folic acid 400 mcg tablet (Thera) 1 tab PO DAILY 01/17/18 [History Last Taken Unknown] calcium-vitamin D3-vitamin K 500 mg-200 unit-40 mcg chewable tablet 1 tab PO DAILY 12/28/21 [History Last Taken Unknown] Allergy/AdvReac Type Severity Reaction Status Date / Time ciprofloxacin [From Cipro] Allergy Severe Other Verified 07/13/22 06:50 sulfamethoxazole Allergy Severe Other Verified 07/13/22 06:50 [From Bactrim] trimethoprim [From Bactrim] Allergy Severe Other Verified 07/13/22 06:50 doxycycline Allergy Intermediate Other Verified 07/13/22 06:50 latex Allergy Intermediate redness Verified 07/13/22 06:50 and rash codeine Allergy Hives Verified 07/13/22 06:50 nitrofurantoin Allergy Unknown Verified 07/13/22 06:50 [From Macrobid] nitrofurantoin Allergy Unknown Verified 07/13/22 06:50 macrocrystalline [From Macrobid] Penicillins Allergy Rash Verified 07/13/22 06:50 Family History Mother Angina at rest Anxiety Breast cancer Depression Hypertension Skin cancer Father Arthritis Cancer Colon cancer Other Family history of skin cancer High cholesterol Suicide attempt Surgical History History of cholecystectomy History of colonoscopy History of left breast biopsy (~10/2021) Social History (Updated 07/13/22 @ 08:10 by Ramonita Zambrano) Smoking Status: Never smoker alcohol intake: never substance use type: does not use additional social history: Does Not Use Aspirin Does Not Use Ibuprofen ROS Constitutional Constitutional: Denies chills, fatigue, fever(s) or malaise Eyes Eyes: Denies blurry vision ENT HEENT: Denies headache(s) or nasal discharge Cardiovascular Cardiovascular: Denies chest pain, dyspnea on exertion or syncope Respiratory/Chest Respiratory/Chest: Denies cough, shortness of breath at rest or shortness of breath with exertion Gastrointestinal Gastrointestinal: Denies constipation, diarrhea, nausea or vomiting Genitourinary Genitourinary: Denies dysuria Neurologic Neurologic: Reports focal weakness and numbness; Denies tremor(s) Psychiatric Psychiatric: Denies anxiety or depression Vital Signs Vital Signs Vital Signs: 07/13/22 06:16 07/13/22 06:39 07/13/22 06:44 Temperature 97.4 F L Temperature Source Temporal Pulse Rate 68 60 Pulse Strength Respiratory Rate 20 H 13 Blood Pressure 119/69 118/104 H Blood Pressure Mean 85 108 Blood Pressure Source Blood Pressure Position Blood Pressure Location Pulse Ox 100 100 Oxygen Delivery Method Room Air Room Air Room Air 07/13/22 06:44 07/13/22 06:56 07/13/22 07:14 Temperature 98 F Temperature Source Temporal Pulse Rate 70 63 64 Pulse Strength Respiratory Rate 11 L 13 13 Blood Pressure 120/59 L 126/69 H 130/56 H Blood Pressure Mean 79 88 80 Blood Pressure Source Blood Pressure Position Blood Pressure Location Pulse Ox 100 100 100 Oxygen Delivery Method Room Air Room Air Room Air 07/13/22 07:30 07/13/22 08:15 07/13/22 08:45 Temperature 97.8 F Temperature Source Oral Pulse Rate 63 60 Pulse Strength Normal (2+) Respiratory Rate 17 14 Blood Pressure 126/76 H 118/65 Blood Pressure Mean 92 82 Blood Pressure Source Monitor Blood Pressure Position Semi-Fowlers Blood Pressure Location Right Arm Pulse Ox 100 100 Oxygen Delivery Method Room Air Room Air Weight Weight: 149 lb 0.52 oz Body Mass Index (BMI) 24.0 Physical Exam Narrative General: Alert, Oriented x3, Cooperative, No apparent distress HEENT: Atraumatic, PERRLA, EOMI, Normocephalic Oral: Moist Mucosa Neck: Supple, No JVD Lungs: Clear to auscultation, Normal air movement, No rhonchi, No wheeze, No rales Cardiovascular: Regular rate, Regular Rhythm, Normal S1, Normal S2, No murmurs Abdomen: Soft, Non Tender, Non-Distended, No Hepato-splenomegaly Extremities: No edema, Capillary Refill Less than 3 Seconds Skin: No rashes, No breakdown Musculoskeletal: No Tenderness to Palpation of Joints or Extremities Neurological: She does appear to have a left facial droop, Motor Exam 5/5 strength throughout, Sensory exam diminished in the left arm and left leg, sensory exam is normal in the face Psych/Mental Status: Anxious Results Lab / Micro Data Result Diagrams: 07/13/22 06:05 07/13/22 06:05 Labs: Laboratory Results - last 24 hr 07/13/22 06:05: WBC 3.6 L, RBC 4.08 L, Hgb 13.6, Hct 41.7, MCV 102.2 H, MCH 33.3H, MCHC 32.6, RDW Std Deviation 47.2 H, RDW Coeff of Melissa 12.4, Plt Count 243, MPV 9.5, Immature Gran % (Auto) 0.300, Neut % (Auto) 55.6, Lymph % (Auto) 22.5, Doniphan % (Auto) 7.2, Eos % (Auto) 13.6 H, Baso % (Auto) 0.8, Absolute Neuts (auto)2.0, Absolute Lymphs (auto) 0.81 L, Nucleated RBC % 0 07/13/22 06:05: PT 13.0, INR 1.0, APTT 33.2 07/13/22 06:05: Sodium 139, Potassium 3.5, Chloride 107, Carbon Dioxide 27.0, Anion Gap 5, BUN 14, Creatinine 0.81, Estim Creat Clear Calc 69.14, Est GFR (MDRD) Af Amer 93, Est GFR (MDRD) Non-Af 77, BUN/Creatinine Ratio 17.3, Glucose 91, Calcium 9.3, Troponin I High Sens 5 07/13/22 06:05: Triglycerides 94, Cholesterol 176, LDL Cholesterol 67, VLDL Cholesterol 19, HDL Cholesterol 90 Rhythm Strip Rhythm Strip: Sinus Rhythm Rate: 59 Ectopy: None Radiology Impression Brain CT 07/13/22 06:26 IMPRESSION: No acute findings on noncontrast CT. CT angiogram and/or MRI may be helpful to evaluate for acute infarct. Electronically Signed: Halima Tran MD at 6:45 EDT , ADDENDUM: 07/13/22 0656 IMPRESSION: No acute findings on noncontrast CT. CT angiogram and/or MRI may be helpful to evaluate for acute infarct. N.B. : The above Results were Read Back by Halima Tran MD to Lisandra Sethi DO, and understanding confirmed on 07/13/2022 06:49:48 (ET). Electronically Signed: Halima Tran MD at 6:45 EDT , Head/Neck CTA 07/13/22 06:26 IMPRESSION: undefined ADDENDUM: 07/13/22 0715 IMPRESSION: undefined Chest X-Ray 07/13/22 07:10 IMPRESSION: No evidence of active intrathoracic disease. Electronically Signed: Halima Tran MD at 7:54 EDT , Assessment & Plan Assessment/Plan (1) TIA (transient ischemic attack): PLAN: Plan 1. CVA versus TIA ? She does have left-sided facial droop with numbness in her left arm and leg ? NIH of 2 with the facial droop and the numbness, I did take a picture of her face and she was able to tell me that the left side is not normal ? CTA of the head and neck is unremarkable as is CT of the brain ? MRI of the brain is pending and we will obtain an echo ? Lipid panel has not LDL of 67 with an HDL of 90 and a cholesterol of 176 ? We will continue with aspirin and Lipitor ? Continue with evaluation by PT/OT ? She states that she does not see a doctor regularly DVT: Ambulation 75 minutes was spent on direct patient care as well as chart review and collaboration with colleagues Charges/Coding Visit Charges Inpatient E&M: 77606 Init Hosp L3 07/13/22 1215 <Electronically signed by Tanvir Nicole MD> Cosigner Signature (if applicable): CC: Dr. Rody Gaston DO; Dr. Tanvir Nicole MD~ Signed [facility] Work Phone: [phone]) 113-148906-07-[address] Sethi [facility] July 13, 2022 7:50am Note Date/Time July 13, 2022 7:50a m [facility] Medical Records Department [address] [place] [address] Emergency Department Summary 07/13/22 MR#: [id number] Acct: [id number] Name: KEVON SANDERS Rep #:[id number] : 1960 62 From: Lisandra Mills PCP: Dr. Rody Gaston, DO Status:ADM [place] Location: [address] History of Present Illness Chief Complaint: Neuro S/Sx Informant: patient Narrative Narrative: Patient is a 62-year-old female with history of recent left humerus fracture, anxiety, migraine with aura and osteoporosis presenting with left-sided numbness. Patient states that yesterday she had some numbness in her left thirdand fourth fingers. She notes also she just felt strange and describes more as a lightheadedness or feeling like she is going to pass out. When she went to bed last night she was feeling okay. She notes her head just felt weird which she describes as a puffy sensation on the left side of her face, the top of her head and the back of her head. Around 3:45 AM she went to roll and she felt a pop in her shoulder. Patient states that on May 24 she fractured her shoulderand has been waiting on an MRI for follow-up to see if she has rotator cuff injury. She then all of a sudden felt that her left leg was flailing and her whole left leg was numb. She developed numbness/paresthesias of the bottom partof her left arm. She states she tried to walk but her leg still felt weak and numb from her but all the way to her foot. 911 was called and she was brought to the emergency room. Patient does not take any medicine on a daily basis. She never had any like this before. Denies any vision or speech changes. Denies any falls or head injuries. No other complaints at this time. [facility] Medical History Allergies Anemia Anxiety Arthritis Back pain Cancer Chest pain Depression Family history of skin cancer Fracture of greater tuberosity of left humerus History of stress test Hypotension Left shoulder pain Mitral valve prolapse Neoplasm of skin of eyebrow Non-smoker Osteoporosis Personal history of skin cancer Post-menopausal Shortness of breath on exertion Syncope Vision problems Vitamin deficiency Wears glasses Home Medications multivitamin with folic acid 400 mcg tablet (Thera) 1 tab PO DAILY 01/17/18 [History Last Taken Unknown] calcium-vitamin D3-vitamin K 500 mg-200 unit-40 mcg chewable tablet 1 tab PO DAILY 12/28/21 [History Last Taken Unknown] Allergy/AdvReac Type Severity Reaction Status Date / Time ciprofloxacin [From Cipro] Allergy Severe Other Verified 07/13/22 06:50 sulfamethoxazole Allergy Severe Other Verified 07/13/22 06:50 [From Bactrim] trimethoprim [From Bactrim] Allergy Severe Other Verified 07/13/22 06:50 doxycycline Allergy Intermediate Other Verified 07/13/22 06:50 latex Allergy Intermediate redness Verified 07/13/22 06:50 and rash codeine Allergy Hives Verified 07/13/22 06:50 nitrofurantoin Allergy Unknown Verified 07/13/22 06:50 [From Macrobid] nitrofurantoin Allergy Unknown Verified 07/13/22 06:50 macrocrystalline [From Macrobid] Penicillins Allergy Rash Verified 07/13/22 06:50 Family History Mother Angina at rest Anxiety Breast cancer Depression Hypertension Skin cancer Father Arthritis Cancer Colon cancer Other Family history of skin cancer High cholesterol Suicide attempt Surgical History History of cholecystectomy History of colonoscopy History of left breast biopsy (~10/2021) Social History Smoking Status: Never smoker alcohol intake: never substance use type: does not use additional social history: Does Not Use Aspirin Does Not Use Ibuprofen ROS ROS ED Constitutional Constitutional ED: Denies chills or fever(s) Eyes Eyes: Denies blurry vision or change in vision Cardiovascular Cardiovascular: Denies chest pain Respiratory/Chest Respiratory/Chest: Denies cough Gastrointestinal Gastrointestinal: Denies abdominal pain, nausea or vomiting Musculoskeletal Musculoskeletal: Reports other Details: Left shoulder pain ; Denies arthralgias Integumentary Denies rash Neurologic Neurologic: Reports paresthesias LUE and LLE and weakness; Denies headache(s) Psychiatric Psychiatric: Reports anxiety Hematologic/Lymphatic Hematologic/Lymphatic: Denies easy bleeding or easy bruising EXAM Physical Exam Const Vital Signs: 07/13/22 06:16 07/13/22 06:39 07/13/22 06:44 Temperature 97.4 F L Temperature Source Temporal Pulse Rate 68 60 Respiratory Rate 20 H 13 Blood Pressure 119/69 118/104 H Blood Pressure Mean 85 108 Pulse Ox 100 100 Oxygen Delivery Method Room Air Room Air Room Air 07/13/22 06:44 07/13/22 06:56 07/13/22 07:14 Temperature 98 F Temperature Source Temporal Pulse Rate 70 63 64 Respiratory Rate 11 L 13 13 Blood Pressure 120/59 L 126/69 H 130/56 H Blood Pressure Mean 79 88 80 Pulse Ox 100 100 100 Oxygen Delivery Method Room Air Room Air Room Air Positive well nourished and well developed General Appearance ED: well developed and NAD HEENT Reports moist mucous membranes Eyes PERRL and EOMs intact bilaterally Neck supple and no JVD Chest Wall inspection of chest normal and palpation of chest normal Resp normal respiratory effort and clear to auscultation bilaterally Cardio no murmurs Rate: regular rate GI normal to inspection, nondistended, normoactive bowel sounds and soft to palpation Back/Spine no CVA tenderness Extremity normal to inspection General Extremety ED: Negative for deformity, edema or tenderness General Extremity: Negative for deformity or edema Neuro oriented x3, CN's II-XII intact bilaterally and no sensory deficits noted Neuro Narrative: Patient is a slightly asymmetric smile however this appears to be baseline and matches the patient's picture in the computer system NIH equals 1 for subjective paresthesias of the left face, left upper extremity and left lower extremity. The paresthesias do not follow any type of dermatomaldistribution. Sensorium / Orientation: alert Speech: speech normal Motor Exam: strength 5/5 throughout Psych mental status grossly normal Mood & Affect: anxious Skin no wounds NIHSS NIHSS Initial: 1a Level of Consciousness: 0 1b LOC Questions (Score 2 if aphasic/stupor): 0 1c LOC Commands (Only score 1st attempt): 0 2 Best Gaze (If aphasic, use reflexive mvmts.): 0 3 Visual: 0 4 Facial Palsy: 0 5 Motor Arm Right (UN = amputation/fusion): 0 5 Motor Arm Left: 0 6 Motor Leg Right: 0 6 Motor Leg Left: 0 7 Limb ataxia (Only + if out of proportion): 0 8 Sensory (Aphasia/stupor=0 or 1, coma=2): 1 9 Best Language: 0 10 Dysarthria (mute, coma=2, intubated=UN): 0 11 Extinction and Inattention (only scored if +): 0 Total Score: 1 MDM MDM MDM Narrative Medical decision making narrative: Patient is evaluated for sudden onset of paresthesias of the left side of her body. On arrival patient is evaluated and stroke alert is called as she has an NIH of 1. Patient's vital signs are normal. She will does not have any stroke risk factors that she does not have a history of high blood pressure, known history of hyperlipidemia or diabetes. Patient is evaluated by teleneurology from [facility]. Neurology and I both agree thatpatient should be evaluated further for stroke but is not a good tPA candidate. Discussed the risk and benefits of tPA and patient is agreeable with no tPA at this time. Patient does have a history of migraines so differential also includes a compress migraine. She has good distal pulses a low suspicion for acute vascular abnormality causing her symptoms. In addition she has normal vital signs. Work- up is largely normal otherwise. Case is discussed with admitting physician, Dr. Nicole, and she is admitted for further stroke evaluation. Patient agreeable this plan of care. In order to expedite her inpatient stroke work-up, MRI is ordered as well as lipid panel. Patient has claustrophobia and is given a dose of IV Ativan to help better tolerate the MRI. Lab Data Attestation: I reviewed the patient's lab results. Labs: Laboratory Results - last 24 hr 07/13/22 07/13/22 07/13/22 06:05 06:05 06:05 WBC 3.6 L RBC 4.08 L Hgb 13.6 Hct 41.7 MCV 102.2 H MCH 33.3 H MCHC 32.6 RDW Std Deviation 47.2 H RDW Coeff of Melissa 12.4 Plt Count 243 MPV 9.5 Immature Gran % (Auto) 0.300 Neut % (Auto) 55.6 Lymph % (Auto) 22.5 Doniphan % (Auto) 7.2 Eos % (Auto) 13.6 H Baso % (Auto) 0.8 Absolute Neuts (auto) 2.0 Absolute Lymphs (auto) 0.81 L Nucleated RBC % 0 PT 13.0 INR 1.0 APTT 33.2 Sodium 139 Potassium 3.5 Chloride 107 Carbon Dioxide 27.0 Anion Gap 5 BUN 14 Creatinine 0.81 Estim Creat Clear Calc 69.14 Est GFR (MDRD) Af Amer 93 Est GFR (MDRD) Non-Af 77 BUN/Creatinine Ratio 17.3 Glucose 91 Calcium 9.3 Troponin I High Sens 5 Triglycerides Cholesterol LDL Cholesterol VLDL Cholesterol HDL Cholesterol 07/13/22 06:05 WBC RBC Hgb Hct MCV MCH MCHC RDW Std Deviation RDW Coeff of Melissa Plt Count MPV Immature Gran % (Auto) Neut % (Auto) Lymph % (Auto) Doniphan % (Auto) Eos % (Auto) Baso % (Auto) Absolute Neuts (auto) Absolute Lymphs (auto) Nucleated RBC % PT INR APTT Sodium Potassium Chloride Carbon Dioxide Anion Gap BUN Creatinine Estim Creat Clear Calc Est GFR (MDRD) Af Amer Est GFR (MDRD) Non-Af BUN/Creatinine Ratio Glucose Calcium Troponin I High Sens Triglycerides 94 Cholesterol 176 LDL Cholesterol 67 VLDL Cholesterol 19 HDL Cholesterol 90 Radiography Chest X-Ray - ED: 1 View, Read by ED Physician, Read by Radiologist and No AcuteDisease Diagnostic Testing: Clinical Impression(s) from Imaging Studies Brain CT 07/13/22 06:26 IMPRESSION: No acute findings on noncontrast CT. CT angiogram and/or MRI may be helpful to evaluate for acute infarct. Electronically Signed: Halima Tran MD at 6:45 EDT Reading Location ID and State: [address] [place] [address] Tel , Service support , ADDENDUM: 07/13/22 0656 IMPRESSION: No acute findings on noncontrast CT. CT angiogram and/or MRI may be helpful to evaluate for acute infarct. N.B. : The above Results were Read Back by Halima Tran MD to Lisandra Sethi DO, and understanding confirmed on 07/13/2022 06:49:48 (ET). Electronically Signed: Halima Tran MD at 6:45 EDT Reading Location ID and State: [facility] / [place] Tel , Service support , Head/Neck CTA 07/13/22 06:26 IMPRESSION: undefined ADDENDUM: 07/13/22 0715 IMPRESSION: undefined Rhythm Strip Rhythm Strip: Sinus Rhythm Rate: 59 Ectopy: None EKG Initial EKG: Attestation: I personally reviewed and interpreted this EKG as follows: Interpretation: Sinus Bradycardia Comments: Sinus bradycardia rate of 59 bpm Normal axis Normal intervals Normal ST segments Management Discussion w/another healthcare provider: Radiologist ( negative CT brain and then CTA head) Discharge Plan Triage Chief Complaint: Neuro S/Sx ED Provider: Lisandra Sethi Dx/Rx/DC Orders Prescriptions: No Action calcium-vitamin D3-vitamin K 500-200-40 mg-unit-mcg tablet,chewable 1 tab PO DAILY multivitamin with folic acid [Thera] 1 TABLET tablet 1 tab PO DAILY Primary Care Provider: Rody Gaston Referrals: Rody Gaston DO [Primary Care Provider] - Disposition Disposition: Acute Care Hospital [facility] What to do if you have Problems For any increased pain, shortness of breath, bleeding, nausea or vomiting, chestpain, or any unexpected problems, contact your Primary Care Provider. Call [facility] ([phone]) or report to the closest Emergency Room. Call 911 if necessary. 07/13/22 0750 <Electronically signed by Lisandra Sethi DO> Cosigner Signature (if applicable): CC: Dr. Rody Gaston DO ~ Signed [facility] Work Phone: 1(448) 548-230507-12-2022 NotePap Smear Specimen AdequacyJuly 2021 2:20pmComment.Satisfactory for evaluation. Endocervical and/or squamous metaplasticcells (endocervical component)are present.[facility] INTER[facility]ACED A#[id number] Health Work Phone: Comment on above:Satisfactory for evaluation. Endocervical and/or squamous metaplasticcells (endocervical component)are present.08-17-2021 NotePap Smear Specimen AdequacyJuly 2021 2:20pmComment. Satisfactory for evaluation. Endocervical and/or squamous metaplasticcells (endocervical component)are present.[facility] INTER[facility]ACED A#[id number] Health Work Phone: Comment on above:Satisfactory for evaluation. Endocervical and/or squamous metaplasticcells (endocervical component)are present.08-17-2021 NotePap Smear Specimen AdequacyJuly 2021 2:20pmComment. Satisfactory for evaluation. Endocervical and/or squamous metaplasticcells (endocervical component)are present.[facility] INTER[facility]ACED A#[id number] Health Work Phone: Comment on above:Satisfactory for evaluation. Endocervical and/or squamous metaplasticcells (endocervical component)are present.Discharge summary Author Dr. Sethi [facility] July 13, 2022 7:50am Note Date/Time July 13, 2022 7:50a [facility] Medical Records Department [address] [place] [address] Emergency Department Summary 07/13/22 MR#: [id number] Acct: [id number] Name: KEVON SANDERS JUNE Rep #:[id number] : 1960 62 From: Lisandra Mills PCP: Dr. Rody Gaston, DO Status:ADM [place] Location: [place] [address] HPI History of Present Illness Chief Complaint: Neuro S/Sx Informant: patient Narrative Narrative: Patient is a 62-year-old female with history of recent left humerus fracture, anxiety, migraine with aura and osteoporosis presenting with left-sided numbness. Patient states that yesterday she had some numbness in her left thirdand fourth fingers. She notes also she just felt strange and describes more as a lightheadedness or feeling like she is going to pass out. When she went to bed last night she was feeling okay. She notes her head just felt weird which she describes as a puffy sensation on the left side of her face, the top of her head and the back of her head. Around 3:45 AM she went to roll and she felt a pop in her shoulder. Patient states that on May 24 she fractured her shoulderand has been waiting on an MRI for follow-up to see if she has rotator cuff injury. She then all of a sudden felt that her left leg was flailing and her whole left leg was numb. She developed numbness/paresthesias of the bottom partof her left arm. She states she tried to walk but her leg still felt weak and numb from her but all the way to her foot. 911 was called and she was brought to the emergency room. Patient does not take any medicine on a daily basis. She never had any like this before. Denies any vision or speech changes. Denies any falls or head injuries. No other complaints at this time. [facility] Medical History Allergies Anemia Anxiety Arthritis Back pain Cancer Chest pain Depression Family history of skin cancer Fracture of greater tuberosity of left humerus History of stress test Hypotension Left shoulder pain Mitral valve prolapse Neoplasm of skin of eyebrow Non-smoker Osteoporosis Personal history of skin cancer Post-menopausal Shortness of breath on exertion Syncope Vision problems Vitamin deficiency Wears glasses Home Medications multivitamin with folic acid 400 mcg tablet (Thera) 1 tab PO DAILY 01/17/18 [History Last Taken Unknown] calcium-vitamin D3-vitamin K 500 mg-200 unit-40 mcg chewable tablet 1 tab PO DAILY 12/28/21 [History Last Taken Unknown] Allergy/AdvReac Type Severity Reaction Status Date / Time ciprofloxacin [From Cipro] Allergy Severe Other Verified 07/13/22 06:50 sulfamethoxazole Allergy Severe Other Verified 07/13/22 06:50 [From Bactrim] trimethoprim [From Bactrim] Allergy Severe Other Verified 07/13/22 06:50 doxycycline Allergy Intermediate Other Verified 07/13/22 06:50 latex Allergy Intermediate redness Verified 07/13/22 06:50 and rash codeine Allergy Hives Verified 07/13/22 06:50 nitrofurantoin Allergy Unknown Verified 07/13/22 06:50 [From Macrobid] nitrofurantoin Allergy Unknown Verified 07/13/22 06:50 macrocrystalline [From Macrobid] Penicillins Allergy Rash Verified 07/13/22 06:50 Family History Mother Angina at rest Anxiety Breast cancer Depression Hypertension Skin cancer Father Arthritis Cancer Colon cancer Other Family history of skin cancer High cholesterol Suicide attempt Surgical History History of cholecystectomy History of colonoscopy History of left breast biopsy (~10/2021) Social History Smoking Status: Never smoker alcohol intake: never substance use type: does not use additional social history: Does Not Use Aspirin Does Not Use Ibuprofen ROS ROS ED Constitutional Constitutional ED: Denies chills or fever(s) Eyes Eyes: Denies blurry vision or change in vision Cardiovascular Cardiovascular: Denies chest pain Respiratory/Chest Respiratory/Chest: Denies cough Gastrointestinal Gastrointestinal: Denies abdominal pain, nausea or vomiting Musculoskeletal Musculoskeletal: Reports other Details: Left shoulder pain ; Denies arthralgias Integumentary Denies rash Neurologic Neurologic: Reports paresthesias LUE and LLE and weakness; Denies headache(s) Psychiatric Psychiatric: Reports anxiety Hematologic/Lymphatic Hematologic/Lymphatic: Denies easy bleeding or easy bruising EXAM Physical Exam Const Vital Signs: 07/13/22 06:16 07/13/22 06:39 07/13/22 06:44 Temperature 97.4 F L Temperature Source Temporal Pulse Rate 68 60 Respiratory Rate 20 H 13 Blood Pressure 119/69 118/104 H Blood Pressure Mean 85 108 Pulse Ox 100 100 Oxygen Delivery Method Room Air Room Air Room Air 07/13/22 06:44 07/13/22 06:56 07/13/22 07:14 Temperature 98 F Temperature Source Temporal Pulse Rate 70 63 64 Respiratory Rate 11 L 13 13 Blood Pressure 120/59 L 126/69 H 130/56 H Blood Pressure Mean 79 88 80 Pulse Ox 100 100 100 Oxygen Delivery Method Room Air Room Air Room Air Positive well nourished and well developed General Appearance ED: well developed and NAD HEENT Reports moist mucous membranes Eyes PERRL and EOMs intact bilaterally Neck supple and no JVD Chest Wall inspection of chest normal and palpation of chest normal Resp normal respiratory effort and clear to auscultation bilaterally Cardio no murmurs Rate: regular rate GI normal to inspection, nondistended, normoactive bowel sounds and soft to palpation Back/Spine no CVA tenderness Extremity normal to inspection General Extremety ED: Negative for deformity, edema or tenderness General Extremity: Negative for deformity or edema Neuro oriented x3, CN's II-XII intact bilaterally and no sensory deficits noted Neuro Narrative: Patient is a slightly asymmetric smile however this appears to be baseline and matches the patient's picture in the computer system NIH equals 1 for subjective paresthesias of the left face, left upper extremity and left lower extremity. The paresthesias do not follow any type of dermatomaldistribution. Sensorium / Orientation: alert Speech: speech normal Motor Exam: strength 5/5 throughout Psych mental status grossly normal Mood & Affect: anxious Skin no wounds NIHSS NIHSS Initial: 1a Level of Consciousness: 0 1b LOC Questions (Score 2 if aphasic/stupor): 0 1c LOC Commands (Only score 1st attempt): 0 2 Best Gaze (If aphasic, use reflexive mvmts.): 0 3 Visual: 0 4 Facial Palsy: 0 5 Motor Arm Right (UN = amputation/fusion): 0 5 Motor Arm Left: 0 6 Motor Leg Right: 0 6 Motor Leg Left: 0 7 Limb ataxia (Only + if out of proportion): 0 8 Sensory (Aphasia/stupor=0 or 1, coma=2): 1 9 Best Language: 0 10 Dysarthria (mute, coma=2, intubated=UN): 0 11 Extinction and Inattention (only scored if +): 0 Total Score: 1 MDM MDM MDM Narrative Medical decision making narrative: Patient is evaluated for sudden onset of paresthesias of the left side of her body. On arrival patient is evaluated and stroke alert is called as she has an NIH of 1. Patient's vital signs are normal. She will does not have any stroke risk factors that she does not have a history of high blood pressure, known history of hyperlipidemia or diabetes. Patient is evaluated by teleneurology from [facility]. Neurology and I both agree thatpatient should be evaluated further for stroke but is not a good tPA candidate. Discussed the risk and benefits of tPA and patient is agreeable with no tPA at this time. Patient does have a history of migraines so differential also includes a compress migraine. She has good distal pulses a low suspicion for acute vascular abnormality causing her symptoms. In addition she has normal vital signs. Work- up is largely normal otherwise. Case is discussed with admitting physician, Dr. Nicole, and she is admitted for further stroke evaluation. Patient agreeable this plan of care. In order to expedite her inpatient stroke work-up, MRI is ordered as well as lipid panel. Patient has claustrophobia and is given a dose of IV Ativan to help better tolerate the MRI. Lab Data Attestation: I reviewed the patient's lab results. Labs: Laboratory Results - last 24 hr 07/13/22 07/13/22 07/13/22 06:05 06:05 06:05 WBC 3.6 L RBC 4.08 L Hgb 13.6 Hct 41.7 MCV 102.2 H MCH 33.3 H MCHC 32.6 RDW Std Deviation 47.2 H RDW Coeff of Melissa 12.4 Plt Count 243 MPV 9.5 Immature Gran % (Auto) 0.300 Neut % (Auto) 55.6 Lymph % (Auto) 22.5 [place] % (Auto) 7.2 Eos % (Auto) 13.6 H Baso % (Auto) 0.8 Absolute Neuts (auto) 2.0 Absolute Lymphs (auto) 0.81 L Nucleated RBC % 0 PT 13.0 INR 1.0 APTT 33.2 Sodium 139 Potassium 3.5 Chloride 107 Carbon Dioxide 27.0 Anion Gap 5 BUN 14 Creatinine 0.81 Estim Creat Clear Calc 69.14 Est GFR (MDRD) Af Amer 93 Est GFR (MDRD) Non-Af 77 BUN/Creatinine Ratio 17.3 Glucose 91 Calcium 9.3 Troponin I High Sens 5 Triglycerides Cholesterol LDL Cholesterol VLDL Cholesterol HDL Cholesterol 07/13/22 06:05 WBC RBC Hgb Hct MCV MCH MCHC RDW Std Deviation RDW Coeff of Melissa Plt Count MPV Immature Gran % (Auto) Neut % (Auto) Lymph % (Auto) [place] % (Auto) Eos % (Auto) Baso % (Auto) Absolute Neuts (auto) Absolute Lymphs (auto) Nucleated RBC % PT INR APTT Sodium Potassium Chloride Carbon Dioxide Anion Gap BUN Creatinine Estim Creat Clear Calc Est GFR (MDRD) Af Amer Est GFR (MDRD) Non-Af BUN/Creatinine Ratio Glucose Calcium Troponin I High Sens Triglycerides 94 Cholesterol 176 LDL Cholesterol 67 VLDL Cholesterol 19 HDL Cholesterol 90 Radiography Chest X-Ray - ED: 1 View, Read by ED Physician, Read by Radiologist and No AcuteDisease Diagnostic Testing: Clinical Impression(s) from Imaging Studies Brain CT 07/13/22 06:26 IMPRESSION: No acute findings on noncontrast CT. CT angiogram and/or MRI may be helpful to evaluate for acute infarct. Electronically Signed: Halima Tran MD at 6:45 EDT , ADDENDUM: 07/13/22 0656 IMPRESSION: No acute findings on noncontrast CT. CT angiogram and/or MRI may be helpful to evaluate for acute infarct. N.B. : The above Results were Read Back by Halima Tran MD to iLsandra Sethi DO, and understanding confirmed on 07/13/2022 06:49:48 (ET). Electronically Signed: Halima Tran MD at 6:45 EDT , Head/Neck CTA 07/13/22 06:26 IMPRESSION: undefined ADDENDUM: 07/13/22 0715 IMPRESSION: undefined Rhythm Strip Rhythm Strip: Sinus Rhythm Rate: 59 Ectopy: None EKG Initial EKG: Attestation: I personally reviewed and interpreted this EKG as follows: Interpretation: Sinus Bradycardia Comments: Sinus bradycardia rate of 59 bpm Normal axis Normal intervals Normal ST segments Management Discussion w/another healthcare provider: Radiologist ( negative CT brain and then CTA head) Discharge Plan Triage Chief Complaint: Neuro S/Sx ED Provider: Lisandra Sethi Dx/Rx/DC Orders Prescriptions: No Action calcium-vitamin D3-vitamin K 500-200-40 mg-unit-mcg tablet,chewable 1 tab PO DAILY multivitamin with folic acid [Thera] 1 TABLET tablet 1 tab PO DAILY Primary Care Provider: Rody Gaston Referrals: Rody Gaston DO [Primary Care Provider] - Disposition Disposition: [facility] What to do if you have Problems For any increased pain, shortness of breath, bleeding, nausea or vomiting, chestpain, or any unexpected problems, contact your Primary Care Provider. Call [facility] ([phone]) or report to the closest Emergency Room. Call 911 if necessary. 07/13/22 0750 <Electronically signed by Lisandra Sethi DO> Cosigner Signature (if applicable): CC: Dr. Rody Gaston DO ~ Signed [facility] Work Phone: Discharge summary Author Dr. Nicole [facility] July 14, 2022 9:43am Note Date/Time July 14, 2022 9:42a m [facility] Medical Records Department [address] [place] [address] Instructions for Home/Discharge Instructions 07/14/22 0941 MR#: [id number] Acct: [id number] Name: KEVON SANDERS JUNE Rep #:[id number] : 1960 62 From: Tanvir ortez MD PCP: Dr. Rody Gaston DO Status:ADM JENNIFER Discharge Instructions Diet Discharge Diet: Low fat / Low cholesterol Activity Discharge Activity: Return to Normal Activity Dressing / Incision Call your doctor if you observe: Fever of 101 or Higher, Shortness of breath, Dizziness, Fainting spells, Swelling in the ankles, Chest pain and Increased palpitations (irregular heartbeat) Follow Up Care Test Results: Test results from this visit will be discussed in further detail at your follow- up appointment, if applicable. Discharge Plan Admission Admit Date/Time: 07/13/22 07:10 Attending Provider: Tanvir Nicole Primary Care Provider: Rody Gaston Discharge Orders/Prescriptions Prescriptions: New aspirin 81 mg Tablet,Chewable 81 mg PO BREAKFAST 30 Days Qty: 30 0RF Continued calcium-vitamin D3-vitamin K 500-200-40 mg-unit-mcg tablet,chewable 1 tab PO DAILY multivitamin with folic acid [Thera] 1 TABLET tablet 1 tab PO DAILY Referrals / Follow Up: Rody Gaston DO [Primary Care Provider] - Within 1 Week Disposition Disposition (needs filled in before D/C Order can be placed): Home, Self Care 07/14/22 0943<Electronically signed by Tanvir Nicole MD>Tanvir Nicole MD CC: Dr. Rody Gaston DO ~ Signed [facility] Work Phone: Discharge summary Author Bigg Dick [facility] Note Date/Time October 02, 2024 10 :59am [facility] Medical Records Department [address] [place] [address] Emergency Department Summary 10/02/24 MR#: [id number] Acct: [id number] Name: KEVON SANDERS Rep #:[id number] : 1960 64 From: Bigg Dick MD PCP: Dr. Rody Gaston, DO Status:REG ER Location: ED HPI History of Present Illness Chief Complaint: General Illness Narrative Narrative: 64-year-old female past medical history of depression and anxiety presents with multiple somatic complaints that began at around 7:00 this morning. This was 2- 1/2 hours ago. She relates history that she went to bed around 6 AM because shehas not been sleeping well. She states that she got up again and felt like the right side of her head was more swollen than the left. Additionally, she statedthat her right lower extremity felt cool, and numb from the thigh all the way down to her foot. Additionally, she had left foot numbness as well. She has had nausea but no vomiting. No exacerbating or alleviating factors. Both of her legs felt heavy. Additionally, she relates history that she has been havingdental problems on the right side of her mouth for 8 months and cannot see a dentist. She states she is concerned about blood infection. 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 [facility] Medical History Abdominal pain Fracture of greater tuberosity of left humerus Left shoulder pain Post-menopausal Wears glasses Cancer Depression Anxiety Arthritis Anemia Back pain Syncope Non-smoker Shortness of breath on exertion Hypotension History of stress test Chest pain Family history of skin cancer Personal history of skin cancer Neoplasm of skin of eyebrow Mitral valve prolapse Vitamin deficiency Vision problems Osteoporosis Allergies Home Medications ?Medication ?Instructions ?Recorded ?Last Taken ?Type diazepam 5 mg tablet (Valium) 5 mg PO TID PRN vertigo 5 days #15 04/16/24 Unknown Rx tabs prednisolone 15 mg/5 mL oral 30 mg (10 mL) PO DAILY 5 days #50 04/16/24 Unknown Rx solution mL Allergy/AdvReac Type Severity Reaction Status Date / Time ciprofloxacin (From Cipro) Allergy Severe Other Verified 04/16/24 20:35 sulfamethoxazole (From Allergy Severe Other Verified 04/16/24 20:35 Bactrim) trimethoprim (From Bactrim) Allergy Severe Other Verified 04/16/24 20:35 doxycycline Allergy Intermediate Other Verified 04/16/24 20:35 latex Allergy Intermediate redness Verified 04/16/24 20:35 and rash codeine Allergy Hives Verified 04/16/24 20:35 nitrofurantoin (From Allergy Unknown Verified 04/16/24 20:35 Macrobid) nitrofurantoin Allergy Unknown Verified 04/16/24 20:35 macrocrystalline (From Macrobid) Penicillins Allergy Rash Verified 04/16/24 20:35 nasrin AdvReac Mild Itching Verified 04/16/24 20:35 avocado AdvReac Diarrhea Verified 04/16/24 20:35 Family History Mother Angina at rest Anxiety Breast cancer Depression Hypertension Skin cancer Father Arthritis Cancer Colon cancer Other Family history of skin cancer High cholesterol Suicide attempt Surgical History History of colonoscopy History of left breast biopsy (~10/2021) History of cholecystectomy Social History Smoking Status: Never smoker alcohol intake: never substance use type: does not use additional social history: Does Not Use Aspirin Does Not Use Ibuprofen ROS ROS ED ROS Narrative Review of systems positive for nausea but no vomiting. No fevers or chills. Positive right leg coolness and numbness. Left foot numbness as well. [place] as if her right side of head was more swollen than left. No exacerbating or alleviating factors. Had chest pains on Monday. EXAM Physical Exam Narrative Exam Narrative: Afebrile. Vital signs noted. Nontoxic-appearing. Cardiovascular examination reveals a regular rate and rhythm. Lungs are clear to auscultation bilaterally. Abdomen is soft and nontender with positive bowel sounds, no guarding or rebound. Neurological examination is nonfocal, nonlateralizing. Inspection andexamination of the bilateral lower extremities shows palpable dorsalis pedis pulses bilaterally with skin warm and dry, no discoloration, no cyanosis. Full range of motion bilateral lower extremities. Patient tearful on examination, mild anxiety. Const Vital Signs: 10/02/24 08:51 Temperature 97.8 F Temperature Source Temporal Pulse Rate 68 Respiratory Rate 19 H Blood Pressure 127/71 H Blood Pressure Mean 89 Pulse Ox 100 Oxygen Delivery Method Room Air MDM MDM MDM Narrative Medical decision making narrative: The differential diagnosis includes but not limited to anxiety/panic attack versus atypical migraine headache versus hyperventilation syndrome versus dehydration versus other electrolyte imbalance. I have low clinical suspicion for stroke. Her numbness and symptoms are bilateral. She had chest pains on Monday and I have low suspicion for ACS blood pressures 89 over. Comprehensive workup was pursued. I will obtain CT of the brain as well as EKG, laboratory work including magnesium and a single troponin. Patient was reassured that currently her medical screening examination is negative for any emergent process. EKG obtained interpreted by myself independently as sinus bradycardia at 52 bpm without ectopy or acute ST changes. No STEMI. I reviewed her laboratory work and she has neutropenia of 3.50 compared to prior laboratories, she almost has achronic neutropenia, hemoglobin normal at 13.9, hematocrit 41.2, platelet count normal at 240. CMP is grossly unremarkable, normal sodium, normal potassium, magnesium normal at 2.0. Glucose normal at 93. I reviewed the radiology reportof the CT of the brain and there is no acute process, unremarkable pineal gland region. No acute findings. Chest x-ray interpreted by myself independently shows no evidence of an acute process. No pneumonia, no pneumothorax. I reviewed the radiology report which confirms my independent interpretation. Hertroponin was also obtained and reviewed and is less than 6. At this point in time, I am unsure as to the cause of her symptoms, I do not feel that she requires observation or admission, I feel she can be discharged to follow-up with her primary care provider. Return instructions to the emergency departmentwere reviewed. Disposition is discharged home in stable condition. History & Record Review Discussion w/independent historian: Patient Additional record(s) reviewed:: Prior ED visit and Prior labs (Chronic neutropenia) Lab Data Attestation: I reviewed the patient's lab results. Labs: Laboratory Results - last 24 hr 10/02/24 09:35 WBC 3.5 L RBC 4.22 Hgb 13.9 Hct 41.2 MCV 97.6 MCH 32.9 H MCHC 33.7 RDW Std Deviation 43.3 RDW Coeff of Melissa 12.0 Plt Count 240 MPV 9.2 Immature Gran % (Auto) 0.300 Neut % (Auto) 52.1 Lymph % (Auto) 29.5 [place]han % (Auto) 8.8 Eos % (Auto) 8.2 H Baso % (Auto) 1.1 H Absolute Neuts (auto) 1.8 L Absolute Lymphs (auto) 1.04 Nucleated RBC % 0 Sodium 137 Potassium 3.7 Chloride 101 Carbon Dioxide 24.3 Anion Gap 12 BUN 14 Creatinine 0.85 Estim Creat Clear Calc 64.24 Est GFR (MDRD) Non-Af 78 BUN/Creatinine Ratio 16.3 Glucose 93 Calcium 9.6 Magnesium 2.0 Total Bilirubin 0.46 AST 22 ALT 19 Alkaline Phosphatase 74 Troponin T High Sens < 6 Total Protein 6.9 Albumin 4.1 Globulin 2.8 Albumin/Globulin Ratio 1.5 Radiography Diagnostic Testing: Clinical Impression(s) from Imaging Studies Chest X-Ray 10/02/24 09:12 IMPRESSION: No Acute Findings. Reading Location: [id number] Brain CT 10/02/24 10:24 IMPRESSION: No acute intracranial pathology. Reading Location: [facility] Discharge Plan Triage Chief Complaint: General Illness ED Provider: Bigg Dick Dx/Rx/DC Orders Clinical Impression: Multiple somatic complaints, Chest pain, Numbness and tingling of both lower extremities Instructions: ED Chest Pain, Uncertain Cause, ED Paresthesia Prescriptions: No Action diazepam [Valium] 5 mg tablet 5 mg PO TID PRN (Reason: vertigo) 5 Days Qty: 15 0RF prednisolone 15 mg/5 mL solution 30 mg PO DAILY 5 Days Qty: 50 0RF Primary Care Provider: Rody Gaston Referrals: Rody Gaston DO [Primary Care Provider] - As soon as possible Print Language: Maltese Disposition Disposition: Home, Self Care What to do if you have Problems For any increased pain, shortness of breath, bleeding, nausea or vomiting, chestpain, or any unexpected problems, contact your Primary Care Provider. Call [facility] ([phone]) or report to the closest Emergency Room. Call 911 if necessary. 10/02/24 1059 <Electronically signed by Bigg Dick MD> Cosigner Signature (if applicable): CC: Dr. Rody Gaston, DO ~ Signed [facility] Work Phone: Evrshation noteNo assessment information available [facility] Work Phone: Evkvuation note* Diagnosis Onset Date Resolution Status Left breast mass acute [facility] Work Phone: Evaluation note* Diagnosis Onset Date Resolution Status Left breast mass acute Encounter for screening for malignant neoplasm of colo n acute [facility] Work Phone: evaluation note* Diagnosis Onset Date Resolution Status Encounter for screening for malignant neoplasm of colo n acute [facility] Work Phone: Evaluation note* Diagnosis Onset Date Resolution Status Fracture of greater tuberosity of left humerus acute Left shoulder pain acute [facility] Work Phone: Evaluation note* Diagnosis Onset Date Resolution Status Fracture of greater tuberosity of left humerus acute Left shoulder pain acute TIA (transient ischemic attack) acute [facility] Work Phone: Evuzoation note* Diagnosis Onset Date Resolution Status Fracture of greater tuberosity of left humerus acute Left shoulder pain acute TIA (transient ischemic attack) resolved [facility] Work Phone: Evaluation note* Diagnosis Onset Date Resolution Status Fracture of greater tuberosity of left humerus acute Left shoulder pain acute TIA (transient ischemic attack) resolved Fracture of greater tuberosity of left humerus acute Left shoulder pain acute [facility] Work Phone: Hospital Discharge instructionsAmbulatory Orders* PT Referral Location: None Selected [facility] Work Phone: Progress note Author Harpreet Escalante [facility] Note Date/Time November 20, 2024 1 :03pm [facility] [address] , [address] [place] [address] OFFICE VISIT Date of Service: 11/20/24 MR#: [id number] Acct: [id number] Name: KEVON SANDERS Rep #: [id number] : 1960 Provider: WILSON Turk Age/Sex: 64/F Location: [facility] Status: Signed Intake Vital Signs 10/02/24 08:51 11/20/24 12:44 Height 5 ft 6 in 5 ft 6 in BP 100/58 L Blood Pressure Location Lt brachial Position Sitting Respiration 15 Pulse 75 Pulse Source NIBP Temp 97.9 F Temp Source Oral Pulse Oximetry (%) 98 Oxygen Delivery Method room air Intake Visit Reasons: concern for uti Chief Complaint: abd pain Contracts Advisor Required: No Is patient in pain?: Yes Allergies ciprofloxacin (From Cipro) Allergy (Severe, Verified 11/20/24 12:57) Other sulfamethoxazole (From Bactrim) Allergy (Severe, Verified 11/20/24 12:57) Other trimethoprim (From Bactrim) Allergy (Severe, Verified 11/20/24 12:57) Other doxycycline Allergy (Intermediate, Verified 11/20/24 12:57) Other latex Allergy (Intermediate, Verified 11/20/24 12:57) redness and rash clindamycin Allergy (Mild, Verified 11/20/24 12:57) Hives codeine Allergy (Verified 11/20/24 12:57) Hives nitrofurantoin (From Macrobid) Allergy (Verified 11/20/24 12:57) Unknown nitrofurantoin macrocrystalline (From Macrobid) Allergy (Verified 11/20/24 12:57) Unknown Penicillins Allergy (Verified 11/20/24 12:57) Rash nasrin Adverse Reaction (Mild, Verified 11/20/24 12:57) Itching avocado Adverse Reaction (Verified 11/20/24 12:57) Diarrhea Medications ?Medication ?Instructions ?Recorded ?Confirmed ?Type diazepam 5 mg tablet (Valium) 5 mg PO TID PRN vertigo 5 days #15 04/16/24 Rx tabs cephalexin 500 mg capsule 500 mg PO TID #21 caps 11/2011/20/24 Rx Is last menstrual period known: No Post menopausal: Yes Patient : No Have you fallen in the past year?: No Nurse's Note: bilateral lower abd pain x 4 days. denies urinary odor, frequency, dysuria, blood, back pain, fever. pt would like to be checked for UTI PFSH Medical History Abdominal pain Fracture of greater tuberosity of left humerus Left shoulder pain Post-menopausal Wears glasses Cancer Depression Anxiety Arthritis Anemia Back pain Syncope Non-smoker Shortness of breath on exertion Hypotension History of stress test Chest pain Family history of skin cancer Personal history of skin cancer Neoplasm of skin of eyebrow Mitral valve prolapse Vitamin deficiency Vision problems Osteoporosis Allergies Surgical History History of colonoscopy History of left breast biopsy (~10/2021) History of cholecystectomy Family History Mother Angina at rest Anxiety Breast cancer Depression Hypertension Skin cancer Father Arthritis Cancer Colon cancer Other Family history of skin cancer High cholesterol Suicide attempt Social History Smoking Status: Never smoker alcohol intake: never substance use type: does not use additional social history: Does Not Use Aspirin Does Not Use Ibuprofen HPI HPI Chief Complaint: abd pain Details: KEVON SANDERS, is a 64 F who presents to the office today for initial evaluation at the [facility] for approximately 72-hour history of urinary frequency with suprapubic pressure. No complaints of fever, chills, sweats, lightheadedness/dizziness, nausea/vomiting, chest pain/shortness of breath/dyspnea on exertion, or midback pain. No changes in color/ character of urine or stool. Cranberry juice of minimal to no assist. No other associated symptoms and no alleviating/aggravating factors. ROS Const Constitutional: No other (As above) Exam Const General: cooperative, healthy appearing and no acute distress Orientation: alert, awake Chest Chest palpation & inspection: normal inspection of the chest Resp Effort & Inspection: normal respiratory effort and able to speak in complete sentences Cardio Rate: regular rate Pulses: radial pulses present GI Inspection: normal to inspection Palpation: soft and tender suprapubic (Patient describes upon self-palpation) General: No CVA tenderness Skin General: no rashes or lesions noted Neuro General: patient alert, patient awake Cognition: normal cognition Speech: speech normal Psych Appearance: grossly normal Mental Status: mental status grossly normal Mood: congruent mood Affect: normal affect Speech and Movement: speech and movement normal Attitude: cooperative Diagnoses Urinary tract infection N39.0 Assessment and Plan Assessment and Plan (1) Urinary tract infection: Status: Acute Plan: See POC results; urine sent to lab for C/S. Cephalexin as prescribed today. Supportive measures as instructed today. Follow-up with PCP in 3 to 5 days should symptoms not improve, sooner should symptoms only worsen or any other concerns develop. Patient states acknowledging understanding all the above. Results POC Urinalysis Dip (Clinic) Office Urine Color Yellow Last Edit by Yasmin Connelly on 11/20/24 13:01 Office Urine Clarity Clear Last Edit by Yasmin Connelly on 11/20/24 13:01 Office Urine Glucose Negative Last Edit by Yasmin Connelly on 11/20/24 13:01 Office Urine Ketones Negative Last Edit by Yasmin Connelly on 11/20/24 13:01 Off Ur Spec [place] 1.010 Last Edit by Yasmin Connelly on 11/20/24 13:01 Office Urine pH 6.0 Last Edit by Yasmin Connelly on 11/20/24 13:01 Office Urine Bilirubin Negative Last Edit by Yasmin Connelly on 11/20/24 13: 01 Office Urine Urobilinogen Negative Last Edit by Yasmin Connelly on 11/20/24 13:01 Office Urine Blood Negative Last Edit by Yasmin Connelly on 11/20/24 13:01 Office Urine Blood Hemolyzed Trace Last Edit by Yasmin Connelly on 11/20/24 13:01 Office Urine Protein Trace Last Edit by Yasmin Connelly on 11/20/24 13:01 Office Urine Nitrate Negative Last Edit by Yasmin Connelly on 11/20/24 13:01 Off Ur Leukocytes Positive Last Edit by Yasmin Connelly on 11/20/24 13:01 Coding Level of Care Code Off vis,est,level 3 Assessment and Plan Assessment and Plan Orders: Orders POC Urinalysis Dip (Clinic) Today R10.9 - Unspecified abdominal pain Culture, Urine Today R82.90 - Unspecified abnormal findings in urine Medications: New cephalexin 500 mg PO TID 21 caps 0RF Clinical Quality Measures Falls Risk Screening/Assistive Devices Have you fallen in the past year?: No 11/20/24 1306 <Electronically signed by Harpreet RACHEL> Date _ Harpreet RACHEL Cosign Signature: Date (if applicable) CC: ~ [facility] Work Phone: Reason for referral (narrative)No reason for referral information availableWCincinnati [facility] Work Phone: Summary Purpose Family History Relationship Condition Age at Onset Recorded Date/T domo Not Specified High blood cholesterol Unknown Family history of ma lignant neoplasm of skin Unknown Attempted suicide Unknown mother Angina at rest Unknown Anxiety Unknown Malignant neoplasm of breast Unknown Depression Unknown Hypertension Unknown Malignant neoplasm of skin Unknown father Arthritis Unknown Malignant neoplasm Unknown Malignant neoplasm of colon Unknown Advance Directives Advance Directive Response Recorded Date/ Time Advance Directives No April 16, 015 6:26pm Living Will No March 10 3:24pm Power of Director Of Medical Review No March 10, 2020 3:24pm Advance Directive Response Recorded Date/ Time Advance Directives No April 16 015 5:26pm Living Will No March 10 2:24pm Power of Director Of Medical Review No March 10, 2020 2:24pm Advance Directive Response Recorded Date/ Time Advance Directives No April 16 2 015 5:26pm Living Will No February 11 3 12:50pm Power of Director Of Medical Review No February 11, 2 023 12:50pm Advance Directive Response Recorded Date/ Time Advance Directives No April 16 2 015 6:26pm Living Will No February 11 3 1:50pm Power of Director Of Medical Review No February 11, 2 023 1:50pm Advance Directive Response Recorded Date/ Time Advance Directives No April 16 2 015 6:26pm Living Will No May 24, 2022 11:07pm Power of Director Of Medical Review No May 24 11:07pm Advance Directive Response Recorded Date/ Time Advance Directives No April 16 6:26pm Living Will No July 13, 2022 6 :44am Power of Director Of Medical Review No July 13, 2022 6:44am Advance Directive Response Recorded Date/ Time Advance Directives No April 16 6:26pm Living Will No July 13, 2022 8 :19am Power of Director Of Medical Review No July 13, 2022 8:19am Advance Directive Response Recorded Date/ Time Advance Directives No April 16 6:26pm Living Will No July 18, 2022 4:27am Power of Director Of Medical Review No July 18 4:27am Advance Directive Response Recorded Date/ Time Advance Directives No April 16 6:26pm Living Will No December 01 8:24pm Power of Director Of Medical Review No December 01, 2022 8:24pm Advance Directive Response Recorded Date/ Time Advance Directives No April 16 5:26pm Living Will No December 01 7:24pm Power of Director Of Medical Review No December 01, 2022 7:24pm Advance Directive Response Recorded Date/ Time Living Will No April 16, 2024 9:53pm Power of Director Of Medical Review No April 16 9:53pm Advance Directives No April 16 6:26pm Advance Directive Response Recorded Date/ Time Living Will No April 16, 2024 9:53pm Do you have a Healthcare Power of Director Of Medical Review? No April 16, 2024 9:53pm Advance Directives No April 16 6:26pm Advance Directive Response Recorded Date/ Time Do you have a Healthcare Power of Director Of Medical Review? No October 02, 2024 8:53am Advance Directives No April 16 6:26pm Advance Directive Response Recorded Date/ Time Advance Directives No November 20, 2024 12:44pm Do you have a Healthcare Power of Director Of Medical Review? No October 02, 2024 8:53am Chief Complaint and Reason for Visit Chief Complaint SCREENING ABDNORMAL MAMM Chief Complaint SCREENING ABDNORMAL MAMM BIRADS 4 L Breast L BREAST BIOPSY Reason for Visit Left breast mass Chief Complaint SCREENING ABDNORMAL MAMM BIRADS 4 L Breast L BREAST BIOPSY Amb Documentation Reason for Visit Left breast mass Chief Complaint SCREENING ABDNORMAL MAMM BIRADS 4 L Breast L BREAST BIOPSY Amb Documentation Reason for Visit Left breast mass Encounter for screening for malignant neoplasm of colon Chief Complaint POSTPROCEDURAL Reason for Visit Encounter for screen ing for malignant neoplasm of colon Chief Complaint POSTPROCEDURAL fall down stairs, upper extremity, knees Reason for Visit Encounter for screen ing for malignant neoplasm of colon Chief Complaint POSTPROCEDURAL fall down stairs, upper extremity, knees LEFT SHOULDER PAIN LEFT SHOULDER CVA R/O Reason for Visit Fracture of greater tuberosity of left humerus Left shoulder pain Chief Complaint POSTPROCEDURAL fall down stairs, upper extremity, knees LEFT SHOULDER PAIN LEFT SHOULDER CVA R/O CVA R/O Reason for Visit Fracture of greater tuberosity of left humerus Left shoulder pain TIA (transient ischemic attack) Chief Complaint POSTPROCEDURAL fall down stairs, upper extremity, knees LEFT SHOULDER PAIN LEFT SHOULDER CVA R/O CVA R/O CVA R/O LEFT LEG PAIN LEFT LEG SWELLING Reason for Visit Fracture of greater tuberosity of left humerus Left shoulder pain TIA (transient ischemic attack) Chief Complaint POSTPROCEDURAL fall down stairs, upper extremity, knees LEFT SHOULDER PAIN LEFT SHOULDER CVA R/O CVA R/O CVA R/O LEFT LEG PAIN LEFT LEG SWELLING PAIN IN LEFT SHOULDER LEFT SHOULDER Reason for Visit Fracture of greater tuberosity of left humerus Left shoulder pain TIA (transient ischemic attack) Fracture of greater tuberosity of left humerus Left shoulder pain Chief Complaint POSTPROCEDURAL fall down stairs, upper extremity, knees LEFT SHOULDER PAIN LEFT SHOULDER CVA R/O CVA R/O CVA R/O LEFT LEG PAIN LEFT LEG SWELLING PAIN IN LEFT SHOULDER LEFT SHOULDER lumbar spine L SHOULDER, HUMEROUS FX RX HERE Reason for Visit Fracture of greater tuberosity of left humerus Left shoulder pain TIA (transient ischemic attack) Fracture of greater tuberosity of left humerus Left shoulder pain Chief Complaint LEFT SHOULDER CVA R/O CVA R/O CVA R/O LEFT LEG PAIN LEFT LEG SWELLING PAIN IN LEFT SHOULDER LEFT SHOULDER lumbar spine L SHOULDER, HUMEROUS FX RX HERE SCREENING Reason for Visit Fracture of greater tuberosity of left humerus Left shoulder pain TIA (transient ischemic attack) Fracture of greater tuberosity of left humerus Left shoulder pain Chief Complaint lumbar spine L SHOULDER, HUMEROUS FX RX HERE SCREENING headache, n/v Chief Complaint SCREENING headache, n/v Chief Complaint Admit Date MASS RUQ March 13, 2024 1 :00pm SCREENING March 26, 2024 12:04pm ABN MAMM April 03, 2024 1:39pm BIRADS 4 April 08, 2024 9:42 am R BREAST MASS April 08, 2024 11:1 9am dizziness April 16, 2024 8:3 1pm Reason for Visit Admit Date Abdominal pain March 13, 2024 1 :00pm Mass of right breast April 08, 2024 9:4 2am Chief Complaint Admit Date gen ill October 02, 2024 8: 49am Chief Complaint Admit Date gen ill October 02, 2024 8: 49am concern for uti November 20, 2024 1 2:50pm Additional Source Comments INFORMATION SOURCE (unrecogn ized section and content) DATE CREATED AUTHOR 10/28/2018 [facility] DATE CREATED AUTHOR AUTHOR'S ORGANIZ ATION 12/01/2024 [facility] Goals (unrecognized section and content) Goals may be documented in a n alternate sectionGoals may be documented in an alternate sectionGoals may be documented in an alternate sectionGoals may be documented in an alternate sectionGoals may be documented in an alternate sectionGoals may be documented in an alternate sectionGoals may be documented in an alternate sectionGoals may be documented in an alternate sectionGoals may be documented in an alternate sectionGoals may be documented in an alternate sectionGoals may be documented in an alternate sectionGoals may be documented in an alternate sectionGoals may be documented in an alternate sectionGoals may be documented in an alternate sectionGoals may be documented in an alternate sectionGoals may be documented in an alternate sectionGoals may be documented in an alternate sectionGoals may be documented in an alternate sectionGoals may be documented in an alternate sectionGoals may be documented in an alternate section Care Teams (unrecognized sec tion and content) Team Status: Active Member Role Status Dates Dr. Rody Gaston DO Family Provider Active Dr. Rody Gaston DO Primary Care Provider Active Team Status: Active Member Role Status Dates Dr. Rody Gaston DO Primary Care Provider, Referring P jeff Active Dr. Case Garg MD Attending Provider, Other Prov ider Active Team Status: Inactive Member Role Status Dates Dr. Rody Gaston DO Primary Care Provider, Referring P jeff Active Dr. Case Garg MD Attending Provider Active Team Status: Inactive Member Role Status Dates Dr. Rody Gaston DO Primary Care Provider Active Dr. Parvez Soriano MD Attending Provider Active Team Status: Inactive Member Role Status Dates Dr. Rody Gaston DO Primary Care Provider Active Dr. Beto Mckinney , DO Attending Provider, Emergency Pr ovider Active Team Status: Inactive Member Role Status Dates Dr. Rody Gaston DO Primary Care Provide r, Attending Provider, Referring Provider Active Team Status: Inactive Member Role Status Dates Dr. Rody Gaston DO Primary Care Provider, Referring P rovider Active Shaun Carbone MD Attending Provider Active Team Status: Active Member Role Status Dates Dr. Rody Gaston DO Primary Care Provider Active Dr. Kalia Marmolejo , DO Attending Provider, Referring P rovider Active Team Status: Active Member Role Status Dates Dr. Rody Gaston DO Primary Care Provider Active Dr. Lisandra Sethi , DO Emergency Provider Active Dr. Tanvir Nicole MD Admit Provider, Attending Provider Active Team Status: Active Member Role Status Dates Dr. Rody Gaston DO Primary Care Provider Active Dr. Lisandra Sethi , DO Emergency Provider Active Dr. Tanvir Nicole MD Admit Provi sher, Attending Provider, Other Provider Active Team Status: Active Member Role Status Dates Dr. Rody Gaston DO Primary Care Provider Active Dr. Taco Heart MD Attending Provider Active Team Status: Inactive Member Role Status Dates Dr. Rody Gaston DO Primary Care Provider Active Dr. Lisandra Sethi , DO Emergency Provider Active Dr. Tanvir Nicole MD Admit Provider, Attending Provider Active Team Status: Active Member Role Status Dates Dr. Rody Gaston DO Primary Care Provider Active Dr. Case Garg MD Attending Provider Active Team Status: Inactive Member Role Status Dates Dr. Rody Gaston DO Primary Care Provider Active Dr. Beto Mckinney , DO Attending Provider, Referring Pr ovider Active Team Status: Active Member Role Status Dates Dr. Rody Gaston DO Primary Care Provide r, Attending Provider, Referring Provider Active Team Status: Active Member Role Status Dates Dr. Rody Gaston DO Primary Care Provider Active Dr. Taco Heart MD Attending Provider Active Dr. Tanvir Nicole MD Referring Provider Active Team Status: Inactive Member Role Status Dates Dr. Rody Gaston DO Primary Care Provider Active Shaun Carbone MD Attending Provider, Referring Prov ider Active Team Status: Inactive Member Role Status Dates Dr. Rody Gaston DO Primary Care Provider, Referring P rovider Active Dr. Jonah Barber DO Attending Provider Active Team Status: Inactive Member Role Status Dates Dr. Rody Gaston DO Primary Care Provider Active Dr. Kalia Marmolejo DO Attending Provider, Referring P rovider Active Team Status: Active Member Role Status Dates Dr. oRdy Gaston DO Primary Care Provider Active Shaun Carbone MD Attending Provider, Referring Prov ider Active Team Status: Inactive Member Role Status Dates Dr. Rody Gaston DO Primary Care Provider Active Bigg Dick MD Emergency Provider Active Team Status: Inactive Member Role Status Dates Dr. Rody Gaston DO Primary Care Provider Active Bigg Dick MD Attending Provider, Emergency Provid er Active Team Status: Active Member Role Status Dates Dr. Rody Gaston DO Primary Care Provider Active Team Status: Inactive Member Role Status Dates Dr. Rody Gaston DO Primary Care Provider Active Start: January 22, 2024 End: January 22, 2024 GAYLE Manjarrez Attending Provider Active St art: January 22, 2024 End: January 22, 2024 GAYLE Manjarrez Referring Provider Active St art: January 22, 2024 End: January 22, 2024 Team Status: Inactive Member Role Status Dates Dr. Royd Gaston DO Primary Care Provider Active Start: March 13, 2024 End: March 13, 2024 Dr. Rody Gaston DO Referring Provider Active St art: March 13, 2024 End: March 13, 2024 Dr. Harpreet Manning MD Attending Provider Active Start: March 13, 2024 End: March 13, 2024 Team Status: Inactive Member Role Status Dates Dr. Rody Gaston DO Primary Care Provider Active Start: March 26, 2024 End: March 26, 2024 Dr. Kalia Marmolejo DO Attending Provider Active Start: March 26, 2024 End: March 26, 2024 Dr. Kalia Marmolejo DO Referring Provider Active Start: March 26, 2024 End: March 26, 2024 Team Status: Active Member Role Status Dates Dr. Rody Gaston DO Primary Care Provider Active Start: April 03, 2024 Dr. Kalia Marmolejo DO Attending Provider Active Start: April 03, 2024 Dr. Kalia Marmolejo DO Referring Provider Active Start: April 03, 2024 Team Status: Inactive Member Role Status Dates Dr. Rody Gaston DO Primary Care Provider Active Start: April 08, 2024 End: April 08, 2024 Dr. Rody Gaston DO Referring Provider Active St art: April 08, 2024 End: April 08, 2024 Dr. Parvez Soriano MD Attending Provider Active Start: April 08, 2024 End: April 08, 2024 Team Status: Active Member Role Status Dates Dr. Rody Gaston DO Primary Care Provider Active Start: April 08, 2024 Dr. Parvez Soriano MD Attending Provider Active Start: April 08, 2024 Dr. Parvez Soriano MD Referring Provider Active Start: April 08, 2024 Team Status: Inactive Member Role Status Dates Dr. Rody Gaston DO Primary Care Provider Active Start: April 16, 2024 End: April 16, 2024 Dr. Beto Mckinney DO Emergency Provider Active Start: April 16, 2024 End: April 16, 2024 Team Status: Inactive Member Role Status Dates Dr. Rody Gaston DO Primary Care Provider Active Start: April 03, 2024 End: April 03, 2024 Dr. Kalia Marmolejo DO Attending Provider Active Start: April 03, 2024 End: April 03, 2024 Dr. Kalia Marmolejo DO Referring Provider Active Start: April 03, 2024 End: April 03, 2024 Team Status: Inactive Member Role Status Dates Dr. Rody Gaston DO Primary Care Provider Active Start: April 08, 2024 End: April 08, 2024 Dr. Parvez Soriano MD Attending Provider Active Start: April 08, 2024 End: April 08, 2024 Dr. Parvez Sroiano MD Referring Provider Active Start: April 08, 2024 End: April 08, 2024 Team Status: Inactive Member Role Status Dates Dr. Rody Gaston DO Primary Care Provider Active Start: April 16, 2024 End: April 16, 2024 Dr. Beto Mckinney DO Attending Provider Active Start: April 16, 2024 End: April 16, 2024 Dr. Beto Mckinney DO Emergency Provider Active Start: April 16, 2024 End: April 16, 2024 Team Status: Inactive Member Role Status Dates Dr. Rody Gaston DO Primary Care Provider Active Start: April 24, 2024 End: April 24, 2024 Dr. Rody Gaston DO Attending Provider Active St art: April 24, 2024 End: April 24, 2024 Team Status: Inactive Member Role Status Dates Dr. Rody Gaston DO Primary Care Provider Active Start: May 17, 2024 End: May 17, 2024 GAYLE Manjarrez Attending Provider Active St art: May 17, 2024 End: May 17, 2024 Team Status: Active Member Role/Relationship Status Dates Dr. Rody Gaston DO Primary Care Provider Active Team Status: Inactive Member Role/Relationship Status Dates Dr. Rody Gaston DO Primary Care Provider Active Start: October 02, 2024 End: October 02, 2024 Bigg Dick MD Emergency Provider Active Star t: October 02, 2024 End: October 02, 2024 Team Status: Active Member Role/Relationship Status Dates Dr. Rody Gaston DO Primary care physician Active Team Status: Inactive Member Role/Relationship Status Dates Dr. Rody Gaston DO Primary care physician Active Start: October 02, 2024 End: October 02, 2024 Bigg Dick MD Attending physician Active Sta rt: October 02, 2024 End: October 02, 2024 Bigg Dick MD Emergency Department Physician Activ e Start: October 02, 2024 End: October 02, 2024 Team Status: Inactive Member Role/Relationship Status Dates Dr. Rody Gaston DO Primary care physician Active Start: November 20, 2024 End: November 20, 2024 Dr. Rody Gaston DO Referring Provider Active St art: November 20, 2024 End: November 20, 2024 Harpreet RACHEL PA Attending physician Active Start: November 20, 2024 End: November 20, 2024 Team Status: Inactive Member Role/Relationship Status Dates Dr. Rody Gaston DO Primary care physician Active Start: November 20, 2024 End: November 20, 2024 Harpreet RACHEL PA Attending physician Active Start: November 20, 2024 End: November 20, 2024 Harpreet RACHEL, PA Referring Provider Active Start: November 20, 2024 End: November 20, 2024 FOR RECORDS PERTAINING TO PATIENTS WHO ARE OR HAVE BEEN ENROLLED IN A CHEMICAL DEPENDENCY/SUBSTANCEABUSE PROGRAM, SOME INFORMATION MAY BE OMITTED. This clinical summary was aggregated from multiple sources. Caution should be exercised in using it in the provision of clinical care. This summary normalizes information from multiple sources, and as a consequence, information in this document may materially change the coding, format and clinical context of patient data. In addition, data may be omitted in some cases. CLINICAL DECISIONS SHOULD BE BASED ON THE PRIMARY CLINICAL RECORDS. [facility] [employer] provides no warranty or guarantee of the accuracy or completeness of information in this document.
[2025-01-11 08:09] LABS: Age Gdln ACOG Testing 30-65 (.); HPV APTIMA, High Risk Negative (Negative)
== END | disposition home or self-care (01) ==
LOC: LABSPEC 15:38
PROVIDERS: PCP Family Medicine; Visit Provider Family Medicine
DX: Z12.4 Encounter for screening for malignant neoplasm of cervix (principal)
CPT/HCPCS: 87624; 88175; G0145